=== PATIENT | female | born 1970 | race Caucasian/White ===

== ENCOUNTER 2021-04-23 13:45 | Inpatient (IN) | payer OTHER, MEDICARE, MEDICAID, SELFPAY ==
--- NOTE | 2021-04-23 16:09 | PC.NURSE ---
Offered pt the flu vaccine, pt declined at this time.
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
[2021-04-23 20:32] VITALS: BP 128/72; PULSE 79; TEMP 36.8; O2SAT 95
[2021-04-23] MEDS: QUEtiapine Fumarate 200 MG TABLET PO (20:41)
[2021-04-23] MEDS: diazePAM 5 MG TABLET PO (20:41)
[2021-04-23] MEDS: QUEtiapine Fumarate 400 MG TABLET 800 MG PO (20:41)
[2021-04-23] MEDS: hydrOXYzine HCL 25 MG TABLET PO (23:04)
[2021-04-24 08:25] VITALS: BP 113/63; PULSE 132; RESP 16; TEMP 36.6; O2SAT 95
[2021-04-24] MEDS: diazePAM 5 MG TABLET PO ×3 (08:28→22:11)
[2021-04-24] MEDS: Nicotine 21 MG PATCH.TD24 TRANSDERMA (14:50)
--- NOTE | 2021-04-24 14:50 | P.CNHOSGPS_ITS ---
History of Present Illness Data of Consult Service Date: 04/24/21 Requesting physician: Morgan Alexandre Primary Care Provider: Kain Garnica MD HPI Reason for consult: Routine medical consult - transfer from outside facility This is a 51-year-old female with history of PTSD, depression, anxiety who presented to [facility] Emergency Department for shortness of breath but endorsed suicidal ideation with plan. She was transferred to Adult inpatient Psychiatric floor here at [facility] for further management. The hospitalists were asked to see her for routine medical consultation. She denies shortness of breath at this time. She does describe what sounds like a fungal rash in her groin. She reports urinary frequency but denies dysuria or hematuria. She reports palpitations that occur frequently which has been a problem for years and she attributes to anxiety. She thinks she may have had a thyroid issue in the past which resolved. She does not currently take any thyr oid replacement. She denies any chest pain. Review of Systems Review of Systems: Yes all other systems are reviewed and are negative Constitutional: Constitutional: Denies chills and Denies fever(s) Cardiovascular: Cardiovascular: Denies chest pain, Reports palpitations and Denies orthopnea Respiratory: Respiratory: Denies cough Gastrointestinal: Gastrointestinal: Denies abdominal pain Genitourinary: Genitourinary: Denies dysuria and Denies vaginal discharge Endocrine: Endocrine: Reports palpitations [facility] Medical History (Updated 04/24/21 @ 15:03 by KALINA Hearn) Compartment syndrome of lower extremity COPD (chronic obstructive pulmonary disease) CHELLE (generalized anxiety disorder) MDD (major depressive disorder), recurrent episode, moderate Post traumatic stress disorder (PTSD) Functional capacity: independent ambulation Pertinent family history: brother - schizophrenia Social History Household Members: None Housing: House Do you presently have visiting nurse or other home services: No Patient Tobacco Use Status: Current everyday Tobacco user Tobacco use type: Cigarette Years Smoked: 40 Smoked in Last 30 Days: Yes e-Cigarette/Vaping Use: Never Used Patient Interested in Nicotine Replacement: Yes Patient Given Instructions on How to Stop Smoking: Yes Date Education Initiated: 04/23/21 Second Hand Smoke Exposure: Yes Use of substances other than those prescribed or required for medical reasons: No Currently Displaying Signs/Symptoms of Drug Intoxication Withdrawal: No Any prior treatment program specific to substance use: No Have you been hit, kicked, punched, or otherwise hurt by someone within the past year? If so, by whom?: No Do you feel safe in your current relationship?: No Current Relationship Are you made to feel afraid or neglected: Yes Spiritual Healthcare Practices: N/A Mormonism Healthcare Practices: N/A Advance Directives: Yes Advance Directives Information Provided: Yes Advance Directives on File: No Do you have thoughts of harming others: None Do you have a plan to hurt others: No Plan Recently lost weight without trying: No How much weight loss: Not applicable Eating poorly because of decreased appetite: Yes Nutrition screen score: 1 Nutrition Risks: No Nutritional Risk Patient : No : No service: No Sexual orientation: Straight/Heterosexual Meds Allergies Allergy/AdvReac Type Severity Reaction Status Date / Time No Known Allergies Allergy Unverified 03/20/20 19:15 [No Known Allergies*] Active Medications: Current Medications Acetaminophen (Acetaminophen 325 Mg Tablet) 650 mg PO Q6H PRN PRN Reason: Headache/Pain Mild Scale (1-3) Al Hydroxide/Mg Hydroxide (Magnesium Hydrox/Alum Hydrox 30 Ml Oral.Susp) 30 ml PO Q6H PRN PRN Reason: Heartburn/Nausea Diazepam (Diazepam 5 Mg Tablet) 5 mg PO TID [facility] Last Admin: 04/24/21 08:28 Dose: 5 mg Documented by: Hydroxyzine HCl (Hydroxyzine Hcl 25 Mg Tablet) 25 mg PO BEDTIME PRN PRN Reason: Anxiety Last Admin: 04/23/21 23:04 Dose: 25 mg Documented by: Magnesium Hydroxide (Milk Of Magnesia 30 Ml Oral.Susp) 30 ml PO DAILY PRN PRN Reason: Constipation Nicotine (Nicotine 21 Mg Patch.Td24) 21 mg TRANSDERMA DAILY [facility] Nicotine Polacrilex (Nicotine Polacrilex 2 Mg Gum) 2 mg BUCCAL Q2H PRN PRN Reason: Nicotine Cravings Quetiapine Fumarate (Quetiapine Fumarate 400 Mg Tablet) 800 mg PO BEDTIME [facility] Last Admin: 04/23/21 20:41 Dose: 800 mg Documented by: Quetiapine Fumarate (Quetiapine Fumarate 200 Mg Tablet) 200 mg PO BEDTIME [facility] Last Admin: 04/23/21 20:41 Dose: 200 mg Documented by: Trazodone HCl (Trazodone Hcl 50 Mg Tablet) 50 mg PO BEDTIME PRN PRN Reason: Insomnia Home Medications Medication Instructions Recorded Confirmed Last Taken Type Valium 5 mg PO TID 04/23/21 04/23/21 Unknown History escitalopram oxalate 20 mg PO DAILY 04/23/21 04/23/21 Unknown History omeprazole 40 mg PO DAILY 04/23/21 04/23/21 Unknown History quetiapine 200 mg PO DAILY 04/23/21 04/23/21 Unknown History quetiapine 800 mg PO DAILY 04/23/21 04/23/21 Unknown History Assessment and Plan (1) Tobacco dependence: Status: Acute This is a 51-year-old female with history of COPD, depression, anxiety admitted to adult psychiatric floor for management suicidal ideation Tachycardia noted on am vital signs. reporting that she always has palpitations due to anxiety pt not tachycardic on exam if recurrent episodes of tachycardia would recommend EKG and check thyroid function if not done recently dysuria -will obtain UA fungal rash -nystatin COPD no acute exacerbation prn albuterol unknown maintenance inhaler outpatient follow up with pcp tobacco dependence smoking cessation advised -NRT Thank you for allowing us to participate in the care of this patient attending: dr. hernandez Physical Exam Vital Signs: Last Vital Signs Temp 97.9 F 04/24/21 08:25 Pulse 132 H 04/24/21 08:25 Resp 16 04/24/21 08:25 BP 113/63 04/24/21 08:25 Pulse Ox 95 04/24/21 08:25 Const General: comfortable, alert and awake Nutritional Appearance: well nourished Orientation/consciousness: patient oriented x3 HENMT Head: Yes normocephalic and Yes atraumatic Eyes Sclerae: sclerae normal Pupils: Equal, round and reactive pupils present Resp Effort & Inspection: normal respiratory effort and no respiratory distress Cardio Rate: regular rate Rhythm: regular rhythm GI Palpation (GI): Soft to palpation and nontender Neuro General: patient oriented x3 Cranial nerves: Yes CN's II-XII intact bilaterally, Yes Equal, round and reactive pupils present and Yes Bilaterally intact EOM present Extrem Other: no lower extremity edema
[2021-04-24 18:00] VITALS: BP 121/76; PULSE 95; RESP 18; TEMP 36.6; O2SAT 96
[2021-04-24 19:18] LABS: Appearance Urine HAZY; Color Urine YELLOW; Glucose Urine UA NEG (NEG); Leukocyte Esterase Urine 1+ (NEG); Nitrite Urine NEG (NEG); Specific Gravity - Urine >= 1.030 (1.005-1.025); UACC Culture Trigger YES; Urine Blood TRACE (NEG); Urine Ketones NEG (NEG); Urine Protein NEG (NEG-TRACE)
[2021-04-24 19:31] LABS: Bacteria Urine 1+ /LPF; Squamous Epithelial Cell Urine 3+ /LPF; UACC CULT YES
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
[2021-04-24] MEDS: QUEtiapine Fumarate 400 MG TABLET 800 MG PO (22:11)
[2021-04-24] MEDS: QUEtiapine Fumarate 200 MG TABLET PO (22:11)
[2021-04-24] MEDS: Nystatin Powder 15 GM BOTTLE 1 APPL TOPICAL (22:11)
[2021-04-24] MEDS: Albuterol Sulfate 90 MCG 8 GM INHALER 2 PUFF INHALE (22:16)
--- NOTE | 2021-04-24 22:27 | PC.NURSE ---
Mague reported a small amount of SOB, given Albuterol inhaler PO prn.
[2021-04-24] MEDS: hydrOXYzine HCL 25 MG TABLET PO (23:16)
[2021-04-25] MEDS: traZODone HCL 50 MG TABLET PO (00:42)
[2021-04-25] MEDS: Nystatin Powder 15 GM BOTTLE 1 APPL TOPICAL ×2 (08:57→22:55)
[2021-04-25] MEDS: Nicotine 21 MG PATCH.TD24 TRANSDERMA (08:57)
[2021-04-25] MEDS: diazePAM 5 MG TABLET PO ×3 (08:57→22:55)
[2021-04-25 10:04] VITALS: BP 137/57; PULSE 104; RESP 16; TEMP 36.6; O2SAT 97
--- NOTE | 2021-04-25 16:48 | P.PNPSI_ITS ---
Subjective Subjective Date of Service: 04/25/21 Reason For Visit: depression and si Interim History: Patient seen and discussed with team. Per staff psychologist patient continues depressed. They are wondering if patient can have a cane to use. She has knee braces. No concern for aggression towards others. Denies SI. She discusses her depression and treatment resistance. 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 In hospital attire, unkempt, poor hygiene, overweight. Good eye contact, attentive. Has tremor in bilateral hands, fine and rhythmic, attributed to anxiety. No abnormal involuntary movements. Anxious, distressed but cooperative, engaged. Non-pressured speech, spontaneous with regular rate and rhythm, normal volume and prosody. No prolonged speech latency or dysarthria. Appears fragile in behavior, apologizing unnecessarily. Mood is ?depressed,? affect is dysphoric. Endorses SI with vague plans, denies intent. Denies SIB/HI upon inquiry. Denies A/VH or delusional thought content. Thoughts are perseverative. No known cognitive or memory impairment. Insight/ Judgment fair and adequate. Diagnostics Vital Signs (24Hr): Vital Signs - 24 hr 04/24/21 18:00 04/25/21 10:04 Temperature 98 F 97.9 F Pulse Rate 95 104 H Respiratory Rate 18 16 Blood Pressure 121/76 137/57 L Pulse Oximetry 96 97 Labs Labs: Laboratory Results - last 48 hr 04/24/21 19:05 Urine Color YELLOW Urine Appearance HAZY Urine pH 6.0 Ur Specific [place] >= 1.030 H Urine Protein NEG Urine Glucose (UA) NEG Urine Ketones NEG Urine Blood TRACE Urine Nitrite NEG Ur Leukocyte Esterase 1+ H Urine RBC 5-9 H Urine WBC 10-14 H Ur Squamous Epith Cells 3+ Urine Bacteria 1+ Medications Medications Current Medications Acetaminophen (Acetaminophen 325 Mg Tablet) 650 mg PO Q6H PRN PRN Reason: Headache/Pain Mild Scale (1-3) Al Hydroxide/Mg Hydroxide (Magnesium Hydrox/Alum Hydrox 30 Ml Oral.Susp) 30 ml PO Q6H PRN PRN Reason: Heartburn/Nausea Albuterol Sulfate (Albuterol Sulfate 90 Mcg 8 Gm Inhaler) 2 puff INHALE RQ6H PRN PRN Reason: Shortness of Breath Last Admin: 04/24/21 22:16 Dose: 2 puff Documented by: Diazepam (Diazepam 5 Mg Tablet) [address] [facility] Last Admin: 04/25/21 15:09 Dose: 5 mg Documented by: Hydroxyzine HCl (Hydroxyzine Hcl 25 Mg Tablet) 25 mg PO BEDTIME PRN PRN Reason: Anxiety Last Admin: 04/24/21 23:16 Dose: 25 mg Documented by: Magnesium Hydroxide (Milk Of Magnesia 30 Ml Oral.Susp) 30 ml PO DAILY PRN PRN Reason: Constipation Nicotine (Nicotine 21 Mg Patch.Td24) [address] [facility] Last Admin: 04/25/21 08:57 Dose: 21 mg Documented by: Nicotine Polacrilex (Nicotine Polacrilex 2 Mg Gum) 2 mg BUCCAL Q2H PRN PRN Reason: Nicotine Cravings Nystatin (Nystatin Powder 15 Gm Bottle) [address] [facility]; Protocol Last Admin: 04/25/21 08:57 Dose: 1 appl Documented by: Quetiapine Fumarate (Quetiapine Fumarate 400 Mg Tablet) [address] [facility] Last Admin: 04/24/21 22:11 Dose: 800 mg Documented by: Quetiapine Fumarate (Quetiapine Fumarate 200 Mg Tablet) [address] [facility] Last Admin: 04/24/21 22:11 Dose: 200 mg Documented by: Trazodone HCl (Trazodone Hcl 50 Mg Tablet) 50 mg PO BEDTIME PRN PRN Reason: Insomnia Last Admin: 04/25/21 00:42 Dose: 50 mg Documented by: Allergies Allergies Allergy/AdvReac Type Severity Reaction Status Date / Time No Known Allergies Allergy Unverified 03/20/20 19:15 [No Known Allergies*] Assessment & Plan Assessment & Plan (1) Tobacco dependence: Status: Acute Code(s): F17.200 - Nicotine dependence, unspecified, uncomplicated (2) MDD (major depressive disorder), recurrent episode, moderate: Status: Acute Code(s): F33.1 - Major depressive disorder, recurrent, moderate (3) CHELLE (generalized anxiety disorder): Status: Acute Code(s): F41.1 - Generalized anxiety disorder (4) Post traumatic stress disorder (PTSD): Status: Acute Code(s): F43.10 - Post-traumatic stress disorder, unspecified Assessment and Plan: Pt is a 51 y.o. 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 She has co-morbid chronic pain issues and ambulates with leg braces s/p fasciitis. Denies substance or alcohol use problems. Reports significant past traumas that she has had difficulty moving past. Hx of multiple past med trials, IPLOC, ECT but pt denies benefit. Currently presenting with sx of depression, lack of self care, anxiety with panic attacks, isolative behaviors, and intrusive negative thoughts. She feels safe on the unit and denies suicidal intent or plan at hospital. She has been using diazepam and high dose seroquel for sleep and anxiety management but denies that seroquel has helped with depression sx. No med changes made today, as more collateral info is needed and will monitor pt's behaviors on unit to assess for coping skills and strengths. 04/24: Seen by hospitalist for consult, much appreciated. Reported rash, prescribed nystatin. U/A obtained for dysuria. No med changes made today, as pt has a hx of extensive med trials and ECT. Had been discussing ketamin with OP prescriber but pt remains ambivalent. Discussed other options including TMS, emsam patch, or decreasing seroquel and initiating vraylar to target mood stability, perseverative thoughts, and anxious agitation. Pt will f/u with primary psych provider on Tuesday. Monitor response to current medications. Monitor for safety in the milieu. Discharge on stabilization. Patient seen. Chart reviewed. Discussed with team. Obtain collateral contact info?as needed I spent minutes with the patient and/or on the patient floor today, greater than?50% of which was spent counseling/coordinating care. Reason for contiued inpatient stay Substantial Risk for: harm to self and rapid decompensation
[2021-04-25] MEDS: Magnesium Hydrox/Alum Hydrox 30 ML ORAL.SUSP PO (17:59)
[2021-04-25 18:00] VITALS: BP 136/69; PULSE 95; RESP 18; TEMP 36.9; O2SAT 98
[2021-04-25] MEDS: Omeprazole 40 MG CAPSULE.DR PO (19:02)
[2021-04-25] MEDS: QUEtiapine Fumarate 400 MG TABLET 800 MG PO (22:55)
[2021-04-25] MEDS: Nicotine Polacrilex 2 MG GUM BUCCAL (22:55)
[2021-04-25] MEDS: QUEtiapine Fumarate 200 MG TABLET PO (22:55)
[2021-04-26] MEDS: traZODone HCL 50 MG TABLET PO ×2 (00:33→01:23)
[2021-04-26] MEDS: hydrOXYzine HCL 25 MG TABLET PO ×2 (00:33→22:04)
[2021-04-26] MEDS: Omeprazole 40 MG CAPSULE.DR PO ×2 (11:12→22:00)
[2021-04-26] MEDS: diazePAM 5 MG TABLET PO ×3 (11:13→22:00)
[2021-04-26] MEDS: Nicotine 21 MG PATCH.TD24 TRANSDERMA (11:13)
[2021-04-26] MEDS: Nystatin Powder 15 GM BOTTLE 1 APPL TOPICAL ×2 (11:25→22:01)
--- NOTE | 2021-04-26 20:12 | P.PNPSI_ITS ---
Subjective Subjective Date of Service: 04/26/21 Reason For Visit: depression and si Interim History: Patient seen and discussed with team. Per industrial staff nurse patient continues depressed. She complained of insomnia. Denies SI. She discusses her depression and treatment resistance. Helpless and hopeless presenting. Review of Systems Review of Systems Yes all other systems are reviewed and are negative Mental Status Exam Mental Status Exam Narrative: A&O. In hospital attire, unkempt, poor hygiene, overweight. Good eye contact, attentive. Has tremor in bilateral hands, fine and rhythmic, attributed to anxiety. No abnormal involuntary movements. Anxious, distressed but cooperative, engaged. Non-pressured speech, spontaneous with regular rate and rhythm, normal volume and prosody. No prolonged speech latency or dysarthria. Appears fragile in behavior, apologizing unnecessarily. Mood is ?depressed,? affect is dysphoric. Endorses SI with vague plans, denies intent. Denies SIB/HI upon inquiry. Denies A/VH or delusional thought content. Thoughts are perseverative. No known cognitive or memory impairment. Insight/ Judgment fair and adequate. Medications Medications Current Medications Acetaminophen (Acetaminophen 325 Mg Tablet) 650 mg PO Q6H PRN PRN Reason: Headache/Pain Mild Scale (1-3) Al Hydroxide/Mg Hydroxide (Magnesium Hydrox/Alum Hydrox 30 Ml Oral.Susp) 30 ml PO Q6H PRN PRN Reason: Heartburn/Nausea Last Admin: 04/25/21 17:59 Dose: 30 ml Documented by: Albuterol Sulfate (Albuterol Sulfate 90 Mcg 8 Gm Inhaler) 2 puff INHALE RQ6H PRN PRN Reason: Shortness of Breath Last Admin: 04/24/21 22:16 Dose: 2 puff Documented by: Diazepam (Diazepam 5 Mg Tablet) 5 mg PO TID [facility] Last Admin: 04/26/21 15:25 Dose: 5 mg Documented by: Hydroxyzine HCl (Hydroxyzine Hcl 25 Mg Tablet) 25 mg PO BEDTIME PRN PRN Reason: Anxiety Last Admin: 04/26/21 00:33 Dose: 25 mg Documented by: Magnesium Hydroxide (Milk Of Magnesia 30 Ml Oral.Susp) 30 ml PO DAILY PRN PRN Reason: Constipation Melatonin (Melatonin 3 Mg Tablet) 6 mg PO BEDTIME [facility] Nicotine (Nicotine 21 Mg Patch.Td24) 21 mg TRANSDERMA DAILY [facility] Last Admin: 04/26/21 11:13 Dose: 21 mg Documented by: Nicotine Polacrilex (Nicotine Polacrilex 2 Mg Gum) 2 mg BUCCAL Q2H PRN PRN Reason: Nicotine Cravings Last Admin: 04/25/21 22:55 Dose: 2 mg Documented by: Nystatin (Nystatin Powder 15 Gm Bottle) 1 appl TOPICAL BID [facility]; Protocol Last Admin: 04/26/21 11:25 Dose: 1 appl Documented by: Omeprazole (Omeprazole 40 Mg Capsule.Dr) 40 mg PO BEDTIME [facility] Quetiapine Fumarate (Quetiapine Fumarate 400 Mg Tablet) 800 mg PO BEDTIME [facility] Last Admin: 04/25/21 22:55 Dose: 800 mg Documented by: Quetiapine Fumarate (Quetiapine Fumarate 200 Mg Tablet) 200 mg PO BEDTIME [facility] Last Admin: 04/25/21 22:55 Dose: 200 mg Documented by: Trazodone HCl (Trazodone Hcl 50 Mg Tablet) 50 mg PO BEDTIME PRN PRN Reason: Insomnia Last Admin: 04/26/21 01:23 Dose: 50 mg Documented by: Allergies Allergies Allergy/AdvReac Type Severity Reaction Status Date / Time No Known Allergies Allergy Unverified 03/20/20 19:15 [No Known Allergies*] Assessment & Plan Assessment & Plan (1) Tobacco dependence: Status: Acute Code(s): F17.200 - Nicotine dependence, unspecified, uncomplicated (2) MDD (major depressive disorder), recurrent episode, moderate: Status: Acute Code(s): F33.1 - Major depressive disorder, recurrent, moderate (3) CHELLE (generalized anxiety disorder): Status: Acute Code(s): F41.1 - Generalized anxiety disorder (4) Post traumatic stress disorder (PTSD): Status: Acute Code(s): F43.10 - Post-traumatic stress disorder, unspecified Assessment and Plan: Pt is a 51 y.o. 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 She has co-morbid chronic pain issues and ambulates with leg braces s/p fasciitis. Denies substance or alcohol use problems. Reports significant past traumas that she has had difficulty movi ng past. Hx of multiple past med trials, IPLOC, ECT but pt denies benefit. Currently presenting with sx of depression, lack of self care, anxiety with panic attacks, isolative behaviors, and intrusive negative thoughts. She feels safe on the unit and denies suicidal intent or plan at hospital. She has been using diazepam and high dose seroquel for sleep and anxiety management but denies that seroquel has helped with depression sx. No med changes made today, as more collateral info is needed and will monitor pt's behaviors on unit to assess for coping skills and strengths. 04/24: Seen by hospitalist for consult, much appreciated. Reported rash, prescribed nystatin. U/A obtained for dysuria. No med changes made today, as pt has a hx of extensive med trials and ECT. Had been discussing ketamin with OP prescriber but pt remains ambivalent. Discussed other options including TMS, emsam patch, or decreasing seroquel and initiating vraylar to target mood stability, perseverative thoughts, and anxious agitation. Pt will f/u with primary psych provider Tuesday. Monitor response to current medications. Monitor for safety in the milieu. Discharge on stabilization. Patient seen. Chart reviewed. Discussed with team. Obtain collateral contact info?as needed 04/26/21: Start Melatonin 6 mg HS I spent minutes with the patient and/or on the patient floor today, greater than?50% of which was spent counseling/coordinating care. Reason for contiued inpatient stay Substantial Risk for: harm to self and inability to function
[2021-04-26 20:44] VITALS: PULSE 94; TEMP 36.6; O2SAT 96
[2021-04-26] MEDS: QUEtiapine Fumarate 200 MG TABLET PO (22:00)
[2021-04-26] MEDS: QUEtiapine Fumarate 400 MG TABLET 800 MG PO (22:00)
[2021-04-26] MEDS: Melatonin 3 MG TABLET 6 MG PO (22:00)
[2021-04-27] MEDS: traZODone HCL 50 MG TABLET PO ×2 (00:18→23:38)
[2021-04-27] MEDS: diazePAM 5 MG TABLET PO ×3 (11:03→23:38)
[2021-04-27] MEDS: Nystatin Powder 15 GM BOTTLE 1 APPL TOPICAL ×2 (11:04→23:39)
[2021-04-27] MEDS: Nicotine 21 MG PATCH.TD24 TRANSDERMA (11:04)
[2021-04-27 15:26] VITALS: BP 117/73; PULSE 85
[2021-04-27] MEDS: cloNIDine 0.1 MG PATCH.TDWK TRANSDERMA (15:26)
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
[2021-04-27 20:44] VITALS: BP 122/61; PULSE 91; TEMP 36.6; O2SAT 95
[2021-04-27] MEDS: Melatonin 3 MG TABLET 6 MG PO (23:38)
[2021-04-27] MEDS: hydrOXYzine HCL 25 MG TABLET PO (23:38)
[2021-04-27] MEDS: QUEtiapine Fumarate 400 MG TABLET 800 MG PO (23:39)
[2021-04-27] MEDS: Omeprazole 40 MG CAPSULE.DR PO (23:39)
[2021-04-27] MEDS: QUEtiapine Fumarate 200 MG TABLET PO (23:39)
[2021-04-28] MEDS: traZODone HCL 50 MG TABLET PO (01:35)
[2021-04-28] MEDS: Nystatin Powder 15 GM BOTTLE 1 APPL TOPICAL ×2 (09:44→22:57)
[2021-04-28] MEDS: Nicotine 21 MG PATCH.TD24 TRANSDERMA (09:44)
[2021-04-28] MEDS: diazePAM 5 MG TABLET PO ×3 (09:44→22:57)
[2021-04-28 10:10] VITALS: BP 127/54; PULSE 86; RESP 16; TEMP 36.7; O2SAT 97
[2021-04-28] MEDS: Ibuprofen 800 MG TABLET PO ×2 (12:29→23:33)
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
[2021-04-28 20:50] VITALS: BP 120/63; PULSE 94; RESP 18; TEMP 36.6; O2SAT 94
[2021-04-28] MEDS: QUEtiapine Fumarate 400 MG TABLET 800 MG PO (22:56)
[2021-04-28] MEDS: QUEtiapine Fumarate 200 MG TABLET PO (22:56)
[2021-04-28] MEDS: Melatonin 3 MG TABLET 6 MG PO (22:56)
[2021-04-28 22:57] VITALS: BP 128/60; PULSE 87
[2021-04-28] MEDS: cloNIDine HCL 0.1 MG TABLET PO (22:57)
[2021-04-28] MEDS: Magnesium Hydrox/Alum Hydrox 30 ML ORAL.SUSP PO (23:33)
[2021-04-28] MEDS: hydrOXYzine HCL 25 MG TABLET PO (23:34)
[2021-04-29] MEDS: traZODone HCL 50 MG TABLET PO (01:05)
[2021-04-29] MEDS: Omeprazole 40 MG CAPSULE.DR PO (06:39)
[2021-04-29 09:45] VITALS: BP 95/54; PULSE 80; RESP 18; TEMP 36.6; O2SAT 96
[2021-04-29] MEDS: Nicotine 21 MG PATCH.TD24 TRANSDERMA (09:53)
[2021-04-29] MEDS: diazePAM 5 MG TABLET PO (09:53)
[2021-04-29] MEDS: Nystatin Powder 15 GM BOTTLE 1 APPL TOPICAL ×2 (10:18→23:03)
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
[2021-04-29 13:16] LABS: Cholesterol 181 mg/dL; HDL Cholesterol 47 mg/dL; LDL Cholesterol Calculated 72 mg/dl; Triglycerides 310 mg/dL
[2021-04-29 13:40] LABS: Estimated Average Glucose 111 mg/dL; Hemoglobin A1c % 5.5 %
[2021-04-29] MEDS: diazePAM 5 MG TABLET 7.5 MG PO ×2 (14:52→22:56)
[2021-04-29] MEDS: Ibuprofen 800 MG TABLET PO (15:24)
[2021-04-29 18:00] VITALS: BP 117/58; PULSE 93; RESP 18; TEMP 36.8; O2SAT 96
[2021-04-29] MEDS: QUEtiapine Fumarate 400 MG TABLET 800 MG PO (22:56)
[2021-04-29] MEDS: Melatonin 3 MG TABLET 6 MG PO (22:56)
[2021-04-29] MEDS: QUEtiapine Fumarate 200 MG TABLET PO (22:56)
[2021-04-29 22:57] VITALS: BP 110/67; PULSE 92
[2021-04-29] MEDS: cloNIDine HCL 0.2 MG TABLET PO (22:57)
[2021-04-30] MEDS: hydrOXYzine HCL 25 MG TABLET PO ×2 (00:21→21:46)
[2021-04-30 06:00] VITALS: BP 115/63; PULSE 80; RESP 16; TEMP 36.9; O2SAT 96
[2021-04-30] MEDS: Omeprazole 40 MG CAPSULE.DR PO (06:52)
[2021-04-30] MEDS: Nicotine 21 MG PATCH.TD24 TRANSDERMA (09:43)
[2021-04-30] MEDS: diazePAM 5 MG TABLET 7.5 MG PO ×3 (09:44→21:34)
--- NOTE | 2021-04-30 11:37 | P.PNPSI_ITS ---
Subjective Subjective Date of Service: 04/30/21 Reason For Visit: depression and si Interim History: pt requests to meet in her room today due to feeling tired... found resting in her bed, easily rousable. she reports her mood is an anxiety level of 9/10. she appears drowsy. MD notes that perhaps the recent increase in valium dosing is making her sleepy, but she feels it does not usually do that and is skeptical. she states she had difficulty falling asleep last night but denies it was due to reflux. reports once she fell asleep she stayed asleep and slept for about 5 hours. she reports her mood has not changed since admission. she is agreeable to continue current mgmt for now. per staff, DFA due to reflux. reporting anx/dep 9/10. denies SI/HI during day, endorsed passive SI on eves. Mental Status Exam Mental Status Exam Narrative: A&O. In sweats, unkempt, poor hygiene, overweight. fair eye contact, attentive but somnolent. No abnormal involuntary movements. Anxious but cooperative, engaged. Non-pressured speech, spontaneous with regular rate and rhythm, normal volume and prosody. No prolonged speech latency or dysarthria. Mood is anxious, affect is constricted. Thoughts are linear and logical. No known cognitive or memory impairment. Insight/ Judgment fair and adequate. Diagnostics Vital Signs (24Hr): Vital Signs - 24 hr 04/29/21 18:00 04/29/21 22:57 04/30/21 06:00 Temperature 98.2 F 98.4 F Pulse Rate 93 92 80 Respiratory Rate 18 16 Blood Pressure 117/58 L 110/67 115/63 Pulse Oximetry 96 96 Labs Labs: Laboratory Results - last 48 hr 04/29/21 04/29/21 12:54 12:54 Estimat Average Glucose 111 Hemoglobin A1c % 5.5 Triglycerides 310 Cholesterol 181 LDL Cholesterol, Calc 72 HDL Cholesterol 47 Medications Medications Current Medications Acetaminophen (Acetaminophen 325 Mg Tablet) 650 mg PO Q6H PRN PRN Reason: Headache/Pain Mild Scale (1-3) Al Hydroxide/Mg Hydroxide (Magnesium Hydrox/Alum Hydrox 30 Ml Oral.Susp) 30 ml PO Q6H PRN PRN Reason: Heartburn/Nausea Last Admin: 04/28/21 23:33 Dose: 30 ml Documented by: Albuterol Sulfate (Albuterol Sulfate 90 Mcg 8 Gm Inhaler) 2 puff INHALE RQ6H PRN PRN Reason: Shortness of Breath Last Admin: 04/24/21 22:16 Dose: 2 puff Documented by: Clonidine HCl (Clonidine Hcl 0.2 Mg Tablet) 0.2 mg PO BEDTIME [facility]; Protocol Last Admin: 04/29/21 22:57 Dose: 0.2 mg Documented by: Diazepam (Diazepam 5 Mg Tablet) 7.5 mg PO TID [facility] Last Admin: 04/30/21 09:44 Dose: 7.5 mg Documented by: Hydroxyzine HCl (Hydroxyzine Hcl 25 Mg Tablet) 25 mg PO BEDTIME PRN PRN Reason: Anxiety Last Admin: 04/30/21 00:21 Dose: 25 mg Documented by: Ibuprofen (Ibuprofen 800 Mg Tablet) 800 mg PO Q8H PRN PRN Reason: moderate to severe pain Last Admin: 04/29/21 15:24 Dose: 800 mg Documented by: Magnesium Hydroxide (Milk Of Magnesia 30 Ml Oral.Susp) 30 ml PO DAILY PRN PRN Reason: Constipation Melatonin (Melatonin 3 Mg Tablet) 6 mg PO BEDTIME [facility] Last Admin: 04/29/21 22:56 Dose: 6 mg Documented by: Nicotine (Nicotine 21 Mg Patch.Td24) 21 mg TRANSDERMA DAILY [facility] Last Admin: 04/30/21 09:43 Dose: 21 mg Documented by: Nicotine Polacrilex (Nicotine Polacrilex 2 Mg Gum) 2 mg BUCCAL Q2H PRN PRN Reason: Nicotine Cravings Last Admin: 04/25/21 22:55 Dose: 2 mg Documented by: Nystatin (Nystatin Cream 15 Gm Tube) 1 appl TOPICAL BID [facility]; Protocol Omeprazole (Omeprazole 40 Mg Capsule.Dr) 40 mg PO DAILY@0630 [facility] Last Admin: 04/30/21 06:52 Dose: 40 mg Documented by: Quetiapine Fumarate (Quetiapine Fumarate 400 Mg Tablet) 800 mg PO BEDTIME [facility] Last Admin: 04/29/21 22:56 Dose: 800 mg Documented by: Quetiapine Fumarate (Quetiapine Fumarate 200 Mg Tablet) 200 mg PO BEDTIME [facility] Last Admin: 04/29/21 22:56 Dose: 200 mg Documented by: Trazodone HCl (Trazodone Hcl 50 Mg Tablet) 50 mg PO BEDTIME PRN PRN Reason: Insomnia Last Admin: 04/29/21 01:05 Dose: 50 mg Documented by: Allergies Allergies Allergy/AdvReac Type Severity Reaction Status Date / Time No Known Allergies Allergy Unverified 03/20/20 19:15 [No Known Allergies*] Assessment & Plan Assessment & Plan (1) Tobacco dependence: Status: Acute Code(s): F17.200 - Nicotine dependence, unspecified, uncomplicated (2) MDD (major depressive disorder), recurrent episode, moderate: Status: Acute Code(s): F33.1 - Major depressive disorder, recurrent, moderate (3) CHELLE (generalized anxiety disorder): Status: Acute Code(s): F41.1 - Generalized anxiety disorder (4) Post traumatic stress disorder (PTSD): Status: Acute Code(s): F43.10 - Post-traumatic stress disorder, unspecified Assessment and Plan: Pt is a 51 y.o. 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 She has co-morbid chronic pain issues and ambulates with leg braces s/p fasciitis. Denies substance or alcohol use problems. Reports significant past traumas that she has had difficulty moving past. Hx of multiple past med trials, IPLOC, ECT but pt denies benefit. Currently presenting with sx of depression, lack of self care, anxiety with panic attacks, isolative behaviors, and intrusive negative thoughts. She feels safe on the unit and denies suicidal intent or plan at hospital. She has been using diazepam and high dose seroquel for sleep and anxiety management but denies that seroquel has helped with depression sx. 04/24: Seen by hospitalist for consult, much appreciated. Reported rash, prescribed nystatin. U/A obtained for dysuria. pt has a hx of extensive med trials and ECT. Had been discussing ketamine with OP prescriber but pt remains ambivalent. Discussed other options including TMS, selegiline patch, or decreasing seroquel and initiating cariprazine to target mood stability, perseverative thoughts, and anxious agitation. 04/26/21: Started Melatonin 6 mg HS 04/27: pt started on clonidine 0.1 mg/24H patch to target sympathetic hyperarousal. 04/28: clonidine 0.1 mg QHS added for sleep/nightmares. 04/29: clonidine 0.1 mg QHS increased to 0.2 mg QHS for insomnia/nightmares. hold for SBP < 90. podiatry consult placed. valium dosing increased from 5 TID to 7.5 TID. message left for outpt prescriber. 04/30: pt reports unchanged mood or anxiety, although looks somnolent, likely from valium dosing increase. Monitor response to current medications. Monitor for safety in the milieu. Discharge on stabilization. Patient seen. Chart reviewed. Discussed with team. Obtain collateral contact info?as needed I spent minutes with the patient and/or on the patient floor today, greater than?50% of which was spent counseling/coordinating care. Reason for contiued inpatient stay Substantial Risk for: harm to self
[2021-04-30] MEDS: Nystatin Cream 15 GM TUBE 1 APPL TOPICAL ×2 (14:51→21:48)
[2021-04-30] MEDS: Ibuprofen 800 MG TABLET PO (17:23)
[2021-04-30 18:00] VITALS: BP 114/55; PULSE 85; RESP 18; TEMP 36.6; O2SAT 98
[2021-04-30 21:33] VITALS: BP 114/55; PULSE 85
[2021-04-30] MEDS: Melatonin 3 MG TABLET 6 MG PO (21:33)
[2021-04-30] MEDS: cloNIDine HCL 0.2 MG TABLET PO (21:33)
[2021-04-30] MEDS: QUEtiapine Fumarate 400 MG TABLET 800 MG PO (21:34)
[2021-04-30] MEDS: QUEtiapine Fumarate 200 MG TABLET PO (21:34)
[2021-04-30] MEDS: Albuterol Sulfate 90 MCG 8 GM INHALER 2 PUFF INHALE (21:46)
[2021-04-30] MEDS: Magnesium Hydrox/Alum Hydrox 30 ML ORAL.SUSP PO (22:39)
[2021-05-01] MEDS: traZODone HCL 50 MG TABLET PO (00:27)
[2021-05-01] MEDS: Omeprazole 40 MG CAPSULE.DR PO (07:03)
[2021-05-01] MEDS: diazePAM 5 MG TABLET 7.5 MG PO ×3 (10:25→23:47)
[2021-05-01] MEDS: Nicotine 21 MG PATCH.TD24 TRANSDERMA (10:25)
[2021-05-01] MEDS: Albuterol Sulfate 90 MCG 8 GM INHALER 2 PUFF INHALE ×2 (10:30→16:52)
[2021-05-01] MEDS: Ibuprofen 800 MG TABLET PO ×2 (10:33→23:52)
[2021-05-01] MEDS: Nystatin Cream 15 GM TUBE 1 APPL TOPICAL ×2 (10:56→23:49)
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
[2021-05-01] MEDS: QUEtiapine Fumarate 400 MG TABLET 800 MG PO (23:47)
[2021-05-01 23:48] VITALS: BP 121/69; PULSE 82
[2021-05-01] MEDS: cloNIDine HCL 0.1 MG TABLET 0.3 MG PO (23:48)
[2021-05-01] MEDS: hydrOXYzine HCL 25 MG TABLET PO (23:48)
[2021-05-01] MEDS: QUEtiapine Fumarate 200 MG TABLET PO (23:48)
[2021-05-01] MEDS: Melatonin 3 MG TABLET 6 MG PO (23:48)
[2021-05-01 23:50] VITALS: TEMP 36.6; O2SAT 96
[2021-05-02] MEDS: traZODone HCL 50 MG TABLET PO (01:13)
[2021-05-02 06:00] VITALS: BP 110/54; PULSE 86; RESP 16; TEMP 36.3; O2SAT 96
[2021-05-02] MEDS: Nicotine 21 MG PATCH.TD24 TRANSDERMA (09:36)
[2021-05-02] MEDS: diazePAM 5 MG TABLET 7.5 MG PO ×3 (09:37→23:53)
[2021-05-02] MEDS: Nystatin Cream 15 GM TUBE 1 APPL TOPICAL (09:37)
[2021-05-02] MEDS: Omeprazole 40 MG CAPSULE.DR PO (09:37)
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
[2021-05-02] MEDS: Albuterol Sulfate 90 MCG 8 GM INHALER 2 PUFF INHALE (15:44)
[2021-05-02] MEDS: Ibuprofen 800 MG TABLET PO ×2 (15:44→23:55)
[2021-05-02 23:30] VITALS: TEMP 36.6; O2SAT 97
[2021-05-02 23:55] VITALS: BP 149/65; PULSE 86
[2021-05-02] MEDS: cloNIDine HCL 0.2 MG TABLET 0.4 MG PO (23:55)
[2021-05-02] MEDS: Melatonin 3 MG TABLET 6 MG PO (23:55)
[2021-05-02] MEDS: QUEtiapine Fumarate 200 MG TABLET PO (23:55)
[2021-05-02] MEDS: QUEtiapine Fumarate 400 MG TABLET 800 MG PO (23:55)
[2021-05-02] MEDS: hydrOXYzine HCL 25 MG TABLET PO (23:55)
[2021-05-03] MEDS: Nystatin Cream 15 GM TUBE 1 APPL TOPICAL ×2 (00:09→15:39)
[2021-05-03 06:00] VITALS: BP 112/60; PULSE 76; RESP 18; TEMP 36.5; O2SAT 95
[2021-05-03] MEDS: Nicotine 21 MG PATCH.TD24 TRANSDERMA (10:07)
[2021-05-03] MEDS: diazePAM 5 MG TABLET 7.5 MG PO ×3 (10:07→23:08)
[2021-05-03] MEDS: Omeprazole 40 MG CAPSULE.DR PO (10:07)
[2021-05-03] MEDS: Albuterol Sulfate 90 MCG 8 GM INHALER 2 PUFF INHALE (10:14)
[2021-05-03] MEDS: Ibuprofen 800 MG TABLET PO (10:14)
--- NOTE | 2021-05-03 18:00 | P.PNPSI_ITS ---
Subjective Subjective Date of Service: 05/03/21 Reason For Visit: depression and si Interim History: pt appears as she has in recent days, no clear change in affect or behavior. reports disrupted sleep overnight, agrees to increase HS clonidine to 0.5 mg. per staff, brighter affect, sleeping better, appetite good; but pt denies any such improvement. rash improved. slep 0200 to 0930. Mental Status Exam Mental Status Exam Narrative: A&O. In sweats, unkempt, poor hygiene, overweight. fair eye contact, attentive. No abnormal involuntary movements. Anxious but cooperative, engaged. Non-pressured speech, spontaneous with regular rate and rhythm, normal volume and prosody. No prolonged speech latency or dysarthria. Mood is anxious and depressed, affect is constricted. Thoughts are linear and logical. No known cognitive or memory impairment. Insight/ Judgment fair and adequate. no SI/HI/AVH expressed. Diagnostics Vital Signs (24Hr): Vital Signs - 24 hr 05/02/21 23:30 05/02/21 23:55 05/03/21 06:00 Temperature 97.8 F 97.7 F Pulse Rate 86 76 Respiratory Rate 18 Blood Pressure 149/65 H 112/60 Pulse Oximetry 97 95 Medications Medications Current Medications Acetaminophen (Acetaminophen 325 Mg Tablet) 650 mg PO Q6H PRN PRN Reason: Headache/Pain Mild Scale (1-3) Al Hydroxide/Mg Hydroxide (Magnesium Hydrox/Alum Hydrox 30 Ml Oral.Susp) 30 ml PO Q6H PRN PRN Reason: Heartburn/Nausea Last Admin: 04/30/21 22:39 Dose: 30 ml Documented by: Albuterol Sulfate (Albuterol Sulfate 90 Mcg 8 Gm Inhaler) 2 puff INHALE RQ6H PRN PRN Reason: Shortness of Breath Last Admin: 05/03/21 10:14 Dose: 2 puff Documented by: Clonidine HCl (Clonidine Hcl 0.1 Mg Tablet) 0.5 mg PO BEDTIME [facility]; Protocol Diazepam (Diazepam 5 Mg Tablet) 7.5 mg PO TID [facility] Last Admin: 05/03/21 15:54 Dose: 7.5 mg Documented by: Hydroxyzine HCl (Hydroxyzine Hcl 25 Mg Tablet) 25 mg PO BEDTIME PRN PRN Reason: Anxiety Last Admin: 05/02/21 23:55 Dose: 25 mg Documented by: Ibuprofen (Ibuprofen 800 Mg Tablet) 800 mg PO Q8H PRN PRN Reason: moderate to severe pain Last Admin: 05/03/21 10:14 Dose: 800 mg Documented by: Magnesium Hydroxide (Milk Of Magnesia 30 Ml Oral.Susp) 30 ml PO DAILY PRN PRN Reason: Constipation Melatonin (Melatonin 3 Mg Tablet) 6 mg PO BEDTIME [facility] Last Admin: 05/02/21 23:55 Dose: 6 mg Documented by: Nicotine (Nicotine 21 Mg Patch.Td24) 21 mg TRANSDERMA DAILY [facility] Last Admin: 05/03/21 10:07 Dose: 21 mg Documented by: Nicotine Polacrilex (Nicotine Polacrilex 2 Mg Gum) 2 mg BUCCAL Q2H PRN PRN Reason: Nicotine Cravings Last Admin: 04/25/21 22:55 Dose: 2 mg Documented by: Nystatin (Nystatin Cream 15 Gm Tube) 1 appl TOPICAL BID [facility]; Protocol Last Admin: 05/03/21 15:39 Dose: 1 appl Documented by: Omeprazole (Omeprazole 40 Mg Capsule.Dr) 40 mg PO DAILY@0630 [facility] Last Admin: 05/03/21 10:07 Dose: 40 mg Documented by: Quetiapine Fumarate (Quetiapine Fumarate 400 Mg Tablet) 800 mg PO BEDTIME [facility] Last Admin: 05/02/21 23:55 Dose: 800 mg Documented by: Quetiapine Fumarate (Quetiapine Fumarate 200 Mg Tablet) 200 mg PO BEDTIME [facility] Last Admin: 05/02/21 23:55 Dose: 200 mg Documented by: Trazodone HCl (Trazodone Hcl 50 Mg Tablet) 50 mg PO BEDTIME PRN PRN Reason: Insomnia Last Admin: 05/02/21 01:13 Dose: 50 mg Documented by: Allergies Allergies Allergy/AdvReac Type Severity Reaction Status Date / Time No Known Allergies Allergy Unverified 03/20/20 19:15 [No Known Allergies*] Assessment & Plan Assessment & Plan (1) Tobacco dependence: Status: Acute Code(s): F17.200 - Nicotine dependence, unspecified, uncomplicated (2) MDD (major depressive disorder), recurrent episode, moderate: Status: Acute Code(s): F33.1 - Major depressive disorder, recurrent, moderate (3) CHELLE (generalized anxiety disorder): Status: Acute Code(s): F41.1 - Generalized anxiety disorder (4) Post traumatic stress disorder (PTSD): Status: Acute Code(s): F43.10 - Post-traumatic stress disorder, unspecified Assessment and Plan: Pt is a 51 y.o. 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 She has co-morbid chronic pain issues and ambulates with leg braces s/p fasciitis. Denies substance or alcohol use problems. Reports significant past traumas that she has had difficulty moving past. Hx of multiple past med trials, IPLOC, ECT but pt denies benefit. Currently presenting with sx of depression, lack of self care, anxiety with panic attacks, isolative behaviors, and intrusive negative thoughts. She feels safe on the unit and denies suicidal intent or plan at hospital. She has been using diazepam and high dose seroquel for sleep and anxiety management but denies that seroquel has helped with depression sx. 04/24: Seen by hospitalist for consult, much appreciated. Reported rash, prescribed nystatin. U/A obtained for dysuria. pt has a hx of extensive med trials and ECT. Had been discussing ketamine with OP prescriber but pt remains ambivalent. Discussed other options including TMS, selegiline patch, or decreasing seroquel and initiating cariprazine to target mood stability, perseverative thoughts, and anxious agitation. 04/26/21: Started Melatonin 6 mg HS 04/27: pt started on clonidine 0.1 mg/24H patch to target sympathetic hyperarousal. 04/28: clonidine 0.1 mg QHS added for sleep/nightmares. 04/29: clonidine 0.1 mg QHS increased to 0.2 mg QHS for insomnia/nightmares. hold for SBP < 90. podiatry consult placed. valium dosing increased from 5 TID to 7.5 TID. message left for outpt prescriber. 04/30: pt reports unchanged mood or anxiety, although looks somnolent, likely from valium dosing increase. 05/01: not somnolent. clonidine at HS increased to 0.3 mg for sleep/anxiety. 05/02: not somnolent. denies any improvement in Sx. clonidine at HS increased to 0.4 mg. 05/03: not somnolent. denies improvement. clonidine at HS increased to 0.5 mg. Monitor response to current medications. Monitor for safety in the milieu. Discharge on stabilization. Patient seen. Chart reviewed. Discussed with team. Obtain collateral contact info?as needed I spent minutes with the patient and/or on the patient floor today, greater than?50% of which was spent counseling/coordinating care. Reason for contiued inpatient stay Substantial Risk for: harm to self
[2021-05-03] MEDS: Milk of Magnesia 30 ML ORAL.SUSP PO (21:03)
[2021-05-03 22:20] VITALS: BP 121/66; PULSE 87; RESP 18; TEMP 36.7; O2SAT 94
[2021-05-03 23:07] VITALS: BP 121/66; PULSE 87
[2021-05-03] MEDS: cloNIDine HCL 0.1 MG TABLET 0.5 MG PO (23:07)
[2021-05-03] MEDS: Melatonin 3 MG TABLET 6 MG PO (23:07)
[2021-05-03] MEDS: QUEtiapine Fumarate 400 MG TABLET 800 MG PO (23:08)
[2021-05-03] MEDS: QUEtiapine Fumarate 200 MG TABLET PO (23:08)
[2021-05-04] MEDS: Nystatin Cream 15 GM TUBE 1 APPL TOPICAL ×3 (00:10→22:28)
[2021-05-04] MEDS: Ibuprofen 800 MG TABLET PO ×2 (00:11→17:43)
[2021-05-04] MEDS: hydrOXYzine HCL 25 MG TABLET PO (00:12)
[2021-05-04] MEDS: guaiFENesin 100 MG/5 ML LIQUID PO ×2 (03:16→17:43)
[2021-05-04] MEDS: Omeprazole 40 MG CAPSULE.DR PO (06:18)
[2021-05-04] MEDS: Nicotine 21 MG PATCH.TD24 TRANSDERMA (10:29)
[2021-05-04] MEDS: diazePAM 5 MG TABLET 7.5 MG PO ×2 (10:29→15:39)
--- NOTE | 2021-05-04 15:34 | HO.PSYCHPN ---
Subjective Subjective Date of Service: 05/04/21 Reason For Visit: depression and si Interim History: pt reports she started coughing last night and it persisted throughout the night, causing her to have a poor night's sleep. she revisits the issue that the dose of valium she has been on is less than the equivalent klonopin; informs her the intent is to use the lowest most effective dose. she c/o ongoing tremor as well as anxiety. MD agrees to increase the HS dose to 10 mg for help with sleep and anxiety. per staff, pt is getting along with her roommate. Mental Status Exam Mental Status Exam Narrative: A&O. In sweats, unkempt, poor hygiene, overweight. fair eye contact, attentive. No abnormal involuntary movements. Anxious but cooperative, engaged. Non-pressured speech, spontaneous with regular rate and rhythm, normal volume and prosody. No prolonged speech latency or dysarthria. Mood is anxious, affect is constricted. Thoughts are linear and logical. No known cognitive or memory impairment. Insight/ Judgment fair and adequate. no SI/HI/AVH expressed. Diagnostics Vital Signs (24Hr): Vital Signs - 24 hr 05/03/21 22:20 05/03/21 23:07 Temperature 98.0 F Pulse Rate 87 87 Respiratory Rate 18 Blood Pressure 121/66 121/66 Pulse Oximetry 94 Medications Medications Current Medications Acetaminophen (Acetaminophen 325 Mg Tablet) 650 mg PO Q6H PRN PRN Reason: Headache/Pain Mild Scale (1-3) Al Hydroxide/Mg Hydroxide (Magnesium Hydrox/Alum Hydrox 30 Ml Oral.Susp) 30 ml PO Q6H PRN PRN Reason: Heartburn/Nausea Last Admin: 04/30/21 22:39 Dose: 30 ml Documented by: Albuterol Sulfate (Albuterol Sulfate 90 Mcg 8 Gm Inhaler) 2 puff INHALE RQ6H PRN PRN Reason: Shortness of Breath Last Admin: 05/03/21 10:14 Dose: 2 puff Documented by: Clonidine HCl (Clonidine Hcl 0.1 Mg Tablet) 0.5 mg PO BEDTIME [facility]; Protocol Last Admin: 05/03/21 23:07 Dose: 0.5 mg Documented by: Diazepam (Diazepam 10 Mg Tablet) 10 mg PO BEDTIME [facility] Diazepam (Diazepam 10 Mg Tablet) 7.5 mg PO DAILY [facility] Diazepam (Diazepam 5 Mg Tablet) 7.5 mg PO DAILY@1500 [facility] Guaifenesin (Guaifenesin 100 Mg/5 Ml Liquid) 5 ml PO Q6H PRN PRN Reason: Cough Last Admin: 05/04/21 03:16 Dose: 5 ml Documented by: Hydroxyzine HCl (Hydroxyzine Hcl 25 Mg Tablet) 25 mg PO BEDTIME PRN PRN Reason: Anxiety Last Admin: 05/04/21 00:12 Dose: 25 mg Documented by: Ibuprofen (Ibuprofen 800 Mg Tablet) 800 mg PO Q8H PRN PRN Reason: moderate to severe pain Last Admin: 05/04/21 00:11 Dose: 800 mg Documented by: Magnesium Hydroxide (Milk Of Magnesia 30 Ml Oral.Susp) 30 ml PO DAILY PRN PRN Reason: Constipation Last Admin: 05/03/21 21:03 Dose: 30 ml Documented by: Melatonin (Melatonin 3 Mg Tablet) 6 mg PO BEDTIME [facility] Last Admin: 05/03/21 23:07 Dose: 6 mg Documented by: Nicotine (Nicotine 21 Mg Patch.Td24) 21 mg TRANSDERMA DAILY [facility] Last Admin: 05/04/21 10:29 Dose: 21 mg Documented by: Nicotine Polacrilex (Nicotine Polacrilex 2 Mg Gum) 2 mg BUCCAL Q2H PRN PRN Reason: Nicotine Cravings Last Admin: 04/25/21 22:55 Dose: 2 mg Documented by: Nystatin (Nystatin Cream 15 Gm Tube) 1 appl TOPICAL BID [facility]; Protocol Last Admin: 05/04/21 10:59 Dose: 1 appl Documented by: Omeprazole (Omeprazole 40 Mg Capsule.Dr) 40 mg PO DAILY@0630 [facility] Last Admin: 05/04/21 06:18 Dose: 40 mg Documented by: Quetiapine Fumarate (Quetiapine Fumarate 400 Mg Tablet) 800 mg PO BEDTIME [facility] Last Admin: 05/03/21 23:08 Dose: 800 mg Documented by: Quetiapine Fumarate (Quetiapine Fumarate 200 Mg Tablet) 200 mg PO BEDTIME [facility] Last Admin: 05/03/21 23:08 Dose: 200 mg Documented by: Trazodone HCl (Trazodone Hcl 50 Mg Tablet) 50 mg PO BEDTIME PRN PRN Reason: Insomnia Last Admin: 05/02/21 01:13 Dose: 50 mg Documented by: Allergies Allergies Allergy/AdvReac Type Severity Reaction Status Date / Time No Known Allergies Allergy Unverified 03/20/20 19:15 [No Known Allergies*] Assessment & Plan Assessment & Plan (1) Tobacco dependence: Status: Acute Code(s): F17.200 - Nicotine dependence, unspecified, uncomplicated (2) MDD (major depressive disorder), recurrent episode, moderate: Status: Acute Code(s): F33.1 - Major depressive disorder, recurrent, moderate (3) CHELLE (generalized anxiety disorder): Status: Acute Code(s): F41.1 - Generalized anxiety disorder (4) Post traumatic stress disorder (PTSD): Status: Acute Code(s): F43.10 - Post-traumatic stress disorder, unspecified Assessment and Plan: Pt is a 51 y.o. 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 She has co-morbid chronic pain issues and ambulates with leg braces s/p fasciitis. Denies substance or alcohol use problems. Reports significant past traumas that she has had difficulty moving past. Hx of multiple past med trials, IPLOC, ECT but pt denies benefit. Currently presenting with sx of depression, lack of self care, anxiety with panic attacks, isolative behaviors, and intrusive negative thoughts. She feels safe on the unit and denies suicidal intent or plan at hospital. She has been using diazepam and high dose seroquel for sleep and anxiety management but denies that seroquel has helped with depression sx. 04/24: Seen by hospitalist for consult, much appreciated. Reported rash, prescribed nystatin. U/A obtained for dysuria. pt has a hx of extensive med trials and ECT. Had been discussing ketamine with OP prescriber but pt remains ambivalent. Discussed other options including TMS, selegiline patch, or decreasing seroquel and initiating cariprazine to target mood stability, perseverative thoughts, and anxious agitation. 04/26/21: Started Melatonin 6 mg HS 04/27: pt started on clonidine 0.1 mg/24H patch to target sympathetic hyperarousal. 04/28: clonidine 0.1 mg QHS added for sleep/nightmares. 04/29: clonidine 0.1 mg QHS increased to 0.2 mg QHS for insomnia/nightmares. hold for SBP < 90. podiatry consult placed. valium dosing increased from 5 TID to 7.5 TID. message left for outpt prescriber. 04/30: pt reports unchanged mood or anxiety, although looks somnolent, likely from valium dosing increase. 05/01: not somnolent. clonidine at HS increased to 0.3 mg for sleep/anxiety. 05/02: not somnolent. denies any improvement in Sx. clonidine at HS increased to 0.4 mg. 05/03: not somnolent. denies improvement. clonidine at HS increased to 0.5 mg. 05/04: valium dosing increased from 7.5 TID to 7.5/7.5/10 for anxiety, tremor, insomnia. Monitor response to current medications. Monitor for safety in the milieu. Discharge on stabilization. Patient seen. Chart reviewed. Discussed with team. Obtain collateral contact info?as needed I spent minutes with the patient and/or on the patient floor today, greater than?50% of which was spent counseling/coordinating care. Reason for contiued inpatient stay Substantial Risk for: harm to self, inability to function and rapid decompensation
[2021-05-04 18:00] VITALS: BP 112/58; PULSE 92; RESP 17; TEMP 36.2; O2SAT 96
[2021-05-04] MEDS: QUEtiapine Fumarate 400 MG TABLET 800 MG PO (22:22)
[2021-05-04 22:26] VITALS: BP 135/90; PULSE 89
[2021-05-04] MEDS: cloNIDine HCL 0.1 MG TABLET 0.5 MG PO (22:26)
[2021-05-04] MEDS: Melatonin 3 MG TABLET 6 MG PO (22:27)
[2021-05-04] MEDS: diazePAM 10 MG TABLET PO (22:27)
[2021-05-04] MEDS: QUEtiapine Fumarate 200 MG TABLET PO (22:28)
[2021-05-05] MEDS: Omeprazole 40 MG CAPSULE.DR PO (06:46)
[2021-05-05] MEDS: Nicotine 21 MG PATCH.TD24 TRANSDERMA (08:28)
[2021-05-05] MEDS: diazePAM 10 MG TABLET 7.5 MG PO (08:29)
[2021-05-05] MEDS: Albuterol Sulfate 90 MCG 8 GM INHALER 2 PUFF INHALE (08:35)
[2021-05-05 08:36] VITALS: BP 111/74; PULSE 77; RESP 18; TEMP 36.5; O2SAT 95
--- NOTE | 2021-05-05 12:00 | PC.NURSE ---
Office of [facility] called regarding podiatry consult. Spoke to [facility], information provided. Dr. Wilson has already left for the day, maybe Tuesday .
[2021-05-05] MEDS: cloNIDine 0.1 MG PATCH.TDWK TRANSDERMA (13:17)
[2021-05-05] MEDS: Nystatin Cream 15 GM TUBE 1 APPL TOPICAL ×2 (13:17→22:33)
--- NOTE | 2021-05-05 13:28 | P.PNPSI_ITS ---
Subjective Subjective Date of Service: 05/05/21 Reason For Visit: depression and si Interim History: pt wearing street clothes, appearing more awake this morning, up in milieu. VS good, willing to increase HS clonidine to 0.6 mg at HS. asking about an antidepressant, informed we will continue to address insomnia until it is improved to satisfaction. case discussed with pt's outpt provider who supported the idea of ketamine or TMS. she also suggested VNA would be helpful for pt's mood and to supervise medication administration. she stated pt's father often drove her to appointments, but if that were not possible she could have transportation arranged through medicaid. per staff, pt always anxious, dep 05/13. some day i'm gonna snap. i've been stockpiling medications at my house. slept 12:30 - 06:30. not attending groups. Mental Status Exam Mental Status Exam Narrative: A&O. improved grooming and appearance, overweight. good eye contact, attentive. No abnormal involuntary movements. Anxious but cooperative, engaged. Non-pressured speech, spontaneous with regular rate and rhythm, normal volume and prosody. No prolonged speech latency or dysarthria. Mood is anxious, affect is constricted. Thoughts are linear and logical. No known cognitive or memory impairment. Insight/ Judgment fair and adequate. no SI/HI/AVH expressed. Diagnostics Vital Signs (24Hr): Vital Signs - 24 hr 05/04/21 18:00 05/04/21 22:26 05/05/21 08:36 Temperature 97.2 F 97.7 F Pulse Rate 92 89 77 Respiratory Rate 17 18 Blood Pressure 112/58 L 135/90 H 111/74 Pulse Oximetry 96 95 Medications Medications Current Medications Acetaminophen (Acetaminophen 325 Mg Tablet) 650 mg PO Q6H PRN PRN Reason: Headache/Pain Mild Scale (1-3) Al Hydroxide/Mg Hydroxide (Magnesium Hydrox/Alum Hydrox 30 Ml Oral.Susp) 30 ml PO Q6H PRN PRN Reason: Heartburn/Nausea Last Admin: 04/30/21 22:39 Dose: 30 ml Documented by: Albuterol Sulfate (Albuterol Sulfate 90 Mcg 8 Gm Inhaler) 2 puff INHALE RQ6H PRN PRN Reason: Shortness of Breath Last Admin: 05/05/21 08:35 Dose: 2 puff Documented by: Clonidine (Clonidine 0.1 Mg Patch.Tdwk) 0.1 mg TRANSDERMA Tu@0900 [facility]; Protocol Clonidine HCl (Clonidine Hcl 0.2 Mg Tablet) 0.6 mg PO BEDTIME [facility]; Protocol Diazepam (Diazepam 10 Mg Tablet) 10 mg PO BEDTIME [facility] Last Admin: 05/04/21 22:27 Dose: 10 mg Documented by: Diazepam (Diazepam 10 Mg Tablet) 7.5 mg PO DAILY [facility] Last Admin: 05/05/21 08:29 Dose: 7.5 mg Documented by: Diazepam (Diazepam 5 Mg Tablet) 7.5 mg PO DAILY@1500 [facility] Last Admin: 05/04/21 15:39 Dose: 7.5 mg Documented by: Guaifenesin (Guaifenesin 100 Mg/5 Ml Liquid) 5 ml PO Q6H PRN PRN Reason: Cough Last Admin: 05/04/21 17:43 Dose: 5 ml Documented by: Hydroxyzine HCl (Hydroxyzine Hcl 25 Mg Tablet) 25 mg PO BEDTIME PRN PRN Reason: Anxiety Last Admin: 05/04/21 00:12 Dose: 25 mg Documented by: Ibuprofen (Ibuprofen 800 Mg Tablet) 800 mg PO Q8H PRN PRN Reason: moderate to severe pain Last Admin: 05/04/21 17:43 Dose: 800 mg Documented by: Magnesium Hydroxide (Milk Of Magnesia 30 Ml Oral.Susp) 30 ml PO DAILY PRN PRN Reason: Constipation Last Admin: 05/03/21 21:03 Dose: 30 ml Documented by: Melatonin (Melatonin 3 Mg Tablet) 6 mg PO BEDTIME [facility] Last Admin: 05/04/21 22:27 Dose: 6 mg Documented by: Nicotine (Nicotine 21 Mg Patch.Td24) 21 mg TRANSDERMA DAILY [facility] Last Admin: 05/05/21 08:28 Dose: 21 mg Documented by: Nicotine Polacrilex (Nicotine Polacrilex 2 Mg Gum) 2 mg BUCCAL Q2H PRN PRN Reason: Nicotine Cravings Last Admin: 04/25/21 22:55 Dose: 2 mg Documented by: Nystatin (Nystatin Cream 15 Gm Tube) 1 appl TOPICAL BID [facility]; Protocol Last Admin: 05/04/21 22:28 Dose: 1 appl Documented by: Omeprazole (Omeprazole 40 Mg Capsule.) 40 mg PO DAILY@0630 [facility] Last Admin: 05/05/21 06:46 Dose: 40 mg Documented by: Quetiapine Fumarate (Quetiapine Fumarate 400 Mg Tablet) 800 mg PO BEDTIME [facility] Last Admin: 05/04/21 22:22 Dose: 800 mg Documented by: Quetiapine Fumarate (Quetiapine Fumarate 200 Mg Tablet) 200 mg PO BEDTIME [facility] Last Admin: 05/04/21 22:28 Dose: 200 mg Documented by: Trazodone HCl (Trazodone Hcl 50 Mg Tablet) 50 mg PO BEDTIME PRN PRN Reason: Insomnia Last Admin: 05/02/21 01:13 Dose: 50 mg Documented by: Allergies Allergies Allergy/AdvReac Type Severity Reaction Status Date / Time No Known Allergies Allergy Unverified 03/20/20 19:15 [No Known Allergies*] Assessment & Plan Assessment & Plan (1) Tobacco dependence: Status: Acute Code(s): F17.200 - Nicotine dependence, unspecified, uncomplicated (2) MDD (major depressive disorder), recurrent episode, moderate: Status: Acute Code(s): F33.1 - Major depressive disorder, recurrent, moderate (3) CHELLE (generalized anxiety disorder): Status: Acute Code(s): F41.1 - Generalized anxiety disorder (4) Post traumatic stress disorder (PTSD): Status: Acute Code(s): F43.10 - Post-traumatic stress disorder, unspecified Assessment and Plan: Pt is a 51 y.o. 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 She has co-morbid chronic pain issues and ambulates with leg braces s/p fasciitis. Denies substance or alcohol use problems. Reports significant past traumas that she has had difficulty moving past. Hx of multiple past med trials, IPLOC, ECT but pt denies benefit. Currently presenting with sx of depression, lack of self care, anxiety with panic attacks, isolative behaviors, and intrusive negative thoughts. She feels safe on the unit and denies suicidal intent or plan at hospital. She has been using diazepam and high dose seroquel for sleep and anxiety management but d enies that seroquel has helped with depression sx. 04/24: Seen by hospitalist for consult, much appreciated. Reported rash, prescribed nystatin. U/A obtained for dysuria. pt has a hx of extensive med trials and ECT. Had been discussing ketamine with OP prescriber but pt remains ambivalent. Discussed other options including TMS, selegiline patch, or decreasing seroquel and initiating cariprazine to target mood stability, perseverative thoughts, and anxious agitation. 04/26/21: Started Melatonin 6 mg HS 04/27: pt started on clonidine 0.1 mg/24H patch to target sympathetic hyperarousal. 04/28: clonidine 0.1 mg QHS added for sleep/nightmares. 04/29: clonidine 0.1 mg QHS increased to 0.2 mg QHS for insomnia/nightmares. hold for SBP < 90. podiatry consult placed. valium dosing increased from 5 TID to 7.5 TID. message left for outpt prescriber. 04/30: pt reports unchanged mood or anxiety, although looks somnolent, likely from valium dosing increase. 05/01: not somnolent. clonidine at HS increased to 0.3 mg for sleep/anxiety. 05/02: not somnolent. denies any improvement in Sx. clonidine at HS increased to 0.4 mg. 05/03: not somnolent. denies improvement. clonidine at HS increased to 0.5 mg. 05/04: valium dosing increased from 7.5 TID to 7.5/7.5/10 for anxiety, tremor, insomnia. 05/05: clonidine at HS increased from 0.5 mg to 0.6 mg. case discussed with outpt prescriber. Monitor response to current medications. Monitor for safety in the milieu. Discharge on stabilization. Patient seen. Chart reviewed. Discussed with team. Obtain collateral contact info?as needed I spent minutes with the patient and/or on the patient floor today, greater than?50% of which was spent counseling/coordinating care. Reason for contiued inpatient stay Substantial Risk for: harm to self
[2021-05-05] MEDS: diazePAM 5 MG TABLET 7.5 MG PO (15:39)
[2021-05-05 18:00] VITALS: BP 121/61; PULSE 91; RESP 16; TEMP 36.7; O2SAT 95
[2021-05-05] MEDS: Ibuprofen 800 MG TABLET PO (20:42)
[2021-05-05] MEDS: Milk of Magnesia 30 ML ORAL.SUSP PO (21:37)
[2021-05-05 22:34] VITALS: BP 121/67; PULSE 80
[2021-05-05] MEDS: cloNIDine HCL 0.2 MG TABLET 0.6 MG PO (22:34)
[2021-05-05] MEDS: Melatonin 3 MG TABLET 6 MG PO (22:34)
[2021-05-05] MEDS: diazePAM 10 MG TABLET PO (22:35)
[2021-05-05] MEDS: QUEtiapine Fumarate 400 MG TABLET 800 MG PO (22:36)
[2021-05-05] MEDS: QUEtiapine Fumarate 200 MG TABLET PO (22:36)
[2021-05-06] MEDS: Omeprazole 40 MG CAPSULE.DR PO (06:46)
[2021-05-06 09:00] VITALS: BP 93/42; PULSE 80; RESP 16; TEMP 37.1; O2SAT 92
[2021-05-06] MEDS: Nicotine 21 MG PATCH.TD24 TRANSDERMA (12:12)
[2021-05-06] MEDS: Amphetamine Mixed Salts 10 MG TABLET 5 MG PO (12:12)
--- NOTE | 2021-05-06 12:49 | HO.PSYCHPN ---
Subjective Subjective Date of Service: 05/06/21 Reason For Visit: depression and si Interim History: pt found lying in bed, reporting feeling tired this morning, had some nausea overnight. VS reviewed, pt hypotensive this morning and morning valium held as a result. pt apparently got twice the normal daily dose yesterday morning. MD reports he spoke with pt's outpt prescriber and that the recommendation remained to be ketamine and/or TMS. pt asked MD's thoughts. MD offered she has tried many different kinds of meds and it was unlikely the answer would be finding the one medication which will change everything for her. MD instead supported therapy as the best place forher improvement, including perhaps a targeted therapy such as EMDR or CPT. lastly, conversation came back around to medications. stimulants were discussed as an option she has not tried yet. pt willing to give low-dose stimulants a trial. she is concerned they may exacerbate her anxiety, which was acknowledged as a possibility. pt reports having slept better last night and plan was made to leave clonidine where it is currently. Mental Status Exam Mental Status Exam Narrative: A&O. improved grooming and appearance, overweight. good eye contact, attentive. No abnormal involuntary movements. Anxious but cooperative, engaged. Non-pressured speech, spontaneous with regular rate and rhythm, normal volume and prosody. No prolonged speech latency or dysarthria. Mood is anxious, affect is constricted. Thoughts are linear and logical. No known cognitive or memory impairment. Insight/ Judgment fair and adequate. no SI/HI/AVH expressed. Diagnostics Vital Signs (24Hr): Vital Signs - 24 hr 05/05/21 18:00 05/05/21 22:34 05/06/21 09:00 Temperature 98.1 F 98.7 F Pulse Rate 91 80 80 Respiratory Rate 16 16 Blood Pressure 121/61 121/67 93/42 L Pulse Oximetry 95 92 Medications Medications Current Medications Acetaminophen (Acetaminophen 325 Mg Tablet) 650 mg PO Q6H PRN PRN Reason: Headache/Pain Mild Scale (1-3) Al Hydroxide/Mg Hydroxide (Magnesium Hydrox/Alum Hydrox 30 Ml Oral.Susp) 30 ml PO Q6H PRN PRN Reason: Heartburn/Nausea Last Admin: 04/30/21 22:39 Dose: 30 ml Documented by: Albuterol Sulfate (Albuterol Sulfate 90 Mcg 8 Gm Inhaler) 2 puff INHALE RQ6H PRN PRN Reason: Shortness of Breath Last Admin: 05/05/21 08:35 Dose: 2 puff Documented by: Clonidine (Clonidine 0.1 Mg Patch.Tdwk) 0.1 mg TRANSDERMA Tu@0900 [facility]; Protocol Last Admin: 05/05/21 13:17 Dose: 0.1 mg Documented by: Clonidine HCl (Clonidine Hcl 0.2 Mg Tablet) 0.6 mg PO BEDTIME [facility]; Protocol Last Admin: 05/05/21 22:34 Dose: 0.6 mg Documented by: Diazepam (Diazepam 5 Mg Tablet) 7.5 mg PO DAILY@1500 [facility] Last Admin: 05/05/21 15:39 Dose: 7.5 mg Documented by: Diazepam (Diazepam 5 Mg Tablet) 7.5 mg PO DAILY [facility] Diazepam (Diazepam 5 Mg Tablet) 10 mg PO BEDTIME [facility] Guaifenesin (Guaifenesin 100 Mg/5 Ml Liquid) 5 ml PO Q6H PRN PRN Reason: Cough Last Admin: 05/04/21 17:43 Dose: 5 ml Documented by: Hydroxyzine HCl (Hydroxyzine Hcl 25 Mg Tablet) 25 mg PO BEDTIME PRN PRN Reason: Anxiety Last Admin: 05/04/21 00:12 Dose: 25 mg Documented by: Ibuprofen (Ibuprofen 800 Mg Tablet) 800 mg PO Q8H PRN PRN Reason: moderate to severe pain Last Admin: 05/05/21 20:42 Dose: 800 mg Documented by: Magnesium Hydroxide (Milk Of Magnesia 30 Ml Oral.Susp) 30 ml PO DAILY PRN PRN Reason: Constipation Last Admin: 05/05/21 21:37 Dose: 30 ml Documented by: Melatonin (Melatonin 3 Mg Tablet) 6 mg PO BEDTIME [facility] Last Admin: 05/05/21 22:34 Dose: 6 mg Documented by: Nicotine (Nicotine 21 Mg Patch.Td24) 21 mg TRANSDERMA DAILY [facility] Last Admin: 05/06/21 12:12 Dose: 21 mg Documented by: Nicotine Polacrilex (Nicotine Polacrilex 2 Mg Gum) 2 mg BUCCAL Q2H PRN PRN Reason: Nicotine Cravings Last Admin: 04/25/21 22:55 Dose: 2 mg Documented by: Nystatin (Nystatin Cream 15 Gm Tube) 1 appl TOPICAL BID [facility]; Protocol Last Admin: 05/05/21 22:33 Dose: 1 appl Documented by: Omeprazole (Omeprazole 40 Mg Capsule.) 40 mg PO DAILY@0630 [facility] Last Admin: 05/06/21 06:46 Dose: 40 mg Documented by: Quetiapine Fumarate (Quetiapine Fumarate 400 Mg Tablet) 800 mg PO BEDTIME [facility] Last Admin: 05/05/21 22:36 Dose: 800 mg Documented by: Quetiapine Fumarate (Quetiapine Fumarate 200 Mg Tablet) 200 mg PO BEDTIME [facility] Last Admin: 05/05/21 22:36 Dose: 200 mg Documented by: Trazodone HCl (Trazodone Hcl 50 Mg Tablet) 50 mg PO BEDTIME PRN PRN Reason: Insomnia Last Admin: 05/02/21 01:13 Dose: 50 mg Documented by: Allergies Allergies Allergy/AdvReac Type Severity Reaction Status Date / Time No Known Allergies Allergy Unverified 03/20/20 19:15 [No Known Allergies*] Assessment & Plan Assessment & Plan (1) Tobacco dependence: Status: Acute Code(s): F17.200 - Nicotine dependence, unspecified, uncomplicated (2) MDD (major depressive disorder), recurrent episode, moderate: Status: Acute Code(s): F33.1 - Major depressive disorder, recurrent, moderate (3) CHELLE (generalized anxiety disorder): Status: Acute Code(s): F41.1 - Generalized anxiety disorder (4) Post traumatic stress disorder (PTSD): Status: Acute Code(s): F43.10 - Post-traumatic stress disorder, unspecified Assessment and Plan: Pt is a 51 y.o. 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 She has co-morbid chronic pain issues and ambulates with leg braces s/p fasciitis. Denies substance or alcohol use problems. Reports significant past traumas that she has had difficulty moving past. Hx of multiple past med trials, IPLOC, ECT but pt denies benefit. Currently presenting with sx of depression, lack of self care, anxiety with panic attacks, isolative behaviors, and intrusive negative thoughts. She feels safe on the unit and denies suicidal intent or plan at hospital. She has been using diazepam and high dose seroquel for sleep and anxiety management but denies that seroquel has helped with depression sx. 04/24: Seen by hospitalist for consult, much appreciated. Reported rash, prescribed nystatin. U/A obtained for dysuria. pt has a hx of extensive med trials and ECT. Had been discussing ketamine with OP prescriber but pt remains ambivalent. Discussed other options including TMS, selegiline patch, or decreasing seroquel and initiating cariprazine to target mood stability, perseverative thoughts, and anxious agitation. 04/26/21: Started Melatonin 6 mg HS 04/27: pt started on clonidine 0.1 mg/24H patch to target sympathetic hyperarousal. 04/28: clonidine 0.1 mg QHS added for sleep/nightmares. 04/29: clonidine 0.1 mg QHS increased to 0.2 mg QHS for insomnia/nightmares. hold for SBP < 90. podiatry consult placed. valium dosing increased from 5 TID to 7.5 TID. message left for outpt prescriber. 04/30: pt reports unchanged mood or anxiety, although looks somnolent, likely from valium dosing increase. 05/01: not somnolent. clonidine at HS increased to 0.3 mg for sleep/anxiety. 05/02: not somnolent. denies any improvement in Sx. clonidine at HS increased to 0.4 mg. 05/03: not somnolent. denies improvement. clonidine at HS increased to 0.5 mg. 05/04: valium dosing increased from 7.5 TID to 7.5/7.5/10 for anxiety, tremor, insomnia. 05/05: clonidine at HS increased from 0.5 mg to 0.6 mg. case discussed with outpt prescriber. 05/06: adderall 5 mg trial today. mild hypotension this morning; continue clonidine at present dosing. Monitor response to current medications. Monitor for safety in the milieu. Discharge on stabilization. Patient seen. Chart reviewed. Discussed with team. Obtain collateral contact info?as needed I spent minutes with the patient and/or on the patient floor today, greater than?50% of which was spent counseling/coordinating care. Reason for contiued inpatient stay Substantial Risk for: harm to self, inability to function and rapid decompensation
[2021-05-06] MEDS: diazePAM 5 MG TABLET 7.5 MG PO (15:34)
[2021-05-06] MEDS: Nystatin Cream 15 GM TUBE 1 APPL TOPICAL (17:15)
[2021-05-06] MEDS: Ibuprofen 800 MG TABLET PO (19:45)
[2021-05-06] MEDS: guaiFENesin 100 MG/5 ML LIQUID PO (20:34)
[2021-05-06 22:54] VITALS: TEMP 36.7; O2SAT 95
[2021-05-06] MEDS: QUEtiapine Fumarate 400 MG TABLET 800 MG PO (22:58)
[2021-05-06] MEDS: Melatonin 3 MG TABLET 6 MG PO (22:58)
[2021-05-06] MEDS: QUEtiapine Fumarate 200 MG TABLET PO (22:58)
[2021-05-06 22:59] VITALS: BP 116/55; PULSE 89
[2021-05-06] MEDS: diazePAM 5 MG TABLET 10 MG PO (22:59)
[2021-05-06] MEDS: cloNIDine HCL 0.2 MG TABLET 0.6 MG PO (22:59)
[2021-05-06] MEDS: hydrOXYzine HCL 25 MG TABLET PO (23:04)
[2021-05-06] MEDS: traZODone HCL 50 MG TABLET PO (23:05)
[2021-05-07 06:00] VITALS: BP 86/46; PULSE 72; RESP 18; TEMP 36.6; O2SAT 95
[2021-05-07 07:00] VITALS: BMI 30.7
[2021-05-07] MEDS: Nicotine 21 MG PATCH.TD24 TRANSDERMA (08:30)
[2021-05-07] MEDS: Omeprazole 40 MG CAPSULE.DR PO (08:30)
[2021-05-07] MEDS: Dextroamphetamine/Amphetamine XR 10 MG CAP.ER.24H PO (11:34)
[2021-05-07] MEDS: diazePAM 5 MG TABLET 7.5 MG PO ×2 (11:34→14:56)
--- NOTE | 2021-05-07 12:35 | HO.PSYCHPN ---
Subjective Subjective Date of Service: 05/07/21 Reason For Visit: depression and si Interim History: pt reports she is tired, prefers to meet in her room, remaining in bed. she is dressed, however, and not under covers. she feels that the adderall 5 mg yesterday did not affect her. she is willing to take 10 mg today; as XR formulation is available, it will be ordered. plan to titrate up until some effect is had; she is concerned it will make her anxious, which is validated. denies any symptoms of hypotension currently, aware to keep an eye on it and get low and seek staff help should that change. states she spoke with her father about the approach using stimulants. acknowledges the clonidine has been helpful for her sleep. per staff, BP 84/46 P 72 this morning (pt lying in bed). asymptomatic. RN pushing fluids. no difference with the adderall yesterday. rash unresponsive to nystatin, wound nursing consult pending. went ot bed at 11, up at 0845. remains with [facility] if she discharges, but not in the hospital. Mental Status Exam Mental Status Exam Narrative: A&O. improved grooming and appearance, overweight. good eye contact, attentive. No abnormal involuntary movements. Anxious but cooperative, engaged. Non-pressured speech, spontaneous with regular rate and rhythm, normal volume and prosody. No prolonged speech latency or dysarthria. Mood is anxious, affect is constricted. Thoughts are linear and logical. No known cognitive or memory impairment. Insight/ Judgment fair and adequate. no SI/HI/AVH expressed. Diagnostics Vital Signs (24Hr): Vital Signs - 24 hr 05/06/21 22:54 05/06/21 22:59 05/07/21 06:00 Temperature 98.1 F 97.9 F Pulse Rate 89 72 Respiratory Rate 18 Blood Pressure 116/55 L 86/46 L Pulse Oximetry 95 95 Medications Medications Current Medications Acetaminophen (Acetaminophen 325 Mg Tablet) 650 mg PO Q6H PRN PRN Reason: Headache/Pain Mild Scale (1-3) Al Hydroxide/Mg Hydroxide (Magnesium Hydrox/Alum Hydrox 30 Ml Oral.Susp) 30 ml PO Q6H PRN PRN Reason: Heartburn/Nausea Last Admin: 04/30/21 22:39 Dose: 30 ml Documented by: Albuterol Sulfate (Albuterol Sulfate 90 Mcg 8 Gm Inhaler) 2 puff INHALE RQ6H PRN PRN Reason: Shortness of Breath Last Admin: 05/05/21 08:35 Dose: 2 puff Documented by: Amphetamine/Dextroamphetamine (Dextroamphetamine/Amphetamine Xr 10 Mg Cap.Er.24h) 10 mg PO DAILY [facility] Last Admin: 05/07/21 11:34 Dose: 10 mg Documented by: Clonidine (Clonidine 0.1 Mg Patch.Tdwk) 0.1 mg TRANSDERMA Tu@0900 [facility]; Protocol Last Admin: 05/05/21 13:17 Dose: 0.1 mg Documented by: Clonidine HCl (Clonidine Hcl 0.2 Mg Tablet) 0.6 mg PO BEDTIME [facility]; Protocol Last Admin: 05/06/21 22:59 Dose: 0.6 mg Documented by: Diazepam (Diazepam 5 Mg Tablet) 7.5 mg PO DAILY@1500 [facility] Last Admin: 05/06/21 15:34 Dose: 7.5 mg Documented by: Diazepam (Diazepam 5 Mg Tablet) 7.5 mg PO DAILY [facility] Last Admin: 05/07/21 11:34 Dose: 7.5 mg Documented by: Diazepam (Diazepam 5 Mg Tablet) 10 mg PO BEDTIME [facility] Last Admin: 05/06/21 22:59 Dose: 10 mg Documented by: Guaifenesin (Guaifenesin 100 Mg/5 Ml Liquid) 5 ml PO Q6H PRN PRN Reason: Cough Last Admin: 05/06/21 20:34 Dose: 5 ml Documented by: Hydroxyzine HCl (Hydroxyzine Hcl 25 Mg Tablet) 25 mg PO BEDTIME PRN PRN Reason: Anxiety Last Admin: 05/06/21 23:04 Dose: 25 mg Documented by: Ibuprofen (Ibuprofen 800 Mg Tablet) 800 mg PO Q8H PRN PRN Reason: moderate to severe pain Last Admin: 05/06/21 19:45 Dose: 800 mg Documented by: Magnesium Hydroxide (Milk Of Magnesia 30 Ml Oral.Susp) 30 ml PO DAILY PRN PRN Reason: Constipation Last Admin: 05/05/21 21:37 Dose: 30 ml Documented by: Melatonin (Melatonin 3 Mg Tablet) 6 mg PO BEDTIME [facility] Last Admin: 05/06/21 22:58 Dose: 6 mg Documented by: Nicotine (Nicotine 21 Mg Patch.Td24) 21 mg TRANSDERMA DAILY [facility] Last Admin: 05/07/21 08:30 Dose: 21 mg Documented by: Nicotine Polacrilex (Nicotine Polacrilex 2 Mg Gum) 2 mg BUCCAL Q2H PRN PRN Reason: Nicotine Cravings Last Admin: 04/25/21 22:55 Dose: 2 mg Documented by: Nystatin (Nystatin Cream 15 Gm Tube) 1 appl TOPICAL BID [facility]; Protocol Last Admin: 05/07/21 10:47 Dose: Not Given Documented by: Omeprazole (Omeprazole 40 Mg Capsule.Dr) 40 mg PO DAILY@0630 [facility] Last Admin: 05/07/21 08:30 Dose: 40 mg Documented by: Quetiapine Fumarate (Quetiapine Fumarate 400 Mg Tablet) 800 mg PO BEDTIME [facility] Last Admin: 05/06/21 22:58 Dose: 800 mg Documented by: Quetiapine Fumarate (Quetiapine Fumarate 200 Mg Tablet) 200 mg PO BEDTIME [facility] Last Admin: 05/06/21 22:58 Dose: 200 mg Documented by: Trazodone HCl (Trazodone Hcl 50 Mg Tablet) 50 mg PO BEDTIME PRN PRN Reason: Insomnia Last Admin: 05/06/21 23:05 Dose: 50 mg Documented by: Allergies Allergies Allergy/AdvReac Type Severity Reaction Status Date / Time No Known Allergies Allergy Unverified 03/20/20 19:15 [No Known Allergies*] Assessment & Plan Assessment & Plan (1) Tobacco dependence: Status: Acute Code(s): F17.200 - Nicotine dependence, unspecified, uncomplicated (2) MDD (major depressive disorder), recurrent episode, moderate: Status: Acute Code(s): F33.1 - Major depressive disorder, recurrent, moderate (3) CHELLE (generalized anxiety disorder): Status: Acute Code(s): F41.1 - Generalized anxiety disorder (4) Post traumatic stress disorder (PTSD): Status: Acute Code(s): F43.10 - Post-traumatic stress disorder, unspecified Assessment and Plan: Pt is a 51 y.o. 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 She has co-morbid chronic pain issues and ambulates with leg braces s/p fasciitis. Denies substance or alcohol use problems. Reports significant past traumas that she has had difficulty moving past. Hx of multiple past med trials, IPLOC, ECT but pt denies benefit. Currently presenting with sx of depression, lack of self care, anxiety with panic attacks, isolative behaviors, and intrusive negative thoughts. She feels safe on the unit and denies suicidal intent or plan at hospital. She has been using diazepam and high dose seroquel for sleep and anxiety management but denies that seroquel has helped with depression sx. 04/24: Seen by hospitalist for consult, much appreciated. Reported rash, prescribed nystatin. U/A obtained for dysuria. pt has a hx of extensive med trials and ECT. Had been discussing ketamine with OP prescriber but pt remains ambivalent. Discussed other options including TMS, selegiline patch, or decreasing seroquel and initiating cariprazine to target mood stability, perseverative thoughts, and anxious agitation. 04/26/21: Started Melatonin 6 mg HS 04/27: pt started on clonidine 0.1 mg/24H patch to target sympathetic hyperarousal. 04/28: clonidine 0.1 mg QHS added for sleep/nightmares. 04/29: clonidine 0.1 mg QHS increased to 0.2 mg QHS for insomnia/nightmares. hold for SBP < 90. podiatry consult placed. valium dosing increased from 5 TID to 7.5 TID. message left for outpt prescriber. 04/30: pt reports unchanged mood or anxiety, although looks somnolent, likely from valium dosing increase. 05/01: not somnolent. clonidine at HS increased to 0.3 mg for sleep/anxiety. 05/02: not somnolent. denies any improvement in Sx. clonidine at HS increased to 0.4 mg. 05/03: not somnolent. denies improvement. clonidine at HS increased to 0.5 mg. 05/04: valium dosing increased from 7.5 TID to 7.5/7.5/10 for anxiety, tremor, insomnia. 05/05: clonidine at HS increased from 0.5 mg to 0.6 mg. case discussed with outpt prescriber. 05/06: adderall 5 mg trial today. mild hypotension this morning; continue clonidine at present dosing. 05/07: adderall changed to 10 mg XR formulation. Monitor response to current medications. Monitor for safety in the milieu. Discharge on stabilization. Patient seen. Chart reviewed. Discussed with team. Obtain collateral contact info?as needed I spent minutes with the patient and/or on the patient floor today, greater than?50% of which was spent counseling/coordinating care. Reason for contiued inpatient stay Substantial Risk for: harm to self and inability to function
[2021-05-07] MEDS: Ibuprofen 800 MG TABLET PO (16:20)
[2021-05-07] MEDS: Magnesium Hydrox/Alum Hydrox 30 ML ORAL.SUSP PO (16:40)
[2021-05-07] MEDS: Albuterol Sulfate 90 MCG 8 GM INHALER 2 PUFF INHALE (20:37)
[2021-05-07] MEDS: Melatonin 3 MG TABLET 6 MG PO (23:38)
[2021-05-07] MEDS: QUEtiapine Fumarate 200 MG TABLET PO (23:38)
[2021-05-07 23:39] VITALS: BP 121/56; PULSE 89
[2021-05-07] MEDS: QUEtiapine Fumarate 400 MG TABLET 800 MG PO (23:39)
[2021-05-07] MEDS: cloNIDine HCL 0.2 MG TABLET 0.6 MG PO (23:39)
[2021-05-07] MEDS: traZODone HCL 50 MG TABLET PO (23:39)
[2021-05-07] MEDS: diazePAM 5 MG TABLET 10 MG PO (23:39)
[2021-05-07] MEDS: hydrOXYzine HCL 25 MG TABLET PO (23:39)
[2021-05-07 23:44] VITALS: TEMP 36.7; O2SAT 96
[2021-05-08 09:50] VITALS: BP 92/62; PULSE 88; RESP 18; TEMP 36.8; O2SAT 93
[2021-05-08] MEDS: Dextroamphetamine/Amphetamine XR 10 MG CAP.ER.24H PO (09:51)
[2021-05-08] MEDS: Omeprazole 40 MG CAPSULE.DR PO (09:51)
[2021-05-08] MEDS: Nicotine 21 MG PATCH.TD24 TRANSDERMA (09:51)
[2021-05-08] MEDS: diazePAM 5 MG TABLET 7.5 MG PO ×2 (09:58→14:47)
--- NOTE | 2021-05-08 11:25 | HO.PSYCHPN ---
Subjective Subjective Date of Service: 05/08/21 Reason For Visit: depression and si Subjective Notes: Conditional Voluntary Interim History: Pt reports depressed mood for more than 20 years. She reports no significant change in symptoms of depresison or anxiety. 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 Pt feels grateful and hopeful about trying new approaches to treat long hx of depressed and anxious mood secondary to trauma. She denies suicidal or homicidal ideation. Per nursing, she has been in her room, at times visible and social with peers. No behavioral concerns. SBP >90, pt asymptomatic, no ortho HOTN. Medication Compliance: Yes Side effects from medications: No Review of Systems Review of Systems no fever, no drainage, redness is reported Yes all other systems are reviewed and are negative Constitutional: Denies chills and Denies fever(s) Cardiovascular: Denies chest pain, Reports palpitations and Denies orthopnea Respiratory: Denies cough Gastrointestinal: Denies abdominal pain Endocrine: Reports palpitations Mental Status Exam Mental Status Exam Narrative: A&O. improved grooming and appearance, overweight. good eye contact, attentive. No abnormal involuntary movements. Anxious but cooperative, engaged. Non-pressured speech, spontaneous with regular rate and rhythm, normal volume and prosody. No prolonged speech latency or dysarthria. Mood is anxious, affect is constricted. Thoughts are linear and logical. No known cognitive or memory impairment. Insight/ Judgment fair and adequate. no SI/HI/AVH expressed. Diagnostics Vital Signs (24Hr): Vital Signs - 24 hr 05/07/21 23:39 05/07/21 23:44 05/08/21 09:50 Temperature 98.0 F 98.2 F Pulse Rate 89 88 Respiratory Rate 18 Blood Pressure 121/56 L 92/62 Pulse Oximetry 96 93 Body Mass Index 30.7 Medications Medications Current Medications Acetaminophen (Acetaminophen 325 Mg Tablet) 650 mg PO Q6H PRN PRN Reason: Headache/Pain Mild Scale (1-3) Al Hydroxide/Mg Hydroxide (Magnesium Hydrox/Alum Hydrox 30 Ml Oral.Susp) 30 ml PO Q6H PRN PRN Reason: Heartburn/Nausea Last Admin: 05/07/21 16:40 Dose: 30 ml Documented by: Albuterol Sulfate (Albuterol Sulfate 90 Mcg 8 Gm Inhaler) 2 puff INHALE RQ6H PRN PRN Reason: Shortness of Breath Last Admin: 05/08/21 13:16 Dose: 2 puff Documented by: Amphetamine/Dextroamphetamine (Dextroamphetamine/Amphetamine Xr 10 Mg Cap.Er.24h) 10 mg PO DAILY [facility] Last Admin: 05/08/21 09:51 Dose: 10 mg Documented by: Clonidine (Clonidine 0.1 Mg Patch.Tdwk) 0.1 mg TRANSDERMA Tu@0900 [facility]; Protocol Last Admin: 05/05/21 13:17 Dose: 0.1 mg Documented by: Clonidine HCl (Clonidine Hcl 0.2 Mg Tablet) 0.6 mg PO BEDTIME [facility]; Protocol Last Admin: 05/07/21 23:39 Dose: 0.6 mg Documented by: Diazepam (Diazepam 5 Mg Tablet) 7.5 mg PO DAILY@1500 [facility] Last Admin: 05/07/21 14:56 Dose: 7.5 mg Documented by: Diazepam (Diazepam 5 Mg Tablet) 7.5 mg PO DAILY [facility] Last Admin: 05/08/21 09:58 Dose: 7.5 mg Documented by: Diazepam (Diazepam 5 Mg Tablet) 10 mg PO BEDTIME [facility] Last Admin: 05/07/21 23:39 Dose: 10 mg Documented by: Guaifenesin (Guaifenesin 100 Mg/5 Ml Liquid) 5 ml PO Q6H PRN PRN Reason: Cough Last Admin: 05/08/21 13:58 Dose: 5 ml Documented by: Hydroxyzine HCl (Hydroxyzine Hcl 25 Mg Tablet) 25 mg PO BEDTIME PRN PRN Reason: Anxiety Last Admin: 05/07/21 23:39 Dose: 25 mg Documented by: Ibuprofen (Ibuprofen 800 Mg Tablet) 800 mg PO Q8H PRN PRN Reason: moderate to severe pain Last Admin: 05/08/21 13:16 Dose: 800 mg Documented by: Magnesium Hydroxide (Milk Of Magnesia 30 Ml Oral.Susp) 30 ml PO DAILY PRN PRN Reason: Constipation Last Admin: 05/05/21 21:37 Dose: 30 ml Documented by: Melatonin (Melatonin 3 Mg Tablet) 6 mg PO BEDTIME [facility] Last Admin: 05/07/21 23:38 Dose: 6 mg Documented by: Nicotine (Nicotine 21 Mg Patch.Td24) 21 mg TRANSDERMA DAILY [facility] Last Admin: 05/08/21 09:51 Dose: 21 mg Documented by: Nicotine Polacrilex (Nicotine Polacrilex 2 Mg Gum) 2 mg BUCCAL Q2H PRN PRN Reason: Nicotine Cravings Last Admin: 04/25/21 22:55 Dose: 2 mg Documented by: Nystatin (Nystatin Cream 15 Gm Tube) 1 appl TOPICAL BID [facility]; Protocol Last Admin: 05/08/21 13:11 Dose: Not Given Documented by: Omeprazole (Omeprazole 40 Mg Capsule.Dr) 40 mg PO DAILY@0630 [facility] Last Admin: 05/08/21 09:51 Dose: 40 mg Documented by: Quetiapine Fumarate (Quetiapine Fumarate 400 Mg Tablet) 800 mg PO BEDTIME [facility] Last Admin: 05/07/21 23:39 Dose: 800 mg Documented by: Quetiapine Fumarate (Quetiapine Fumarate 200 Mg Tablet) 200 mg PO BEDTIME [facility] Last Admin: 05/07/21 23:38 Dose: 200 mg Documented by: Trazodone HCl (Trazodone Hcl 50 Mg Tablet) 50 mg PO BEDTIME PRN PRN Reason: Insomnia Last Admin: 05/07/21 23:39 Dose: 50 mg Documented by: Allergies Allergies Allergy/AdvReac Type Severity Reaction Status Date / Time No Known Allergies Allergy Unverified 03/20/20 19:15 [No Known Allergies*] Assessment & Plan Assessment & Plan (1) Tinea cruris: Status: Acute Code(s): B35.6 - Tinea cruris Assessment and Plan: Pt is a 51 y.o. 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 She has co-morbid chronic pain issues and ambulates with leg braces s/p fasciitis. Denies substance or alcohol use problems. Reports significant past traumas that she has had difficulty moving past. Hx of multiple past med trials, IPLOC, ECT but pt denies benefit. Currently presenting with sx of depression, lack of self care, anxiety with panic attacks, isolative behaviors, and intrusive negative thoughts. She feels safe on the unit and denies suicidal intent or plan at hospital. She has been using diazepam and high dose seroquel for sleep and anxiety management but denies that seroquel has helped with depression sx. 04/24: Seen by hospitalist for consult, much appreciated. Reported rash, prescribed nystatin. U/A obtained for dysuria. pt has a hx of extensive med trials and ECT. Had been discussing ketamine with OP prescriber but pt remains ambivalent. Discussed other options including TMS, selegiline patch, or decreasing seroquel and initiating cariprazine to target mood stability, perseverative thoughts, and anxious agitation. 04/26/21: Started Melatonin 6 mg HS 04/27: pt started on clonidine 0.1 mg/24H patch to target sympathetic hyperarousal. 04/28: clonidine 0.1 mg QHS added for sleep/nightmares. 04/29: clonidine 0.1 mg QHS increased to 0.2 mg QHS for insomnia/nightmares.? hold for SBP < 90.? podiatry consult placed.? valium dosing increased from 5 TID to 7.5 TID.? message left for outpt prescriber. 04/30: pt reports unchanged mood or anxiety, although looks somnolent, likely from valium dosing increase. 05/01: not somnolent.? clonidine at HS increased to 0.3 mg for sleep/anxiety. 05/02: not somnolent.? denies any improvement in Sx.? clonidine at HS increased to 0.4 mg. 05/03: not somnolent.? denies improvement.? clonidine at HS increased to 0.5 mg. 05/04: valium dosing increased from 7.5 TID to 7.5/7.5/10 for anxiety, tremor, insomnia. 05/05: clonidine at HS increased from 0.5 mg to 0.6 mg.? case discussed with outpt prescriber. 05/06: adderall 5 mg trial today.? mild hypotension this morning; continue clonidine at present dosing. 05/07: adderall changed to 10 mg XR formulation. 05/08- custodial depression that pt reports has not worsened nor improved since admission. Pt hopeful and appreciative of Dr. Alexandre's medication changes. No safety concerns. No increase of anxious mood with adderall. no medication changes, SBP>90 but in low 90's, pt asymptomatic, no ortho hoTN. I spent minutes with the patient and/or on the patient floor today, greater than?50% of which was spent counseling/coordinating care. Reason for contiued inpatient stay Substantial Risk for: inability to function
--- NOTE | 2021-05-08 13:09 | HO.WOUNDCONS ---
History of Present Illness Data of Consult Service Date: 05/08/21 Requesting physician: Morgan Alexandre Primary Care Provider: Kain Garnica MD HPI Reason for consult: groin rash 51 year old female admitted for MDD, CHELLE, PTSD with itchy groin rash since April 23 for which Nystatin was given. Patient complains of persistent itchiness. No open wound. Review of Systems Review of Systems: no fever, no drainage, redness is reported [facility] Medical History (Updated 05/08/21 @ 13:22 by KALINA John) Compartment syndrome of lower extremity COPD (chronic obstructive pulmonary disease) CHELLE (generalized anxiety disorder) MDD (major depressive disorder), recurrent episode, moderate Post traumatic stress disorder (PTSD) Functional capacity: independent ambulation Social History Household Members: None Housing: House Do you presently have visiting nurse or other home services: No Patient Tobacco Use Status: Current everyday Tobacco user Tobacco use type: Cigarette Years Smoked: 40 Smoked in Last 30 Days: Yes e-Cigarette/Vaping Use: Never Used Patient Interested in Nicotine Replacement: Yes Patient Given Instructions on How to Stop Smoking: Yes Date Education Initiated: 04/23/21 Second Hand Smoke Exposure: Yes Use of substances other than those prescribed or required for medical reasons: No Currently Displaying Signs/Symptoms of Drug Intoxication Withdrawal: No Any prior treatment program specific to substance use: No Have you been hit, kicked, punched, or otherwise hurt by someone within the past year? If so, by whom?: No Do you feel safe in your current relationship?: No Current Relationship Are you made to feel afraid or neglected: Yes Spiritual Healthcare Practices: N/A Bahai Healthcare Practices: N/A Advance Directives: Yes Advance Directives Information Provided: Yes Advance Directives on File: No Do you have thoughts of harming others: None Do you have a plan to hurt others: No Plan Recently lost weight without trying: No How much weight loss: Not applicable Eating poorly because of decreased appetite: Yes Nutrition screen score: 1 Nutrition Risks: No Nutritional Risk Patient : No : No service: No Sexual orientation: Straight/Heterosexual Meds Allergies Allergy/AdvReac Type Severity Reaction Status Date / Time No Known Allergies Allergy Unverified 03/20/20 19:15 [No Known Allergies*] Active Medications: Current Medications Acetaminophen (Acetaminophen 325 Mg Tablet) 650 mg PO Q6H PRN PRN Reason: Headache/Pain Mild Scale (1-3) Al Hydroxide/Mg Hydroxide (Magnesium Hydrox/Alum Hydrox 30 Ml Oral.Susp) 30 ml PO Q6H PRN PRN Reason: Heartburn/Nausea Last Admin: 05/07/21 16:40 Dose: 30 ml Documented by: Albuterol Sulfate (Albuterol Sulfate 90 Mcg 8 Gm Inhaler) 2 puff INHALE RQ6H PRN PRN Reason: Shortness of Breath Last Admin: 05/07/21 20:37 Dose: 2 puff Documented by: Amphetamine/Dextroamphetamine (Dextroamphetamine/Amphetamine Xr 10 Mg Cap.Er.24h) 10 mg PO DAILY [facility] Last Admin: 05/08/21 09:51 Dose: 10 mg Documented by: Clonidine (Clonidine 0.1 Mg Patch.Tdwk) 0.1 mg TRANSDERMA Tu@0900 [facility]; Protocol Last Admin: 05/05/21 13:17 Dose: 0.1 mg Documented by: Clonidine HCl (Clonidine Hcl 0.2 Mg Tablet) 0.6 mg PO BEDTIME [facility]; Protocol Last Admin: 05/07/21 23:39 Dose: 0.6 mg Documented by: Diazepam (Diazepam 5 Mg Tablet) 7.5 mg PO DAILY@1500 [facility] Last Admin: 05/07/21 14:56 Dose: 7.5 mg Documented by: Diazepam (Diazepam 5 Mg Tablet) 7.5 mg PO DAILY [facility] Last Admin: 05/08/21 09:58 Dose: 7.5 mg Documented by: Diazepam (Diazepam 5 Mg Tablet) 10 mg PO BEDTIME [facility] Last Admin: 05/07/21 23:39 Dose: 10 mg Documented by: Guaifenesin (Guaifenesin 100 Mg/5 Ml Liquid) 5 ml PO Q6H PRN PRN Reason: Cough Last Admin: 05/06/21 20:34 Dose: 5 ml Documented by: Hydroxyzine HCl (Hydroxyzine Hcl 25 Mg Tablet) 25 mg PO BEDTIME PRN PRN Reason: Anxiety Last Admin: 05/07/21 23:39 Dose: 25 mg Documented by: Ibuprofen (Ibuprofen 800 Mg Tablet) 800 mg PO Q8H PRN PRN Reason: moderate to severe pain Last Admin: 05/07/21 16:20 Dose: 800 mg Documented by: Magnesium Hydroxide (Milk Of Magnesia 30 Ml Oral.Susp) 30 ml PO DAILY PRN PRN Reason: Constipation Last Admin: 05/05/21 21:37 Dose: 30 ml Documented by: Melatonin (Melatonin 3 Mg Tablet) 6 mg PO BEDTIME [facility] Last Admin: 05/07/21 23:38 Dose: 6 mg Documented by: Nicotine (Nicotine 21 Mg Patch.Td24) 21 mg TRANSDERMA DAILY [facility] Last Admin: 05/08/21 09:51 Dose: 21 mg Documented by: Nicotine Polacrilex (Nicotine Polacrilex 2 Mg Gum) 2 mg BUCCAL Q2H PRN PRN Reason: Nicotine Cravings Last Admin: 04/25/21 22:55 Dose: 2 mg Documented by: Nystatin (Nystatin Cream 15 Gm Tube) 1 appl TOPICAL BID [facility]; Protocol Last Admin: 05/07/21 23:45 Dose: Not Given Documented by: Omeprazole (Omeprazole 40 Mg Capsule.Dr) 40 mg PO DAILY@0630 [facility] Last Admin: 05/08/21 09:51 Dose: 40 mg Documented by: Quetiapine Fumarate (Quetiapine Fumarate 400 Mg Tablet) 800 mg PO BEDTIME [facility] Last Admin: 05/07/21 23:39 Dose: 800 mg Documented by: Quetiapine Fumarate (Quetiapine Fumarate 200 Mg Tablet) 200 mg PO BEDTIME [facility] Last Admin: 05/07/21 23:38 Dose: 200 mg Documented by: Trazodone HCl (Trazodone Hcl 50 Mg Tablet) 50 mg PO BEDTIME PRN PRN Reason: Insomnia Last Admin: 05/07/21 23:39 Dose: 50 mg Documented by: Home Medications Medication Instructions Recorded Confirmed Last Taken Type Valium 5 mg PO TID 04/23/21 04/23/21 Unknown History escitalopram oxalate 20 mg PO DAILY 04/23/21 04/23/21 Unknown History omeprazole 40 mg PO DAILY 04/23/21 04/23/21 Unknown History quetiapine 200 mg PO DAILY 04/23/21 04/23/21 Unknown History quetiapine 800 mg PO DAILY 04/23/21 04/23/21 Unknown History Physical Exam Vital Signs and Narrative: Vital Signs: Last Vital Signs Temp 98.2 F 05/08/21 09:50 Pulse 88 05/08/21 09:50 Resp 18 05/08/21 09:50 BP 92/62 05/08/21 09:50 Pulse Ox 93 05/08/21 09:50 Body Mass Index 30.7 Skin: Other: pink, flat rash in groin folds bilaterally, nonpapular, no exoriation Assessment and Plan (1) Tinea cruris: Status: Acute Run persistent fungal rash of the groin by medicine team, there are many options. There is no open wound. Double Nystatin cream with Nystatin powder, or switch to miconazole topically or try po Diflucan. Good hygiene and thouroughly drying after shower also recommended.
[2021-05-08] MEDS: Ibuprofen 800 MG TABLET PO (13:16)
[2021-05-08] MEDS: Albuterol Sulfate 90 MCG 8 GM INHALER 2 PUFF INHALE ×2 (13:16→23:55)
[2021-05-08] MEDS: guaiFENesin 100 MG/5 ML LIQUID PO (13:58)
[2021-05-08 18:00] VITALS: BP 125/82; PULSE 93; RESP 18; TEMP 36.6; O2SAT 96
[2021-05-08 23:34] VITALS: BP 125/82; PULSE 93
[2021-05-08] MEDS: cloNIDine HCL 0.2 MG TABLET 0.6 MG PO (23:34)
[2021-05-08] MEDS: Melatonin 3 MG TABLET 6 MG PO (23:35)
[2021-05-08] MEDS: QUEtiapine Fumarate 200 MG TABLET PO (23:35)
[2021-05-08] MEDS: QUEtiapine Fumarate 400 MG TABLET 800 MG PO (23:35)
[2021-05-08] MEDS: diazePAM 5 MG TABLET 10 MG PO (23:35)
[2021-05-08] MEDS: Acetaminophen 325 MG TABLET 650 MG PO (23:36)
[2021-05-08] MEDS: hydrOXYzine HCL 25 MG TABLET PO (23:46)
[2021-05-08] MEDS: Nystatin Cream 15 GM TUBE 1 APPL TOPICAL (23:46)
[2021-05-09] MEDS: guaiFENesin 100 MG/5 ML LIQUID PO ×2 (01:54→16:35)
[2021-05-09 09:00] VITALS: BP 91/52; PULSE 74; RESP 16; TEMP 36.6; O2SAT 95
[2021-05-09] MEDS: diazePAM 5 MG TABLET 7.5 MG PO ×2 (09:29→14:26)
[2021-05-09] MEDS: Dextroamphetamine/Amphetamine XR 10 MG CAP.ER.24H PO (09:29)
[2021-05-09] MEDS: Omeprazole 40 MG CAPSULE.DR PO (09:29)
[2021-05-09] MEDS: Nicotine 21 MG PATCH.TD24 TRANSDERMA (09:30)
--- NOTE | 2021-05-09 12:40 | P.PNPSI_ITS ---
Subjective Subjective Date of Service: 05/09/21 Reason For Visit: depression and si Subjective Notes: Conditional Voluntary Interim History: The nursing staff reported that she couldn't sleep well last night and woken up several times. On interview, she admitted dysphoria, agreed to change hypnotics to improve sleep. Mental Status Exam Mental Status Exam Patient Appearance: Well Grooomed Patient Orientation: Person, Place, Time and Situation Level of Consciousness: Awake and Appropriate Patient Behavior: Cooperative Mood Description: Depressed Affect Description: Constricted Patient Cognition Impaired: No Ability to Follow Directions: Good Speech Pattern: Clear Hallucinations: None Delusions: Not Present Thought Process: Distracted and Goal Oriented Thought Content: positive for Circumstantial Judgement: Fair Diagnostics Vital Signs (24Hr): Vital Signs - 24 hr 05/08/21 18:00 05/08/21 23:34 05/09/21 09:00 Temperature 97.9 F 97.8 F Pulse Rate 93 93 74 Respiratory Rate 18 16 Blood Pressure 125/82 125/82 91/52 L Pulse Oximetry 96 95 Body Mass Index 30.7 Medications Medications Current Medications Acetaminophen (Acetaminophen 325 Mg Tablet) 650 mg PO Q6H PRN PRN Reason: Headache/Pain Mild Scale (1-3) Last Admin: 05/08/21 23:36 Dose: 650 mg Documented by: Al Hydroxide/Mg Hydroxide (Magnesium Hydrox/Alum Hydrox 30 Ml Oral.Susp) 30 ml PO Q6H PRN PRN Reason: Heartburn/Nausea Last Admin: 05/07/21 16:40 Dose: 30 ml Documented by: Albuterol Sulfate (Albuterol Sulfate 90 Mcg 8 Gm Inhaler) 2 puff INHALE RQ6H PRN PRN Reason: Shortness of Breath Last Admin: 05/08/21 23:55 Dose: 2 puff Documented by: Amphetamine/Dextroamphetamine (Dextroamphetamine/Amphetamine Xr 10 Mg Cap.Er.24h) 10 mg PO DAILY [facility] Last Admin: 05/09/21 09:29 Dose: 10 mg Documented by: Clonidine (Clonidine 0.1 Mg Patch.Tdwk) 0.1 mg TRANSDERMA Tu@0900 [facility]; Protocol Last Admin: 05/05/21 13:17 Dose: 0.1 mg Documented by: Clonidine HCl (Clonidine Hcl 0.2 Mg Tablet) 0.6 mg PO BEDTIME [facility]; Protocol Last Admin: 05/08/21 23:34 Dose: 0.6 mg Documented by: Diazepam (Diazepam 5 Mg Tablet) 7.5 mg PO DAILY@1500 [facility] Last Admin: 05/08/21 14:47 Dose: 7.5 mg Documented by: Diazepam (Diazepam 5 Mg Tablet) 7.5 mg PO DAILY [facility] Last Admin: 05/09/21 09:29 Dose: 7.5 mg Documented by: Diazepam (Diazepam 5 Mg Tablet) 10 mg PO BEDTIME [facility] Last Admin: 05/08/21 23:35 Dose: 10 mg Documented by: Guaifenesin (Guaifenesin 100 Mg/5 Ml Liquid) 5 ml PO Q6H PRN PRN Reason: Cough Last Admin: 05/09/21 01:54 Dose: 5 ml Documented by: Hydroxyzine HCl (Hydroxyzine Hcl 25 Mg Tablet) 25 mg PO BEDTIME PRN PRN Reason: Anxiety Last Admin: 05/08/21 23:46 Dose: 25 mg Documented by: Ibuprofen (Ibuprofen 800 Mg Tablet) 800 mg PO Q8H PRN PRN Reason: moderate to severe pain Last Admin: 05/08/21 13:16 Dose: 800 mg Documented by: Magnesium Hydroxide (Milk Of Magnesia 30 Ml Oral.Susp) 30 ml PO DAILY PRN PRN Reason: Constipation Last Admin: 05/05/21 21:37 Dose: 30 ml Documented by: Melatonin (Melatonin 3 Mg Tablet) 6 mg PO BEDTIME [facility] Last Admin: 05/08/21 23:35 Dose: 6 mg Documented by: Nicotine (Nicotine 21 Mg Patch.Td24) 21 mg TRANSDERMA DAILY [facility] Last Admin: 05/09/21 09:30 Dose: 21 mg Documented by: Nicotine Polacrilex (Nicotine Polacrilex 2 Mg Gum) 2 mg BUCCAL Q2H PRN PRN Reason: Nicotine Cravings Last Admin: 04/25/21 22:55 Dose: 2 mg Documented by: Nystatin (Nystatin Cream 15 Gm Tube) 1 appl TOPICAL BID [facility]; Protocol Last Admin: 05/09/21 09:32 Dose: Not Given Documented by: Omeprazole (Omeprazole 40 Mg Capsule.Dr) 40 mg PO DAILY@0630 [facility] Last Admin: 05/09/21 09:29 Dose: 40 mg Documented by: Quetiapine Fumarate (Quetiapine Fumarate 400 Mg Tablet) 800 mg PO BEDTIME [facility] Last Admin: 05/08/21 23:35 Dose: 800 mg Documented by: Quetiapine Fumarate (Quetiapine Fumarate 200 Mg Tablet) 200 mg PO BEDTIME [facility] Last Admin: 05/08/21 23:35 Dose: 200 mg Documented by: Trazodone HCl (Trazodone Hcl 50 Mg Tablet) 50 mg PO BEDTIME PRN PRN Reason: Insomnia Last Admin: 05/07/21 23:39 Dose: 50 mg Documented by: Allergies Allergies Allergy/AdvReac Type Severity Reaction Status Date / Time No Known Allergies Allergy Unverified 03/20/20 19:15 [No Known Allergies*] Assessment & Plan Assessment & Plan (1) Tinea cruris: Status: Acute Code(s): B35.6 - Tinea cruris Assessment and Plan: Pt is a 51 y.o. 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 She has co-morbid chronic pain issues and ambulates with leg braces s/p fasciitis. Denies substance or alcohol use problems. Reports significant past traumas that she has had difficulty moving past. Hx of multiple past med trials, IPLOC, ECT but pt denies benefit. Currently presenting with sx of depression, lack of self care, anxiety with panic attacks, isolative behaviors, and intrusive negative thoughts. She feels safe on the unit and denies suicidal intent or plan at hospital. She has been using diazepam and high dose seroquel for sleep and anxiety management but denies that seroquel has helped with depression sx. 04/24: Seen by hospitalist for consult, much appreciated. Reported rash, prescribed nystatin. U/A obtained for dysuria. pt has a hx of extensive med trials and ECT. Had been discussing ketamine with OP prescriber but pt remains ambivalent. Discussed other options including TMS, selegiline patch, or d ecreasing seroquel and initiating cariprazine to target mood stability, perseverative thoughts, and anxious agitation. 04/26/21: Started Melatonin 6 mg HS 04/27: pt started on clonidine 0.1 mg/24H patch to target sympathetic hyperarousal. 04/28: clonidine 0.1 mg QHS added for sleep/nightmares. 04/29: clonidine 0.1 mg QHS increased to 0.2 mg QHS for insomnia/nightmares.? hold for SBP < 90.? podiatry consult placed.? valium dosing increased from 5 TID to 7.5 TID.? message left for outpt prescriber. 04/30: pt reports unchanged mood or anxiety, although looks somnolent, likely from valium dosing increase. 05/01: not somnolent.? clonidine at HS increased to 0.3 mg for sleep/anxiety. 05/02: not somnolent.? denies any improvement in Sx.? clonidine at HS increased to 0.4 mg. 05/03: not somnolent.? denies improvement.? clonidine at HS increased to 0.5 mg. 05/04: valium dosing increased from 7.5 TID to 7.5/7.5/10 for anxiety, tremor, insomnia. 05/05: clonidine at HS increased from 0.5 mg to 0.6 mg.? case discussed with outpt prescriber. 05/06: adderall 5 mg trial today.? mild hypotension this morning; continue clonidine at present dosing. 05/07: adderall changed to 10 mg XR formulation. 05/08- half-way depression that pt reports has not worsened nor improved since admission. Pt hopeful and appreciative of Dr. Alexandre's medication changes. No safety concerns. No increase of anxious mood with adderall. no medication changes, SBP>90 but in low 90's, pt asymptomatic, no ortho hoTN. On Wednesday 05/09 I increased Melatonin from 6 to 10 mg to address insomnia. No other changes I spent minutes with the patient and/or on the patient floor today, greater than?50% of which was spent counseling/coordinating care. Reason for contiued inpatient stay Substantial Risk for: inability to function, rapid decompensation and med/psych decompensation
[2021-05-09] MEDS: Ibuprofen 800 MG TABLET PO (16:35)
[2021-05-09] MEDS: Milk of Magnesia 30 ML ORAL.SUSP PO (16:36)
[2021-05-09] MEDS: Nystatin Cream 15 GM TUBE 1 APPL TOPICAL ×2 (17:43→23:10)
--- NOTE | 2021-05-09 18:09 | PC.NURSE ---
Dr. Ahuja authorized dose of Nystatin 1730 in addition to HS dose as patient refused AM dose stating she wanted to sleep.
[2021-05-09] MEDS: Acetaminophen 325 MG TABLET 650 MG PO (19:32)
[2021-05-09 23:03] VITALS: BP 115/75; PULSE 91; RESP 18; TEMP 36.6; O2SAT 94
[2021-05-09] MEDS: diazePAM 5 MG TABLET 10 MG PO (23:06)
[2021-05-09] MEDS: QUEtiapine Fumarate 200 MG TABLET PO (23:06)
[2021-05-09] MEDS: cloNIDine HCL 0.2 MG TABLET 0.6 MG PO (23:06)
[2021-05-09] MEDS: QUEtiapine Fumarate 400 MG TABLET 800 MG PO (23:07)
[2021-05-09] MEDS: Melatonin 3 MG TABLET 10 MG PO (23:07)
[2021-05-09] MEDS: hydrOXYzine HCL 25 MG TABLET PO (23:25)
[2021-05-10 09:00] VITALS: BP 128/77; PULSE 75; RESP 16; TEMP 36.3; O2SAT 95
[2021-05-10] MEDS: Nicotine 21 MG PATCH.TD24 TRANSDERMA (09:36)
[2021-05-10] MEDS: Omeprazole 40 MG CAPSULE.DR PO (09:36)
[2021-05-10] MEDS: diazePAM 5 MG TABLET 7.5 MG PO ×2 (09:36→14:56)
[2021-05-10] MEDS: Dextroamphetamine/Amphetamine XR 10 MG CAP.ER.24H PO (09:36)
[2021-05-10] MEDS: Milk of Magnesia 30 ML ORAL.SUSP PO (09:45)
--- NOTE | 2021-05-10 12:58 | P.PNPSI_ITS ---
Subjective Subjective Date of Service: 05/10/21 Reason For Visit: depression and si Subjective Notes: Conditional Voluntary Interim History: The wound consult suggested to use Diflucan or increase Nystatin for her mycotic lessions. The nursing staff reports that she is mostly on her room and she feels safe in the unit but she has suicidal ideation out of the unit. On the interview, she reported no improvement of her sleep with the increase of Melatonin, she fell sleep at 1:30 am. She doesn't feel any improvement of her mood with the current regimen. Mental Status Exam Mental Status Exam Patient Appearance: Well Grooomed Patient Orientation: Person and Situation Level of Consciousness: Awake and Appropriate Patient Behavior: Dependent and Passive Mood Description: Depressed Affect Description: Constricted Patient Cognition Impaired: No Ability to Follow Directions: Good Speech Pattern: Clear Hallucinations: None Delusions: Not Present Thought Process: Goal Oriented Thought Content: positive for Circumstantial and positive for Perseveration Depressive Symptoms: Difficulty Sleeping and Crying Spells Judgement: Fair Diagnostics Vital Signs (24Hr): Vital Signs - 24 hr 05/09/21 23:03 Temperature 97.8 F Pulse Rate 91 Respiratory Rate 18 Blood Pressure 115/75 Pulse Oximetry 94 Body Mass Index 30.7 Medications Medications Current Medications Acetaminophen (Acetaminophen 325 Mg Tablet) 650 mg PO Q6H PRN PRN Reason: Headache/Pain Mild Scale (1-3) Last Admin: 05/09/21 19:32 Dose: 650 mg Documented by: Al Hydroxide/Mg Hydroxide (Magnesium Hydrox/Alum Hydrox 30 Ml Oral.Susp) 30 ml PO Q6H PRN PRN Reason: Heartburn/Nausea Last Admin: 05/07/21 16:40 Dose: 30 ml Documented by: Albuterol Sulfate (Albuterol Sulfate 90 Mcg 8 Gm Inhaler) 2 puff INHALE RQ6H PRN PRN Reason: Shortness of Breath Last Admin: 05/08/21 23:55 Dose: 2 puff Documented by: Amphetamine/Dextroamphetamine (Dextroamphetamine/Amphetamine Xr 10 Mg Cap.Er.24h) 10 mg PO DAILY [facility] Last Admin: 05/10/21 09:36 Dose: 10 mg Documented by: Clonidine (Clonidine 0.1 Mg Patch.Tdwk) 0.1 mg TRANSDERMA Tu@0900 [facility]; Protocol Last Admin: 05/05/21 13:17 Dose: 0.1 mg Documented by: Clonidine HCl (Clonidine Hcl 0.2 Mg Tablet) 0.6 mg PO BEDTIME [facility]; Protocol Last Admin: 05/09/21 23:06 Dose: 0.6 mg Documented by: Diazepam (Diazepam 5 Mg Tablet) 7.5 mg PO DAILY@1500 [facility] Last Admin: 05/09/21 14:26 Dose: 7.5 mg Documented by: Diazepam (Diazepam 5 Mg Tablet) 7.5 mg PO DAILY [facility] Last Admin: 05/10/21 09:36 Dose: 7.5 mg Documented by: Diazepam (Diazepam 5 Mg Tablet) 10 mg PO BEDTIME [facility] Last Admin: 05/09/21 23:06 Dose: 10 mg Documented by: Fluconazole (Fluconazole 50 Mg Tablet) 50 mg PO DAILY [facility] Guaifenesin (Guaifenesin 100 Mg/5 Ml Liquid) 5 ml PO Q6H PRN PRN Reason: Cough Last Admin: 05/09/21 16:35 Dose: 5 ml Documented by: Hydroxyzine HCl (Hydroxyzine Hcl 25 Mg Tablet) 25 mg PO BEDTIME PRN PRN Reason: Anxiety Last Admin: 05/09/21 23:25 Dose: 25 mg Documented by: Ibuprofen (Ibuprofen 800 Mg Tablet) 800 mg PO Q8H PRN PRN Reason: moderate to severe pain Last Admin: 05/09/21 16:35 Dose: 800 mg Documented by: Magnesium Hydroxide (Milk Of Magnesia 30 Ml Oral.Susp) 30 ml PO DAILY PRN PRN Reason: Constipation Last Admin: 05/10/21 09:45 Dose: 30 ml Documented by: Melatonin (Melatonin 3 Mg Tablet) 10 mg PO BEDTIME [facility] Last Admin: 05/09/21 23:07 Dose: 10 mg Documented by: Nicotine (Nicotine 21 Mg Patch.Td24) 21 mg TRANSDERMA DAILY [facility] Last Admin: 05/10/21 09:36 Dose: 21 mg Documented by: Nicotine Polacrilex (Nicotine Polacrilex 2 Mg Gum) 2 mg BUCCAL Q2H PRN PRN Reason: Nicotine Cravings Last Admin: 04/25/21 22:55 Dose: 2 mg Documented by: Nystatin (Nystatin Cream 15 Gm Tube) 1 appl TOPICAL BID [facility]; Protocol Last Admin: 05/09/21 23:10 Dose: 1 appl Documented by: Omeprazole (Omeprazole 40 Mg Capsule.) 40 mg PO DAILY@0630 [facility] Last Admin: 05/10/21 09:36 Dose: 40 mg Documented by: Quetiapine Fumarate (Quetiapine Fumarate 400 Mg Tablet) 800 mg PO BEDTIME [facility] Last Admin: 05/09/21 23:07 Dose: 800 mg Documented by: Quetiapine Fumarate (Quetiapine Fumarate 200 Mg Tablet) 200 mg PO BEDTIME [facility] Last Admin: 05/09/21 23:06 Dose: 200 mg Documented by: Trazodone HCl (Trazodone Hcl 50 Mg Tablet) 50 mg PO BEDTIME PRN PRN Reason: Insomnia Last Admin: 05/07/21 23:39 Dose: 50 mg Documented by: Allergies Allergies Allergy/AdvReac Type Severity Reaction Status Date / Time No Known Allergies Allergy Unverified 03/20/20 19:15 [No Known Allergies*] Assessment & Plan Assessment & Plan (1) Tinea cruris: Status: Acute Code(s): B35.6 - Tinea cruris Assessment and Plan: Pt is a 51 y.o. 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 She has co-morbid chronic pain issues and ambulates with leg braces s/p fasciitis. Denies substance or alcohol use problems. Reports significant past traumas that she has had difficulty movin g past. Hx of multiple past med trials, IPLOC, ECT but pt denies benefit. Currently presenting with sx of depression, lack of self care, anxiety with panic attacks, isolative behaviors, and intrusive negative thoughts. She feels safe on the unit and denies suicidal intent or plan at hospital. She has been using diazepam and high dose seroquel for sleep and anxiety management but denies that seroquel has helped with depression sx. 04/24: Seen by hospitalist for consult, much appreciated. Reported rash, prescribed nystatin. U/A obtained for dysuria. pt has a hx of extensive med trials and ECT. Had been discussing ketamine with OP prescriber but pt remains ambivalent. Discussed other options including TMS, selegiline patch, or decreasing seroquel and initiating cariprazine to target mood stability, perseverative thoughts, and anxious agitation. 04/26/21: Started Melatonin 6 mg HS 04/27: pt started on clonidine 0.1 mg/24H patch to target sympathetic hyperarousal. 04/28: clonidine 0.1 mg QHS added for sleep/nightmares. 04/29: clonidine 0.1 mg QHS increased to 0.2 mg QHS for insomnia/nightmares.? hold for SBP < 90.? podiatry consult placed.? valium dosing increased from 5 TID to 7.5 TID.? message left for outpt prescriber. 04/30: pt reports unchanged mood or anxiety, although looks somnolent, likely from valium dosing increase. 05/01: not somnolent.? clonidine at HS increased to 0.3 mg for sleep/anxiety. 05/02: not somnolent.? denies any improvement in Sx.? clonidine at HS increased to 0.4 mg. 05/03: not somnolent.? denies improvement.? clonidine at HS increased to 0.5 mg. 05/04: valium dosing increased from 7.5 TID to 7.5/7.5/10 for anxiety, tremor, insomnia. 05/05: clonidine at HS increased from 0.5 mg to 0.6 mg.? case discussed with outpt prescriber. 05/06: adderall 5 mg trial today.? mild hypotension this morning; continue clonidine at present dosing. 05/07: adderall changed to 10 mg XR formulation. 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 Pt hopeful and appreciative of Dr. Alexandre's medication changes. No safety concerns. No increase of anxious mood with adderall. no medication changes, SBP>90 but in low 90's, pt asymptomatic, no ortho hoTN. On Wednesday 05/09 I increased Melatonin from 6 to 10 mg to address insomnia. On Friday 05/11 we added Diflucan for mycotic lessions No other changes I spent minutes with the patient and/or on the patient floor today, greater than?50% of which was spent counseling/coordinating care. Reason for contiued inpatient stay Substantial Risk for: inability to function, rapid decompensation and med/psych decompensation
--- NOTE | 2021-05-10 13:15 | PC.NURSE ---
Patient offered topical cream x2. Declined application both times stating later . Asking about oral antibiotic that was recommended. Discussed with Dr. Tristan, order obtained.
[2021-05-10] MEDS: Ibuprofen 800 MG TABLET PO ×2 (14:12→23:42)
[2021-05-10] MEDS: Nystatin Cream 15 GM TUBE 1 APPL TOPICAL (14:13)
[2021-05-10] MEDS: Acetaminophen 325 MG TABLET 650 MG PO (19:20)
[2021-05-10 22:56] VITALS: TEMP 36.3; O2SAT 94
[2021-05-10] MEDS: QUEtiapine Fumarate 200 MG TABLET PO (23:38)
[2021-05-10] MEDS: diazePAM 5 MG TABLET 10 MG PO (23:38)
[2021-05-10 23:39] VITALS: BP 124/69; PULSE 94
[2021-05-10] MEDS: QUEtiapine Fumarate 400 MG TABLET 800 MG PO (23:39)
[2021-05-10] MEDS: cloNIDine HCL 0.2 MG TABLET 0.6 MG PO (23:39)
[2021-05-11] MEDS: Melatonin 3 MG TABLET 9 MG PO ×2 (00:31→23:38)
[2021-05-11] MEDS: hydrOXYzine HCL 25 MG TABLET PO (01:50)
[2021-05-11] MEDS: guaiFENesin 100 MG/5 ML LIQUID PO ×3 (03:57→23:51)
[2021-05-11 08:45] VITALS: BP 86/47; PULSE 81; RESP 18; TEMP 36.4; O2SAT 96
[2021-05-11] MEDS: Omeprazole 40 MG CAPSULE.DR PO (09:46)
[2021-05-11] MEDS: Nicotine 21 MG PATCH.TD24 TRANSDERMA (09:46)
[2021-05-11] MEDS: Dextroamphetamine/Amphetamine XR 10 MG CAP.ER.24H PO (09:46)
[2021-05-11] MEDS: diazePAM 5 MG TABLET 7.5 MG PO ×2 (09:46→16:01)
--- NOTE | 2021-05-11 13:28 | P.PNPSI_ITS ---
Subjective Subjective Date of Service: 05/11/21 Reason For Visit: depression and si Interim History: pt found lying in her room, adamantly denies napping during the day (pt was facing away from MD and was slow to respond to MD's greetings). review much of the same information as during daily meetings otherwise - psychotherapies for PTSD, valium dosing not the same as the klonopin dosing she was on for 30 years, lack of dependable improvement in symptoms. pt provided with alist of EBTs for PTSD - exposure therapy, EMDR, trauma-focused CBT, CPT. she plans to pursue one of them after discharge. broached that medications will likely not make the SI go away and that developing coping skills will be necessary. MD suggested IOP/PHP level of care after discharge. reports the stimulant has not made any difference for her; agrees to increase to 15 mg daily. per staff, dep/anx 04/12. fixated on not being in touch with her daughter for more than a year and the losses she has suffered due to her 's misdeeds. no AVH/HI, but reports concerns over SI if at home. isolative, not attending groups. c/o back pain. spending time in small group room watching TV. disrupted sleep last night. spends much of the day napping per staff services manager, which pt disputes. Mental Status Exam Mental Status Exam Narrative: A&O. improved grooming and appearance, overweight. good eye contact, attentive. No abnormal involuntary movements. Anxious but cooperative, engaged. Non-pressured speech, spontaneous with regular rate and rhythm, normal volume and flattened prosody. No prolonged speech latency or dysarthria. Mood is anxious, affect is constricted. Thoughts are linear and logical. No known cognitive or memory impairment. Insight/ Judgment fair and adequate. no SI/HI/AVH expressed. Diagnostics Vital Signs (24Hr): Vital Signs - 24 hr 05/10/21 22:56 05/10/21 23:39 05/11/21 08:45 Temperature 97.3 F 97.6 F Pulse Rate 94 81 Respiratory Rate 18 Blood Pressure 124/69 86/47 L Pulse Oximetry 94 96 Body Mass Index 30.7 Medications Medications Current Medications Acetaminophen (Acetaminophen 325 Mg Tablet) 650 mg PO Q6H PRN PRN Reason: Headache/Pain Mild Scale (1-3) Last Admin: 05/10/21 19:20 Dose: 650 mg Documented by: Al Hydroxide/Mg Hydroxide (Magnesium Hydrox/Alum Hydrox 30 Ml Oral.Susp) 30 ml PO Q6H PRN PRN Reason: Heartburn/Nausea Last Admin: 05/07/21 16:40 Dose: 30 ml Documented by: Albuterol Sulfate (Albuterol Sulfate 90 Mcg 8 Gm Inhaler) 2 puff INHALE RQ6H PRN PRN Reason: Shortness of Breath Last Admin: 05/08/21 23:55 Dose: 2 puff Documented by: Amphetamine/Dextroamphetamine (Dextroamphetamine/Amphetamine Xr 10 Mg Cap.Er.24h) 15 mg PO DAILY [facility] Clonidine (Clonidine 0.1 Mg Patch.Tdwk) 0.1 mg TRANSDERMA Tu@0900 [facility]; Protocol Last Admin: 05/05/21 13:17 Dose: 0.1 mg Documented by: Clonidine HCl (Clonidine Hcl 0.2 Mg Tablet) 0.6 mg PO BEDTIME [facility]; Protocol Last Admin: 05/10/21 23:39 Dose: 0.6 mg Documented by: Diazepam (Diazepam 5 Mg Tablet) 7.5 mg PO DAILY@1500 [facility] Last Admin: 05/10/21 14:56 Dose: 7.5 mg Documented by: Diazepam (Diazepam 5 Mg Tablet) 7.5 mg PO DAILY [facility] Last Admin: 05/11/21 09:46 Dose: 7.5 mg Documented by: Diazepam (Diazepam 5 Mg Tablet) 10 mg PO BEDTIME [facility] Last Admin: 05/10/21 23:38 Dose: 10 mg Documented by: Fluconazole (Fluconazole 50 Mg Tablet) 50 mg PO DAILY [facility] Last Admin: 05/11/21 09:46 Dose: 50 mg Documented by: Guaifenesin (Guaifenesin 100 Mg/5 Ml Liquid) 5 ml PO Q6H PRN PRN Reason: Cough Last Admin: 05/11/21 03:57 Dose: 5 ml Documented by: Hydroxyzine HCl (Hydroxyzine Hcl 25 Mg Tablet) 25 mg PO BEDTIME PRN PRN Reason: Anxiety Last Admin: 05/11/21 01:50 Dose: 25 mg Documented by: Ibuprofen (Ibuprofen 800 Mg Tablet) 800 mg PO Q8H PRN PRN Reason: moderate to severe pain Last Admin: 05/10/21 23:42 Dose: 800 mg Documented by: Magnesium Hydroxide (Milk Of Magnesia 30 Ml Oral.Susp) 30 ml PO DAILY PRN PRN Reason: Constipation Last Admin: 05/10/21 09:45 Dose: 30 ml Documented by: Melatonin (Melatonin 3 Mg Tablet) 9 mg PO BEDTIME [facility] Last Admin: 05/11/21 00:31 Dose: 9 mg Documented by: Nicotine (Nicotine 21 Mg Patch.Td24) 21 mg TRANSDERMA DAILY [facility] Last Admin: 05/11/21 09:46 Dose: 21 mg Documented by: Nicotine Polacrilex (Nicotine Polacrilex 2 Mg Gum) 2 mg BUCCAL Q2H PRN PRN Reason: Nicotine Cravings Last Admin: 04/25/21 22:55 Dose: 2 mg Documented by: Nystatin (Nystatin Cream 15 Gm Tube) 1 appl TOPICAL BID [facility]; Protocol Last Admin: 05/11/21 11:52 Dose: Not Given Documented by: Omeprazole (Omeprazole 40 Mg Capsule.Dr) 40 mg PO DAILY@0630 [facility] Last Admin: 05/11/21 09:46 Dose: 40 mg Documented by: Quetiapine Fumarate (Quetiapine Fumarate 400 Mg Tablet) 800 mg PO BEDTIME [facility] Last Admin: 05/10/21 23:39 Dose: 800 mg Documented by: Quetiapine Fumarate (Quetiapine Fumarate 200 Mg Tablet) 200 mg PO BEDTIME [facility] Last Admin: 05/10/21 23:38 Dose: 200 mg Documented by: Trazodone HCl (Trazodone Hcl 50 Mg Tablet) 50 mg PO BEDTIME PRN PRN Reason: Insomnia Last Admin: 05/07/21 23:39 Dose: 50 mg Documented by: Allergies Allergies Allergy/AdvReac Type Severity Reaction Status Date / Time No Known Allergies Allergy Unverified 03/20/20 19:15 [No Known Allergies*] Assessment & Plan Assessment & Plan (1) Tinea cruris: Status: Acute Code(s): B35.6 - Tinea cruris Assessment and Plan: Pt is a 51 y.o. 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 She has co-morbid chronic pain issues and ambulates with leg braces s/p fasciitis. Denies substance or alcohol use problems. Reports significant past traumas that she has had difficulty moving past. Hx of multiple past med trials, IPLOC, ECT but pt denies benefit. Currently presenting with sx of depression, lack of self care, anxiety with panic attacks, isolative behaviors, and intrusive negative thoughts. She feels safe on the unit and denies suicidal intent or plan at hospital. She has been using diazepam and high dose seroquel for sleep and anxiety management but denies that seroquel has helped with depression sx. 04/24: Seen by hospitalist for consult, much appreciated. Reported rash, prescribed nystatin. U/A obtained for dysuria. pt has a hx of extensive med trials and ECT. Had been discussing ketamine with OP prescriber but pt remains ambivalent. Discussed other options including TMS, selegiline patch, or decreasing seroquel and initiating cariprazine to target mood stability, perseverative thoughts, and anxious agitation. 04/26/21: Started Melatonin 6 mg HS 04/27: pt started on clonidine 0.1 mg/24H patch to target sympathetic hyperarousal. 04/28: clonidine 0.1 mg QHS added for sleep/nightmares. 04/29: clonidine 0.1 mg QHS increased to 0.2 mg QHS for insomnia/nightmares.? hold for SBP < 90.? podiatry consult placed.? valium dosing increased from 5 TID to 7.5 TID.? message left for outpt prescriber. 04/30: pt reports unchanged mood or anxiety, although looks somnolent, likely from valium dosing increase. 05/01: not somnolent.? clonidine at HS increased to 0.3 mg for sleep/anxiety. 05/02: not somnolent.? denies any improvement in Sx.? clonidine at HS increased to 0.4 mg. 05/03: not somnolent.? denies improvement.? clonidine at HS increased to 0.5 mg. 05/04: valium dosing increased from 7.5 TID to 7.5/7.5/10 for anxiety, tremor, insomnia. 05/05: clonidine at HS increased from 0.5 mg to 0.6 mg.? case discussed with outpt prescriber. 05/06: adderall 5 mg trial today.? mild hypotension this morning; continue clonidine at present dosing. 05/07: adderall changed to 10 mg XR formulation. 05/11: added Diflucan for mycotic lessions. 05/12: increased adderall XR to 15 mg daily. I spent minutes with the patient and/or on the patient floor today, greater than?50% of which was spent counseling/coordinating care. Reason for contiued inpatient stay Substantial Risk for: harm to self, inability to function and rapid decompensation
[2021-05-11] MEDS: Ibuprofen 800 MG TABLET PO ×2 (13:29→23:52)
[2021-05-11] MEDS: Milk of Magnesia 30 ML ORAL.SUSP PO (13:29)
[2021-05-11] MEDS: Dextroamphetamine/Amphetamine XR 5 MG CAP.ER.24H PO (13:42)
[2021-05-11] MEDS: Acetaminophen 325 MG TABLET 650 MG PO (16:13)
[2021-05-11] MEDS: Albuterol Sulfate 90 MCG 8 GM INHALER 2 PUFF INHALE (16:13)
[2021-05-11 23:32] VITALS: TEMP 36.6
[2021-05-11 23:37] VITALS: BP 123/63; PULSE 85
[2021-05-11] MEDS: QUEtiapine Fumarate 200 MG TABLET PO (23:37)
[2021-05-11] MEDS: cloNIDine HCL 0.2 MG TABLET 0.6 MG PO (23:37)
[2021-05-11] MEDS: QUEtiapine Fumarate 400 MG TABLET 800 MG PO (23:38)
[2021-05-11] MEDS: Nystatin Cream 15 GM TUBE 1 APPL TOPICAL (23:53)
[2021-05-12 08:48] VITALS: BP 108/59; PULSE 72; RESP 16; TEMP 36.6; O2SAT 98
[2021-05-12] MEDS: Nicotine 21 MG PATCH.TD24 TRANSDERMA (09:52)
[2021-05-12] MEDS: Dextroamphetamine/Amphetamine XR 5 MG CAP.ER.24H 15 MG PO (09:53)
[2021-05-12] MEDS: Omeprazole 40 MG CAPSULE.DR PO (09:53)
[2021-05-12] MEDS: Nystatin Cream 15 GM TUBE 1 APPL TOPICAL ×2 (09:58→23:20)
[2021-05-12 11:06] VITALS: BP 108/59; PULSE 72
[2021-05-12] MEDS: cloNIDine 0.1 MG PATCH.TDWK TRANSDERMA (11:06)
[2021-05-12] MEDS: diazePAM 5 MG TABLET 7.5 MG PO ×2 (11:06→14:52)
[2021-05-12] MEDS: Dextroamphetamine/Amphetamine XR 5 MG CAP.ER.24H PO (11:06)
--- NOTE | 2021-05-12 13:33 | HO.PSYCHPN ---
Subjective Subjective Date of Service: 05/12/21 Reason For Visit: depression and si Interim History: pt reports little change in her mood and anxiety symptoms. she does acknowledge she slept better last night. agrees to increase stimulant to 20 mg daily today. wondering about TMS versus ketamine vs psychotherapy; MD supports engaging in course of PTSD-directed psychotherapy as essential. per staff, more visible eves. slept 1:30 - 8:30. anx/dep 7/10. ruminative on trauma Hx. Mental Status Exam Mental Status Exam Narrative: A&O. improved grooming and appearance, overweight. good eye contact, attentive. No abnormal involuntary movements. Anxious but cooperative, engaged. Non-pressured speech, spontaneous with regular rate and rhythm, normal volume and flattened prosody. No prolonged speech latency or dysarthria. Mood is anxious, affect is constricted. Thoughts are linear and logical. No known cognitive or memory impairment. Insight/ Judgment fair and adequate. no SI/HI/AVH expressed. Diagnostics Vital Signs (24Hr): Vital Signs - 24 hr 05/11/21 23:32 05/11/21 23:37 05/12/21 08:48 Temperature 97.8 F 97.9 F Pulse Rate 85 72 Respiratory Rate 16 Blood Pressure 123/63 108/59 L Pulse Oximetry 98 05/12/21 11:06 Temperature Pulse Rate 72 Respiratory Rate Blood Pressure 108/59 L Pulse Oximetry Body Mass Index 30.7 Medications Medications Current Medications Acetaminophen (Acetaminophen 325 Mg Tablet) 650 mg PO Q6H PRN PRN Reason: Headache/Pain Mild Scale (1-3) Last Admin: 05/11/21 16:13 Dose: 650 mg Documented by: Al Hydroxide/Mg Hydroxide (Magnesium Hydrox/Alum Hydrox 30 Ml Oral.Susp) 30 ml PO Q6H PRN PRN Reason: Heartburn/Nausea Last Admin: 05/07/21 16:40 Dose: 30 ml Documented by: Albuterol Sulfate (Albuterol Sulfate 90 Mcg 8 Gm Inhaler) 2 puff INHALE RQ6H PRN PRN Reason: Shortness of Breath Last Admin: 05/11/21 16:13 Dose: 2 puff Documented by: Amphetamine/Dextroamphetamine (Dextroamphetamine/Amphetamine Xr 5 Mg Cap.Er.24h) 20 mg PO DAILY [facility] Clonidine (Clonidine 0.1 Mg Patch.Tdwk) 0.1 mg TRANSDERMA Tu@0900 [facility]; Protocol Last Admin: 05/12/21 11:06 Dose: 0.1 mg Documented by: Clonidine HCl (Clonidine Hcl 0.2 Mg Tablet) 0.6 mg PO BEDTIME [facility]; Protocol Last Admin: 05/11/21 23:37 Dose: 0.6 mg Documented by: Diazepam (Diazepam 5 Mg Tablet) 7.5 mg PO DAILY@1500 [facility] Last Admin: 05/11/21 16:01 Dose: 7.5 mg Documented by: Diazepam (Diazepam 5 Mg Tablet) 10 mg PO BEDTIME [facility] Diazepam (Diazepam 5 Mg Tablet) 7.5 mg PO DAILY [facility] Last Admin: 05/12/21 11:06 Dose: 7.5 mg Documented by: Fluconazole (Fluconazole 50 Mg Tablet) 50 mg PO DAILY [facility] Last Admin: 05/12/21 09:53 Dose: 50 mg Documented by: Guaifenesin (Guaifenesin 100 Mg/5 Ml Liquid) 5 ml PO Q6H PRN PRN Reason: Cough Last Admin: 05/11/21 23:51 Dose: 5 ml Documented by: Hydroxyzine HCl (Hydroxyzine Hcl 25 Mg Tablet) 25 mg PO BEDTIME PRN PRN Reason: Anxiety Last Admin: 05/11/21 01:50 Dose: 25 mg Documented by: Ibuprofen (Ibuprofen 800 Mg Tablet) 800 mg PO Q8H PRN PRN Reason: moderate to severe pain Last Admin: 05/11/21 23:52 Dose: 800 mg Documented by: Magnesium Hydroxide (Milk Of Magnesia 30 Ml Oral.Susp) 30 ml PO DAILY PRN PRN Reason: Constipation Last Admin: 05/11/21 13:29 Dose: 30 ml Documented by: Melatonin (Melatonin 3 Mg Tablet) 9 mg PO BEDTIME [facility] Last Admin: 05/11/21 23:38 Dose: 9 mg Documented by: Nicotine (Nicotine 21 Mg Patch.Td24) 21 mg TRANSDERMA DAILY [facility] Last Admin: 05/12/21 09:52 Dose: 21 mg Documented by: Nicotine Polacrilex (Nicotine Polacrilex 2 Mg Gum) 2 mg BUCCAL Q2H PRN PRN Reason: Nicotine Cravings Last Admin: 04/25/21 22:55 Dose: 2 mg Documented by: Nystatin (Nystatin Cream 15 Gm Tube) 1 appl TOPICAL BID [facility]; Protocol Last Admin: 05/12/21 09:58 Dose: 1 appl Documented by: Omeprazole (Omeprazole 40 Mg Capsule.) 40 mg PO DAILY@0630 [facility] Last Admin: 05/12/21 09:53 Dose: 40 mg Documented by: Quetiapine Fumarate (Quetiapine Fumarate 400 Mg Tablet) 800 mg PO BEDTIME [facility] Last Admin: 05/11/21 23:38 Dose: 800 mg Documented by: Quetiapine Fumarate (Quetiapine Fumarate 200 Mg Tablet) 200 mg PO BEDTIME [facility] Last Admin: 05/11/21 23:37 Dose: 200 mg Documented by: Trazodone HCl (Trazodone Hcl 50 Mg Tablet) 50 mg PO BEDTIME PRN PRN Reason: Insomnia Last Admin: 05/07/21 23:39 Dose: 50 mg Documented by: Allergies Allergies Allergy/AdvReac Type Severity Reaction Status Date / Time No Known Allergies Allergy Unverified 03/20/20 19:15 [No Known Allergies*] Assessment & Plan Assessment & Plan (1) Tinea cruris: Status: Acute Code(s): B35.6 - Tinea cruris Assessment and Plan: Pt is a 51 y.o. 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 She has co-morbid chronic pain issues and ambulates with leg braces s/p fasciitis. Denies substance or alcohol use problems. Reports significant past traumas that she has had difficulty moving past. Hx of multiple past med trials, IPLOC, ECT but pt denies benefit. Currently presenting with sx of depression, lack of self care, anxiety with panic attacks, isolative behaviors, and intrusive negative thoughts. She feels safe on the unit and denies suicidal intent or plan at hospital. She has been using diazepam and high dose seroquel for sleep and anxiety management but denies that seroquel has helped with depression sx. 04/24: Seen by hospitalist for consult, much appreciated. Reported rash, prescribed nystatin. U/A obtained for dysuria. pt has a hx of extensive med trials and ECT. Had been discussing ketamine with OP prescriber but pt remains ambivalent. Discussed other options including TMS, selegiline patch, or decreasing seroquel and initiating cariprazine to target mood stability, perseverative thoughts, and anxious agitation. 04/26/21: Started Melatonin 6 mg HS 04/27: pt started on clonidine 0.1 mg/24H patch to target sympathetic hyperarousal. 04/28: clonidine 0.1 mg QHS added for sleep/nightmares. 04/29: clonidine 0.1 mg QHS increased to 0.2 mg QHS for insomnia/nightmares.? hold for SBP < 90.? podiatry consult placed.? valium dosing increased from 5 TID to 7.5 TID.? message left for outpt prescriber. 04/30: pt reports unchanged mood or anxiety, although looks somnolent, likely from valium dosing increase. 05/01: not somnolent.? clonidine at HS increased to 0.3 mg for sleep/anxiety. 05/02: not somnolent.? denies any improvement in Sx.? clonidine at HS increased to 0.4 mg. 05/03: not somnolent.? denies improvement.? clonidine at HS increased to 0.5 mg. 05/04: valium dosing increased from 7.5 TID to 7.5/7.5/10 for anxiety, tremor, insomnia. 05/05: clonidine at HS increased from 0.5 mg to 0.6 mg.? case discussed with outpt prescriber. 05/06: adderall 5 mg trial today.? mild hypotension this morning; continue clonidine at present dosing. 05/07: adderall changed to 10 mg XR formulation. 05/11: added Diflucan for mycotic lessions. 05/11: increased adderall XR to 15 mg daily. 05/12: increased adderall XR to 20 mg daily. I spent minutes with the patient and/or on the patient floor today, greater than?50% of which was spent counseling/coordinating care. Reason for contiued inpatient stay Substantial Risk for: harm to self, inability to function and rapid decompensation
[2021-05-12] MEDS: Ibuprofen 800 MG TABLET PO ×2 (15:04→23:33)
[2021-05-12] MEDS: Albuterol Sulfate 90 MCG 8 GM INHALER 2 PUFF INHALE ×2 (15:04→23:34)
[2021-05-12 18:00] VITALS: BP 120/84; PULSE 80; RESP 18; TEMP 36.9; O2SAT 97
[2021-05-12] MEDS: diazePAM 5 MG TABLET 10 MG PO (21:21)
[2021-05-12] MEDS: Melatonin 3 MG TABLET 9 MG PO (23:19)
[2021-05-12] MEDS: QUEtiapine Fumarate 400 MG TABLET 800 MG PO (23:20)
[2021-05-12] MEDS: QUEtiapine Fumarate 200 MG TABLET PO (23:20)
[2021-05-12] MEDS: cloNIDine HCL 0.2 MG TABLET 0.6 MG PO (23:20)
[2021-05-13] MEDS: hydrOXYzine HCL 25 MG TABLET PO (00:42)
[2021-05-13] MEDS: guaiFENesin 100 MG/5 ML LIQUID PO ×3 (01:26→23:23)
[2021-05-13 08:20] VITALS: BP 88/46; PULSE 72; RESP 14; TEMP 36.4; O2SAT 96
[2021-05-13 10:00] VITALS: BP 99/56; PULSE 80
[2021-05-13] MEDS: Omeprazole 40 MG CAPSULE.DR PO (10:20)
[2021-05-13] MEDS: Dextroamphetamine/Amphetamine XR 5 MG CAP.ER.24H 20 MG PO (10:20)
[2021-05-13] MEDS: Nicotine 21 MG PATCH.TD24 TRANSDERMA (10:21)
--- NOTE | 2021-05-13 11:17 | HO.PSYCHPN ---
Subjective Subjective Date of Service: 05/13/21 Reason For Visit: depression and si Interim History: pt reports ongoing anxiety and depression, states she is tired this morning. per staff home therapy rn quite hypotensive. MD suggests decreasing HS clonidine from 0.6 mg to 0.5 mg; pt agrees. also reports no change from stimulant, agrees to increase dose to 30 mg as of tomorrow. states she slept after 0200. discuss plan to have her discharge sometime early-mid next week. per staff, isolative earlier in day, more social later. watching TV. high anxiety and depression. passive SI. up until 0130. Mental Status Exam Mental Status Exam Narrative: A&O. improved grooming and appearance, overweight. good eye contact, attentive although appears tired. No abnormal involuntary movements. Anxious but cooperative, engaged. Non-pressured speech, spontaneous with regular rate and rhythm, normal volume and flattened prosody. No prolonged speech latency or dysarthria. Mood is anxious, affect is constricted. Thoughts are linear and logical. No known cognitive or memory impairment. Insight/ Judgment fair and adequate. no SI/HI/AVH expressed. Diagnostics Vital Signs (24Hr): Vital Signs - 24 hr 05/12/21 18:00 Temperature 98.4 F Pulse Rate 80 Respiratory Rate 18 Blood Pressure 120/84 Pulse Oximetry 97 Body Mass Index 30.7 Medications Medications Current Medications Acetaminophen (Acetaminophen 325 Mg Tablet) 650 mg PO Q6H PRN PRN Reason: Headache/Pain Mild Scale (1-3) Last Admin: 05/11/21 16:13 Dose: 650 mg Documented by: Al Hydroxide/Mg Hydroxide (Magnesium Hydrox/Alum Hydrox 30 Ml Oral.Susp) 30 ml PO Q6H PRN PRN Reason: Heartburn/Nausea Last Admin: 05/07/21 16:40 Dose: 30 ml Documented by: Albuterol Sulfate (Albuterol Sulfate 90 Mcg 8 Gm Inhaler) 2 puff INHALE RQ6H PRN PRN Reason: Shortness of Breath Last Admin: 05/12/21 23:34 Dose: 2 puff Documented by: Amphetamine/Dextroamphetamine (Dextroamphetamine/Amphetamine Xr 10 Mg Cap.Er.24h) 30 mg PO DAILY [facility] Clonidine (Clonidine 0.1 Mg Patch.Tdwk) 0.1 mg TRANSDERMA Tu@0900 [facility]; Protocol Last Admin: 05/12/21 11:06 Dose: 0.1 mg Documented by: Clonidine HCl (Clonidine Hcl 0.1 Mg Tablet) 0.5 mg PO BEDTIME [facility]; Protocol Diazepam (Diazepam 5 Mg Tablet) 7.5 mg PO DAILY@1500 [facility] Last Admin: 05/12/21 14:52 Dose: 7.5 mg Documented by: Diazepam (Diazepam 5 Mg Tablet) 10 mg PO BEDTIME [facility] Last Admin: 05/12/21 21:21 Dose: 10 mg Documented by: Diazepam (Diazepam 5 Mg Tablet) 7.5 mg PO DAILY [facility] Last Admin: 05/12/21 11:06 Dose: 7.5 mg Documented by: Fluconazole (Fluconazole 50 Mg Tablet) 50 mg PO DAILY [facility] Last Admin: 05/13/21 10:20 Dose: 50 mg Documented by: Guaifenesin (Guaifenesin 100 Mg/5 Ml Liquid) 5 ml PO Q6H PRN PRN Reason: Cough Last Admin: 05/13/21 01:26 Dose: 5 ml Documented by: Hydroxyzine HCl (Hydroxyzine Hcl 25 Mg Tablet) 25 mg PO BEDTIME PRN PRN Reason: Anxiety Last Admin: 05/13/21 00:42 Dose: 25 mg Documented by: Ibuprofen (Ibuprofen 800 Mg Tablet) 800 mg PO Q8H PRN PRN Reason: moderate to severe pain Last Admin: 05/12/21 23:33 Dose: 800 mg Documented by: Magnesium Hydroxide (Milk Of Magnesia 30 Ml Oral.Susp) 30 ml PO DAILY PRN PRN Reason: Constipation Last Admin: 05/11/21 13:29 Dose: 30 ml Documented by: Melatonin (Melatonin 3 Mg Tablet) 9 mg PO BEDTIME [facility] Last Admin: 05/12/21 23:19 Dose: 9 mg Documented by: Nicotine (Nicotine 21 Mg Patch.Td24) 21 mg TRANSDERMA DAILY [facility] Last Admin: 05/13/21 10:21 Dose: 21 mg Documented by: Nicotine Polacrilex (Nicotine Polacrilex 2 Mg Gum) 2 mg BUCCAL Q2H PRN PRN Reason: Nicotine Cravings Last Admin: 04/25/21 22:55 Dose: 2 mg Documented by: Nystatin (Nystatin Cream 15 Gm Tube) 1 appl TOPICAL BID [facility]; Protocol Last Admin: 05/12/21 23:20 Dose: 1 appl Documented by: Omeprazole (Omeprazole 40 Mg Capsule.) 40 mg PO DAILY@0630 [facility] Last Admin: 05/13/21 10:20 Dose: 40 mg Documented by: Quetiapine Fumarate (Quetiapine Fumarate 400 Mg Tablet) 800 mg PO BEDTIME [facility] Last Admin: 05/12/21 23:20 Dose: 800 mg Documented by: Quetiapine Fumarate (Quetiapine Fumarate 200 Mg Tablet) 200 mg PO BEDTIME [facility] Last Admin: 05/12/21 23:20 Dose: 200 mg Documented by: Trazodone HCl (Trazodone Hcl 50 Mg Tablet) 50 mg PO BEDTIME PRN PRN Reason: Insomnia Last Admin: 05/07/21 23:39 Dose: 50 mg Documented by: Allergies Allergies Allergy/AdvReac Type Severity Reaction Status Date / Time No Known Allergies Allergy Unverified 03/20/20 19:15 [No Known Allergies*] Assessment & Plan Assessment & Plan (1) Tinea cruris: Status: Acute Code(s): B35.6 - Tinea cruris Assessment and Plan: Pt is a 51 y.o. 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 She has co-morbid chronic pain issues and ambulates with leg braces s/p fasciitis. Denies substance or alcohol use problems. Reports significant past traumas that she has had difficulty moving past. Hx of multiple past med trials, IPLOC, ECT but pt denies benefit. Currently presenting with sx of depression, lack of self care, anxiety with panic attacks, isolative behaviors, and intrusive negative thoughts. She feels safe on the unit and denies suicidal intent or plan at hospital. She has been using diazepam and high dose seroquel for sleep and anxiety management but denies that seroquel has helped with depression sx. 04/24: Seen by hospitalist for consult, much appreciated. Reported rash, prescribed nystatin. U/A obtained for dysuria. pt has a hx of extensive med trials and ECT. Had been discussing ketamine with OP prescriber but pt remains ambivalent. Discussed other options including TMS, selegiline patch, or decreasing seroquel and initiating cariprazine to target mood stability, perseverative thoughts, and anxious agitation. 04/26/21: Started Melatonin 6 mg HS 04/27: pt started on clonidine 0.1 mg/24H patch to target sympathetic hyperarousal. 04/28: clonidine 0.1 mg QHS added for sleep/nightmares. 04/29: clonidine 0.1 mg QHS increased to 0.2 mg QHS for insomnia/nightmares.? hold for SBP < 90.? podiatry consult placed.? valium dosing increased from 5 TID to 7.5 TID.? message left for outpt prescriber. 04/30: pt reports unchanged mood or anxiety, although looks somnolent, likely from valium dosing increase. 05/01: not somnolent.? clonidine at HS increased to 0.3 mg for sleep/anxiety. 05/02: not somnolent.? denies any improvement in Sx.? clonidine at HS increased to 0.4 mg. 05/03: not somnolent.? denies improvement.? clonidine at HS increased to 0.5 mg. 05/04: valium dosing increased from 7.5 TID to 7.5/7.5/10 for anxiety, tremor, insomnia. 05/05: clonidine at HS increased from 0.5 mg to 0.6 mg.? case discussed with outpt prescriber. 05/06: adderall 5 mg trial today.? mild hypotension this morning; continue clonidine at present dosing. 05/07: adderall changed to 10 mg XR formulation. 05/11: added Diflucan for mycotic lessions. 05/11: increased adderall XR to 15 mg daily. 05/12: increased adderall XR to 20 mg daily. 05/14: adderall increased to 30 mg for 05/14. I spent minutes with the patient and/or on the patient floor today, greater than?50% of which was spent counseling/coordinating care. Reason for contiued inpatient stay Substantial Risk for: harm to self, inability to function and rapid decompensation
[2021-05-13 12:30] VITALS: BP 115/58; PULSE 109
[2021-05-13] MEDS: diazePAM 5 MG TABLET 7.5 MG PO ×2 (12:45→17:26)
[2021-05-13] MEDS: Ibuprofen 800 MG TABLET PO (15:38)
[2021-05-13] MEDS: Nystatin Cream 15 GM TUBE 1 APPL TOPICAL ×2 (15:43→23:01)
[2021-05-13 22:56] VITALS: BP 123/72; PULSE 90; RESP 18; TEMP 37.1; O2SAT 96
[2021-05-13] MEDS: cloNIDine HCL 0.1 MG TABLET 0.5 MG PO (22:59)
[2021-05-13] MEDS: Melatonin 3 MG TABLET 9 MG PO (23:00)
[2021-05-13] MEDS: QUEtiapine Fumarate 400 MG TABLET 800 MG PO (23:00)
[2021-05-13] MEDS: QUEtiapine Fumarate 200 MG TABLET PO (23:00)
[2021-05-13] MEDS: diazePAM 5 MG TABLET 10 MG PO (23:01)
[2021-05-13] MEDS: Acetaminophen 325 MG TABLET 650 MG PO (23:23)
[2021-05-13] MEDS: Albuterol Sulfate 90 MCG 8 GM INHALER 2 PUFF INHALE (23:23)
[2021-05-14] MEDS: hydrOXYzine HCL 25 MG TABLET PO (00:21)
[2021-05-14 06:00] VITALS: BP 109/56; PULSE 87; RESP 16; TEMP 36.8; O2SAT 96
[2021-05-14 07:00] VITALS: BMI 30.7
[2021-05-14] MEDS: Omeprazole 40 MG CAPSULE.DR PO (09:58)
[2021-05-14] MEDS: diazePAM 5 MG TABLET 7.5 MG PO ×2 (09:58→17:20)
[2021-05-14] MEDS: Dextroamphetamine/Amphetamine XR 10 MG CAP.ER.24H 30 MG PO (09:59)
[2021-05-14] MEDS: Nicotine 21 MG PATCH.TD24 TRANSDERMA (09:59)
[2021-05-14] MEDS: Ibuprofen 800 MG TABLET PO ×2 (10:07→23:20)
[2021-05-14] MEDS: Albuterol Sulfate 90 MCG 8 GM INHALER 2 PUFF INHALE ×3 (10:08→23:19)
[2021-05-14 15:43] VITALS: BMI 30.2
[2021-05-14] MEDS: Acetaminophen 325 MG TABLET 650 MG PO (17:22)
[2021-05-14 21:50] VITALS: BP 125/69; PULSE 98; RESP 20; TEMP 36.8; O2SAT 96
[2021-05-14] MEDS: QUEtiapine Fumarate 200 MG TABLET PO (23:09)
[2021-05-14] MEDS: QUEtiapine Fumarate 400 MG TABLET 800 MG PO (23:09)
[2021-05-14] MEDS: guaiFENesin 100 MG/5 ML LIQUID PO (23:09)
[2021-05-14 23:10] VITALS: BP 125/69; PULSE 95
[2021-05-14] MEDS: diazePAM 5 MG TABLET 10 MG PO (23:10)
[2021-05-14] MEDS: cloNIDine HCL 0.1 MG TABLET 0.5 MG PO (23:10)
[2021-05-14] MEDS: Melatonin 3 MG TABLET 9 MG PO (23:11)
[2021-05-14] MEDS: Nystatin Cream 15 GM TUBE 1 APPL TOPICAL (23:19)
[2021-05-15 10:27] VITALS: BP 106/60; PULSE 89; RESP 18; TEMP 36.2; O2SAT 92
[2021-05-15] MEDS: Dextroamphetamine/Amphetamine XR 10 MG CAP.ER.24H 30 MG PO (10:29)
[2021-05-15] MEDS: Omeprazole 40 MG CAPSULE.DR PO (10:29)
[2021-05-15] MEDS: diazePAM 5 MG TABLET 7.5 MG PO ×2 (10:29→14:38)
[2021-05-15] MEDS: Nicotine 21 MG PATCH.TD24 TRANSDERMA (10:31)
--- NOTE | 2021-05-15 13:14 | HO.PSYCHPN ---
Subjective Subjective Date of Service: 05/15/21 Reason For Visit: depression and si Interim History: nearly hour-long interview with pt today in which she discussed at great length recent jackie-on with her former roommate, essentially how she had been acting as her roommate's counselor and had lost 9 days in doing so. reviewed a number of questions she had written down for MD, most of which have been discussed at length before. most fixated on wanted to return her benzo dosing to equivalent to klonopin 1 mg TID. MD declined the request for now. per staff, isolative. c/o poor concentration/motivation. episode of shaking and sweating? related to anxiety. felt upset, targeted, when roommate was transferred out. Mental Status Exam Mental Status Exam Narrative: A&O. improved grooming and appearance, overweight. good eye contact, attentive. No abnormal involuntary movements. Anxious but cooperative, engaged. speech incr in amout and difficult to interrupt/redirect, spontaneous with regular rate and rhythm, normal volume and flattened prosody. No prolonged speech latency or dysarthria. Mood is anxious and depreseed, affect is constricted. Thoughts are linear and logical. No known cognitive or memory impairment. Insight/ Judgment fair and adequate. endorses SI. no HI/AVH expressed. Diagnostics Vital Signs (24Hr): Vital Signs - 24 hr 05/14/21 21:50 05/14/21 23:10 05/15/21 10:27 Temperature 98.3 F 97.2 F Pulse Rate 98 95 89 Respiratory Rate 20 18 Blood Pressure 125/69 125/69 106/60 Pulse Oximetry 96 92 Body Mass Index 30.2 Medications Medications Current Medications Acetaminophen (Acetaminophen 325 Mg Tablet) 650 mg PO Q6H PRN PRN Reason: Headache/Pain Mild Scale (1-3) Last Admin: 05/14/21 17:22 Dose: 650 mg Documented by: Al Hydroxide/Mg Hydroxide (Magnesium Hydrox/Alum Hydrox 30 Ml Oral.Susp) 30 ml PO Q6H PRN PRN Reason: Heartburn/Nausea Last Admin: 05/07/21 16:40 Dose: 30 ml Documented by: Albuterol Sulfate (Albuterol Sulfate 90 Mcg 8 Gm Inhaler) 2 puff INHALE RQ6H PRN PRN Reason: Shortness of Breath Last Admin: 05/14/21 23:19 Dose: 2 puff Documented by: Amphetamine/Dextroamphetamine (Dextroamphetamine/Amphetamine Xr 10 Mg Cap.Er.24h) 30 mg PO DAILY [facility] Last Admin: 05/15/21 10:29 Dose: 30 mg Documented by: Clonidine (Clonidine 0.1 Mg Patch.Tdwk) 0.1 mg TRANSDERMA Tu@0900 [facility]; Protocol Last Admin: 05/12/21 11:06 Dose: 0.1 mg Documented by: Clonidine HCl (Clonidine Hcl 0.1 Mg Tablet) 0.5 mg PO BEDTIME [facility]; Protocol Last Admin: 05/14/21 23:10 Dose: 0.5 mg Documented by: Diazepam (Diazepam 5 Mg Tablet) 10 mg PO BEDTIME [facility] Last Admin: 05/14/21 23:10 Dose: 10 mg Documented by: Diazepam (Diazepam 5 Mg Tablet) 7.5 mg PO DAILY [facility] Last Admin: 05/15/21 10:29 Dose: 7.5 mg Documented by: Diazepam (Diazepam 5 Mg Tablet) 7.5 mg PO DAILY@1500 [facility] Last Admin: 05/14/21 17:20 Dose: 7.5 mg Documented by: Fluconazole (Fluconazole 50 Mg Tablet) 50 mg PO DAILY [facility] Last Admin: 05/15/21 10:29 Dose: 50 mg Documented by: Guaifenesin (Guaifenesin 100 Mg/5 Ml Liquid) 5 ml PO Q6H PRN PRN Reason: Cough Last Admin: 05/14/21 23:09 Dose: 5 ml Documented by: Hydroxyzine HCl (Hydroxyzine Hcl 25 Mg Tablet) 25 mg PO BEDTIME PRN PRN Reason: Anxiety Last Admin: 05/14/21 00:21 Dose: 25 mg Documented by: Ibuprofen (Ibuprofen 800 Mg Tablet) 800 mg PO Q8H PRN PRN Reason: moderate to severe pain Last Admin: 05/14/21 23:20 Dose: 800 mg Documented by: Magnesium Hydroxide (Milk Of Magnesia 30 Ml Oral.Susp) 30 ml PO DAILY PRN PRN Reason: Constipation Last Admin: 05/11/21 13:29 Dose: 30 ml Documented by: Melatonin (Melatonin 3 Mg Tablet) 9 mg PO BEDTIME [facility] Last Admin: 05/14/21 23:11 Dose: 9 mg Documented by: Nicotine (Nicotine 21 Mg Patch.Td24) 21 mg TRANSDERMA DAILY [facility] Last Admin: 05/15/21 10:31 Dose: 21 mg Documented by: Nicotine Polacrilex (Nicotine Polacrilex 2 Mg Gum) 2 mg BUCCAL Q2H PRN PRN Reason: Nicotine Cravings Last Admin: 04/25/21 22:55 Dose: 2 mg Documented by: Nystatin (Nystatin Cream 15 Gm Tube) 1 appl TOPICAL BID [facility]; Protocol Last Admin: 05/15/21 12:38 Dose: Not Given Documented by: Omeprazole (Omeprazole 40 Mg Capsule.Dr) 40 mg PO DAILY@0630 [facility] Last Admin: 05/15/21 10:29 Dose: 40 mg Documented by: Quetiapine Fumarate (Quetiapine Fumarate 400 Mg Tablet) 800 mg PO BEDTIME [facility] Last Admin: 05/14/21 23:09 Dose: 800 mg Documented by: Quetiapine Fumarate (Quetiapine Fumarate 200 Mg Tablet) 200 mg PO BEDTIME [facility] Last Admin: 05/14/21 23:09 Dose: 200 mg Documented by: Trazodone HCl (Trazodone Hcl 50 Mg Tablet) 50 mg PO BEDTIME PRN PRN Reason: Insomnia Last Admin: 05/07/21 23:39 Dose: 50 mg Documented by: Allergies Allergies Allergy/AdvReac Type Severity Reaction Status Date / Time No Known Allergies Allergy Unverified 03/20/20 19:15 [No Known Allergies*] Assessment & Plan Assessment & Plan (1) Tinea cruris: Status: Acute Code(s): B35.6 - Tinea cruris Assessment and Plan: Pt is a 51 y.o. 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 She has co-morbid chronic pain issues and ambulates with leg braces s/p fasciitis. Denies substance or alcohol use problems. Reports significant past traumas that she has had difficulty moving past. Hx of multiple past med trials, IPLOC, ECT but pt denies benefit. Currently presenting with sx of depression, lack of self care, anxiety with panic attacks, isolative behaviors, and intrusive negative thoughts. She feels safe on the unit and denies suicidal intent or plan at hospital. She has been using diazepam and high dose seroquel for sleep and anxiety management but denies that seroquel has helped with depression sx. 04/24: Seen by hospitalist for consult, much appreciated. Reported rash, prescribed nystatin. U/A obtained for dysuria. pt has a hx of extensive med trials and ECT. Had been discussing ketamine with OP prescriber but pt remains ambivalent. Discussed other options including TMS, selegiline patch, or decreasing seroquel and initiating cariprazine to target mood stability, perseverative thoughts, and anxious agitation. 04/26/21: Started Melatonin 6 mg HS 04/27: pt started on clonidine 0.1 mg/24H patch to target sympathetic hyperarousal. 04/28: clonidine 0.1 mg QHS added for sleep/nightmares. 04/29: clonidine 0.1 mg QHS increased to 0.2 mg QHS for insomnia/nightmares.? hold for SBP < 90.? podiatry consult placed.? valium dosing increased from 5 TID to 7.5 TID.? message left for outpt prescriber. 04/30: pt reports unchanged mood or anxiety, although looks somnolent, likely from valium dosing increase. 05/01: not somnolent.? clonidine at HS increased to 0.3 mg for sleep/anxiety. 05/02: not somnolent.? denies any improvement in Sx.? clonidine at HS increased to 0.4 mg. 05/03: not somnolent.? denies improvement.? clonidine at HS increased to 0.5 mg. 05/04: valium dosing increased from 7.5 TID to 7.5/7.5/10 for anxiety, tremor, insomnia. 05/05: clonidine at HS increased from 0.5 mg to 0.6 mg.? case discussed with outpt prescriber. 05/06: adderall 5 mg trial today.? mild hypotension this morning; continue clonidine at present dosing. 05/07: adderall changed to 10 mg XR formulation. 05/11: added Diflucan for mycotic lessions. 05/11: increased adderall XR to 15 mg daily. 05/12: increased adderall XR to 20 mg daily. 05/14: adderall increased to 30 mg for 05/14. I spent minutes with the patient and/or on the patient floor today, greater than?50% of which was spent counseling/coordinating care. Reason for contiued inpatient stay Substantial Risk for: harm to self
[2021-05-15] MEDS: Ibuprofen 800 MG TABLET PO (14:38)
[2021-05-15] MEDS: Albuterol Sulfate 90 MCG 8 GM INHALER 2 PUFF INHALE (14:40)
[2021-05-15] MEDS: diazePAM 5 MG TABLET 10 MG PO (23:25)
[2021-05-15] MEDS: QUEtiapine Fumarate 400 MG TABLET 800 MG PO (23:25)
[2021-05-15] MEDS: Melatonin 3 MG TABLET 9 MG PO (23:25)
[2021-05-15] MEDS: QUEtiapine Fumarate 200 MG TABLET PO (23:25)
[2021-05-15 23:26] VITALS: BP 134/74; PULSE 88
[2021-05-15] MEDS: cloNIDine HCL 0.1 MG TABLET 0.5 MG PO (23:26)
[2021-05-15] MEDS: guaiFENesin 100 MG/5 ML LIQUID PO (23:26)
[2021-05-15 23:30] VITALS: TEMP 36.7; O2SAT 97
[2021-05-16] MEDS: Nystatin Cream 15 GM TUBE 1 APPL TOPICAL (00:06)
--- NOTE | 2021-05-16 07:46 | P.PNPSI_ITS ---
Subjective Subjective Date of Service: 05/16/21 Reason For Visit: depression and si Subjective Notes: Conditional Voluntary Interim History: Pt continues to report same level of depression and anxiety for last 20 years. She states no difference with medication changes. Pt shows this commercial real estate underwriter list of questions that she was reminded had discussed at length with her attending Dr. Alexandre. Pt denies any side effects with current medications. She denies any plan or intent to hurt herself. She reports feeling lonely, not having much support from family. She reports sleeping and eating well. Pt is well groomed. Per nursing, no behavioral concerns. Medication Compliance: Yes Side effects from medications: No Review of Systems Review of Systems no fever, no drainage, redness is reported Yes all other systems are reviewed and are negative Constitutional: Denies chills and Denies fever(s) Cardiovascular: Denies chest pain, Reports palpitations and Denies orthopnea Respiratory: Denies cough Gastrointestinal: Denies abdominal pain Endocrine: Reports palpitations Mental Status Exam Mental Status Exam Narrative: A&O. improved grooming and appearance, overweight. good eye contact, attentive. No abnormal involuntary movements. Anxious but cooperative, engaged. speech incr in amout and difficult to interrupt/redirect, spontaneous with regular rate and rhythm, normal volume and flattened prosody. No prolonged speech latency or dysarthria. Mood is anxious and depreseed, affect is constricted. Thoughts are linear and logical. No known cognitive or memory impairment. Insight/ Judgment fair and adequate. endorses SI. no HI/AVH expressed. Diagnostics Vital Signs (24Hr): Vital Signs - 24 hr 05/16/21 08:15 05/16/21 10:35 05/16/21 23:19 Temperature 98.0 F 97.8 F Pulse Rate 70 97 Respiratory Rate 12 Blood Pressure 85/40 L 121/56 L Pulse Oximetry 96 98 05/16/21 23:20 Temperature Pulse Rate 88 Respiratory Rate Blood Pressure 134/80 Pulse Oximetry Body Mass Index 30.2 Medications Medications Current Medications Acetaminophen (Acetaminophen 325 Mg Tablet) 650 mg PO Q6H PRN PRN Reason: Headache/Pain Mild Scale (1-3) Last Admin: 05/14/21 17:22 Dose: 650 mg Documented by: Al Hydroxide/Mg Hydroxide (Magnesium Hydrox/Alum Hydrox 30 Ml Oral.Susp) 30 ml PO Q6H PRN PRN Reason: Heartburn/Nausea Last Admin: 05/07/21 16:40 Dose: 30 ml Documented by: Albuterol Sulfate (Albuterol Sulfate 90 Mcg 8 Gm Inhaler) 2 puff INHALE RQ6H PRN PRN Reason: Shortness of Breath Last Admin: 05/16/21 10:39 Dose: 2 puff Documented by: Amphetamine/Dextroamphetamine (Dextroamphetamine/Amphetamine Xr 10 Mg Cap.Er.24h) 30 mg PO DAILY [facility] Last Admin: 05/16/21 09:31 Dose: 30 mg Documented by: Clonidine (Clonidine 0.1 Mg Patch.Tdwk) 0.1 mg TRANSDERMA Tu@0900 [facility]; Protocol Last Admin: 05/12/21 11:06 Dose: 0.1 mg Documented by: Clonidine HCl (Clonidine Hcl 0.1 Mg Tablet) 0.5 mg PO BEDTIME [facility]; Protocol Last Admin: 05/16/21 23:20 Dose: 0.5 mg Documented by: Diazepam (Diazepam 5 Mg Tablet) 10 mg PO BEDTIME [facility] Last Admin: 05/16/21 23:20 Dose: 10 mg Documented by: Diazepam (Diazepam 5 Mg Tablet) 7.5 mg PO DAILY [facility] Last Admin: 05/16/21 10:34 Dose: 7.5 mg Documented by: Diazepam (Diazepam 5 Mg Tablet) 7.5 mg PO DAILY@1500 [facility] Last Admin: 05/16/21 15:34 Dose: 7.5 mg Documented by: Fluconazole (Fluconazole 50 Mg Tablet) 50 mg PO DAILY [facility] Last Admin: 05/16/21 09:31 Dose: 50 mg Documented by: Guaifenesin (Guaifenesin 100 Mg/5 Ml Liquid) 5 ml PO Q6H PRN PRN Reason: Cough Last Admin: 05/16/21 23:20 Dose: 5 ml Documented by: Hydroxyzine HCl (Hydroxyzine Hcl 25 Mg Tablet) 25 mg PO BEDTIME PRN PRN Reason: Anxiety Last Admin: 05/14/21 00:21 Dose: 25 mg Documented by: Ibuprofen (Ibuprofen 800 Mg Tablet) 800 mg PO Q8H PRN PRN Reason: moderate to severe pain Last Admin: 05/16/21 23:21 Dose: 800 mg Documented by: Magnesium Hydroxide (Milk Of Magnesia 30 Ml Oral.Susp) 30 ml PO DAILY PRN PRN Reason: Constipation Last Admin: 05/11/21 13:29 Dose: 30 ml Documented by: Melatonin (Melatonin 3 Mg Tablet) 9 mg PO BEDTIME [facility] Last Admin: 05/16/21 23:20 Dose: 9 mg Documented by: Nicotine (Nicotine 21 Mg Patch.Td24) 21 mg TRANSDERMA DAILY [facility] Last Admin: 05/16/21 09:30 Dose: 21 mg Documented by: Nicotine Polacrilex (Nicotine Polacrilex 2 Mg Gum) 2 mg BUCCAL Q2H PRN PRN Reason: Nicotine Cravings Last Admin: 04/25/21 22:55 Dose: 2 mg Documented by: Nystatin (Nystatin Cream 15 Gm Tube) 1 appl TOPICAL BID [facility]; Protocol Last Admin: 05/17/21 00:31 Dose: 1 appl Documented by: Omeprazole (Omeprazole 40 Mg Capsule.Dr) 40 mg PO DAILY@0630 [facility] Last Admin: 05/16/21 09:31 Dose: 40 mg Documented by: Quetiapine Fumarate (Quetiapine Fumarate 400 Mg Tablet) 800 mg PO BEDTIME [facility] Last Admin: 05/16/21 23:20 Dose: 800 mg Documented by: Quetiapine Fumarate (Quetiapine Fumarate 200 Mg Tablet) 200 mg PO BEDTIME [facility] Last Admin: 05/16/21 23:20 Dose: 200 mg Documented by: Trazodone HCl (Trazodone Hcl 50 Mg Tablet) 50 mg PO BEDTIME PRN PRN Reason: Insomnia Last Admin: 05/07/21 23:39 Dose: 50 mg Documented by: Allergies Allergies Allergy/AdvReac Type Severity Reaction Status Date / Time No Known Allergies Allergy Unverified 03/20/20 19:15 [No Known Allergies*] Assessment & Plan Assessment & Plan (1) Tinea cruris: Status: Acute Code(s): B35.6 - Tinea cruris Assessment and Plan: Pt is a 51 y.o. 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 She has co-morbid chronic pain issues and ambulates with leg braces s/p fasciitis. Denies substance or alcohol use problems. Reports significant past traumas that she has had difficulty moving past. Hx of multiple past med trials, IPLOC, ECT but pt denies benefit. Currently presenting with sx of depression, lack of self care, anxiety with panic attacks, isolative behaviors, and intrusive negative thoughts. She feels safe on the unit and denies suicidal intent or plan at hospital. She has been using diazepam and high dose seroquel for sleep and anxiety management but denies that seroquel has helped with depression sx. 04/24: Seen by hospitalist for consult, much appreciated. Reported rash, prescribed nystatin. U/A obtained for dysuria. pt has a hx of extensive med trials and ECT. Had been discussing ketamine with OP prescriber but pt remains ambivalent. Discussed other options including TMS, selegiline patch, or decreasing seroquel and initiating cariprazine to target mood stability, perseverative thoughts, and anxious agitation. 04/26/21: Started Melatonin 6 mg HS 04/27: pt started on clonidine 0.1 mg/24H patch to target sympathetic hyperarousal. 04/28: clonidine 0.1 mg QHS added for sleep/nightmares. 04/29: clonidine 0.1 mg QHS increased to 0.2 mg QHS for insomnia/nightmares.? hold for SBP < 90.? podiatry consult placed.? valium dosing increased from 5 TID to 7.5 TID.? message left for outpt prescriber. 04/30: pt reports unchanged mood or anxiety, although looks somnolent, likely from valium dosing increase. 05/01: not somnolent.? clonidine at HS increased to 0.3 mg for sleep/anxiety. 05/02: not somnolent.? denies any improvement in Sx.? clonidine at HS increased to 0.4 mg. 05/03: not somnolent.? denies improvement.? clonidine at HS increased to 0.5 mg. 05/04: valium dosing increased from 7.5 TID to 7.5/7.5/10 for anxiety, tremor, insomnia. 05/05: clonidine at HS increased from 0.5 mg to 0.6 mg.? case discussed with outpt prescriber. 05/06: adderall 5 mg trial today.? mild hypotension this morning; continue clonidine at present dosing. 05/07: adderall changed to 10 mg XR formulation. 05/11: added Diflucan for mycotic lessions. 05/11: increased adderall XR to 15 mg daily. 05/12: increased adderall XR to 20 mg daily. 05/14: adderall increased to 30 mg for 05/14. 05/16- continue per primary treatment team I spent minutes with the patient and/or on the patient floor today, greater than?50% of which was spent counseling/coordinating care. Reason for contiued inpatient stay Substantial Risk for: inability to function
[2021-05-16 08:15] VITALS: BP 85/40; PULSE 70; RESP 12; TEMP 36.7; O2SAT 96
[2021-05-16] MEDS: Nicotine 21 MG PATCH.TD24 TRANSDERMA (09:30)
[2021-05-16] MEDS: Dextroamphetamine/Amphetamine XR 10 MG CAP.ER.24H 30 MG PO (09:31)
[2021-05-16] MEDS: Omeprazole 40 MG CAPSULE.DR PO (09:31)
[2021-05-16] MEDS: diazePAM 5 MG TABLET 7.5 MG PO ×2 (10:34→15:34)
[2021-05-16 10:35] VITALS: BP 121/56; PULSE 97
[2021-05-16] MEDS: Ibuprofen 800 MG TABLET PO ×2 (10:39→23:21)
[2021-05-16] MEDS: Albuterol Sulfate 90 MCG 8 GM INHALER 2 PUFF INHALE (10:39)
[2021-05-16 23:19] VITALS: TEMP 36.6; O2SAT 98
[2021-05-16 23:20] VITALS: BP 134/80; PULSE 88
[2021-05-16] MEDS: guaiFENesin 100 MG/5 ML LIQUID PO (23:20)
[2021-05-16] MEDS: cloNIDine HCL 0.1 MG TABLET 0.5 MG PO (23:20)
[2021-05-16] MEDS: Melatonin 3 MG TABLET 9 MG PO (23:20)
[2021-05-16] MEDS: QUEtiapine Fumarate 400 MG TABLET 800 MG PO (23:20)
[2021-05-16] MEDS: QUEtiapine Fumarate 200 MG TABLET PO (23:20)
[2021-05-16] MEDS: diazePAM 5 MG TABLET 10 MG PO (23:20)
[2021-05-17] MEDS: Nystatin Cream 15 GM TUBE 1 APPL TOPICAL (00:31)
[2021-05-17] MEDS: Omeprazole 40 MG CAPSULE.DR PO (10:20)
[2021-05-17] MEDS: Dextroamphetamine/Amphetamine XR 10 MG CAP.ER.24H 30 MG PO (10:20)
[2021-05-17] MEDS: Nicotine 21 MG PATCH.TD24 TRANSDERMA (10:21)
[2021-05-17 10:30] VITALS: BP 80/54; PULSE 80; RESP 12; O2SAT 96
[2021-05-17] MEDS: Ibuprofen 800 MG TABLET PO (12:40)
[2021-05-17 13:00] VITALS: BP 115/62; PULSE 80
[2021-05-17] MEDS: diazePAM 5 MG TABLET 7.5 MG PO (13:02)
[2021-05-17 18:00] VITALS: BP 126/80; PULSE 72; RESP 18; TEMP 36.7; O2SAT 96
--- NOTE | 2021-05-17 18:08 | HO.PSYCHPN ---
Subjective Subjective Date of Service: 05/17/21 Reason For Visit: depression and si Interim History: pt reports she has not been yet helped in her anxiety or depression. she agrees to increase her stimulant dosing to 40 mg daily. she expounds at length on her personal difficulties and asks questions again regarding recommended psychotherapies and medications interactions. she reports that she has been avoiding the rest of the unit other than her room due to a peer whom she finds disruptive and whom she states has sabotaged 2 weeks in the hospital for her. per staff, pt was still asleep at 1000 this morning. talking about getting restarted on pain medication once she leaves the hospital, appeared to have a difficult time adhering to facility policy on having door open when hosting visitors on the unit (was meeting with father). went to bed at 0100. slept well, eating well. declining to shower. no improvement in dep/anx. not wanting to discuss coping skills, not attending groups. Mental Status Exam Mental Status Exam Narrative: A&O. improved grooming and appearance, overweight. good eye contact, attentive. No abnormal involuntary movements. Anxious but cooperative, engaged. speech incr in amout and difficult to interrupt/redirect, spontaneous with regular rate and rhythm, normal volume and flattened prosody. No prolonged speech latency or dysarthria. Mood is anxious and depreseed, affect is constricted. Thoughts are linear and logical. No known cognitive or memory impairment. Insight/ Judgment fair and adequate. endorses SI. no HI/AVH expressed. Diagnostics Vital Signs (24Hr): Vital Signs - 24 hr 05/16/21 23:19 05/16/21 23:20 05/17/21 10:30 Temperature 97.8 F Pulse Rate 88 80 Respiratory Rate 12 Blood Pressure 134/80 80/54 L Pulse Oximetry 98 96 05/17/21 13:00 Temperature Pulse Rate 80 Respiratory Rate Blood Pressure 115/62 Pulse Oximetry Body Mass Index 30.2 Medications Medications Current Medications Acetaminophen (Acetaminophen 325 Mg Tablet) 650 mg PO Q6H PRN PRN Reason: Headache/Pain Mild Scale (1-3) Last Admin: 05/14/21 17:22 Dose: 650 mg Documented by: Al Hydroxide/Mg Hydroxide (Magnesium Hydrox/Alum Hydrox 30 Ml Oral.Susp) 30 ml PO Q6H PRN PRN Reason: Heartburn/Nausea Last Admin: 05/07/21 16:40 Dose: 30 ml Documented by: Albuterol Sulfate (Albuterol Sulfate 90 Mcg 8 Gm Inhaler) 2 puff INHALE RQ6H PRN PRN Reason: Shortness of Breath Last Admin: 05/16/21 10:39 Dose: 2 puff Documented by: Amphetamine/Dextroamphetamine (Dextroamphetamine/Amphetamine Xr 10 Mg Cap.Er.24h) 40 mg PO DAILY [facility] Clonidine (Clonidine 0.1 Mg Patch.Tdwk) 0.1 mg TRANSDERMA Tu@0900 [facility]; Protocol Last Admin: 05/12/21 11:06 Dose: 0.1 mg Documented by: Clonidine HCl (Clonidine Hcl 0.1 Mg Tablet) 0.5 mg PO BEDTIME [facility]; Protocol Last Admin: 05/16/21 23:20 Dose: 0.5 mg Documented by: Diazepam (Diazepam 5 Mg Tablet) 10 mg PO BEDTIME [facility] Last Admin: 05/16/21 23:20 Dose: 10 mg Documented by: Diazepam (Diazepam 5 Mg Tablet) 7.5 mg PO DAILY@1500 [facility] Last Admin: 05/17/21 15:45 Dose: Not Given Documented by: Diazepam (Diazepam 5 Mg Tablet) 7.5 mg PO DAILY [facility] Last Admin: 05/17/21 13:02 Dose: 7.5 mg Documented by: Fluconazole (Fluconazole 50 Mg Tablet) 50 mg PO DAILY [facility] Last Admin: 05/17/21 10:20 Dose: 50 mg Documented by: Guaifenesin (Guaifenesin 100 Mg/5 Ml Liquid) 5 ml PO Q6H PRN PRN Reason: Cough Last Admin: 05/16/21 23:20 Dose: 5 ml Documented by: Hydroxyzine HCl (Hydroxyzine Hcl 25 Mg Tablet) 25 mg PO BEDTIME PRN PRN Reason: Anxiety Last Admin: 05/14/21 00:21 Dose: 25 mg Documented by: Ibuprofen (Ibuprofen 800 Mg Tablet) 800 mg PO Q8H PRN PRN Reason: moderate to severe pain Last Admin: 05/17/21 12:40 Dose: 800 mg Documented by: Magnesium Hydroxide (Milk Of Magnesia 30 Ml Oral.Susp) 30 ml PO DAILY PRN PRN Reason: Constipation Last Admin: 05/11/21 13:29 Dose: 30 ml Documented by: Melatonin (Melatonin 3 Mg Tablet) 9 mg PO BEDTIME [facility] Last Admin: 05/16/21 23:20 Dose: 9 mg Documented by: Nicotine (Nicotine 21 Mg Patch.Td24) 21 mg TRANSDERMA DAILY [facility] Last Admin: 05/17/21 10:21 Dose: 21 mg Documented by: Nicotine Polacrilex (Nicotine Polacrilex 2 Mg Gum) 2 mg BUCCAL Q2H PRN PRN Reason: Nicotine Cravings Last Admin: 04/25/21 22:55 Dose: 2 mg Documented by: Nystatin (Nystatin Cream 15 Gm Tube) 1 appl TOPICAL BID [facility]; Protocol Last Admin: 05/17/21 10:33 Dose: Not Given Documented by: Omeprazole (Omeprazole 40 Mg Capsule.Dr) 40 mg PO DAILY@0630 [facility] Last Admin: 05/17/21 10:20 Dose: 40 mg Documented by: Quetiapine Fumarate (Quetiapine Fumarate 400 Mg Tablet) 800 mg PO BEDTIME [facility] Last Admin: 05/16/21 23:20 Dose: 800 mg Documented by: Quetiapine Fumarate (Quetiapine Fumarate 200 Mg Tablet) 200 mg PO BEDTIME [facility] Last Admin: 05/16/21 23:20 Dose: 200 mg Documented by: Trazodone HCl (Trazodone Hcl 50 Mg Tablet) 50 mg PO BEDTIME PRN PRN Reason: Insomnia Last Admin: 05/07/21 23:39 Dose: 50 mg Documented by: Allergies Allergies Allergy/AdvReac Type Severity Reaction Status Date / Time No Known Allergies Allergy Unverified 03/20/20 19:15 [No Known Allergies*] Assessment & Plan Assessment & Plan (1) Tinea cruris: Status: Acute Code(s): B35.6 - Tinea cruris Assessment and Plan: Pt is a 51 y.o. 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 She has co-morbid chronic pain issues and ambulates with leg braces s/p fasciitis. Denies substance or alcohol use problems. Reports significant past traumas that she has had difficulty moving past. Hx of multiple past med trials, IPLOC, ECT but pt denies benefit. Currently presenting with sx of depression, lack of self care, anxiety with panic attacks, isolative behaviors, and intrusive negative thoughts. She feels safe on the unit and denies suicidal intent or plan at hospital. She has been using diazepam and high dose seroquel for sleep and anxiety management but denies that seroquel has helped with depression sx. 04/24: Seen by hospitalist for consult, much appreciated. Reported rash, prescribed nystatin. U/A obtained for dysuria. pt has a hx of extensive med trials and ECT. Had been discussing ketamine with OP prescriber but pt remains ambivalent. Discussed other options including TMS, selegiline patch, or decreasing seroquel and initiating cariprazine to target mood stability, perseverative thoughts, and anxious agitation. 04/26/21: Started Melatonin 6 mg HS 04/27: pt started on clonidine 0.1 mg/24H patch to target sympathetic hyperarousal. 04/28: clonidine 0.1 mg QHS added for sleep/nightmares. 04/29: clonidine 0.1 mg QHS increased to 0.2 mg QHS for insomnia/nightmares.? hold for SBP < 90.? podiatry consult placed.? valium dosing increased from 5 TID to 7.5 TID.? message left for outpt prescriber. 04/30: pt reports unchanged mood or anxiety, although looks somnolent, likely from valium dosing increase. 05/01: not somnolent.? clonidine at HS increased to 0.3 mg for sleep/anxiety. 05/02: not somnolent.? denies any improvement in Sx.? clonidine at HS increased to 0.4 mg. 05/03: not somnolent.? denies improvement.? clonidine at HS increased to 0.5 mg. 05/04: valium dosing increased from 7.5 TID to 7.5/7.5/10 for anxiety, tremor, insomnia. 05/05: clonidine at HS increased from 0.5 mg to 0.6 mg.? case discussed with outpt prescriber. 05/06: adderall 5 mg trial today.? mild hypotension this morning; continue clonidine at present dosing. 05/07: adderall changed to 10 mg XR formulation. 05/11: added Diflucan for mycotic lessions. 05/11: increased adderall XR to 15 mg daily. 05/12: increased adderall XR to 20 mg daily. 05/14: adderall increased to 30 mg for 05/14. 05/17: adderall increased to 40 mg daily for 05/18. I spent minutes with the patient and/or on the patient floor today, greater than?50% of which was spent counseling/coordinating care. Reason for contiued inpatient stay Substantial Risk for: harm to self, inability to function and rapid decompensation
[2021-05-17 19:46] LABS: Amphetamine Screen Urine POSITIVE (Not Detect); Barbiturates, Urine Not Detected (Not Detect); Benzodiazepines Screen Urine POSITIVE (Not Detect); Cannabinoid Screen Urine Not Detected (Not Detect); Cocaine Screen Urine Not Detected (Not Detect); Fentanyl, urine Not Detected (Not Detect); Opiate Screen Urine Not Detected (Not Detect); Phencyclidine Screen Urine Not Detected (Not Detect)
[2021-05-17] MEDS: diazePAM 5 MG TABLET 10 MG PO (20:35)
[2021-05-17] MEDS: guaiFENesin 100 MG/5 ML LIQUID PO (20:36)
[2021-05-17] MEDS: QUEtiapine Fumarate 200 MG TABLET PO (23:10)
[2021-05-17] MEDS: Melatonin 3 MG TABLET 9 MG PO (23:10)
[2021-05-17] MEDS: cloNIDine HCL 0.1 MG TABLET 0.5 MG PO (23:10)
[2021-05-17] MEDS: QUEtiapine Fumarate 400 MG TABLET 800 MG PO (23:10)
[2021-05-18 09:15] VITALS: BP 117/60; PULSE 88; RESP 18; TEMP 36.6; O2SAT 97
[2021-05-18] MEDS: Nicotine 21 MG PATCH.TD24 TRANSDERMA (09:19)
[2021-05-18] MEDS: diazePAM 5 MG TABLET 7.5 MG PO ×2 (09:19→15:23)
[2021-05-18] MEDS: Dextroamphetamine/Amphetamine XR 10 MG CAP.ER.24H 40 MG PO (09:20)
[2021-05-18] MEDS: Omeprazole 40 MG CAPSULE.DR PO (09:20)
[2021-05-18] MEDS: Albuterol Sulfate 90 MCG 8 GM INHALER 2 PUFF INHALE ×2 (09:23→16:13)
[2021-05-18] MEDS: Ibuprofen 800 MG TABLET PO ×2 (11:02→19:46)
--- NOTE | 2021-05-18 13:55 | P.PNPSI_ITS ---
Subjective Subjective Date of Service: 05/18/21 Reason For Visit: depression and si Interim History: pt continues to report no change in her mood and anxiety. also SI continues. focused on past hurts and wrongs. agreeable to decrease HS clonidine to 0.4 mg due to morning hypotension. states she slept reasonably well last night. encouraging pt to think about discharge plan and that she will not get the Tx that she needs - psychotherapy for PTSD, until she leaves the hospital. agree to give the higher dose of stimulant a few days. also c/o particularly disliked peer's still being here and her inability to engage in group exercises due to rival's presence. per staff, slept about 6 hours overnight. didn't eat any breakfast, ate about 50% of dinner. slept all morning. BP 80/54 yesterday morning, valium was held until 115 when BP janis to 115/62. c/o feeling helpless and hopeless. focused on ex-, not attending any groups. Mental Status Exam Mental Status Exam Narrative: A&O. improved grooming and appearance, overweight. good eye contact, attentive. No abnormal involuntary movements. Anxious but cooperative, engaged. speech incr in amout and difficult to interrupt/redirect, spontaneous with regular rate and rhythm, normal volume and flattened prosody. No prolonged speech latency or dysarthria. Mood is anxious and depressed, affect is constricted. Thoughts are linear and logical. No known cognitive or memory impairment. Insight/ Judgment fair and adequate. endorses SI. no HI/AVH expressed. Diagnostics Vital Signs (24Hr): Vital Signs - 24 hr 05/17/21 18:00 05/18/21 09:15 Temperature 98.1 F 97.9 F Pulse Rate 72 88 Respiratory Rate 18 18 Blood Pressure 126/80 117/60 Pulse Oximetry 96 97 Body Mass Index 30.2 Labs Labs: Laboratory Results - last 48 hr 05/17/21 19:20 Urine Opiates Screen Not Detected Urine Fentanyl Screen Not Detected Ur Barbiturates Screen Not Detected Ur Phencyclidine Scrn Not Detected Ur Amphetamines Screen POSITIVE H U Benzodiazepines Scrn POSITIVE H Urine Cocaine Screen Not Detected U Marijuana (THC) Screen Not Detected Medications Medications Current Medications Acetaminophen (Acetaminophen 325 Mg Tablet) 650 mg PO Q6H PRN PRN Reason: Headache/Pain Mild Scale (1-3) Last Admin: 05/14/21 17:22 Dose: 650 mg Documented by: Al Hydroxide/Mg Hydroxide (Magnesium Hydrox/Alum Hydrox 30 Ml Oral.Susp) 30 ml PO Q6H PRN PRN Reason: Heartburn/Nausea Last Admin: 05/07/21 16:40 Dose: 30 ml Documented by: Albuterol Sulfate (Albuterol Sulfate 90 Mcg 8 Gm Inhaler) 2 puff INHALE RQ6H PRN PRN Reason: Shortness of Breath Last Admin: 05/18/21 09:23 Dose: 2 puff Documented by: Amphetamine/Dextroamphetamine (Dextroamphetamine/Amphetamine Xr 10 Mg Cap.Er.24h) 40 mg PO DAILY [facility] Last Admin: 05/18/21 09:20 Dose: 40 mg Documented by: Clonidine (Clonidine 0.1 Mg Patch.Tdwk) 0.1 mg TRANSDERMA Tu@0900 [facility]; Protocol Last Admin: 05/12/21 11:06 Dose: 0.1 mg Documented by: Diazepam (Diazepam 5 Mg Tablet) 7.5 mg PO DAILY@1500 [facility] Last Admin: 05/17/21 15:45 Dose: Not Given Documented by: Diazepam (Diazepam 5 Mg Tablet) 7.5 mg PO DAILY [facility] Last Admin: 05/18/21 09:19 Dose: 7.5 mg Documented by: Guaifenesin (Guaifenesin 100 Mg/5 Ml Liquid) 5 ml PO Q6H PRN PRN Reason: Cough Last Admin: 05/17/21 20:36 Dose: 5 ml Documented by: Hydroxyzine HCl (Hydroxyzine Hcl 25 Mg Tablet) 25 mg PO BEDTIME PRN PRN Reason: Anxiety Last Admin: 05/14/21 00:21 Dose: 25 mg Documented by: Ibuprofen (Ibuprofen 800 Mg Tablet) 800 mg PO Q8H PRN PRN Reason: moderate to severe pain Last Admin: 05/18/21 11:02 Dose: 800 mg Documented by: Magnesium Hydroxide (Milk Of Magnesia 30 Ml Oral.Susp) 30 ml PO DAILY PRN PRN Reason: Constipation Last Admin: 05/11/21 13:29 Dose: 30 ml Documented by: Melatonin (Melatonin 3 Mg Tablet) 9 mg PO BEDTIME [facility] Last Admin: 05/17/21 23:10 Dose: 9 mg Documented by: Nicotine (Nicotine 21 Mg Patch.Td24) 21 mg TRANSDERMA DAILY [facility] Last Admin: 05/18/21 09:19 Dose: 21 mg Documented by: Nicotine Polacrilex (Nicotine Polacrilex 2 Mg Gum) 2 mg BUCCAL Q2H PRN PRN Reason: Nicotine Cravings Last Admin: 04/25/21 22:55 Dose: 2 mg Documented by: Nystatin (Nystatin Cream 15 Gm Tube) 1 appl TOPICAL BID [facility]; Protocol Last Admin: 05/18/21 09:37 Dose: Not Given Documented by: Omeprazole (Omeprazole 40 Mg Capsule.) 40 mg PO DAILY@0630 [facility] Last Admin: 05/18/21 09:20 Dose: 40 mg Documented by: Quetiapine Fumarate (Quetiapine Fumarate 400 Mg Tablet) 800 mg PO BEDTIME [facility] Last Admin: 05/17/21 23:10 Dose: 800 mg Documented by: Quetiapine Fumarate (Quetiapine Fumarate 200 Mg Tablet) 200 mg PO BEDTIME [facility] Last Admin: 05/17/21 23:10 Dose: 200 mg Documented by: Trazodone HCl (Trazodone Hcl 50 Mg Tablet) 50 mg PO BEDTIME PRN PRN Reason: Insomnia Last Admin: 05/07/21 23:39 Dose: 50 mg Documented by: Allergies Allergies Allergy/AdvReac Type Severity Reaction Status Date / Time No Known Allergies Allergy Unverified 03/20/20 19:15 [No Known Allergies*] Assessment & Plan Assessment & Plan (1) Tinea cruris: Status: Acute Code(s): B35.6 - Tinea cruris Assessment and Plan: Pt is a 51 y.o. 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 She has co-morbid chronic pain issues and ambulates with leg braces s/p fasciitis. Denies substance or alcohol use problems. Reports significant past traumas that she has had difficulty moving past. Hx of multiple past med trials, IPLOC, ECT but pt denies benefit. Currently presenting with sx of depression, lack of self care, anxiety with panic attacks, isolative behaviors, and intrusive negative thoughts. She feels safe on the unit and denies suicidal intent or plan at hospital. She has been using diazepam and high dose seroquel for sleep and anxiety management but denies that seroquel has helped with depression sx. 04/24: Seen by hospitalist for consult, much appreciated. Reported rash, prescribed nystatin. U/A obtained for dysuria. pt has a hx of extensive med trials and ECT. Had been discussing ketamine with OP prescriber but pt remains ambivalent. Discussed other options including TMS, selegiline patch, or decreasing seroquel and initiating cariprazine to target mood stability, perseverative thoughts, and anxious agitation. 04/26/21: Started Melatonin 6 mg HS 04/27: pt started on clonidine 0.1 mg/24H patch to target sympathetic hyperarousal. 04/28: clonidine 0.1 mg QHS added for sleep/nightmares. 04/29: clonidine 0.1 mg QHS increased to 0.2 mg QHS for insomnia/nightmares.? hold for SBP < 90.? podiatry consult placed.? valium dosing increased from 5 TID to 7.5 TID.? message left for outpt prescriber. 04/30: pt reports unchanged mood or anxiety, although looks somnolent, likely from valium dosing increase. 05/01: not somnolent.? clonidine at HS increased to 0.3 mg for sleep/anxiety. 05/02: not somnolent.? denies any improvement in Sx.? clonidine at HS increased to 0.4 mg. 05/03: not somnolent.? denies improvement.? clonidine at HS increased to 0.5 mg. 05/04: valium dosing increased from 7.5 TID to 7.5/7.5/10 for anxiety, tremor, insomnia. 05/05: clonidine at HS increased from 0.5 mg to 0.6 mg.? case discussed with outpt prescriber. 05/06: adderall 5 mg trial today.? mild hypotension this morning; continue clonidine at present dosing. 05/07: adderall changed to 10 mg XR formulation. 05/11: added Diflucan for mycotic lessions. 05/11: increased adderall XR to 15 mg daily. 05/12: increased adderall XR to 20 mg daily. 05/14: adderall increased to 30 mg for 05/14. 05/17: adderall increased to 40 mg daily for 05/18. I spent minutes with the patient and/or on the patient floor today, greater than?50% of which was spent counseling/coordinating care. Reason for contiued inpatient stay Substantial Risk for: harm to self, inability to function and rapid decompensation
[2021-05-18] MEDS: Nystatin Cream 15 GM TUBE 1 APPL TOPICAL (16:14)
[2021-05-18 18:00] VITALS: BP 137/68; PULSE 90; RESP 18; TEMP 36.7; O2SAT 96
[2021-05-18] MEDS: guaiFENesin 100 MG/5 ML LIQUID PO (19:46)
[2021-05-18] MEDS: diazePAM 5 MG TABLET 10 MG PO (21:19)
[2021-05-18 23:02] VITALS: BP 128/74; PULSE 82
[2021-05-18] MEDS: Melatonin 3 MG TABLET 9 MG PO (23:02)
[2021-05-18] MEDS: cloNIDine HCL 0.2 MG TABLET 0.4 MG PO (23:02)
[2021-05-18] MEDS: QUEtiapine Fumarate 400 MG TABLET 800 MG PO (23:03)
[2021-05-18] MEDS: QUEtiapine Fumarate 200 MG TABLET PO (23:03)
[2021-05-19 09:23] VITALS: BP 126/63; PULSE 89; RESP 16; TEMP 36.6; O2SAT 99
[2021-05-19] MEDS: Nicotine 21 MG PATCH.TD24 TRANSDERMA (09:24)
[2021-05-19] MEDS: diazePAM 5 MG TABLET 7.5 MG PO ×2 (09:26→14:53)
[2021-05-19] MEDS: Dextroamphetamine/Amphetamine XR 10 MG CAP.ER.24H 40 MG PO (09:27)
[2021-05-19] MEDS: Omeprazole 40 MG CAPSULE.DR PO (09:54)
[2021-05-19 10:00] VITALS: BP 120/58; PULSE 86
[2021-05-19] MEDS: cloNIDine 0.1 MG PATCH.TDWK TRANSDERMA (10:00)
[2021-05-19] MEDS: Albuterol Sulfate 90 MCG 8 GM INHALER 2 PUFF INHALE (11:40)
[2021-05-19] MEDS: Acetaminophen 325 MG TABLET 650 MG PO (11:41)
[2021-05-19] MEDS: Milk of Magnesia 30 ML ORAL.SUSP PO (11:41)
--- NOTE | 2021-05-19 13:17 | HO.PSYCHPN ---
Subjective Subjective Date of Service: 05/19/21 Reason For Visit: depression and si Interim History: pt continues as per status quo. denies any improvement in mood or anxiety. denies any change in her neurovegetative Sx of depression. talks of her losing her daughter to her ex-, her ex- in general, and the conflict with peer who remains on the unit which she feels has hobbled her treatment here for the past several weeks. MD redirects talk to dispo planning, pt states she knows she would never do a PHP, so she is not interested in a referral. supports EBT for PTSD as best option and that discharge soon to such a course of therapy is the recommended treatment. MD and pt agree to let stimulant and discharge of problematic peer today have their effects for another couple of days but to be thin carolyn of discharge by the end of this week or early next. pt requests MND call her friend Keila, an RN, at [phone]. per staff, isolative, med-compliant. focused on peer's discharge. watching TV in side room. slept 6-7 hours. c/o anxiety. attended 1 group yesterday. Mental Status Exam Mental Status Exam Narrative: A&O. adequate grooming and appearance, overweight. good eye contact, attentive. No abnormal involuntary movements. Anxious but cooperative, engaged. speech incr in amout and difficult to interrupt/redirect, spontaneous with regular rate and rhythm, normal volume and flattened prosody. No prolonged speech latency or dysarthria. Mood is anxious and depressed, affect is constricted. Thoughts are linear and logical. No known cognitive or memory impairment. Insight/ Judgment fair and adequate. no SI/HI/AVH expressed. Diagnostics Vital Signs (24Hr): Vital Signs - 24 hr 05/18/21 18:00 05/18/21 23:02 05/19/21 09:23 Temperature 98.0 F 97.9 F Pulse Rate 90 82 89 Respiratory Rate 18 16 Blood Pressure 137/68 128/74 126/63 Pulse Oximetry 96 99 05/19/21 10:00 Temperature Pulse Rate 86 Respiratory Rate Blood Pressure 120/58 L Pulse Oximetry Body Mass Index 30.2 Labs Labs: Laboratory Results - last 48 hr 05/17/21 19:20 Urine Opiates Screen Not Detected Urine Fentanyl Screen Not Detected Ur Barbiturates Screen Not Detected Ur Phencyclidine Scrn Not Detected Ur Amphetamines Screen POSITIVE H U Benzodiazepines Scrn POSITIVE H Urine Cocaine Screen Not Detected U Marijuana (THC) Screen Not Detected Medications Medications Current Medications Acetaminophen (Acetaminophen 325 Mg Tablet) 650 mg PO Q6H PRN PRN Reason: Headache/Pain Mild Scale (1-3) Last Admin: 05/19/21 11:41 Dose: 650 mg Documented by: Al Hydroxide/Mg Hydroxide (Magnesium Hydrox/Alum Hydrox 30 Ml Oral.Susp) 30 ml PO Q6H PRN PRN Reason: Heartburn/Nausea Last Admin: 05/07/21 16:40 Dose: 30 ml Documented by: Albuterol Sulfate (Albuterol Sulfate 90 Mcg 8 Gm Inhaler) 2 puff INHALE RQ6H PRN PRN Reason: Shortness of Breath Last Admin: 05/19/21 11:40 Dose: 2 puff Documented by: Amphetamine/Dextroamphetamine (Dextroamphetamine/Amphetamine Xr 10 Mg Cap.Er.24h) 40 mg PO DAILY [facility] Last Admin: 05/19/21 09:27 Dose: 40 mg Documented by: Clonidine (Clonidine 0.1 Mg Patch.Tdwk) 0.1 mg TRANSDERMA Tu@0900 [facility]; Protocol Last Admin: 05/19/21 10:00 Dose: 0.1 mg Documented by: Clonidine HCl (Clonidine Hcl 0.2 Mg Tablet) 0.4 mg PO BEDTIME [facility]; Protocol Last Admin: 05/18/21 23:02 Dose: 0.4 mg Documented by: Diazepam (Diazepam 5 Mg Tablet) 7.5 mg PO DAILY@1500 [facility] Last Admin: 05/18/21 15:23 Dose: 7.5 mg Documented by: Diazepam (Diazepam 5 Mg Tablet) 7.5 mg PO DAILY [facility] Last Admin: 05/19/21 09:26 Dose: 7.5 mg Documented by: Diazepam (Diazepam 5 Mg Tablet) 10 mg PO BEDTIME [facility] Last Admin: 05/18/21 21:19 Dose: 10 mg Documented by: Guaifenesin (Guaifenesin 100 Mg/5 Ml Liquid) 5 ml PO Q6H PRN PRN Reason: Cough Last Admin: 05/18/21 19:46 Dose: 5 ml Documented by: Hydroxyzine HCl (Hydroxyzine Hcl 25 Mg Tablet) 25 mg PO BEDTIME PRN PRN Reason: Anxiety Last Admin: 05/14/21 00:21 Dose: 25 mg Documented by: Ibuprofen (Ibuprofen 800 Mg Tablet) 800 mg PO Q8H PRN PRN Reason: moderate to severe pain Last Admin: 05/18/21 19:46 Dose: 800 mg Documented by: Magnesium Hydroxide (Milk Of Magnesia 30 Ml Oral.Susp) 30 ml PO DAILY PRN PRN Reason: Constipation Last Admin: 05/19/21 11:41 Dose: 30 ml Documented by: Melatonin (Melatonin 3 Mg Tablet) 9 mg PO BEDTIME [facility] Last Admin: 05/18/21 23:02 Dose: 9 mg Documented by: Nicotine (Nicotine 21 Mg Patch.Td24) 21 mg TRANSDERMA DAILY [facility] Last Admin: 05/19/21 09:24 Dose: 21 mg Documented by: Nicotine Polacrilex (Nicotine Polacrilex 2 Mg Gum) 2 mg BUCCAL Q2H PRN PRN Reason: Nicotine Cravings Last Admin: 04/25/21 22:55 Dose: 2 mg Documented by: Nystatin (Nystatin Cream 15 Gm Tube) 1 appl TOPICAL BID [facility]; Protocol Last Admin: 05/19/21 11:21 Dose: Not Given Documented by: Omeprazole (Omeprazole 40 Mg Capsule.Dr) 40 mg PO DAILY@0630 [facility] Last Admin: 05/19/21 09:54 Dose: 40 mg Documented by: Quetiapine Fumarate (Quetiapine Fumarate 400 Mg Tablet) 800 mg PO BEDTIME [facility] Last Admin: 05/18/21 23:03 Dose: 800 mg Documented by: Quetiapine Fumarate (Quetiapine Fumarate 200 Mg Tablet) 200 mg PO BEDTIME [facility] Last Admin: 05/18/21 23:03 Dose: 200 mg Documented by: Trazodone HCl (Trazodone Hcl 50 Mg Tablet) 50 mg PO BEDTIME PRN PRN Reason: Insomnia Last Admin: 05/07/21 23:39 Dose: 50 mg Documented by: Allergies Allergies Allergy/AdvReac Type Severity Reaction Status Date / Time No Known Allergies Allergy Unverified 03/20/20 19:15 [No Known Allergies*] Assessment & Plan Assessment & Plan (1) Tinea cruris: Status: Acute Code(s): B35.6 - Tinea cruris Assessment and Plan: Pt is a 51 y.o. 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 She has co-morbid chronic pain issues and ambulates with leg braces s/p fasciitis. Denies substance or alcohol use problems. Reports significant past traumas that she has had difficulty moving past. Hx of multiple past med trials, IPLOC, ECT but pt denies benefit. Currently presenting with sx of depression, lack of self care, anxiety with panic attacks, isolative behaviors, and intrusive negative thoughts. She feels safe on the unit and denies suicidal intent or plan at hospital. She has been using diazepam and high dose seroquel for sleep and anxiety management but denies that seroquel has helped with depression sx. 04/24: Seen by hospitalist for consult, much appreciated. Reported rash, prescribed nystatin. U/A obtained for dysuria. pt has a hx of extensive med trials and ECT. Had been discussing ketamine with OP prescriber but pt remains ambivalent. Discussed other options including TMS, selegiline patch, or decreasing seroquel and initiating cariprazine to target mood stability, perseverative thoughts, and anxious agitation. 04/26/21: Started Melatonin 6 mg HS 04/27: pt started on clonidine 0.1 mg/24H patch to target sympathetic hyperarousal. 04/28: clonidine 0.1 mg QHS added for sleep/nightmares. 04/29: clonidine 0.1 mg QHS increased to 0.2 mg QHS for insomnia/nightmares.? hold for SBP < 90.? podiatry consult placed.? valium dosing increased from 5 TID to 7.5 TID.? message left for outpt prescriber. 04/30: pt reports unchanged mood or anxiety, although looks somnolent, likely from valium dosing increase. 05/01: not somnolent.? clonidine at HS increased to 0.3 mg for sleep/anxiety. 05/02: not somnolent.? denies any improvement in Sx.? clonidine at HS increased to 0.4 mg. 05/03: not somnolent.? denies improvement.? clonidine at HS increased to 0.5 mg. 05/04: valium dosing increased from 7.5 TID to 7.5/7.5/10 for anxiety, tremor, insomnia. 05/05: clonidine at HS increased from 0.5 mg to 0.6 mg.? case discussed with outpt prescriber. 05/06: adderall 5 mg trial today.? mild hypotension this morning; continue clonidine at present dosing. 05/07: adderall changed to 10 mg XR formulation. 05/11: added Diflucan for mycotic lessions. 05/11: increased adderall XR to 15 mg daily. 05/12: increased adderall XR to 20 mg daily. 05/14: adderall increased to 30 mg for 05/14. 05/17: adderall increased to 40 mg daily for 05/18. 05/18: clonidine at HS decreased to 0.4 mg due to hypotension. 05/19: BP has improved. I spent minutes with the patient and/or on the patient floor today, greater than?50% of which was spent counseling/coordinating care. Reason for contiued inpatient stay Substantial Risk for: harm to self, inability to function and rapid decompensation
[2021-05-19 18:00] VITALS: BP 134/84; PULSE 106; RESP 16; TEMP 37; O2SAT 95
[2021-05-19] MEDS: Melatonin 3 MG TABLET 9 MG PO (22:38)
[2021-05-19] MEDS: QUEtiapine Fumarate 400 MG TABLET 800 MG PO (22:38)
[2021-05-19 22:39] VITALS: BP 120/64; PULSE 83
[2021-05-19] MEDS: cloNIDine HCL 0.2 MG TABLET 0.4 MG PO (22:39)
[2021-05-19] MEDS: QUEtiapine Fumarate 200 MG TABLET PO (22:39)
[2021-05-19] MEDS: diazePAM 5 MG TABLET 10 MG PO (22:40)
[2021-05-19] MEDS: Nystatin Cream 15 GM TUBE 1 APPL TOPICAL (23:32)
[2021-05-20 09:47] VITALS: BP 111/58; PULSE 86; RESP 15; TEMP 36.7; O2SAT 95
[2021-05-20] MEDS: diazePAM 5 MG TABLET 7.5 MG PO ×2 (09:49→15:56)
[2021-05-20] MEDS: Dextroamphetamine/Amphetamine XR 10 MG CAP.ER.24H 40 MG PO (09:49)
[2021-05-20] MEDS: Omeprazole 40 MG CAPSULE.DR PO (09:49)
[2021-05-20] MEDS: Nicotine 21 MG PATCH.TD24 TRANSDERMA (09:50)
[2021-05-20] MEDS: Albuterol Sulfate 90 MCG 8 GM INHALER 2 PUFF INHALE ×3 (12:22→23:46)
[2021-05-20] MEDS: Acetaminophen 325 MG TABLET 650 MG PO ×2 (12:23→23:44)
[2021-05-20] MEDS: Nystatin Cream 15 GM TUBE 1 APPL TOPICAL (12:24)
--- NOTE | 2021-05-20 14:20 | HO.PSYCHPN ---
Subjective Subjective Date of Service: 05/20/21 Reason For Visit: depression and si Interim History: pt remains deprssed and anxious, states her mood has not improved a whit. discusses dispo planning for early next week with her, VNA services, lock box, getting stockpiled meds out of her house. pt states she doesn't want to rid house of stockpiled meds. expresses ambivalence about living, thinking maybe it would be better to suicide rather than to try to move forward. pt informed therapy is what she needs to move forward and the choice is hers to make, the action hers to take. per staff, isolative till noon yesterday. anxious and depressed. tearful at times. anx and depression are 100. attended art group. went to bed at midnight, slept through the night. per collateral from director social welfare: pt said she is worse than she's ever been and endorsed SI. Mental Status Exam Mental Status Exam Narrative: A&O. adequate grooming and appearance, overweight. good eye contact, attentive. No abnormal involuntary movements. Anxious but cooperative, engaged. speech incr in amount and difficult to interrupt/redirect, spontaneous with regular rate and rhythm, normal volume and flattened prosody. No prolonged speech latency or dysarthria. Mood is anxious and depressed, affect is constricted. Thoughts are linear and logical. No known cognitive or memory impairment. Insight/ Judgment fair and adequate. +SI. no HI/AVH expressed. Diagnostics Vital Signs (24Hr): Vital Signs - 24 hr 05/19/21 18:00 05/19/21 22:39 05/20/21 09:47 Temperature 98.6 F 98.0 F Pulse Rate 106 H 83 86 Respiratory Rate 16 15 Blood Pressure 134/84 120/64 111/58 L Pulse Oximetry 95 95 Body Mass Index 30.2 Medications Medications Current Medications Acetaminophen (Acetaminophen 325 Mg Tablet) 650 mg PO Q6H PRN PRN Reason: Headache/Pain Mild Scale (1-3) Last Admin: 05/20/21 12:23 Dose: 650 mg Documented by: Al Hydroxide/Mg Hydroxide (Magnesium Hydrox/Alum Hydrox 30 Ml Oral.Susp) 30 ml PO Q6H PRN PRN Reason: Heartburn/Nausea Last Admin: 05/07/21 16:40 Dose: 30 ml Documented by: Albuterol Sulfate (Albuterol Sulfate 90 Mcg 8 Gm Inhaler) 2 puff INHALE RQ6H PRN PRN Reason: Shortness of Breath Last Admin: 05/20/21 12:22 Dose: 2 puff Documented by: Amphetamine/Dextroamphetamine (Dextroamphetamine/Amphetamine Xr 10 Mg Cap.Er.24h) 60 mg PO DAILY [facility] Clonidine (Clonidine 0.1 Mg Patch.Tdwk) 0.1 mg TRANSDERMA Tu@0900 [facility]; Protocol Last Admin: 05/19/21 10:00 Dose: 0.1 mg Documented by: Clonidine HCl (Clonidine Hcl 0.2 Mg Tablet) 0.4 mg PO BEDTIME [facility]; Protocol Last Admin: 05/19/21 22:39 Dose: 0.4 mg Documented by: Diazepam (Diazepam 5 Mg Tablet) 7.5 mg PO DAILY [facility] Last Admin: 05/20/21 09:49 Dose: 7.5 mg Documented by: Diazepam (Diazepam 5 Mg Tablet) 10 mg PO BEDTIME [facility] Last Admin: 05/19/21 22:40 Dose: 10 mg Documented by: Guaifenesin (Guaifenesin 100 Mg/5 Ml Liquid) 5 ml PO Q6H PRN PRN Reason: Cough Last Admin: 05/18/21 19:46 Dose: 5 ml Documented by: Hydroxyzine HCl (Hydroxyzine Hcl 25 Mg Tablet) 25 mg PO BEDTIME PRN PRN Reason: Anxiety Last Admin: 05/14/21 00:21 Dose: 25 mg Documented by: Ibuprofen (Ibuprofen 800 Mg Tablet) 800 mg PO Q8H PRN PRN Reason: moderate to severe pain Last Admin: 05/18/21 19:46 Dose: 800 mg Documented by: Magnesium Hydroxide (Milk Of Magnesia 30 Ml Oral.Susp) 30 ml PO DAILY PRN PRN Reason: Constipation Last Admin: 05/19/21 11:41 Dose: 30 ml Documented by: Melatonin (Melatonin 3 Mg Tablet) 9 mg PO BEDTIME [facility] Last Admin: 05/19/21 22:38 Dose: 9 mg Documented by: Nicotine (Nicotine 21 Mg Patch.Td24) 21 mg TRANSDERMA DAILY [facility] Last Admin: 05/20/21 09:50 Dose: 21 mg Documented by: Nicotine Polacrilex (Nicotine Polacrilex 2 Mg Gum) 2 mg BUCCAL Q2H PRN PRN Reason: Nicotine Cravings Last Admin: 10/23/21 22:55 Dose: 2 mg Documented by: Nystatin (Nystatin Cream 15 Gm Tube) 1 appl TOPICAL BID [facility]; Protocol Last Admin: 05/20/21 12:24 Dose: 1 appl Documented by: Omeprazole (Omeprazole 40 Mg Capsule.) 40 mg PO DAILY@0630 [facility] Last Admin: 05/20/21 09:49 Dose: 40 mg Documented by: Quetiapine Fumarate (Quetiapine Fumarate 400 Mg Tablet) 800 mg PO BEDTIME [facility] Last Admin: 05/19/21 22:38 Dose: 800 mg Documented by: Quetiapine Fumarate (Quetiapine Fumarate 200 Mg Tablet) 200 mg PO BEDTIME [facility] Last Admin: 05/19/21 22:39 Dose: 200 mg Documented by: Trazodone HCl (Trazodone Hcl 50 Mg Tablet) 50 mg PO BEDTIME PRN PRN Reason: Insomnia Last Admin: 05/07/21 23:39 Dose: 50 mg Documented by: Allergies Allergies Allergy/AdvReac Type Severity Reaction Status Date / Time No Known Allergies Allergy Unverified 03/20/20 19:15 [No Known Allergies*] Assessment & Plan Assessment & Plan (1) Tinea cruris: Status: Acute Code(s): B35.6 - Tinea cruris Assessment and Plan: Pt is a 51 y.o. 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 She has co-morbid chronic pain issues and ambulates with leg braces s/p fasciitis. Denies substance or alcohol use problems. Reports significant past traumas that she has had difficulty moving past. Hx of multiple past med trials, IPLOC, ECT but pt denies benefit. Currently presenting with sx of depression, lack of self care, anxiety with panic attacks, isolative behaviors, and intrusive negative thoughts. She feels safe on the unit and denies suicidal intent or plan at hospital. She has been using diazepam and high dose seroquel for sleep and anxiety management but denies that seroquel has helped with depression sx. 04/24: Seen by hospitalist for consult, much appreciated. Reported rash, prescribed nystatin. U/A obtained for dysuria. pt has a hx of extensive med trials and ECT. Had been discussing ketamine with OP prescriber but pt remains ambivalent. Discussed other options including TMS, selegiline patch, or decreasing seroquel and initiating cariprazine to target mood stability, perseverative thoughts, and anxious agitation. 04/26/21: Started Melatonin 6 mg HS 04/27: pt started on clonidine 0.1 mg/24H patch to target sympathetic hyperarousal. 04/28: clonidine 0.1 mg QHS added for sleep/nightmares. 04/29: clonidine 0.1 mg QHS increased to 0.2 mg QHS for insomnia/nightmares.? hold for SBP < 90.? podiatry consult placed.? valium dosing increased from 5 TID to 7.5 TID.? message left for outpt prescriber. 04/30: pt reports unchanged mood or anxiety, although looks somnolent, likely from valium dosing increase. 05/01: not somnolent.? clonidine at HS increased to 0.3 mg for sleep/anxiety. 05/02: not somnolent.? denies any improvement in Sx.? clonidine at HS increased to 0.4 mg. 05/03: not somnolent.? denies improvement.? clonidine at HS increased to 0.5 mg. 05/04: valium dosing increased from 7.5 TID to 7.5/7.5/10 for anxiety, tremor, insomnia. 05/05: clonidine at HS increased from 0.5 mg to 0.6 mg.? case discussed with outpt prescriber. 05/06: adderall 5 mg trial today.? mild hypotension this morning; continue clonidine at present dosing. 05/07: adderall changed to 10 mg XR formulation. 05/11: added Diflucan for mycotic lessions. 05/11: increased adderall XR to 15 mg daily. 05/12: increased adderall XR to 20 mg daily. 05/14: adderall increased to 30 mg for 05/14. 05/17: adderall increased to 40 mg daily for 05/18. 05/18: clonidine at HS decreased to 0.4 mg due to hypotension. 05/19: BP has improved. 05/20: adderall XR being increased to 60 mg daily as of 05/21. I spent minutes with the patient and/or on the patient floor today, greater than?50% of which was spent counseling/coordinating care. Reason for contiued inpatient stay Substantial Risk for: harm to self, inability to function and rapid decompensation
[2021-05-20] MEDS: Ibuprofen 800 MG TABLET PO (17:55)
[2021-05-20 23:37] VITALS: TEMP 36.6; O2SAT 97
[2021-05-20 23:44] VITALS: BP 132/71; PULSE 87
[2021-05-20] MEDS: diazePAM 5 MG TABLET 10 MG PO (23:44)
[2021-05-20] MEDS: cloNIDine HCL 0.2 MG TABLET 0.4 MG PO (23:44)
[2021-05-20] MEDS: QUEtiapine Fumarate 200 MG TABLET PO (23:44)
[2021-05-20] MEDS: Melatonin 3 MG TABLET 9 MG PO (23:44)
[2021-05-20] MEDS: guaiFENesin 100 MG/5 ML LIQUID PO (23:46)
[2021-05-21] MEDS: Nystatin Cream 15 GM TUBE 1 APPL TOPICAL (00:32)
[2021-05-21] MEDS: QUEtiapine Fumarate 400 MG TABLET 800 MG PO (00:56)
[2021-05-21] MEDS: hydrOXYzine HCL 25 MG TABLET PO (01:55)
[2021-05-21 09:47] VITALS: BP 100/49; PULSE 66; RESP 17; TEMP 36.6; O2SAT 97
[2021-05-21] MEDS: Dextroamphetamine/Amphetamine XR 10 MG CAP.ER.24H 60 MG PO (09:50)
[2021-05-21] MEDS: Omeprazole 40 MG CAPSULE.DR PO (09:51)
[2021-05-21 11:54] VITALS: BP 113/56; PULSE 109
[2021-05-21] MEDS: diazePAM 5 MG TABLET 7.5 MG PO ×2 (11:55→16:07)
[2021-05-21] MEDS: Ibuprofen 800 MG TABLET PO (16:09)
[2021-05-21] MEDS: Albuterol Sulfate 90 MCG 8 GM INHALER 2 PUFF INHALE ×2 (16:09→23:31)
[2021-05-21 16:28] VITALS: BMI 29.2
--- NOTE | 2021-05-21 18:50 | P.PNPSI_ITS ---
Subjective Subjective Date of Service: 05/21/21 Reason For Visit: depression and si Interim History: pt reports she is having a very hard day today. she states she came in with two wallets and one of them has disappeared. she is in the midst of trying to figure out whether or not she should cancel her debit card. this situation has caused her an enormous amount of stress and anxiety. she feels it has really colored her mood for the day. she has a difficult time talking about subjects other than this and the recently discharged peer on whom she has been fixated regarding the peer's negative impact on her treatment here. she is concerned the peer somehow got her wallet, which contains her address. she cannot say the increas ein dose of stimulant has made any effect. per staff, no change in presentation. 100/10 depression and anxiety. negative, perseverative. +SI for after discharge. awake until 0200. Mental Status Exam Mental Status Exam Narrative: A&O. adequate grooming and appearance, overweight. fair eye contact, attentive. No abnormal involuntary movements. Anxious but cooperative, engaged. speech incr in amount and difficult to interrupt/redirect, spontaneous with regular rate and rhythm, normal volume and flattened prosody. No prolonged speech latency or dysarthria. Mood is anxious and depressed, affect is constricted. Thoughts are wandering and restricted to lost wallet and attendant anxieties. No known cognitive or memory impairment. Insight/ Judgment fair and adequate. no SI/HI/AVH expressed. Diagnostics Vital Signs (24Hr): Vital Signs - 24 hr 05/20/21 23:37 05/20/21 23:44 05/21/21 09:47 Temperature 97.9 F 97.8 F Pulse Rate 87 66 Respiratory Rate 17 Blood Pressure 132/71 100/49 L Pulse Oximetry 97 97 05/21/21 11:54 Temperature Pulse Rate 109 H Respiratory Rate Blood Pressure 113/56 L Pulse Oximetry Body Mass Index 29.2 Medications Medications Current Medications Acetaminophen (Acetaminophen 325 Mg Tablet) 650 mg PO Q6H PRN PRN Reason: Headache/Pain Mild Scale (1-3) Last Admin: 05/20/21 23:44 Dose: 650 mg Documented by: Al Hydroxide/Mg Hydroxide (Magnesium Hydrox/Alum Hydrox 30 Ml Oral.Susp) 30 ml PO Q6H PRN PRN Reason: Heartburn/Nausea Last Admin: 05/07/21 16:40 Dose: 30 ml Documented by: Albuterol Sulfate (Albuterol Sulfate 90 Mcg 8 Gm Inhaler) 2 puff INHALE RQ6H PRN PRN Reason: Shortness of Breath Last Admin: 05/21/21 16:09 Dose: 2 puff Documented by: Amphetamine/Dextroamphetamine (Dextroamphetamine/Amphetamine Xr 10 Mg Cap.Er.24h) 60 mg PO DAILY [facility] Last Admin: 05/21/21 09:50 Dose: 60 mg Documented by: Clonidine (Clonidine 0.1 Mg Patch.Tdwk) 0.1 mg TRANSDERMA Tu@0900 [facility]; Protocol Last Admin: 05/19/21 10:00 Dose: 0.1 mg Documented by: Clonidine HCl (Clonidine Hcl 0.2 Mg Tablet) 0.4 mg PO BEDTIME [facility]; Protocol Last Admin: 05/20/21 23:44 Dose: 0.4 mg Documented by: Diazepam (Diazepam 5 Mg Tablet) 7.5 mg PO DAILY [facility] Last Admin: 05/21/21 11:55 Dose: 7.5 mg Documented by: Diazepam (Diazepam 5 Mg Tablet) 10 mg PO BEDTIME [facility] Last Admin: 05/20/21 23:44 Dose: 10 mg Documented by: Diazepam (Diazepam 5 Mg Tablet) 7.5 mg PO DAILY@1500 [facility] Last Admin: 05/21/21 16:07 Dose: 7.5 mg Documented by: Guaifenesin (Guaifenesin 100 Mg/5 Ml Liquid) 5 ml PO Q6H PRN PRN Reason: Cough Last Admin: 05/20/21 23:46 Dose: 5 ml Documented by: Hydroxyzine HCl (Hydroxyzine Hcl 25 Mg Tablet) 25 mg PO BEDTIME PRN PRN Reason: Anxiety Last Admin: 05/21/21 01:55 Dose: 25 mg Documented by: Ibuprofen (Ibuprofen 800 Mg Tablet) 800 mg PO Q8H PRN PRN Reason: moderate to severe pain Last Admin: 05/21/21 16:09 Dose: 800 mg Documented by: Magnesium Hydroxide (Milk Of Magnesia 30 Ml Oral.Susp) 30 ml PO DAILY PRN PRN Reason: Constipation Last Admin: 05/19/21 11:41 Dose: 30 ml Documented by: Melatonin (Melatonin 3 Mg Tablet) 9 mg PO BEDTIME [facility] Last Admin: 05/20/21 23:44 Dose: 9 mg Documented by: Nicotine (Nicotine 21 Mg Patch.Td24) 21 mg TRANSDERMA DAILY [facility] Last Admin: 05/21/21 14:29 Dose: Not Given Documented by: Nicotine Polacrilex (Nicotine Polacrilex 2 Mg Gum) 2 mg BUCCAL Q2H PRN PRN Reason: Nicotine Cravings Last Admin: 04/25/21 22:55 Dose: 2 mg Documented by: Nystatin (Nystatin Cream 15 Gm Tube) 1 appl TOPICAL BID [facility]; Protocol Last Admin: 05/21/21 13:40 Dose: Not Given Documented by: Omeprazole (Omeprazole 40 Mg Capsule.Dr) 40 mg PO DAILY@0630 [facility] Last Admin: 05/21/21 09:51 Dose: 40 mg Documented by: Quetiapine Fumarate (Quetiapine Fumarate 400 Mg Tablet) 800 mg PO BEDTIME [facility] Last Admin: 05/21/21 00:56 Dose: 800 mg Documented by: Quetiapine Fumarate (Quetiapine Fumarate 200 Mg Tablet) 200 mg PO BEDTIME [facility] Last Admin: 05/20/21 23:44 Dose: 200 mg Documented by: Trazodone HCl (Trazodone Hcl 50 Mg Tablet) 50 mg PO BEDTIME PRN PRN Reason: Insomnia Last Admin: 05/07/21 23:39 Dose: 50 mg Documented by: Allergies Allergies Allergy/AdvReac Type Severity Reaction Status Date / Time No Known Allergies Allergy Unverified 03/20/20 19:15 [No Known Allergies*] Assessment & Plan Assessment & Plan (1) Tinea cruris: Status: Acute Code(s): B35.6 - Tinea cruris Assessment and Plan: Pt is a 51 y.o. 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 She has co-morbid chronic pain issues and ambulates with leg braces s/p fasciitis. Denies substance or alcohol use problems. Reports significant past traumas that she has had difficulty moving past. Hx of multiple past med trials, IPLOC, ECT but pt denies benefit. Currently presenting with sx of depression, lack of self care, anxiety with panic attacks, isolative behaviors, and intrusive negative thoughts. She feels safe on the unit and denies suicidal intent or plan at hospital. She has been using diazepam and high dose seroquel for sleep and anxiety management but denies that seroquel has helped with depression sx. 04/24: Seen by hospitalist for consult, much appreciated. Reported rash, prescribed nystatin. U/A obtained for dysuria. pt has a hx of extensive med trials and ECT. Had been discussing ketamine with OP prescriber but pt remains ambivalent. Discussed other options including TMS, selegiline patch, or decreasing seroquel and initiating cariprazine to target mood stability, perseverative thoughts, and anxious agitation. 04/26/21: Started Melatonin 6 mg HS 04/27: pt started on clonidine 0.1 mg/24H patch to target sympathetic hyperarousal. 04/28: clonidine 0.1 mg QHS added for sleep/nightmares. 04/29: clonidine 0.1 mg QHS increased to 0.2 mg QHS for insomnia/nightmares.? hold for SBP < 90.? podiatry consult placed.? valium dosing increased from 5 TID to 7.5 TID.? message left for outpt prescriber. 04/30: pt reports unchanged mood or anxiety, although looks somnolent, likely from valium dosing increase. 05/01: not somnolent.? clonidine at HS increased to 0.3 mg for sleep/anxiety. 05/02: not somnolent.? denies any improvement in Sx.? clonidine at HS increased to 0.4 mg. 05/03: not somnolent.? denies improvement.? clonidine at HS increased to 0.5 mg. 05/04: valium dosing increased from 7.5 TID to 7.5/7.5/10 for anxiety, tremor, insomnia. 05/05: clonidine at HS increased from 0.5 mg to 0.6 mg.? case discussed with outpt prescriber. 05/06: adderall 5 mg trial today.? mild hypotension this morning; continue clonidine at present dosing. 05/07: adderall changed to 10 mg XR formulation. 05/11: added Diflucan for mycotic lessions. 05/11: increased adderall XR to 15 mg daily. 05/12: increased adderall XR to 20 mg daily. 05/14: adderall increased to 30 mg for 05/14. 05/17: adderall increased to 40 mg daily for 05/18. 05/18: clonidine at HS decreased to 0.4 mg due to hypotension. 05/19: BP has improved. 05/21: adderall XR increased to 60 mg daily. I spent minutes with the patient and/or on the patient floor today, greater than?50% of which was spent counseling/coordinating care. Reason for contiued inpatient stay Substantial Risk for: harm to self, inability to function and rapid decompensation
[2021-05-21 23:31] VITALS: BP 123/62; PULSE 86
[2021-05-21] MEDS: QUEtiapine Fumarate 200 MG TABLET PO (23:31)
[2021-05-21] MEDS: cloNIDine HCL 0.2 MG TABLET 0.4 MG PO (23:31)
[2021-05-21] MEDS: guaiFENesin 100 MG/5 ML LIQUID PO (23:31)
[2021-05-21] MEDS: diazePAM 5 MG TABLET 10 MG PO (23:31)
[2021-05-21] MEDS: Melatonin 3 MG TABLET 9 MG PO (23:31)
[2021-05-21 23:35] VITALS: TEMP 36.6; O2SAT 94
[2021-05-22] MEDS: QUEtiapine Fumarate 400 MG TABLET 800 MG PO (01:07)
[2021-05-22 10:41] VITALS: BP 82/44; PULSE 97; RESP 16; TEMP 36.3; O2SAT 96
[2021-05-22] MEDS: Nicotine 21 MG PATCH.TD24 TRANSDERMA (11:19)
[2021-05-22] MEDS: diazePAM 5 MG TABLET 7.5 MG PO (11:19)
[2021-05-22 11:20] VITALS: BP 132/64
[2021-05-22] MEDS: Dextroamphetamine/Amphetamine XR 10 MG CAP.ER.24H 60 MG PO (11:20)
[2021-05-22] MEDS: Omeprazole 40 MG CAPSULE.DR PO (11:20)
--- NOTE | 2021-05-22 13:43 | PC.NURSE ---
This nurse was asked to see patient for assessment of itchy area in arash area. Patient had some pinkness to labia and inner thighs, the labia being very itchy. This nurse saw some yellow, creamy vaginal discharge. Patient stated she has had the discharge for a few weeks and thought it was normal. This nurse suggested the use of anti itch cream for the arash area and maybe a vaginal cream for the discharge. This will be up to the discretion of the doctor.
--- NOTE | 2021-05-22 14:41 | HO.PSYCHPN ---
Subjective Subjective Date of Service: 05/22/21 Reason For Visit: depression and si Interim History: pt presents as per usual, very focused on negative material and experiences perceived as traumatic. difficult to redirect conversation. made a list of questions for MD. asking about medications, discharge date, if this is the last time i will see her, reporting she is concerned about SI and feels it's getting closer. agrees to continue stimulant despite lack of perceived efficacy in order to give it a fair trial. wound nurse say pt and made recs for creams. per staff, no changes clinically. watching TV in side room. focused on having lost her wallet here and on peer that discharged on tuesday. Mental Status Exam Mental Status Exam Narrative: A&O. adequate grooming and appearance, overweight. fair eye contact, attentive. No abnormal involuntary movements. Anxious but cooperative, engaged. speech incr in amount and difficult to interrupt/redirect, spontaneous with regular rate and rhythm, normal volume and flattened prosody. No prolonged speech latency or dysarthria. Mood is anxious and depressed, affect is constricted. Thoughts are wandering yet restricted to perceived traumatic experiences. No known cognitive or memory impairment. Insight/ Judgment fair and adequate. no SI/HI/AVH expressed. Diagnostics Vital Signs (24Hr): Vital Signs - 24 hr 05/21/21 23:31 05/21/21 23:35 05/22/21 10:41 Temperature 97.9 F 97.3 F Pulse Rate 86 97 Respiratory Rate 16 Blood Pressure 123/62 82/44 L Pulse Oximetry 94 96 05/22/21 11:20 Temperature Pulse Rate Respiratory Rate Blood Pressure 132/64 Pulse Oximetry Body Mass Index 29.2 Medications Medications Current Medications Acetaminophen (Acetaminophen 325 Mg Tablet) 650 mg PO Q6H PRN PRN Reason: Headache/Pain Mild Scale (1-3) Last Admin: 05/20/21 23:44 Dose: 650 mg Documented by: Al Hydroxide/Mg Hydroxide (Magnesium Hydrox/Alum Hydrox 30 Ml Oral.Susp) 30 ml PO Q6H PRN PRN Reason: Heartburn/Nausea Last Admin: 05/07/21 16:40 Dose: 30 ml Documented by: Albuterol Sulfate (Albuterol Sulfate 90 Mcg 8 Gm Inhaler) 2 puff INHALE RQ6H PRN PRN Reason: Shortness of Breath Last Admin: 05/21/21 23:31 Dose: 2 puff Documented by: Amphetamine/Dextroamphetamine (Dextroamphetamine/Amphetamine Xr 10 Mg Cap.Er.24h) 60 mg PO DAILY [facility] Last Admin: 05/22/21 11:20 Dose: 60 mg Documented by: Clonidine (Clonidine 0.1 Mg Patch.Tdwk) 0.1 mg TRANSDERMA Tu@0900 [facility]; Protocol Last Admin: 05/19/21 10:00 Dose: 0.1 mg Documented by: Clonidine HCl (Clonidine Hcl 0.2 Mg Tablet) 0.4 mg PO BEDTIME [facility]; Protocol Last Admin: 05/21/21 23:31 Dose: 0.4 mg Documented by: Diazepam (Diazepam 5 Mg Tablet) 10 mg PO BEDTIME [facility] Last Admin: 05/21/21 23:31 Dose: 10 mg Documented by: Diazepam (Diazepam 5 Mg Tablet) 10 mg PO DAILY@1500 [facility] Guaifenesin (Guaifenesin 100 Mg/5 Ml Liquid) 5 ml PO Q6H PRN PRN Reason: Cough Last Admin: 05/21/21 23:31 Dose: 5 ml Documented by: Hydroxyzine HCl (Hydroxyzine Hcl 25 Mg Tablet) 25 mg PO BEDTIME PRN PRN Reason: Anxiety Last Admin: 05/21/21 01:55 Dose: 25 mg Documented by: Ibuprofen (Ibuprofen 800 Mg Tablet) 800 mg PO Q8H PRN PRN Reason: moderate to severe pain Last Admin: 05/21/21 16:09 Dose: 800 mg Documented by: Magnesium Hydroxide (Milk Of Magnesia 30 Ml Oral.Susp) 30 ml PO DAILY PRN PRN Reason: Constipation Last Admin: 05/19/21 11:41 Dose: 30 ml Documented by: Melatonin (Melatonin 3 Mg Tablet) 9 mg PO BEDTIME [facility] Last Admin: 05/21/21 23:31 Dose: 9 mg Documented by: Nicotine (Nicotine 21 Mg Patch.Td24) 21 mg TRANSDERMA DAILY [facility] Last Admin: 05/22/21 11:19 Dose: 21 mg Documented by: Nicotine Polacrilex (Nicotine Polacrilex 2 Mg Gum) 2 mg BUCCAL Q2H PRN PRN Reason: Nicotine Cravings Last Admin: 04/25/21 22:55 Dose: 2 mg Documented by: Nystatin (Nystatin Cream 15 Gm Tube) 1 appl TOPICAL BID [facility]; Protocol Last Admin: 05/22/21 13:39 Dose: Not Given Documented by: Omeprazole (Omeprazole 40 Mg Capsule.) 40 mg PO DAILY@0630 [facility] Last Admin: 05/22/21 11:20 Dose: 40 mg Documented by: Quetiapine Fumarate (Quetiapine Fumarate 400 Mg Tablet) 800 mg PO BEDTIME [facility] Last Admin: 05/22/21 01:07 Dose: 800 mg Documented by: Quetiapine Fumarate (Quetiapine Fumarate 200 Mg Tablet) 200 mg PO BEDTIME [facility] Last Admin: 05/21/21 23:31 Dose: 200 mg Documented by: Trazodone HCl (Trazodone Hcl 50 Mg Tablet) 50 mg PO BEDTIME PRN PRN Reason: Insomnia Last Admin: 05/07/21 23:39 Dose: 50 mg Documented by: Allergies Allergies Allergy/AdvReac Type Severity Reaction Status Date / Time No Known Allergies Allergy Unverified 03/20/20 19:15 [No Known Allergies*] Assessment & Plan Assessment & Plan (1) Tinea cruris: Status: Acute Code(s): B35.6 - Tinea cruris Assessment and Plan: Pt is a 51 y.o. 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 She has co-morbid chronic pain issues and ambulates with leg braces s/p fasciitis. Denies substance or alcohol use problems. Reports significant past traumas that she has had difficulty moving past. Hx of multiple past med trials, IPLOC, ECT but pt denies benefit. Currently presenting with sx of depression, lack of self care, anxiety with panic attacks, isolative behaviors, and intrusive negative thoughts. She feels safe on the unit and denies suicidal intent or plan at hospital. She has been using diazepam and high dose seroquel for sleep and anxiety management but denies that seroquel has helped with depression sx. 04/24: Seen by hospitalist for consult, much appreciated. Reported rash, prescribed nystatin. U/A obtained for dysuria. pt has a hx of extensive med trials and ECT. Had been discussing ketamine with OP prescriber but pt remains ambivalent. Discussed other options including TMS, selegiline patch, or decreasing seroquel and initiating cariprazine to target mood stability, perseverative thoughts, and anxious agitation. 04/26/21: Started Melatonin 6 mg HS 04/27: pt started on clonidine 0.1 mg/24H patch to target sympathetic hyperarousal. 04/28: clonidine 0.1 mg QHS added for sleep/nightmares. 04/29: clonidine 0.1 mg QHS increased to 0.2 mg QHS for insomnia/nightmares.? hold for SBP < 90.? podiatry consult placed.? valium dosing increased from 5 TID to 7.5 TID.? message left for outpt prescriber. 04/30: pt reports unchanged mood or anxiety, although looks somnolent, likely from valium dosing increase. 05/01: not somnolent.? clonidine at HS increased to 0.3 mg for sleep/anxiety. 05/02: not somnolent.? denies any improvement in Sx.? clonidine at HS increased to 0.4 mg. 05/03: not somnolent.? denies improvement.? clonidine at HS increased to 0.5 mg. 05/04: valium dosing increased from 7.5 TID to 7.5/7.5/10 for anxiety, tremor, insomnia. 05/05: clonidine at HS increased from 0.5 mg to 0.6 mg.? case discussed with outpt prescriber. 05/06: adderall 5 mg trial today.? mild hypotension this morning; continue clonidine at present dosing. 05/07: adderall changed to 10 mg XR formulation. 05/11: added Diflucan for mycotic lessions. 05/11: increased adderall XR to 15 mg daily. 05/12: increased adderall XR to 20 mg daily. 05/14: adderall increased to 30 mg for 05/14. 05/17: adderall increased to 40 mg daily for 05/18. 05/18: clonidine at HS decreased to 0.4 mg due to hypotension. 05/19: BP has improved. 05/21: adderall XR increased to 60 mg daily. I spent minutes with the patient and/or on the patient floor today, greater than?50% of which was spent counseling/coordinating care. Reason for contiued inpatient stay Substantial Risk for: harm to self, inability to function and rapid decompensation
[2021-05-22] MEDS: diazePAM 5 MG TABLET 10 MG PO ×2 (15:46→23:10)
[2021-05-22] MEDS: Albuterol Sulfate 90 MCG 8 GM INHALER 2 PUFF INHALE ×2 (15:49→23:21)
[2021-05-22] MEDS: Ibuprofen 800 MG TABLET PO (15:49)
[2021-05-22] MEDS: Hydrocortisone 1 % Cream 28.35 GM TUBE 1 APPL TOPICAL (16:21)
[2021-05-22 23:00] VITALS: BP 138/78; PULSE 95; TEMP 36.9; O2SAT 96
[2021-05-22] MEDS: QUEtiapine Fumarate 200 MG TABLET PO (23:10)
[2021-05-22 23:11] VITALS: BP 138/78; PULSE 95
[2021-05-22] MEDS: cloNIDine HCL 0.2 MG TABLET 0.4 MG PO (23:11)
[2021-05-22] MEDS: Melatonin 3 MG TABLET 9 MG PO (23:11)
[2021-05-22] MEDS: guaiFENesin 100 MG/5 ML LIQUID PO (23:12)
[2021-05-22 23:15] VITALS: BP 138/78; PULSE 95
[2021-05-23] MEDS: QUEtiapine Fumarate 400 MG TABLET 800 MG PO ×2 (00:01→23:17)
[2021-05-23] MEDS: Clotrimazole 1 % Vaginal Cream 45 GM TUBE 1 APPL VAGINAL ×2 (00:02→23:17)
[2021-05-23] MEDS: Dextroamphetamine/Amphetamine XR 10 MG CAP.ER.24H 60 MG PO (10:51)
[2021-05-23] MEDS: Omeprazole 40 MG CAPSULE.DR PO (10:52)
[2021-05-23] MEDS: Nicotine 21 MG PATCH.TD24 TRANSDERMA (10:52)
[2021-05-23 11:34] VITALS: BP 110/65; PULSE 86; TEMP 36.6
[2021-05-23] MEDS: diazePAM 5 MG TABLET 7.5 MG PO (11:58)
[2021-05-23] MEDS: guaiFENesin 100 MG/5 ML LIQUID PO ×2 (14:25→23:18)
[2021-05-23] MEDS: Ibuprofen 800 MG TABLET PO ×2 (14:25→23:17)
[2021-05-23] MEDS: Albuterol Sulfate 90 MCG 8 GM INHALER 2 PUFF INHALE (14:25)
[2021-05-23] MEDS: Hydrocortisone 1 % Cream 28.35 GM TUBE 1 APPL TOPICAL (14:29)
[2021-05-23] MEDS: diazePAM 5 MG TABLET 10 MG PO ×2 (16:06→20:48)
--- NOTE | 2021-05-23 17:28 | HO.PSYCHPN ---
Subjective Subjective Date of Service: 05/23/21 Reason For Visit: depression and si Interim History: Patient reports she isn't feeling well and doesn't feel better. She is helpless and hopeless. She had been started on stimulants but denies they are helpful. Continues to say she has SI. Per staff, no changes clinically. watching TV in side room. focused on having lost her wallet here and on peer that discharged on tuesday. Review of Systems Review of Systems no fever, no drainage, redness is reported Yes all other systems are reviewed and are negative Constitutional: Denies chills and Denies fever(s) Cardiovascular: Denies chest pain, Reports palpitations and Denies orthopnea Respiratory: Denies cough Gastrointestinal: Denies abdominal pain Endocrine: Reports palpitations Mental Status Exam Mental Status Exam Narrative: A&O. adequate grooming and appearance, overweight. fair eye contact, attentive. No abnormal involuntary movements. Anxious but cooperative, engaged. speech incr in amount and difficult to interrupt/redirect, spontaneous with regular rate and rhythm, normal volume and flattened prosody. No prolonged speech latency or dysarthria. Mood is anxious and depressed, affect is constricted. Thoughts are wandering yet restricted to perceived traumatic experiences. No known cognitive or memory impairment. Insight/ Judgment fair and adequate. no SI/HI/AVH expressed. Patient Appearance: Well Grooomed Patient Orientation: Person and Situation Level of Consciousness: Awake and Appropriate Patient Behavior: Dependent and Passive Mood Description: Depressed Affect Description: Constricted Patient Cognition Impaired: No Ability to Follow Directions: Good Speech Pattern: Clear Diagnostics Vital Signs (24Hr): Vital Signs - 24 hr 05/22/21 23:00 05/22/21 23:11 05/22/21 23:15 Temperature 98.5 F Pulse Rate 95 95 95 Blood Pressure 138/78 138/78 138/78 Pulse Oximetry 96 05/23/21 11:34 Temperature 98 F Pulse Rate 86 Blood Pressure 110/65 Pulse Oximetry Body Mass Index 29.2 Medications Medications Current Medications Acetaminophen (Acetaminophen 325 Mg Tablet) 650 mg PO Q6H PRN PRN Reason: Headache/Pain Mild Scale (1-3) Last Admin: 05/20/21 23:44 Dose: 650 mg Documented by: Al Hydroxide/Mg Hydroxide (Magnesium Hydrox/Alum Hydrox 30 Ml Oral.Susp) 30 ml PO Q6H PRN PRN Reason: Heartburn/Nausea Last Admin: 05/07/21 16:40 Dose: 30 ml Documented by: Albuterol Sulfate (Albuterol Sulfate 90 Mcg 8 Gm Inhaler) 2 puff INHALE RQ6H PRN PRN Reason: Shortness of Breath Last Admin: 05/23/21 14:25 Dose: 2 puff Documented by: Amphetamine/Dextroamphetamine (Dextroamphetamine/Amphetamine Xr 10 Mg Cap.Er.24h) 60 mg PO DAILY [facility] Last Admin: 05/23/21 10:51 Dose: 60 mg Documented by: Clonidine (Clonidine 0.1 Mg Patch.Tdwk) 0.1 mg TRANSDERMA Tu@0900 [facility]; Protocol Last Admin: 05/19/21 10:00 Dose: 0.1 mg Documented by: Clonidine HCl (Clonidine Hcl 0.2 Mg Tablet) 0.4 mg PO BEDTIME [facility]; Protocol Last Admin: 05/22/21 23:11 Dose: 0.4 mg Documented by: Clotrimazole (Clotrimazole 1 % Vaginal Cream 45 Gm Tube) 1 appl VAGINAL BEDTIME [facility] Stop: 05/28/21 21:01 Last Admin: 05/23/21 00:02 Dose: 1 appl Documented by: Diazepam (Diazepam 5 Mg Tablet) 10 mg PO BEDTIME [facility] Last Admin: 05/22/21 23:10 Dose: 10 mg Documented by: Diazepam (Diazepam 5 Mg Tablet) 10 mg PO DAILY@1500 [facility] Last Admin: 05/23/21 16:06 Dose: 10 mg Documented by: Diazepam (Diazepam 5 Mg Tablet) 7.5 mg PO DAILY [facility] Last Admin: 05/23/21 11:58 Dose: 7.5 mg Documented by: Guaifenesin (Guaifenesin 100 Mg/5 Ml Liquid) 5 ml PO Q6H PRN PRN Reason: Cough Last Admin: 05/23/21 14:25 Dose: 5 ml Documented by: Hydrocortisone (Hydrocortisone 1 % Cream 28.35 Gm Tube) 1 appl TOPICAL DAILY [facility]; Protocol Stop: 05/28/21 23:59 Last Admin: 05/23/21 14:29 Dose: 1 appl Documented by: Hydroxyzine HCl (Hydroxyzine Hcl 25 Mg Tablet) 25 mg PO BEDTIME PRN PRN Reason: Anxiety Last Admin: 05/21/21 01:55 Dose: 25 mg Documented by: Ibuprofen (Ibuprofen 800 Mg Tablet) 800 mg PO Q8H PRN PRN Reason: moderate to severe pain Last Admin: 05/23/21 14:25 Dose: 800 mg Documented by: Magnesium Hydroxide (Milk Of Magnesia 30 Ml Oral.Susp) 30 ml PO DAILY PRN PRN Reason: Constipation Last Admin: 05/19/21 11:41 Dose: 30 ml Documented by: Melatonin (Melatonin 3 Mg Tablet) 9 mg PO BEDTIME [facility] Last Admin: 05/22/21 23:11 Dose: 9 mg Documented by: Nicotine (Nicotine 21 Mg Patch.Td24) 21 mg TRANSDERMA DAILY [facility] Last Admin: 05/23/21 10:52 Dose: 21 mg Documented by: Nicotine Polacrilex (Nicotine Polacrilex 2 Mg Gum) 2 mg BUCCAL Q2H PRN PRN Reason: Nicotine Cravings Last Admin: 04/25/21 22:55 Dose: 2 mg Documented by: Omeprazole (Omeprazole 40 Mg Capsule.Dr) 40 mg PO DAILY@0630 [facility] Last Admin: 05/23/21 10:52 Dose: 40 mg Documented by: Quetiapine Fumarate (Quetiapine Fumarate 400 Mg Tablet) 800 mg PO BEDTIME [facility] Last Admin: 05/23/21 00:01 Dose: 800 mg Documented by: Quetiapine Fumarate (Quetiapine Fumarate 200 Mg Tablet) 200 mg PO BEDTIME [facility] Last Admin: 05/22/21 23:10 Dose: 200 mg Documented by: Trazodone HCl (Trazodone Hcl 50 Mg Tablet) 50 mg PO BEDTIME PRN PRN Reason: Insomnia Last Admin: 05/07/21 23:39 Dose: 50 mg Documented by: Allergies Allergies Allergy/AdvReac Type Severity Reaction Status Date / Time No Known Allergies Allergy Unverified 03/20/20 19:15 [No Known Allergies*] Assessment & Plan Assessment & Plan (1) Tinea cruris: Status: Acute Code(s): B35.6 - Tinea cruris Assessment and Plan: Pt is a 51 y.o. 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 She has co-morbid chronic pain issues and ambulates with leg braces s/p fasciitis. Denies substance or alcohol use problems. Reports significant past traumas that she has had difficulty moving past. Hx of multiple past med trials, IPLOC, ECT but pt denies benefit. Currently presenting with sx of depression, lack of self care, anxiety with panic attacks, isolative behaviors, and intrusive negative thoughts. She feels safe on the unit and denies suicidal intent or plan at hospital. She has been using diazepam and high dose seroquel for sleep and anxiety management but denies that seroquel has helped with depression sx. 04/24: Seen by hospitalist for consult, much appreciated. Reported rash, prescribed nystatin. U/A obtained for dysuria. pt has a hx of extensive med trials and ECT. Had been discussing ketamine with OP prescriber but pt remains ambivalent. Discussed other options including TMS, selegiline patch, or decreasing seroquel and initiating cariprazine to target mood stability, perseverative thoughts, and anxious agitation. 04/26/21: Started Melatonin 6 mg HS 04/27: pt started on clonidine 0.1 mg/24H patch to target sympathetic hyperarousal. 04/28: clonidine 0.1 mg QHS added for sleep/nightmares. 04/29: clonidine 0.1 mg QHS increased to 0.2 mg QHS for insomnia/nightmares.? hold for SBP < 90.? podiatry consult placed.? valium dosing increased from 5 TID to 7.5 TID.? message left for outpt prescriber. 04/30: pt reports unchanged mood or anxiety, although looks somnolent, likely from valium dosing increase. 05/01: not somnolent.? clonidine at HS increased to 0.3 mg for sleep/anxiety. 05/02: not somnolent.? denies any improvement in Sx.? clonidine at HS increased to 0.4 mg. 05/03: not somnolent.? denies improvement.? clonidine at HS increased to 0.5 mg. 05/04: valium dosing increased from 7.5 TID to 7.5/7.5/10 for anxiety, tremor, insomnia. 05/05: clonidine at HS increased from 0.5 mg to 0.6 mg.? case discussed with outpt prescriber. 05/06: adderall 5 mg trial today.? mild hypotension this morning; continue clonidine at present dosing. 05/07: adderall changed to 10 mg XR formulation. 05/11: added Diflucan for mycotic lessions. 05/11: increased adderall XR to 15 mg daily. 05/12: increased adderall XR to 20 mg daily. 05/14: adderall increased to 30 mg for 05/14. 05/17: adderall increased to 40 mg daily for 05/18. 05/18: clonidine at HS decreased to 0.4 mg due to hypotension. 05/19: BP has improved. 05/21: adderall XR increased to 60 mg daily. 05/23: No change in psychotropics. I spent minutes with the patient and/or on the patient floor today, greater than?50% of which was spent counseling/coordinating care. Reason for contiued inpatient stay Substantial Risk for: harm to self and rapid decompensation
[2021-05-23 20:43] VITALS: BP 126/61; PULSE 86; RESP 16; TEMP 36.8; O2SAT 96
[2021-05-23] MEDS: Melatonin 3 MG TABLET 9 MG PO (23:17)
[2021-05-23 23:18] VITALS: BP 123/66; PULSE 89
[2021-05-23] MEDS: QUEtiapine Fumarate 200 MG TABLET PO (23:18)
[2021-05-23] MEDS: cloNIDine HCL 0.2 MG TABLET 0.4 MG PO (23:18)
[2021-05-24] MEDS: Dextroamphetamine/Amphetamine XR 10 MG CAP.ER.24H 60 MG PO (11:24)
[2021-05-24] MEDS: diazePAM 5 MG TABLET 7.5 MG PO (11:24)
[2021-05-24] MEDS: Omeprazole 40 MG CAPSULE.DR PO (11:24)
[2021-05-24] MEDS: Nicotine 21 MG PATCH.TD24 TRANSDERMA (11:27)
[2021-05-24 11:35] VITALS: BP 107/52; PULSE 82; TEMP 36.6
--- NOTE | 2021-05-24 14:35 | HO.PSYCHPN ---
Subjective Subjective Date of Service: 05/24/21 Reason For Visit: depression and si Interim History: Patient reports she is depressed and hasn't felt the effect of the Adderall yet . She is helpless and hopeless. Complaining of chronic leg and back pain. She had been started on stimulants but denies they are helpful. Continues to say she has SI. Per staff, no changes clinically. Review of Systems Review of Systems no fever, no drainage, redness is reported Yes all other systems are reviewed and are negative Constitutional: Denies chills and Denies fever(s) Cardiovascular: Denies chest pain, Reports palpitations and Denies orthopnea Respiratory: Denies cough Gastrointestinal: Denies abdominal pain Endocrine: Reports palpitations Mental Status Exam Mental Status Exam Narrative: A&O. adequate grooming and appearance, overweight. fair eye contact, attentive. No abnormal involuntary movements. Anxious but cooperative, engaged. spontaneous with regular rate and rhythm, normal volume and flattened prosody. No prolonged speech latency or dysarthria. Mood is anxious and depressed, affect is constricted. Thoughts are wandering yet restricted to perceived traumatic experiences. No known cognitive or memory impairment. Insight/ Judgment fair and adequate. no SI/HI/AVH expressed. Patient Appearance: Well Grooomed Patient Orientation: Person and Situation Level of Consciousness: Awake and Appropriate Patient Behavior: Dependent and Passive Mood Description: Depressed Affect Description: Constricted Patient Cognition Impaired: No Ability to Follow Directions: Good Speech Pattern: Clear Diagnostics Vital Signs (24Hr): Vital Signs - 24 hr 05/23/21 23:18 05/24/21 11:35 Temperature 97.9 F Pulse Rate 89 82 Blood Pressure 123/66 107/52 L Body Mass Index 29.2 Medications Medications Current Medications Acetaminophen (Acetaminophen 325 Mg Tablet) 650 mg PO Q6H PRN PRN Reason: Headache/Pain Mild Scale (1-3) Last Admin: 05/20/21 23:44 Dose: 650 mg Documented by: Al Hydroxide/Mg Hydroxide (Magnesium Hydrox/Alum Hydrox 30 Ml Oral.Susp) 30 ml PO Q6H PRN PRN Reason: Heartburn/Nausea Last Admin: 05/07/21 16:40 Dose: 30 ml Documented by: Albuterol Sulfate (Albuterol Sulfate 90 Mcg 8 Gm Inhaler) 2 puff INHALE RQ6H PRN PRN Reason: Shortness of Breath Last Admin: 05/23/21 14:25 Dose: 2 puff Documented by: Amphetamine/Dextroamphetamine (Dextroamphetamine/Amphetamine Xr 10 Mg Cap.Er.24h) 60 mg PO DAILY [facility]I Last Admin: 05/24/21 11:24 Dose: 60 mg Documented by: Clonidine (Clonidine 0.1 Mg Patch.Tdwk) 0.1 mg TRANSDERMA Tu@0900 [facility]; Protocol Last Admin: 05/19/21 10:00 Dose: 0.1 mg Documented by: Clonidine HCl (Clonidine Hcl 0.2 Mg Tablet) 0.4 mg PO BEDTIME [facility]ACHI; Protocol Last Admin: 05/23/21 23:18 Dose: 0.4 mg Documented by: Clotrimazole (Clotrimazole 1 % Vaginal Cream 45 Gm Tube) 1 appl VAGINAL BEDTIME [facility]ACHI Stop: 05/28/21 21:01 Last Admin: 05/23/21 23:17 Dose: 1 appl Documented by: Diazepam (Diazepam 5 Mg Tablet) 10 mg PO BEDTIME SACHI Last Admin: 05/23/21 20:48 Dose: 10 mg Documented by: Diazepam (Diazepam 5 Mg Tablet) 10 mg PO DAILY@1500 [facility] Last Admin: 05/24/21 16:14 Dose: 10 mg Documented by: Diazepam (Diazepam 5 Mg Tablet) 7.5 mg PO DAILY SACHI Last Admin: 05/24/21 11:24 Dose: 7.5 mg Documented by: Guaifenesin (Guaifenesin 100 Mg/5 Ml Liquid) 5 ml PO Q6H PRN PRN Reason: Cough Last Admin: 05/23/21 23:18 Dose: 5 ml Documented by: Hydrocortisone (Hydrocortisone 1 % Cream 28.35 Gm Tube) 1 appl TOPICAL DAILY [facility]ACHI; Protocol Stop: 05/28/21 23:59 Last Admin: 05/24/21 11:34 Dose: Not Given Documented by: Hydroxyzine HCl (Hydroxyzine Hcl 25 Mg Tablet) 25 mg PO BEDTIME PRN PRN Reason: Anxiety Last Admin: 05/21/21 01:55 Dose: 25 mg Documented by: Ibuprofen (Ibuprofen 800 Mg Tablet) 800 mg PO Q8H PRN PRN Reason: moderate to severe pain Last Admin: 05/23/21 23:17 Dose: 800 mg Documented by: Magnesium Hydroxide (Milk Of Magnesia 30 Ml Oral.Susp) 30 ml PO DAILY PRN PRN Reason: Constipation Last Admin: 05/19/21 11:41 Dose: 30 ml Documented by: Melatonin (Melatonin 3 Mg Tablet) 9 mg PO BEDTIME [facility] Last Admin: 05/23/21 23:17 Dose: 9 mg Documented by: Nicotine (Nicotine 21 Mg Patch.Td24) 21 mg TRANSDERMA DAILY [facility] Last Admin: 05/24/21 11:27 Dose: 21 mg Documented by: Nicotine Polacrilex (Nicotine Polacrilex 2 Mg Gum) 2 mg BUCCAL Q2H PRN PRN Reason: Nicotine Cravings Last Admin: 04/25/21 22:55 Dose: 2 mg Documented by: Omeprazole (Omeprazole 40 Mg Capsule.Dr) 40 mg PO DAILY@0630 [facility] Last Admin: 05/24/21 11:24 Dose: 40 mg Documented by: Quetiapine Fumarate (Quetiapine Fumarate 400 Mg Tablet) 800 mg PO BEDTIME [facility] Last Admin: 05/23/21 23:17 Dose: 800 mg Documented by: Quetiapine Fumarate (Quetiapine Fumarate 200 Mg Tablet) 200 mg PO BEDTIME [facility] Last Admin: 05/23/21 23:18 Dose: 200 mg Documented by: Trazodone HCl (Trazodone Hcl 50 Mg Tablet) 50 mg PO BEDTIME PRN PRN Reason: Insomnia Last Admin: 05/07/21 23:39 Dose: 50 mg Documented by: Allergies Allergies Allergy/AdvReac Type Severity Reaction Status Date / Time No Known Allergies Allergy Unverified 03/20/20 19:15 [No Known Allergies*] Assessment & Plan Assessment & Plan (1) Tinea cruris: Status: Acute Code(s): B35.6 - Tinea cruris Assessment and Plan: Pt is a 51 y.o. 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 She has co-morbid chronic pain issues and ambulates with leg braces s/p fasciitis. Denies substance or alcohol use problems. Reports significant past traumas that she has had difficulty moving past. Hx of multiple past med trials, IPLOC, ECT but pt denies benefit. Currently presenting with sx of depression, lack of self care, anxiety with panic attacks, isolative behaviors, and intrusive negative thoughts. She feels safe on the unit and denies suicidal intent or plan at hospital. She has been using diazepam and high dose seroquel for sleep and anxiety management but denies that seroquel has helped with depression sx. 04/24: Seen by hospitalist for consult, much appreciated. Reported rash, prescribed nystatin. U/A obtained for dysuria. pt has a hx of extensive med trials and ECT. Had been discussing ketamine with OP prescriber but pt remains ambivalent. Discussed other options including TMS, selegiline patch, or decreasing seroquel and initiating cariprazine to target mood stability, perseverative thoughts, and anxious agitation. 04/26/21: Started Melatonin 6 mg HS 04/27: pt started on clonidine 0.1 mg/24H patch to target sympathetic hyperarousal. 04/28: clonidine 0.1 mg QHS added for sleep/nightmares. 04/29: clonidine 0.1 mg QHS increased to 0.2 mg QHS for insomnia/nightmares.? hold for SBP < 90.? podiatry consult placed.? valium dosing increased from 5 TID to 7.5 TID.? message left for outpt prescriber. 04/30: pt reports unchanged mood or anxiety, although looks somnolent, likely from valium dosing increase. 05/01: not somnolent.? clonidine at HS increased to 0.3 mg for sleep/anxiety. 05/02: not somnolent.? denies any improvement in Sx.? clonidine at HS increased to 0.4 mg. 05/03: not somnolent.? denies improvement.? clonidine at HS increased to 0.5 mg. 05/04: valium dosing increased from 7.5 TID to 7.5/7.5/10 for anxiety, tremor, insomnia. 05/05: clonidine at HS increased from 0.5 mg to 0.6 mg.? case discussed with outpt prescriber. 05/06: adderall 5 mg trial today.? mild hypotension this morning; continue clonidine at present dosing. 05/07: adderall changed to 10 mg XR formulation. 05/11: added Diflucan for mycotic lessions. 05/11: increased adderall XR to 15 mg daily. 05/12: increased adderall XR to 20 mg daily. 05/14: adderall increased to 30 mg for 05/14. 05/17: adderall increased to 40 mg daily for 05/18. 05/18: clonidine at HS decreased to 0.4 mg due to hypotension. 05/19: BP has improved. 05/21: adderall XR increased to 60 mg daily. 05/23: No change in psychotropics. 05/24: No change in psychotropics. Suggested Esketamine? Patient says she was told may not be a good candidate. Didn't give a clear reason. I spent minutes with the patient and/or on the patient floor today, greater than?50% of which was spent counseling/coordinating care. Reason for contiued inpatient stay Substantial Risk for: harm to self and inability to function
[2021-05-24] MEDS: diazePAM 5 MG TABLET 10 MG PO ×2 (16:14→23:32)
[2021-05-24 23:28] VITALS: TEMP 36.7; O2SAT 96
[2021-05-24 23:32] VITALS: BP 125/74; PULSE 84
[2021-05-24] MEDS: Melatonin 3 MG TABLET 9 MG PO (23:32)
[2021-05-24] MEDS: QUEtiapine Fumarate 200 MG TABLET PO (23:32)
[2021-05-24] MEDS: cloNIDine HCL 0.2 MG TABLET 0.4 MG PO (23:32)
[2021-05-25] MEDS: QUEtiapine Fumarate 400 MG TABLET 800 MG PO ×2 (01:16→22:30)
[2021-05-25] MEDS: Ibuprofen 800 MG TABLET PO ×2 (01:16→12:26)
[2021-05-25] MEDS: Clotrimazole 1 % Vaginal Cream 45 GM TUBE 1 APPL VAGINAL ×2 (01:17→23:26)
[2021-05-25 09:42] VITALS: BP 126/63; PULSE 85; RESP 16; TEMP 36.6; O2SAT 94
[2021-05-25] MEDS: Dextroamphetamine/Amphetamine XR 10 MG CAP.ER.24H 60 MG PO (09:44)
[2021-05-25] MEDS: diazePAM 5 MG TABLET 7.5 MG PO (09:44)
[2021-05-25] MEDS: Omeprazole 40 MG CAPSULE.DR PO (09:44)
[2021-05-25] MEDS: Hydrocortisone 1 % Cream 28.35 GM TUBE 1 APPL TOPICAL (12:25)
[2021-05-25] MEDS: Albuterol Sulfate 90 MCG 8 GM INHALER 2 PUFF INHALE (12:26)
--- NOTE | 2021-05-25 13:38 | P.PNPSI_ITS ---
Subjective Subjective Date of Service: 05/25/21 Reason For Visit: depression and si Interim History: MD informs pt of difficulty getting VNA services and lockbox at her home, so discharge has been delayed. pt will investigate option of dropping [facility] insurance if that solves the quandary. otherwise reports no change, continues to feel the worst she has ever done. MD suggests beginning taper of stimulant but pt states she would like to continue at 60 mg daily to see if anything changes in coming days. MD agrees, indicating that a month-long trial would be adequate and that if nothing changes for her in the next month that a taper would be indicated. pt expresses understanding. per staff, not attending groups, no changes in presentation. c/o anx/dep, worst ever. slept from 0130 - 0800. Mental Status Exam Mental Status Exam Narrative: A&O. adequate grooming and appearance. fair eye contact, attentive. No abnormal involuntary movements. Anxious but cooperative, engaged. speech incr in amount, spontaneous with regular rate and rhythm, normal volume and flattened prosody. No prolonged speech latency or dysarthria. Mood is anxious and depressed, affect is constricted. Thoughts are more linear than usual, focused on practical concerns around discharge and insurance coverage. No known cognitive or memory impairment. Insight/ Judgment fair and adequate. + SI. no HI/AVH expressed. Diagnostics Vital Signs (24Hr): Vital Signs - 24 hr 05/24/21 23:28 05/24/21 23:32 05/25/21 09:42 Temperature 98.0 F 97.9 F Pulse Rate 84 85 Respiratory Rate 16 Blood Pressure 125/74 126/63 Pulse Oximetry 96 94 Body Mass Index 29.2 Medications Medications Current Medications Acetaminophen (Acetaminophen 325 Mg Tablet) 650 mg PO Q6H PRN PRN Reason: Headache/Pain Mild Scale (1-3) Last Admin: 05/20/21 23:44 Dose: 650 mg Documented by: Al Hydroxide/Mg Hydroxide (Magnesium Hydrox/Alum Hydrox 30 Ml Oral.Susp) 30 ml PO Q6H PRN PRN Reason: Heartburn/Nausea Last Admin: 05/07/21 16:40 Dose: 30 ml Documented by: Albuterol Sulfate (Albuterol Sulfate 90 Mcg 8 Gm Inhaler) 2 puff INHALE RQ6H PRN PRN Reason: Shortness of Breath Last Admin: 05/25/21 12:26 Dose: 2 puff Documented by: Amphetamine/Dextroamphetamine (Dextroamphetamine/Amphetamine Xr 10 Mg Cap.Er.24h) 60 mg PO DAILY [facility]ACHI Clonidine (Clonidine 0.1 Mg Patch.Tdwk) 0.1 mg TRANSDERMA Tu@0900 [facility]; Protocol Last Admin: 05/19/21 10:00 Dose: 0.1 mg Documented by: Clonidine HCl (Clonidine Hcl 0.2 Mg Tablet) 0.4 mg PO BEDTIME [facility]; Protocol Last Admin: 05/24/21 23:32 Dose: 0.4 mg Documented by: Clotrimazole (Clotrimazole 1 % Vaginal Cream 45 Gm Tube) 1 appl VAGINAL BEDTIME [facility] Stop: 05/28/21 21:01 Last Admin: 05/25/21 01:17 Dose: 1 appl Documented by: Diazepam (Diazepam 5 Mg Tablet) 10 mg PO BEDTIME [facility]ACHI Last Admin: 05/24/21 23:32 Dose: 10 mg Documented by: Diazepam (Diazepam 5 Mg Tablet) 10 mg PO DAILY@1500 [facility] Last Admin: 05/24/21 16:14 Dose: 10 mg Documented by: Diazepam (Diazepam 5 Mg Tablet) 7.5 mg PO DAILY [facility] Last Admin: 05/25/21 09:44 Dose: 7.5 mg Documented by: Guaifenesin (Guaifenesin 100 Mg/5 Ml Liquid) 5 ml PO Q6H PRN PRN Reason: Cough Last Admin: 05/23/21 23:18 Dose: 5 ml Documented by: Hydrocortisone (Hydrocortisone 1 % Cream 28.35 Gm Tube) 1 appl TOPICAL DAILY [facility]; Protocol Stop: 05/28/21 23:59 Last Admin: 05/25/21 12:25 Dose: 1 appl Documented by: Hydroxyzine HCl (Hydroxyzine Hcl 25 Mg Tablet) 25 mg PO BEDTIME PRN PRN Reason: Anxiety Last Admin: 05/21/21 01:55 Dose: 25 mg Documented by: Ibuprofen (Ibuprofen 800 Mg Tablet) 800 mg PO Q8H PRN PRN Reason: moderate to severe pain Last Admin: 05/25/21 12:26 Dose: 800 mg Documented by: Magnesium Hydroxide (Milk Of Magnesia 30 Ml Oral.Susp) 30 ml PO DAILY PRN PRN Reason: Constipation Last Admin: 05/19/21 11:41 Dose: 30 ml Documented by: Melatonin (Melatonin 3 Mg Tablet) 9 mg PO BEDTIME [facility] Last Admin: 05/24/21 23:32 Dose: 9 mg Documented by: Nicotine (Nicotine 21 Mg Patch.Td24) 21 mg TRANSDERMA DAILY [facility] Last Admin: 05/25/21 09:47 Dose: Not Given Documented by: Nicotine Polacrilex (Nicotine Polacrilex 2 Mg Gum) 2 mg BUCCAL Q2H PRN PRN Reason: Nicotine Cravings Last Admin: 04/25/21 22:55 Dose: 2 mg Documented by: Omeprazole (Omeprazole 40 Mg Capsule.) 40 mg PO DAILY@0630 [facility] Last Admin: 05/25/21 09:44 Dose: 40 mg Documented by: Quetiapine Fumarate (Quetiapine Fumarate 400 Mg Tablet) 800 mg PO BEDTIME [facility] Last Admin: 05/25/21 01:16 Dose: 800 mg Documented by: Quetiapine Fumarate (Quetiapine Fumarate 200 Mg Tablet) 200 mg PO BEDTIME [facility] Last Admin: 05/24/21 23:32 Dose: 200 mg Documented by: Trazodone HCl (Trazodone Hcl 50 Mg Tablet) 50 mg PO BEDTIME PRN PRN Reason: Insomnia Last Admin: 05/07/21 23:39 Dose: 50 mg Documented by: Allergies Allergies Allergy/AdvReac Type Severity Reaction Status Date / Time No Known Allergies Allergy Unverified 03/20/20 19:15 [No Known Allergies*] Assessment & Plan Assessment & Plan (1) Tinea cruris: Status: Acute Code(s): B35.6 - Tinea cruris Assessment and Plan: Pt is a 51 y.o. 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 She has co-morbid chronic pain issues and ambulates with leg braces s/p fasciitis. Denies substance or alcohol use problems. Reports significant past traumas that she has had difficulty moving past. Hx of multiple past med trials, IPLOC, ECT but pt denies benefit. Currently presenting with sx of depression, lack of self care, anxiety with panic attacks, isolative behaviors, and intrusive negative thoughts. She feels safe on the unit and denies suicidal intent or plan at hospital. She has been using diazepam and high dose seroquel for sleep and anxiety management but denies that seroquel has helped with depression sx. 04/24: Seen by hospitalist for consult, much appreciated. Reported rash, prescribed nystatin. U/A obtained for dysuria. pt has a hx of extensive med trials and ECT. Had been discussing ketamine with OP prescriber but pt remains ambivalent. Discussed other options including TMS, selegiline patch, or decreasing seroquel and initiating cariprazine to target mood stability, perseverative thoughts, and anxious agitation. 04/26/21: Started Melatonin 6 mg HS 04/27: pt started on clonidine 0.1 mg/24H patch to target sympathetic hyperarousal. 04/28: clonidine 0.1 mg QHS added for sleep/nightmares. 04/29: clonidine 0.1 mg QHS increased to 0.2 mg QHS for insomnia/nightmares.? hold for SBP < 90.? podiatry consult placed.? valium dosing increased from 5 TID to 7.5 TID.? message left for outpt prescriber. 04/30: pt reports unchanged mood or anxiety, although looks somnolent, likely f rom valium dosing increase. 05/01: not somnolent.? clonidine at HS increased to 0.3 mg for sleep/anxiety. 05/02: not somnolent.? denies any improvement in Sx.? clonidine at HS increased to 0.4 mg. 05/03: not somnolent.? denies improvement.? clonidine at HS increased to 0.5 mg. 05/04: valium dosing increased from 7.5 TID to 7.5/7.5/10 for anxiety, tremor, insomnia. 05/05: clonidine at HS increased from 0.5 mg to 0.6 mg.? case discussed with outpt prescriber. 05/06: adderall 5 mg trial today.? mild hypotension this morning; continue clonidine at present dosing. 05/07: adderall changed to 10 mg XR formulation. 05/11: added Diflucan for mycotic lessions. 05/11: increased adderall XR to 15 mg daily. 05/12: increased adderall XR to 20 mg daily. 05/14: adderall increased to 30 mg for 05/14. 05/17: adderall increased to 40 mg daily for 05/18. 05/18: clonidine at HS decreased to 0.4 mg due to hypotension. 05/19: BP has improved. 05/21: adderall XR increased to 60 mg daily. 05/25: no change in depression or anxiety Sx after 4 days on adderall 60. I spent minutes with the patient and/or on the patient floor today, greater than?50% of which was spent counseling/coordinating care. Reason for contiued inpatient stay Substantial Risk for: harm to self, inability to function and rapid decompensat ion
[2021-05-25] MEDS: diazePAM 5 MG TABLET 10 MG PO ×2 (16:09→22:31)
[2021-05-25] MEDS: Milk of Magnesia 30 ML ORAL.SUSP PO (16:11)
[2021-05-25] MEDS: cloNIDine HCL 0.2 MG TABLET 0.4 MG PO (22:29)
[2021-05-25] MEDS: QUEtiapine Fumarate 200 MG TABLET PO (22:31)
[2021-05-25] MEDS: Melatonin 3 MG TABLET 9 MG PO (22:31)
[2021-05-25 22:56] VITALS: BP 135/67; PULSE 89; TEMP 36.4; O2SAT 96
[2021-05-26 10:40] VITALS: BP 129/77; PULSE 91; RESP 18; TEMP 36.2; O2SAT 97
[2021-05-26] MEDS: Omeprazole 40 MG CAPSULE.DR PO (10:43)
[2021-05-26] MEDS: Dextroamphetamine/Amphetamine XR 10 MG CAP.ER.24H 60 MG PO (10:43)
[2021-05-26] MEDS: diazePAM 5 MG TABLET 7.5 MG PO (10:43)
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
== END 2021-05-26 14:18 | disposition home or self-care (01) | DRG 751 ==
PROVIDERS: Physician Assistant Medical; Admitting Provider Psychiatry & Neurology Psychiatry; PCP Internal Medicine; Visit Provider Psychiatry & Neurology Psychiatry
DX: F33.2 Major depressive disorder, recurrent severe without psychotic features (principal); R45.851 Suicidal ideations; B35.6 Tinea cruris; F17.210 Nicotine dependence, cigarettes, uncomplicated; E66.3 Overweight; F41.1 Generalized anxiety disorder; K21.9 Gastro-esophageal reflux disease without esophagitis; J44.9 Chronic obstructive pulmonary disease, unspecified; F43.10 Post-traumatic stress disorder, unspecified; Z68.29 Body mass index [BMI] 29.0-29.9, adult; Z71.6 Tobacco abuse counseling; Z79.1 Long term (current) use of non-steroidal anti-inflammatories (NSAID); Z79.899 Other long term (current) drug therapy
CPT/HCPCS: 36415; 80061; 80307; 81001; 83036; 87086; 90686

== ENCOUNTER 2025-04-20 13:29 | Inpatient (IN) | payer OTHER, SELFPAY ==
--- NOTE | ~2025-04-20 | XR_ITS ---
CLINICAL HISTORY: rib fracture 1 view chest x-ray Comparison: None provided Findings: No consolidation or effusion. Normal size heart. Thoracolumbar posterior stabilization hardware. No fractures are demonstrated. IMPRESSION: No acute rib fractures are seen. Chest x-ray has a low sensitivity for detection of rib fractures without the addition of dedicated rib films. This document has been electronically signed by: Kori Rossi MD on 04/20/2025 22:22:39
--- NOTE | ~2025-04-20 | XR_ITS ---
EXAMINATION: XR CHEST CLINICAL INFORMATION: Hypoxia COMPARISON: 04/20/2025. TECHNIQUE: 2 views of the chest were obtained. FINDINGS: The cardiac, hilar, and mediastinal contours are normal. Lungs are hyperaerated with increased fine interstitial markings suggestive of COPD. Elevated right hemidiaphragm, unchanged. Patchy opacities in both lung bases, greater on the left, suggestive of left base pneumonia. No definite pleural effusion. No pneumothorax. There is no focal osseous or soft tissue abnormality. There are degenerative spinal changes. There are stable spinal stabilization rods spanning the lower thoracic and upper lumbar spine. XR/XR chest 2V IMPRESSION: 1. Findings suggestive of COPD. 2. Left base segmental opacity suggestive of pneumonia. No definite effusion. 3. Probable mild atelectasis right base. Electronically signed by: Thomas Hills MD 05/09/2025 01:50 PM [facility]
--- NOTE | ~2025-04-20 | CT_ITS ---
CLINICAL HISTORY: ams CT head without contrast Comparison: None provided Findings: No intra-axial mass, midline shift, hydrocephalus, or acute hemorrhage. No significant atrophy-like change or white matter disease. The visualized paranasal sinuses and mastoid air cells are normal. The orbits are within normal limits. No skull fracture. IMPRESSION: 1. No acute intracranial findings. This document has been electronically signed by: Kori Rossi MD on 04/20/2025 16:16:05
[2025-04-20 13:50] VITALS: BP 112/59; BP 142/90; PULSE 92; PULSE 98; RESP 16; TEMP 36.6; O2SAT 93; BMI 26.6
--- OUTSIDE RECORDS SUMMARY | 2025-04-20 14:13 | XMS_ITS | Continuity of Care Document ---
Author Name Adonis Kraus Address [address] [place] [id number] Organization Unknown Address [address] [place] [address] Medications No known medications Problems No known problems
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
--- OUTSIDE RECORDS SUMMARY | 2025-04-20 14:13 | XMS_ITS | Clinical Summary ---
Author Organization [facility] Address [address] [place] [address] Care Team Providers Care Behavioral Modification Assistant Name Role Phone Kain Garnica MD Primary Care Provider [phone] Social History Tobacco Use Types Packs/Day Years Used Date Smoking Tobacco: Every Day Smokeless Tobacco: Never Alcohol Use Standard Drinks/Week Comments Not Currently 0 (1 standard drink = 0.6 oz pur e alcohol) Comments Unknown Sex and Gender Information Value Date Recorded Sex Assigned at Not on file Legal Sex Female 4:01 AM EST Gender Identity Not on file Sexual Orientation Not on file Obstetrics History Plan of Treatment Health Maintenance Due Date Last Done Comments Breast Cancer Screening 1968 Colorectal Cancer Screening: Colonoscopy 1968 DTaP,Tdap,and Td Vaccines (1 - Tdap) 02/02/1987 Hepatitis B Vaccines (1 of 3 - 19+ 3-dose series) 02/02/1987 Pneumococcal Vaccine: 50+ Ye ars (1 of 2 - PCV) 02/02/1987 Cervical Cancer Screening: P ap Smear 02/02/1989 Zoster Vaccines (1 of 2) 02/02/2018 HIV Screening 06/06/2022 Hepatitis C Screening 06/06/2022 Social Influencers of Health Screening 06/06/2022 Depression Screening 07/04/2024 COVID-19 Vaccine (1 - 2023-2 5 season) 2025 Influenza Vaccine (#1) 2025 RSV Immunization Adult Patie nts (1 - 1-dose 75+ series) 02/02/2043 HIB Vaccines Aged Out No longer eligi ble based on patient's age to complete this topic HPV Vaccines Aged Out No longer eligi ble based on patient's age to complete this topic Hepatitis A Vaccines Aged Out No long er eligible based on patient's age to complete this topic IPV Vaccines Aged Out No longer eligi ble based on patient's age to complete this topic MMR Vaccines Aged Out No longer eligi ble based on patient's age to complete this topic Meningococcal ACWY Vaccine Aged Out N o longer eligible based on patient's age to complete this topic Meningococcal B Vaccine Aged Out No l onger eligible based on patient's age to complete this topic RSV Immunization Patients Un jackelin 20 months Aged Out No longer eligible b ased on patient's age to complete this topic Varicella Vaccines Aged Out No longer eligible based on patient's age to complete this topic Advance Directives Documents on File Type Date Recorded Patient Bacteriology Research Assistant Expl [facility] Decision (hx) 2019 AD CARLO DIRECTIVE Care Teams Behavioral Modification Assistant Relationship Specialty Start Date End Date Kani Garnica MD [address] [place] [phone] PCP - General Internal Medicine 11/07/20
--- NOTE | 2025-04-20 14:29 | ECG_ITS ---
Test Reason : ams Blood Pressure : */* mmHG Vent. Rate : 81 BPM Atrial Rate : 81 BPM P-R Int : 208 ms QRS Dur : 96 ms QT Int : 392 ms P-R-T Axes : 23 -4 40 degrees QTcB Int : 455 ms Normal sinus rhythm Normal ECG When compared with ECG of 28-Oct-2016 15:49, No significant change was found Referred By: Gonzalez Weeks Electronically Signed By: Jw Hammond
--- NOTE | 2025-04-20 15:01 | PHA.MEDREC ---
Pharmacy Consult ? Medication Reconciliation Pharmacy has completed the medication reconciliation. Utilized med list from nursing to confirm meds.
--- NOTE | 2025-04-20 15:04 | ED.GENADULT ---
HPI - General Adult General Chief complaint: General Medical Stated complaint: [place], seen at [facility], [facility] Time Seen by Provider: 04/20/25 14:27 Source: patient Mode of arrival: ambulatory Limitations: no limitations History of Present Illness ED Provider: Dr. Jean HPI narrative: 55-year-old female history of major depressive disorder, generalized anxiety disorder, PTSD presented hospital to from [facility] for evaluation of altered mentation. Patient was seen at [facility] where she was diagnosed with right-sided rib fracture and discharged. According to staff patient appears to be more confused than normal. Patient stated that she does have chronic issues with her gait. This has been going on for years now. She is having some right lower chest pain from her fracture. Other that she was recently seen in the hospital for asthma attack. She has no other complaints at this time. Related Data Home Medications ?Medication ?Instructions ?Recorded ?Confirmed acetaminophen 325 mg tablet 975 mg PO Q8H PRN Pain 04/20/25 04/20/25 benztropine 1 mg tablet 0.5 mg PO BID 04/20/25 04/20/25 desvenlafaxine 50 mg 100 mg PO DAILY 04/20/25 04/20/25 tablet,extended release 24 hr dicyclomine 10 mg capsule 10 mg PO QID PRN Spasms 04/20/25 04/20/25 fluticasone furoate 100 1 inh inhalation DAILY 04/20/25 04/20/25 mcg-vilanterol 25 mcg/dose inhalation powder (Breo Ellipta) gabapentin 300 mg capsule 300 mg PO TID 04/20/25 04/20/25 melatonin 3 mg tablet 6 mg PO BEDTIME 04/20/25 04/20/25 multivitamin 1 tab PO DAILY 04/20/25 04/20/25 nicotine (polacrilex) 2 mg gum 2 mg buccal Q2H PRN Nicotine 04/20/25 04/20/25 Cravings ondansetron 4 mg disintegrating 8 mg PO Q8H PRN Nausea And Vomiting 04/20/25 04/20/25 tablet quetiapine 200 mg tablet 500 mg PO BEDTIME 04/20/25 04/20/25 topiramate 100 mg tablet 100 mg PO BID 04/20/25 04/20/25 trazodone 100 mg tablet 250 mg PO BEDTIME 04/20/25 04/20/25 Previous Rx's ?Medication ?Instructions ?Recorded albuterol sulfate 90 mcg/actuation 2 puff inhalation RQ6H PRN 05/26/21 aerosol inhaler (Ventolin HFA) Shortness Of Breath 30 days #1 g cholecalciferol (vitamin D3) 10 10 mcg PO DAILY 30 days #30 caps 05/26/21 mcg (400 unit) capsule (Vitamin D3) clonidine 0.1 mg/24 hr weekly 0.1 mg transdermal Tu@0900 28 days 05/26/21 transdermal patch #4 ea diazepam 5 mg tablet 10 mg (2 x 5 mg) PO TID 7 days #42 05/26/21 tabs hydrocortisone 1 % topical cream 1 appl topical DAILY 30 days #10 05/26/21 grams hydroxyzine HCl 25 mg tablet 25 mg PO BEDTIME PRN Anxiety 7 05/26/21 days #7 tabs ibuprofen 800 mg tablet 800 mg PO Q8H PRN moderate to 05/26/21 severe pain 30 days #90 tabs omeprazole 40 mg capsule,delayed 40 mg PO DAILY@0630 7 days #7 caps 05/26/21 release Allergies Allergy/AdvReac Type Severity Reaction Status Date / Time No Known Allergies (No Known Allergy Verified 04/20/25 13:53 Allergies*) Review of Systems Review of Systems: Pertinent review of systems as mentioned in HPI. All other system otherwise negative. [facility] Past Medical History [facility] Narrative: Medical history as mentioned in HPI Medical History Compartment syndrome of lower extremity COPD (chronic obstructive pulmonary disease) CHELLE (generalized anxiety disorder) Post traumatic stress disorder (PTSD) MDD (major depressive disorder), recurrent episode, moderate Social History Social History Household Members: None Housing: House Do you presently have visiting nurse or other home services: No Comment: EDUCATED ABOUT HYPOTENSION AND FALL RISK. PT VERB UNDERSTANDING Patient Tobacco Use Status: Current everyday Tobacco user Tobacco use type: Cigarette Years Smoked: 40 Smoked in Last 30 Days: No e-Cigarette/Vaping Use: Never Used Second Hand Smoke Exposure: Yes Use of substances other than those prescribed or required for medical reasons: No Advance Directives: No Advance Directives Information Provided: Yes Do you have a plan to hurt others: No Plan Patient : No service: No Sexual orientation: Straight/Heterosexual Physical Exam ED Exam Exam: General: Pleasant, no distress, interacting appropriately Head: Normacephalic, atraumatic ENT: oral mucosa moist, neck supple, no tracheal deviation Cardiovascular: regular rate, regular rhythm, no murmurs, rubbing, gallops Respiratory: CTAB, no wheeze, rales, rhonchi Gastrointestinal: Soft, non distended, non tender, non guarding Extremities: No limb pain or swelling, no calf tenderness Neurological: Awake and alert, no facial droop noted, no focal neurological deficit Skin: Warm and dry, dry skin on face Psychiatric: Appears flat, endorses depression Vital Signs: Vital Signs - 24 hr 04/21/25 08:43 04/21/25 11:49 04/21/25 14:32 Temperature Pulse Rate 76 80 89 Respiratory Rate 16 16 16 Blood Pressure 126/70 119/59 L Pulse Oximetry 100 97 Oxygen Delivery Method Room Air Room Air 04/21/25 19:26 04/21/25 21:39 04/22/25 08:02 Temperature 98 F 97.4 F Pulse Rate 85 73 73 Respiratory Rate 19 16 12 Blood Pressure 116/57 L 129/78 119/60 Pulse Oximetry 92 98 96 Oxygen Delivery Method Room Air Room Air Room Air BMI result Body Mass Index 26.6 Course Reevaluation(s) Reevaluation #1: 2:44 PM 04/21/2025 (Dr. Kush Cota): Ordered psych consult per crisis for diagnostic clarity Time: 06:42 Date: 04/22/25 Provider: Kim Brizuela, DO Patient in physician observation for psychiatric evaluation.? No acute events reported overnight. No current complaints. VS stable.? Patient is in bed search status.. Will continue to monitor. Medications Administered Generic Name Dose Route Start Last Admin Trade Name Freq PRN Reason Stop Dose Admin Benztropine Mesylate 0.5 mg 04/21/25 09:00 04/21/25 21:09 Benztropine Mesylate 0.5 Mg Tablet PO 0.5 mg BID SACHI Administration Diazepam 10 mg 04/21/25 09:00 04/21/25 21:09 Diazepam 5 Mg Tablet PO 10 mg TID SACHI Administration Fluticasone/Vilanterol 1 puff 04/21/25 09:00 04/22/25 08:06 Fluticasone/Vilanterol 100/25 Blst.W.Dev INHALE Not Given DAILY SACHI Gabapentin 300 mg 04/21/25 01:30 04/21/25 21:09 Gabapentin 300 Mg Capsule PO 300 mg TID SACHI Administration Ibuprofen 800 mg 04/21/25 01:20 04/22/25 02:25 Ibuprofen 800 Mg Tablet PO 800 mg Q8H PRN Administration moderate to severe pain Melatonin 6 mg 04/21/25 01:30 04/21/25 21:09 Melatonin 3 Mg Tablet PO 6 mg BEDTIME SACHI Administration Multivitamins/Vitamin C 1 tab 04/21/25 09:00 04/21/25 09:26 Multivitamin Tablet PO 1 tab DAILY SACHI Administration Omeprazole 40 mg 04/21/25 06:30 04/21/25 06:20 Omeprazole 40 Mg Capsule.Dr PO 40 mg DAILY@0630 SACHI Administration Quetiapine Fumarate 400 mg 04/21/25 21:00 04/21/25 21:09 Quetiapine Fumarate 400 Mg Tablet PO 400 mg BEDTIME SACHI Administration Topiramate 50 mg 04/21/25 21:00 04/21/25 21:09 Topiramate 25 Mg Tablet PO 50 mg BID SACHI Administration Trazodone HCl 250 mg 04/21/25 01:30 04/21/25 21:09 Trazodone Hcl 50 Mg Tablet PO 250 mg BEDTIME SACHI Administration Vitamin D 10 mcg 04/21/25 09:00 04/21/25 09:26 Cholecalciferol (Vitamin D3) 10 Mcg Tablet PO 10 mcg DAILY SACHI Administration Discontinued Medications Generic Name Dose Route Start Last Admin Trade Name Harinderq PRN Reason Stop Dose Admin Sodium Chloride 1,000 mls @ 999 mls/hr 04/20/25 16:30 04/20/25 19:42 Ns IV 04/20/25 17:30 Infused .Q1H1M SACHI Infusion Quetiapine Fumarate 500 mg 04/21/25 01:30 04/21/25 01:51 Quetiapine Fumarate 100 Mg Tablet PO 500 mg BEDTIME SACHI Administration Topiramate 100 mg 04/21/25 01:30 04/21/25 09:26 Topiramate 100 Mg Tablet PO 100 mg BID SACHI Administration Medical Decision Making Medical Decision Making MDM Narrative: 55-year-old female history of generalized anxiety disorder, major depressive disorder, PTSD presented hospital today for evaluation of altered mentation. Patient has been staying at [facility] for the past 30 days. I did discuss the case with the staff at [facility]. They were not familiar with the patient however reportedly that patient has been having increased memory issues. They think patient will require higher nursing needs for her daily activities they are requesting that patient be placed in a long-term care facility. I did consulted care team to help with the situation at this time. It is noted that patient was sent here on a section 21. Care team recommended discussing with the [facility] on further plan and care for the patient does time. IT was noted by nursing staff that patient had been discharged from [facility]. Patient will be kept here for psychiatric evaluation. I have resolves has been placed for the patient. Patient's CBC did not show any signs of leukocytosis, patient's VBG is unremarkable, patient's chemistry did not show any signs of significant abnormality. The patient's troponins negative. Patient's TSH is negative. Patient's UA shows trace leuk esterase no signs of UTI. Salicylate level is normal. Tylenol level is not elevated ethanol level is normal. I did discuss with the patient about her trouble with movement. She states she does walk with a walker at baseline. 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 This is chronic for her. I do not think this is a CVA based on my exam Patient will be held in the ER here for psychiatric evaluation Psychiatric team has evaluate the patient we will plan to admit for medication adjustment. They think this is may be secondary to Differential Diagnosis Differential Diagnoses: The differential diagnosis associated with the presentation includes Depression, suicide ideation, delirium, cognitive disorder Consult Healthcare Provider Management of the patient was discussed with: [facility] (CARE team, psychiatric team) Lab Data [facility] Lab Attestation statement: I reviewed the patient's lab results. 04/20/25 17:11 04/20/25 17:11 Labs: Lab Results 04/20/25 04/20/25 04/20/25 Range/Units 17:11 17:18 23:54 WBC 7.5 (4.8-10.8) X10*3/uL RBC 4.79 (4.20-5.50) X10*6/uL Hgb 12.6 (12.0-16.0) g/dl Hct 39.1 (37.0-47.0) % MCV 81.6 (80.0-98.0) fL MCH 26.3 L (27.0-33.0) pg MCHC 32.2 (31.0-35.0) g/dl RDW 15.0 (11.0-16.0) % Plt Count 168 (160-400) X10*3/uL MPV 11.4 (9.4-12.3) fL Immature Gran % (Auto) 0.4 (0.0-0.4) % Neut % (Auto) 69.2 (45-73) % Lymph % (Auto) 23.5 (20-40) % [place] % (Auto) 5.9 (2-11) % Eos % (Auto) 0.5 (0-4) % Baso % (Auto) 0.5 (0-2) % Lymph # (Auto) 1.8 (1.2-4.9) X10*3/uL [place] # (Auto) 0.4 (0.1-1.2) X10*3/uL Eos # (Auto) 0.0 (0.0-0.4) X10*3/uL Baso # (Auto) 0.0 (0.0-0.2) X10*3/uL Abs Immat Gran (auto) 0.03 (0.00-0.03) X10*3/uL Absolute Neuts (auto) 5.2 (2.0-8.3) x10*3/uL Absolute Nucleated RBC 0.000 (0.0-0.012) X10*3/uL Nucleated RBC % (auto) 0.0 (0.0-0.2) /100WBC PT 12.7 H (10.9-12.4) SEC INR 1.1 (0.9-1.1) VBG pH 7.32 (7.32-7.43) VBG pCO2 44 mmHg VBG pO2 47 mmHg VBG HCO3 23 (22-26) mmol/L VBG O2 Saturation 62.0 % VBG Base Excess -2.4 mmol/L Sodium 142 (135-145) mmol/L Potassium 3.4 (3.3-5.1) mmol/L Chloride 112 H (96-108) mmol/L Carbon Dioxide 22 (22-29) mmol/L Anion Gap 11 L (12-20) BUN 17 H (9-16) mg/dL Creatinine 1.01 (0.5-1.4) mg/dL Estim Creat Clear Calc 61.3 Estimated GFR 56 Random Glucose 91 (60-115) mg/dL Lactic Acid 0.6 (0.5-2.0) mmol/L Calcium 9.4 (8.4-10.2) mg/dL Magnesium 1.9 (1.6-2.6) mg/dL Total Bilirubin 0.2 (0.0-1.0) mg/dL AST 27 (5-31) U/L ALT 31 (0-31) U/L Alkaline Phosphatase 70 (39-117) U/L Ammonia 24 (13-55) umol/L Total Creatine Kinase 109 (26-140) U/L Troponin I High Sens < 2.7 (<3.5-17.0) ng/L Total Protein 7.1 (6.5-8.0) g/dL Albumin 4.3 (3.5-5.0) g/dL Beta-Hydroxybutyrate 0.24 (0.02-0.27) mmol/L TSH 1.41 (0.32-4.0) uIU/mL Urine Color Yellow Urine Appearance Cloudy Urine pH 7.0 (5.0-9.0) Ur Specific [place] 1.015 (1.005-1.025) Urine Protein Negative (Neg-Trace) mg/dL Urine Glucose (UA) Negative (Negative) mg/dL Urine Ketones Negative (Negative) mg/dL Urine Blood Negative (Negative) Urine Nitrite Negative (Negative) Ur Leukocyte Esterase Trace H (Negative) Urine RBC 0-2 (0-2) /HPF Urine WBC 0-5 (0-5) /HPF Ur Squamous Epith Cells 0-2 (0-2) /HPF Urine Bacteria None Seen (None Seen) Hyaline Casts 0-2 (0-2) /LPF Salicylates < 5.0 L (15-30) mg/dL Urine Opiates Screen Not Detected (Not Detect) Ur Buprenorphine Scrn Not Detected (Not Detect) ng/mL Ur Oxycodone Screen Not Detected (Not Detect) ng/mL Urine Methadone Screen Not Detected (Not Detect) ng/mL Urine Fentanyl Screen Not Detected (Not Detect) Acetaminophen 3 (<30) mcg/mL Ur Barbiturates Screen Not Detected (Not Detect) Ur Phencyclidine Scrn Not Detected (Not Detect) Ur Amphetamines Screen Not Detected (Not Detect) U Benzodiazepines Scrn POSITIVE H (Not Detect) Urine Cocaine Screen Not Detected (Not Detect) U Marijuana (THC) Screen Not Detected (Not Detect) Ethyl Alcohol < 10 mg/dL 04/21/25 Range/Units 22:30 WBC (4.8-10.8) X10*3/uL RBC (4.20-5.50) X10*6/uL Hgb (12.0-16.0) g/dl Hct (37.0-47.0) % MCV (80.0-98.0) fL MCH (27.0-33.0) pg MCHC (31.0-35.0) g/dl RDW (11.0-16.0) % Plt Count (160-400) X10*3/uL MPV (9.4-12.3) fL Immature Gran % (Auto) (0.0-0.4) % Neut % (Auto) (45-73) % Lymph % (Auto) (20-40) % [place] % (Auto) (2-11) % Eos % (Auto) (0-4) % Baso % (Auto) (0-2) % Lymph # (Auto) (1.2-4.9) X10*3/uL [place] # (Auto) (0.1-1.2) X10*3/uL Eos # (Auto) (0.0-0.4) X10*3/uL Baso # (Auto) (0.0-0.2) X10*3/uL Abs Immat Gran (auto) (0.00-0.03) X10*3/uL Absolute Neuts (auto) (2.0-8.3) x10*3/uL Absolute Nucleated RBC (0.0-0.012) X10*3/uL Nucleated RBC % (auto) (0.0-0.2) /100WBC PT (10.9-12.4) SEC INR (0.9-1.1) VBG pH (7.32-7.43) VBG pCO2 mmHg VBG pO2 mmHg VBG HCO3 (22-26) mmol/L VBG O2 Saturation % VBG Base Excess mmol/L Sodium (135-145) mmol/L Potassium (3.3-5.1) mmol/L Chloride (96-108) mmol/L Carbon Dioxide (22-29) mmol/L Anion Gap (12-20) BUN (9-16) mg/dL Creatinine (0.5-1.4) mg/dL Estim Creat Clear Calc Estimated GFR Random Glucose (60-115) mg/dL Lactic Acid (0.5-2.0) mmol/L Calcium (8.4-10.2) mg/dL Magnesium (1.6-2.6) mg/dL Total Bilirubin (0.0-1.0) mg/dL AST (5-31) U/L ALT (0-31) U/L Alkaline Phosphatase (39-117) U/L Ammonia 40 (13-55) umol/L Total Creatine Kinase (26-140) U/L Troponin I High Sens (<3.5-17.0) ng/L Total Protein (6.5-8.0) g/dL Albumin (3.5-5.0) g/dL Beta-Hydroxybutyrate (0.02-0.27) mmol/L TSH (0.32-4.0) uIU/mL Urine Color Urine Appearance Urine pH (5.0-9.0) Ur Specific [place] (1.005-1.025) Urine Protein (Neg-Trace) mg/dL Urine Glucose (UA) (Negative) mg/dL Urine Ketones (Negative) mg/dL Urine Blood (Negative) Urine Nitrite (Negative) Ur Leukocyte Esterase (Negative) Urine RBC (0-2) /HPF Urine WBC (0-5) /HPF Ur Squamous Epith Cells (0-2) /HPF Urine Bacteria (None Seen) Hyaline Casts (0-2) /LPF Salicylates (15-30) mg/dL Urine Opiates Screen (Not Detect) Ur Buprenorphine Scrn (Not Detect) ng/mL Ur Oxycodone Screen (Not Detect) ng/mL Urine Methadone Screen (Not Detect) ng/mL Urine Fentanyl Screen (Not Detect) Acetaminophen (<30) mcg/mL Ur Barbiturates Screen (Not Detect) Ur Phencyclidine Scrn (Not Detect) Ur Amphetamines Screen (Not Detect) U Benzodiazepines Scrn (Not Detect) Urine Cocaine Screen (Not Detect) U Marijuana (THC) Screen (Not Detect) Ethyl Alcohol mg/dL Independent Interpretation I performed an independent interpretation of an: CT Scan Radiology Impression Discussion of test interpretation with radiology: I have reviewed the radiologist's reading. Chronic Conditions Major depressive disorder Discharge Plan Discharge Clinical Impression: MDD (major depressive disorder), recurrent episode, moderate, Post traumatic stress disorder (PTSD), CHELLE (generalized anxiety disorder) Patient Disposition: Admitted As Inpatient Print Language: Paraguayan
--- NOTE | 2025-04-20 16:03 | ED.GENADULT ---
HPI - General Adult General Chief complaint: General Medical Stated complaint: from [place]/fall, seen at [facility], PATRICK/jaime Time Seen by Provider: 04/20/25 14:27 Related Data Home Medications ?Medication ?Instructions ?Recorded ?Confirmed acetaminophen 325 mg tablet 975 mg PO Q8H PRN Pain 04/20/25 04/20/25 benztropine 1 mg tablet 0.5 mg PO BID 04/20/25 04/20/25 desvenlafaxine 50 mg 100 mg PO DAILY 04/20/25 04/20/25 tablet,extended release 24 hr dicyclomine 10 mg capsule 10 mg PO QID PRN Spasms 04/20/25 04/20/25 fluticasone furoate 100 1 inh inhalation DAILY 04/20/25 04/20/25 mcg-vilanterol 25 mcg/dose inhalation powder (Breo Ellipta) gabapentin 300 mg capsule 300 mg PO TID 04/20/25 04/20/25 melatonin 3 mg tablet 6 mg PO BEDTIME 04/20/25 04/20/25 multivitamin 1 tab PO DAILY 04/20/25 04/20/25 nicotine (polacrilex) 2 mg gum 2 mg buccal Q2H PRN Nicotine 04/20/25 04/20/25 Cravings ondansetron 4 mg disintegrating 8 mg PO Q8H PRN Nausea And Vomiting 04/20/25 04/20/25 tablet quetiapine 200 mg tablet 500 mg PO BEDTIME 04/20/25 04/20/25 topiramate 100 mg tablet 100 mg PO BID 04/20/25 04/20/25 trazodone 100 mg tablet 250 mg PO BEDTIME 04/20/25 04/20/25 Previous Rx's ?Medication ?Instructions ?Recorded albuterol sulfate 90 mcg/actuation 2 puff inhalation RQ6H PRN 05/26/21 aerosol inhaler (Ventolin HFA) Shortness Of Breath 30 days #1 g cholecalciferol (vitamin D3) 10 10 mcg PO DAILY 30 days #30 caps 05/26/21 mcg (400 unit) capsule (Vitamin D3) clonidine 0.1 mg/24 hr weekly 0.1 mg transdermal Tu@0900 28 days 05/26/21 transdermal patch #4 ea diazepam 5 mg tablet 10 mg (2 x 5 mg) PO TID 7 days #42 05/26/21 tabs hydrocortisone 1 % topical cream 1 appl topical DAILY 30 days #10 05/26/21 grams hydroxyzine HCl 25 mg tablet 25 mg PO BEDTIME PRN Anxiety 7 05/26/21 days #7 tabs ibuprofen 800 mg tablet 800 mg PO Q8H PRN moderate to 05/26/21 severe pain 30 days #90 tabs omeprazole 40 mg capsule,delayed 40 mg PO DAILY@0630 7 days #7 caps 05/26/21 release Allergies Allergy/AdvReac Type Severity Reaction Status Date / Time No Known Allergies (No Known Allergy Verified 04/20/25 13:53 Allergies*) [facility] Past Medical History Medical History (Updated 05/08/21 @ 13:22 by KALINA John) Compartment syndrome of lower extremity COPD (chronic obstructive pulmonary disease) CHELLE (generalized anxiety disorder) Post traumatic stress disorder (PTSD) MDD (major depressive disorder), recurrent episode, moderate Social History Social History Household Members: None Housing: House Do you presently have visiting nurse or other home services: No Comment: EDUCATED ABOUT HYPOTENSION AND FALL RISK. PT VERB UNDERSTANDING Patient Tobacco Use Status: Current everyday Tobacco user Tobacco use type: Cigarette Years Smoked: 40 e-Cigarette/Vaping Use: Never Used Second Hand Smoke Exposure: Yes Advance Directives: No Advance Directives Information Provided: Yes Do you have a plan to hurt others: No Plan service: No Sexual orientation: Straight/Heterosexual Physical Exam ED Vital Signs: Vital Signs - 24 hr 04/20/25 13:50 Temperature 97.9 F Pulse Rate 92 Respiratory Rate 16 Blood Pressure 112/59 L Pulse Oximetry 93 Oxygen Delivery Method Room Air BMI result Body Mass Index 26.6 Discharge Plan Discharge Prescriptions: No Action clonidine 0.1 mg/24 hr Patch Weekly 0.1 mg transdermal Tu@0900 28 Days Qty: 4 0RF Protocol: Hold for SBP< HOLD for SBP < : 90 omeprazole 40 mg Capsule,Delayed Release(Dr/Ec) 40 mg PO DAILY@0630 7 Days Qty: 7 3RF hydrocortisone 1 % Cream 1 appl topical DAILY 30 Days Qty: 10 0RF Protocol: Apply to: Apply to: apply to affected areas of the arash-vaginal and arash-anal zones. hydroxyzine HCl 25 mg Tablet 25 mg PO BEDTIME PRN (Reason: Anxiety) 7 Days Qty: 7 0RF albuterol sulfate [Ventolin HFA] 90 mcg/actuation Hfa Aerosol Inhaler 2 puff inhalation RQ6H PRN (Reason: Shortness Of Breath) 30 Days Qty: 1 0RF diazepam 5 mg Tablet 10 mg PO TID 7 Days Qty: 42 0RF cholecalciferol (vitamin D3) [Vitamin D3] 10 mcg (400 unit) capsule 10 mcg PO DAILY 30 Days Qty: 30 0RF ibuprofen 800 mg Tablet 800 mg PO Q8H PRN (Reason: moderate to severe pain) 30 Days Qty: 90 0RF acetaminophen 325 mg tablet 975 mg PO Q8H PRN (Reason: Pain) multivitamin Tablet 1 tab PO DAILY nicotine (polacrilex) 2 mg Gum 2 mg BUCCAL Q2H PRN (Reason: Nicotine Cravings) trazodone 100 mg Tablet 250 mg PO BEDTIME benztropine 1 mg Tablet 0.5 mg PO BID gabapentin 300 mg Capsule 300 mg PO TID ondansetron 4 mg Tablet,Disintegrating 8 mg PO Q8H PRN (Reason: Nausea And Vomiting) topiramate 100 mg Tablet 100 mg PO BID dicyclomine 10 mg Capsule 10 mg PO QID PRN (Reason: Spasms) desvenlafaxine 50 mg Tablet Extended Release 24 Hr 100 mg PO DAILY fluticasone furoate-vilanterol [Breo Ellipta] 100-25 mcg/dose Blister With Device 1 inh INHALATION DAILY quetiapine 200 mg tablet 500 mg PO BEDTIME melatonin 3 mg tablet 6 mg PO BEDTIME Print Language: French
[2025-04-20 17:21] LABS: MANUAL DIFF FLAG NO
[2025-04-20 17:22] LABS: Venous Blood Gas Refer to POC result
[2025-04-20 17:23] LABS: VBG HCO3 23 mmol/L (22-26); VBG O2 % Saturation 62.0 %
[2025-04-20 17:29] LABS: Hematocrit 39.1 % (37.0-47.0); Hemoglobin 12.6 g/dl (12.0-16.0); Imm Gran Abs Auto 0.03 X10*3/uL (0.00-0.03); Imm Gran Pct Auto 0.4 % (0.0-0.4); Lymphocytes Absolute Auto 1.8 X10*3/uL (1.2-4.9); Mean Corpuscular HGB Conc 32.2 g/dl (31.0-35.0); Mean Corpuscular Hemoglobin 26.3 pg (27.0-33.0); Mean Corpuscular Volume 81.6 fL (80.0-98.0); NRBC Abs Auto 0.000 X10*3/uL (0.0-0.012); NRBC Pct Auto 0.0 /100WBC (0.0-0.2); Platelet Count 168 X10*3/uL (160-400); Red Blood Count 4.79 X10*6/uL (4.20-5.50); White Blood Count 7.5 X10*3/uL (4.8-10.8)
[2025-04-20 17:33] LABS: Ammonia 24 umol/L (13-55)
[2025-04-20 17:40] LABS: Acetaminophen LAB 3 mcg/mL (<30); Salicylate < 5.0 mg/dL (15-30)
[2025-04-20 17:45] LABS: INTERNATIONAL NORM RATIO 1.1 (0.9-1.1); Prothrombin Time 12.7 SEC (10.9-12.4)
[2025-04-20 17:49] LABS: Alanine Aminotransferase 31 U/L (0-31); Albumin Level 4.3 g/dL (3.5-5.0); Alkaline Phosphatase 70 U/L (39-117); Anion Gap 11 (12-20); Aspartate Amino Transferase 27 U/L (5-31); Blood Urea Nitrogen 17 mg/dL (9-16); Calcium 9.4 mg/dL (8.4-10.2); Carbon Dioxide 22 mmol/L (22-29); Chloride 112 mmol/L (96-108); Creatinine Clr Calc Pharmacy 61.3; Estimated Glomerular Filt Rate 56; Magnesium 1.9 mg/dL (1.6-2.6); Potassium 3.4 mmol/L (3.3-5.1); Sodium 142 mmol/L (135-145); Total Protein 7.1 g/dL (6.5-8.0); Troponin-I High Sensitivity < 2.7 ng/L (<3.5-17.0)
[2025-04-20 18:03] LABS: Thyroid Stimulating Hormone 1.41 uIU/mL (0.32-4.0)
--- NOTE | 2025-04-20 20:23 | PC.NURSE ---
late entry: assumed care of pt, pt confused about the plan but states she would like to stay here. fluids infused. Iv line intact ad patent. Pt has 1:1 sitter.
--- NOTE | 2025-04-20 22:03 | MHC.EDTECH ---
@[address] [facility] TO [place] X2 RESULTING IN DISCONNECTED CALLS, 3RD TIME I PRESSED 3 GOT AN FORENSIC SCIENCE EXAMINER WHO TOOK THE MESSAGE NO RETURN CALL YET
--- NOTE | 2025-04-20 23:34 | PC.NURSE ---
T/ called and spoke with Keyana and Geno in regards to patient being ready for discharge. Per Key[facility] patient was discharged and will need to be referred again to their facility. [facility] asked to speak with a nursery supervisor or someone in administration because this patient was sent on a section 21 to our facility. Geno stated they are reaching out to their admin and they will have soemone call back.
[2025-04-21 00:13] LABS: Appearance Urine Cloudy; Glucose Urine UA Negative (Negative); PH 7.0 (5.0-9.0); Specific Gravity - Urine 1.015 (1.005-1.025); UMIC TRIGGER UACC YES
[2025-04-21 00:22] LABS: Cannabinoid Screen Urine Not Detected (Not Detect)
--- NOTE | 2025-04-21 00:41 | PC.NURSE ---
med req confirmed with pt, confirms all med listed.
--- NOTE | 2025-04-21 02:00 | PC.NURSE ---
pt medicated per SEP. give eye mask to help sleep.
[2025-04-21 02:55] VITALS: BP 112/62; PULSE 82; RESP 18; TEMP 36.6; O2SAT 94
[2025-04-21] MEDS: Fluticasone/Vilanterol 100/25 BLST.W.DEV 1 PUFF INHALE (08:41)
[2025-04-21 08:43] VITALS: PULSE 76; RESP 16; O2SAT 94
[2025-04-21] MEDS: Cholecalciferol (Vitamin D3) 10 MCG TABLET PO (09:26)
--- NOTE | 2025-04-21 10:57 | PC.NURSE ---
Alert and oriented, medicated per mar, no behaviors noted. Declined breakfast
[2025-04-21 11:49] VITALS: BP 126/70; PULSE 80; RESP 16; O2SAT 100
[2025-04-21 14:32] VITALS: BP 119/59; PULSE 89; RESP 16; O2SAT 97
--- NOTE | 2025-04-21 17:26 | MHC.CARE ---
Pt will be [facility]AN [facility]INES per Charmaine from psychiatry.
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
[2025-04-21 19:26] VITALS: BP 116/57; PULSE 85; RESP 19; O2SAT 92
--- NOTE | 2025-04-21 21:38 | PC.NURSE ---
belongings placed to [facility] by dredge operator. pt changed over to ligature risk attire. medicated per sep. 1:1 sitter.
[2025-04-21 21:39] VITALS: BP 129/78; PULSE 73; RESP 16; TEMP 36.6; O2SAT 98
[2025-04-21 22:43] LABS: Ammonia 40 umol/L (13-55)
--- NOTE | 2025-04-21 23:22 | PC.NURSE ---
pt relocated to 8H for sitter/safety needs and continued observation. The pt has been provided with food and beverage per her request and offers no complaints at this time. pt remains calm and cooperative and is able to make her needs known. RN will continue to monitor.
--- NOTE | 2025-04-22 01:50 | PC.NURSE ---
pt continues to rest comfortably with sitter/patient observer present nearby. The pt was provided with an eye mask and offered ear plugs to assist with sleep but she only accepted the eye mask. The pt does not appear to be exhibiting any outward s/s of distress at this time.
--- NOTE | 2025-04-22 02:32 | PC.NURSE ---
RN flagged down by patient's bedside sitter to make me aware that the pt is requiring toileting. Pt noted to be unsteady and having some difficulty getting situated on the side of the bed. RN attempted to assist the pt to a standing position but then recalled the patient's use of walker at baseline per reports. RN obtained the walker for the patient who seemed to be a bit confused on the proper use and/or hand placement and required frequent verbal direction. The pt was unsteady on her feet requiring a one person assist which could be secondary to the pt's previous administered medications prior to rest. To and from the restroom without issue, pt reported right lateral rib pain and was medicated per MAR upon return back to bed. Eye mask reapplied and pt tucked in
[2025-04-22 08:02] VITALS: BP 119/60; PULSE 73; RESP 12; TEMP 36.3; O2SAT 96
[2025-04-22] MEDS: Cholecalciferol (Vitamin D3) 10 MCG TABLET PO (12:20)
--- NOTE | 2025-04-22 12:32 | PC.NURSE ---
Patient more awake and alert at this time. Valium and Gabapentin held due to patient drowsiness.
[2025-04-22 17:40] VITALS: BP 115/69; PULSE 84; RESP 16; TEMP 36.6; O2SAT 96
[2025-04-22 18:52] VITALS: BP 126/63; PULSE 80; RESP 16; TEMP 36.8; O2SAT 97
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
[2025-04-22 20:00] VITALS: BP 124/62; PULSE 75; RESP 16; TEMP 36.6; O2SAT 98
[2025-04-23 00:48] VITALS: BMI 29.7
--- NOTE | 2025-04-23 02:11 | PC.NURSE ---
Pt vomited x1 at approximately 2140 and reported continued nausea. PRN Zofran administered with good effect.
--- NOTE | 2025-04-23 02:13 | PC.NURSE ---
2114- Pt is pleasant when approached, A/O to person, month, and year. Pt is a poor historian, lacks situation awareness. Pt had difficulty answering questions and repeatedly stated I don't know. I don't know why I'm here. How I got here. Pt endorsed anxiety and depression, denies SI/HI/AH/VH. Pt took HS meds whole with water. Mague has a walker at the bedside and requires constant reminders to use the walker when ambulating. Pt request to have the head of her bed elevated due to reflux. Pt is on 5 minute checks.
[2025-04-23 08:00] VITALS: BP 115/60; PULSE 80; RESP 18; TEMP 37.4; O2SAT 98
[2025-04-23] MEDS: Cholecalciferol (Vitamin D3) 10 MCG TABLET PO (08:11)
--- NOTE | 2025-04-23 08:29 | P.CONHOSP_ITS ---
History of Present Illness Data of Consult Service Date: 04/23/25 Primary Care Provider: Kain Garnica MD [facility] Reason for consult: Medical consult 55-year-old female with a past medical history of major depressive disorder, generalized anxiety disorder, PTSD, COPD presented to the hospital from [place] for altered mentation. On exam her CBC was negative for leukocytosis, chemistry with no evidence of significant abnormalities, her troponins were negative, TSH which is in normal limits, urine without evidence of infection. Tox screen was positive for benzos which are prescribed for her otherwise negative. Her CT of her head was without fracture, no significant atrophy like changes or white matter disease, no acute hemorrhages. Chest x-ray negative. She reports that she has a history of a back fracture in 2022. Patient presented to [facility] on April 19 after an unwitnessed fall. She had a CT of the head and neck which revealed bilateral nondisplaced nasal bone fractures, no other acute fracture injury noted. Patient also had a subacute fracture of the left anterolateral 5th rib. Patient was also hospitalized in December with urosepsis. On exam patient is confused, does not have much of a timeline regarding the last few weeks. Review of Systems 2 Review of Systems: Denies any shortness of breath, chest pain, dysuria, abdominal pain or discomfort, nausea, vomiting or diarrhea. Denies chills, body aches, muscle aches, fatigue. [facility] Medical History Compartment syndrome of lower extremity COPD (chronic obstructive pulmonary disease) CHELLE (generalized anxiety disorder) Post traumatic stress disorder (PTSD) MDD (major depressive disorder), recurrent episode, moderate Social History Household Members: None Housing: House Do you presently have visiting nurse or other home services: No Comment: EDUCATED ABOUT HYPOTENSION AND FALL RISK. PT VERB UNDERSTANDING Patient Tobacco Use Status: Refuse Tobacco use screen Tobacco use type: Cigarette Years Smoked: 40 Smoked in Last 30 Days: No e-Cigarette/Vaping Use: Never Used Second Hand Smoke Exposure: Yes Use of substances other than those prescribed or required for medical reasons: No Currently Displaying Signs/Symptoms of Drug Intoxication Withdrawal: No Advance Directives: No Advance Directives Information Provided: Yes Do you have thoughts of harming others: None Do you have a plan to hurt others: No Plan Patient : No service: No Sexual orientation: Straight/Heterosexual Meds Allergies Allergy/AdvReac Type Severity Reaction Status Date / Time No Known Allergies (No Known Allergy Verified 04/20/25 13:53 Allergies*) Active Medications: Current Medications Acetaminophen (Acetaminophen 325 Mg Tablet) 650 mg PO Q6H PRN PRN Reason: Headache/Pain, Scale 1-10 Al Hydroxide/Mg Hydroxide (Magnesium Hydrox/Alum Hydrox 30 Ml Oral.Susp) 30 ml PO Q6H PRN PRN Reason: Heartburn/Nausea Albuterol Sulfate (Albuterol Sulfate 90 Mcg 8 Gm Inhaler) 2 puff INHALE RQ6H PRN PRN Reason: Shortness of Breath Benztropine Mesylate (Benztropine Mesylate 0.5 Mg Tablet) 0.5 mg PO BID [facility] Last Admin: 04/23/25 08:11 Dose: 0.5 mg Clonidine (Clonidine 0.1 Mg Patch.Tdwk) 0.1 mg TRANSDERMA Tu@0900 [facility]; Protocol Diazepam (Diazepam 5 Mg Tablet) 10 mg PO TID [facility] Last Admin: 04/22/25 21:16 Dose: 10 mg Dicyclomine HCl (Dicyclomine Hcl 10 Mg Capsule) 10 mg PO QID PRN PRN Reason: Spasms Fluticasone/Vilanterol (Fluticasone/Vilanterol 100/25 Blst.W.Dev) 1 puff INHALE DAILY [facility] Last Admin: 04/22/25 08:06 Dose: Not Given Gabapentin (Gabapentin 300 Mg Capsule) 300 mg PO TID [facility] Last Admin: 04/23/25 08:11 Dose: 300 mg Hydroxyzine HCl (Hydroxyzine Hcl 25 Mg Tablet) 25 mg PO BEDTIME PRN PRN Reason: Anxiety Hydroxyzine HCl (Hydroxyzine Hcl 25 Mg Tablet) 25 mg PO Q6H PRN PRN Reason: mild anxiety Ibuprofen (Ibuprofen 800 Mg Tablet) 800 mg PO Q8H PRN PRN Reason: moderate to severe pain Last Admin: 04/22/25 02:25 Dose: 800 mg Magnesium Hydroxide (Milk Of Magnesia 30 Ml Oral.Susp) 30 ml PO DAILY PRN PRN Reason: Constipation Melatonin (Melatonin 3 Mg Tablet) 6 mg PO BEDTIME [facility] Last Admin: 04/22/25 21:16 Dose: 6 mg Multivitamins/Vitamin C (Multivitamin Tablet) 1 tab PO DAILY [facility] Last Admin: 04/23/25 08:11 Dose: 1 tab Nicotine (Nicotine 21 Mg Patch.Td24) 21 mg TRANSDERMA DAILY PRN PRN Reason: nicotine craving Nicotine Polacrilex (Nicotine Polacrilex 2 Mg Gum) 2 mg BUCCAL Q2H PRN PRN Reason: Nicotine Cravings Nicotine Polacrilex (Nicotine Polacrilex 2 Mg Gum) 2 mg BUCCAL Q2H PRN PRN Reason: Nicotine Cravings Omeprazole (Omeprazole 40 Mg Capsule.Dr) 40 mg PO DAILY@0630 [facility] Last Admin: 04/23/25 06:19 Dose: 40 mg Ondansetron HCl (Ondansetron Odt 8 Mg Tab.Rapdis) 8 mg TRANSLINGU Q8H PRN PRN Reason: Nausea and Vomiting Last Admin: 04/22/25 21:41 Dose: 8 mg Quetiapine Fumarate (Quetiapine Fumarate 400 Mg Tablet) 400 mg PO BEDTIME [facility] Last Admin: 04/22/25 21:18 Dose: 400 mg Topiramate (Topiramate 25 Mg Tablet) 50 mg PO BID [facility] Last Admin: 04/23/25 08:11 Dose: 50 mg Trazodone HCl (Trazodone Hcl 50 Mg Tablet) 250 mg PO BEDTIME [facility] Last Admin: 04/22/25 21:15 Dose: 250 mg Venlafaxine HCl (Venlafaxine Hcl Er 150 Mg Cap.Er.24h) 150 mg PO DAILY [facility] Vitamin D (Cholecalciferol (Vitamin D3) 10 Mcg Tablet) 10 mcg PO DAILY [facility] Last Admin: 04/23/25 08:11 Dose: 10 mcg Home Medications ?Medication ?Instructions ?Recorded ?Confirmed ?Last Taken ?Type acetaminophen 325 mg tablet 975 mg PO Q8H PRN Pain 04/20/25 Unknown History benztropine 1 mg tablet 0.5 mg PO BID 04/20/2504/20 Unknown History desvenlafaxine 50 mg 100 mg PO DAILY 04/20/25 Unknown History tablet,extended release 24 hr dicyclomine 10 mg capsule 10 mg PO QID PRN Spasms 04/0304/20/25 Unknown History fluticasone furoate 100 1 inh inhalation DAILY 04/2004/20/25 Unknown History mcg-vilanterol 25 mcg/dose inhalation powder (Breo Ellipta) gabapentin 300 mg capsule 300 mg PO TID 04/20/2504/20 Unknown History melatonin 3 mg tablet 6 mg PO BEDTIME 04/20/25 Unknown History multivitamin 1 tab PO DAILY 04/20/25/02/25 Unknown History nicotine (polacrilex) 2 mg gum 2 mg buccal Q2H PRN Jesse otine 04/20/25 04/20/25 Unknown History Cravings ondansetron 4 mg disintegrating 8 mg PO Q8H PRN Nausea And Vomiting 04/20/25 04/20/25 Unknown History tablet quetiapine 200 mg tablet 500 mg PO BEDTIME 04/20/25 1 Unknown History topiramate 100 mg tablet 100 mg PO BID 04/20/2504/20 Unknown History trazodone 100 mg tablet 250 mg PO BEDTIME 04/20/25 Unknown History Physical Exam 2 Vital Signs and Narrative: Vital Signs: Last Vital Signs Temp 98 F 04/22/25 20:00 Pulse 75 04/22/25 20:00 Resp 16 04/22/25 20:00 BP 124/62 04/22/25 20:00 Pulse Ox 98 04/22/25 20:00 O2 Del Method Room Air 04/22/25 20:00 BMI result Body Mass Index 29.7 Alert and oriented X3, able to give good history. Weepy at times. Neuro: CN II-X11 intact, no deficits, visual acuity intact Cardiac: S1 S2 RRR, No ectopy Pulmonary: lungs clear to auscultation, No increased WOB. Abdominal: BS active in all 4 quadrants, no guarding or tenderness MSK: Strength 5/5 upper and lower extremities : Deferred Extremities: No edema in lower extremities Psych: mood stable, Quiet and cooperative. Skin: Warm and dry, Intact. Bruise right side of eye Results Labs 04/20/25 17:11 04/23/25 07:51 Assessment and Plan (1) Nasal bone fractures: Status: Acute Plan 55-year-old female presented to emergency department from [place] for evaluation of altered mentation. She is admitted for inpatient psychiatric care. MDD/GERD/PTSD Treatment per psychiatric team Recent nasal bone fractures/recent fracture left 5th rib Pain management with Tylenol and Motrin No surgical interventions needed for nasal bone fractures, we will need to follow up with ENT outpatient if needed COPD Continue Breo and albuterol as needed Not in acute exacerbation Vitamin-D deficiency Continue vitamin-D supplementation GERD Continue omeprazole Thank you for allowing me to participate in the care of this patient. Will follow with you, please notify medical provider with any changes in condition or concerns.
[2025-04-23 08:35] LABS: Total Hemoglobin (HGBA1C) 3489.3760 umol/L
[2025-04-23 08:42] LABS: Alanine Aminotransferase 27 U/L (0-31); Albumin Level 4.4 g/dL (3.5-5.0); Alkaline Phosphatase 71 U/L (39-117); Anion Gap 10 (12-20); Aspartate Amino Transferase 27 U/L (5-31); Blood Urea Nitrogen 14 mg/dL (9-16); Calcium 9.9 mg/dL (8.4-10.2); Carbon Dioxide 24 mmol/L (22-29); Chloride 113 mmol/L (96-108); Cholesterol 198 mg/dL (<200); Creatinine Clr Calc Pharmacy 61.5; Estimated Glomerular Filt Rate 53; HDL Cholesterol 45 mg/dL (>40); Magnesium 2.0 mg/dL (1.6-2.6); Potassium 4.0 mmol/L (3.3-5.1); Sodium 143 mmol/L (135-145); Total Protein 7.6 g/dL (6.5-8.0); Triglycerides 171 mg/dL (<150)
[2025-04-23 09:02] LABS: Folate 11.8 ng/mL (> or = 4.0); Vitamin B12 480 pg/mL (200-900)
[2025-04-23] MEDS: Venlafaxine HCl ER 150 MG CAP.ER.24H PO (10:57)
[2025-04-23 12:46] LABS: Free T4 (Free Thyroxine) 0.88 ng/dL (0.71-1.85); Thyroid Stimulating Hormone 2.42 uIU/mL (0.32-4.0)
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
[2025-04-23 20:00] VITALS: BP 107/54; PULSE 76; RESP 16; TEMP 37.1; O2SAT 97
[2025-04-24 07:44] VITALS: BP 112/57; PULSE 67; RESP 16; TEMP 36.8; O2SAT 94
[2025-04-24] MEDS: Fluticasone/Vilanterol 100/25 BLST.W.DEV 1 PUFF INHALE (09:09)
[2025-04-24] MEDS: Cholecalciferol (Vitamin D3) 10 MCG TABLET PO (09:10)
[2025-04-24] MEDS: Venlafaxine HCl ER 150 MG CAP.ER.24H PO (09:10)
[2025-04-24 20:00] VITALS: BP 138/60; PULSE 82; TEMP 37.2; O2SAT 94
--- NOTE | 2025-04-24 23:10 | HO.PSYCHPN ---
Subjective Subjective Date of Service: 04/24/25 Reason For Visit: AMS/inc Subjective Notes: Conditional Voluntary Healthcare Proxy: Yes Guardianship: No Medical Problems Affecting Mental Status: No Interim History: Medical record and nursing notes reviewed; case discussed during rounds with team/nursing staff, and met with patient for supportive therapy/psychoeducation, as well as medication management. Meet with patient in room, she lying flat in bed. Respond to the question fast than yesterday. Better affect, appears more relax. She has concerns regarding her belongings which she thinks they are lost.b Denies SI/SIB/HI/AVH. Appear to be paranoid and confused. Knowing she is at [facility] but think she is at [facility] at first, knowing her , current month and year. Isolative, do not want to come out to dinning area for meals. Report right rib pain. Per hospitalist, patient had right side rib and nose fractures after the fall. Head CT scan negative. Question if she has brain injured hx that could affect her functions in the past. Per SW, Keila is a friend of her who is working as a nurse at [facility] and also is patient's HCP. Patient sectioned 21 from [facility] ()after the fall. could not provide needed care, therefore did not want to take her back which could be the reason why her belongings were not transfered when she sent to [facility] ED. Attempted to contact provider there for collateral regarding med changes hx and to see if her belongings are still there. Not heard back from them yet. Medication Compliance: Yes Side effects from medications: No Attending Groups: No Review of Systems Acute medical concerns: No Medical Review of Systems: unchanged Review of Systems Review of Systems No SOB/wheezing. No N/V. Pain on right sided ribs. No coughing/ dizziness. Ambulating using walker. Yes all other systems are reviewed and are negative Mental Status Exam Mental Status Exam Narrative: Patient is A+O to her , place. She knows she is in the hospital at [place]. Appear older than stated age, no ADL's issues but not yet shower today. Plan to do it tomorrow. Wearing hospital attire, ambulate using walker but mostly in room. Mood is depressed, anxious, and less irritable. Speech is slow to respond, thought blocked-improved, soft-spoken. Thought process is disorganized, confused. Denies SI/SIB/HI/AVH. She appears to be paranoid, can be missed interpret environment and surrounding. Pain on the right rib areas /. Poor judgment and poor insight. Diagnostics Vital Signs (24Hr): Vital Signs - 24 hr 04/24/25 07:44 04/24/25 20:00 Temperature 98.2 F 99 F Pulse Rate 67 82 Respiratory Rate 16 Blood Pressure 112/57 L 138/60 Pulse Oximetry 94 94 Oxygen Delivery Method Room Air Room Air BMI result Body Mass Index 29.7 Labs 04/20/25 17:11 04/23/25 07:51 Labs: Laboratory Results - last 48 hr 04/23/25 07:51 Sodium 143 Potassium 4.0 Chloride 113 H Carbon Dioxide 24 Anion Gap 10 L BUN 14 Creatinine 1.06 Estim Creat Clear Calc 61.5 Estimated GFR 53 Random Glucose 101 Estimat Average Glucose 126 Hemoglobin A1c % 6.0 Calcium 9.9 Magnesium 2.0 Total Bilirubin 0.2 AST 27 ALT 27 Alkaline Phosphatase 71 Total Protein 7.6 Albumin 4.4 Triglycerides 171 H Cholesterol 198 LDL Cholesterol, Calc 119 H HDL Cholesterol 45 Vitamin B12 480 Folate 11.8 TSH 2.42 Free T4 0.88 Medications Medications Current Medications Acetaminophen (Acetaminophen 325 Mg Tablet) 650 mg PO Q6H PRN PRN Reason: Headache/Pain, Scale 1-10 Al Hydroxide/Mg Hydroxide (Magnesium Hydrox/Alum Hydrox 30 Ml Oral.Susp) 30 ml PO Q6H PRN PRN Reason: Heartburn/Nausea Albuterol Sulfate (Albuterol Sulfate 90 Mcg 8 Gm Inhaler) 2 puff INHALE RQ6H PRN PRN Reason: Shortness of Breath Benztropine Mesylate (Benztropine Mesylate 0.5 Mg Tablet) 0.5 mg PO BID PRN PRN Reason: EPS Clonidine (Clonidine 0.1 Mg Patch.Tdwk) 0.1 mg TRANSDERMA Tu@0900 [facility]; Protocol Last Admin: 04/23/25 11:29 Dose: Not Given Diazepam (Diazepam 5 Mg Tablet) 10 mg PO TID [facility] Last Admin: 04/24/25 21:09 Dose: 10 mg Dicyclomine HCl (Dicyclomine Hcl 10 Mg Capsule) 10 mg PO QID PRN PRN Reason: Spasms Fluticasone/Vilanterol (Fluticasone/Vilanterol 100/25 Blst.W.Dev) 1 puff INHALE DAILY [facility] Last Admin: 04/24/25 09:09 Dose: 1 puff Gabapentin (Gabapentin 300 Mg Capsule) 300 mg PO TID [facility] Last Admin: 04/24/25 21:09 Dose: 300 mg Hydroxyzine HCl (Hydroxyzine Hcl 25 Mg Tablet) 25 mg PO Q6H PRN PRN Reason: mild anxiety Ibuprofen (Ibuprofen 600 Mg Tablet) 600 mg PO Q8H PRN PRN Reason: moderate to severe pain Magnesium Hydroxide (Milk Of Magnesia 30 Ml Oral.Susp) 30 ml PO DAILY PRN PRN Reason: Constipation Melatonin (Melatonin 3 Mg Tablet) 6 mg PO BEDTIME [facility] Last Admin: 04/24/25 21:08 Dose: 6 mg Multivitamins/Vitamin C (Multivitamin Tablet) 1 tab PO DAILY [facility] Last Admin: 04/24/25 09:10 Dose: 1 tab Nicotine (Nicotine 21 Mg Patch.Td24) 21 mg TRANSDERMA DAILY PRN PRN Reason: nicotine craving Nicotine Polacrilex (Nicotine Polacrilex 2 Mg Gum) 2 mg BUCCAL Q2H PRN PRN Reason: Nicotine Cravings Omeprazole (Omeprazole 40 Mg Capsule.Dr) 40 mg PO DAILY@0630 [facility] Last Admin: 04/24/25 06:32 Dose: 40 mg Ondansetron HCl (Ondansetron Odt 4 Mg Tab.Rapdis) 4 mg TRANSLINGU Q8H PRN PRN Reason: Nausea and Vomiting Quetiapine Fumarate (Quetiapine Fumarate 400 Mg Tablet) 400 mg PO BEDTIME [facility] Last Admin: 04/24/25 21:09 Dose: 400 mg Trazodone HCl (Trazodone Hcl 100 Mg Tablet) 200 mg PO BEDTIME [facility] Last Admin: 04/24/25 21:09 Dose: 200 mg Venlafaxine HCl (Venlafaxine Hcl Er 150 Mg Cap.Er.24h) 150 mg PO DAILY [facility] Last Admin: 04/24/25 09:10 Dose: 150 mg Vitamin D (Cholecalciferol (Vitamin D3) 10 Mcg Tablet) 10 mcg PO DAILY [facility] Last Admin: 04/24/25 09:10 Dose: 10 mcg Allergies Allergies Allergy/AdvReac Type Severity Reaction Status Date / Time No Known Allergies (No Known Allergy Verified 04/20/25 13:53 Allergies*) Assessment & Plan Assessment & Plan (1) MDD (major depressive disorder), recurrent episode, moderate: Status: Acute Code(s): F33.1 - Major depressive disorder, recurrent, moderate (2) Post traumatic stress disorder (PTSD): Status: Acute Code(s): F43.10 - Post-traumatic stress disorder, unspecified (3) CHELLE (generalized anxiety disorder): Status: Acute Code(s): F41.1 - Generalized anxiety disorder (4) AMS (altered mental status): Status: Acute Code(s): R41.82 - Altered mental status, unspecified (5) Right rib fracture: Status: Acute Code(s): S22.31XA - Fracture of one rib, right side, initial encounter for closed fracture Plan HPI: patient is a 55 years old, single Kiswahili-speaking white female with hx of MDD, CHELLE, PTSD disorders, right rib fracture, COPD who was recently admitted to [facility] (from 03/20 to 04/20) due to worsening depression symptoms. Patient brought to [facility] on section 21 from [facility] secondary to altered mental status following a fall. [facility] was contacted after patient was medically clear from [facility], the facility reported that they were unable to accommodate her current needs and recommended placement in fpc facility due to multiple falls on the unit. Formulation/clinical reasoning: AMS, increased in depressions and anxiety, multiple falls, Right rib fracture. Not functions at baseline, confused, paranoid. Given the above information, patient will be benefit in psychiatric restrictive environment, on S1 for own safety, medication adjustment, and refer patient to outpatient psychiatric services for aftercare. 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 Hospital course: 04/23/25: Discontinue Topiramate- was taper down and off from Topiramate). On multiple meds that can cause AMS and fall. Down Seorquel from 500 to 400mg. Valium 10mg TID. Will work on taper down in the future. Change Cogentin 0.5mg BID to PRN Lower Trazodone 250mg at HS down to 200mg. Continue with Melatonin 6 mg Continue with Gabapentin 300 TID. 04/24/25: Meet with patient in room, she lying flat in bed. Respond to the question fast than yesterday. Better affect, appears more relax. She has concerns regarding her belongings which she thinks they are lost.b Denies SI/SIB/HI/AVH. Appear to be paranoid and confused. Knowing she is at [facility] but think she is at [facility] at first, knowing her , current month and year. Isolative, do not want to come out to dinning area for meals. Report right rib pain. Per hospitalist, patient had right side rib and nose fractures after the fall. Head CT scan negative. Question if she has brain injured hx that could affect her functions in the past. Per SW, Keila is a friend of her who is working as a nurse at [facility] and also is patient's HCP. Patient sectioned 21 from [facility] ()after the fall. could not provide needed care, therefore did not want to take her back which could be the reason why her belongings were not transferred when she sent to [facility] ED. Attempted to contact provider there for collateral regarding med changes hx and to see if her belongings are still there. Not heard back from them yet. Patient slept 7 hours last night. Will change Melatonin to PRN. Continue to monitor for AMS. Compared to on the day I saw her on Tuesday utnil today. Slightly improved with meds change. Slight with Clear thoughts Plan Patient on 5 minute checks for safety. Ambulate using walker Admitted to S1. CV. Fall Precaution. Observed difficult transition from sitting in bed to standing but able to do so after 2-3 attempts. Work with treatment team to do collateral. Seen by Hospitalist on 04/23/25. Patient educated on: diagnosis, medication risk/benefits and therapeutic strategies Informed Consent: further education needed Reason for continued inpatient stay Substantial Risk for: med/psych decompensation Time Spent With Patient Time: Total time managing care of this patient today ____ minutes.
[2025-04-25 07:00] VITALS: BMI 29.2
[2025-04-25 08:00] VITALS: BP 117/59; PULSE 68; RESP 17; TEMP 36.9; O2SAT 94
[2025-04-25] MEDS: Fluticasone/Vilanterol 100/25 BLST.W.DEV 1 PUFF INHALE (09:08)
[2025-04-25] MEDS: Cholecalciferol (Vitamin D3) 10 MCG TABLET PO (09:09)
[2025-04-25] MEDS: Venlafaxine HCl ER 150 MG CAP.ER.24H PO (09:09)
--- NOTE | 2025-04-25 11:24 | P.PNPSI_ITS ---
Subjective Subjective Date of Service: 04/25/25 Reason For Visit: AMS/inc Subjective Notes: Conditional Voluntary Healthcare Proxy: Yes Interim History: Patient found lying in her bed. She feels lousy and attributes that to her physical and mental illness. She reports severe anxiety and depression. She reports chronic pain to lower back and bilateral lower extremities/neuropathy. She denies SI/HI/AVH. Per nursing, patient slept 8 hours last night. Medication Compliance: Yes Side effects from medications: No Attending Groups: Intermittent Review of Systems Acute medical concerns: Yes Reports chronic pain to lower back and bilateral lower extremities/neuropathy Mental Status Exam Mental Status Exam Narrative: Appearance: Casually dressed, adequate hygiene, unkempt hair, appears older than stated age Behavior: Calm and cooperative throughout the interview. Isolative. Eye contact is appropriate, and there are no signs of psychomotor agitation or retardation Speech: Soft smoking but delayed response Thought process: Disorganized Thought content: Future oriented no self-harming thoughts Mood: Lousy Affect: Flat SI:denies HI:denies VH/AH:none Delusions: Possible paranoia Insight/judgment: Fair insight and judgment Memory/cog: Alert, oriented x 4. grossly intact to conversational testing Diagnostics Vital Signs (24Hr): Vital Signs - 24 hr 04/24/25 20:00 04/25/25 08:00 Temperature 99 F 98.4 F Pulse Rate 82 68 Respiratory Rate 17 Blood Pressure 138/60 117/59 L Pulse Oximetry 94 94 Oxygen Delivery Method Room Air Room Air BMI result Body Mass Index 29.7 Labs 04/20/25 17:11 04/23/25 07:51 Labs: Laboratory Results - last 48 hr 04/23/25 07:51 TSH 2.42 Free T4 0.88 Medications Medications Current Medications Acetaminophen (Acetaminophen 325 Mg Tablet) 650 mg PO Q6H PRN PRN Reason: Headache/Pain, Scale 1-10 Al Hydroxide/Mg Hydroxide (Magnesium Hydrox/Alum Hydrox 30 Ml Oral.Susp) 30 ml PO Q6H PRN PRN Reason: Heartburn/Nausea Albuterol Sulfate (Albuterol Sulfate 90 Mcg 8 Gm Inhaler) 2 puff INHALE RQ6H PRN PRN Reason: Shortness of Breath Benztropine Mesylate (Benztropine Mesylate 0.5 Mg Tablet) 0.5 mg PO BID PRN PRN Reason: EPS Clonidine (Clonidine 0.1 Mg Patch.Tdwk) 0.1 mg TRANSDERMA Tu@0900 [facility]; Protocol Last Admin: 04/23/25 11:29 Dose: Not Given Diazepam (Diazepam 5 Mg Tablet) 10 mg PO TID [facility] Last Admin: 04/25/25 09:09 Dose: 10 mg Dicyclomine HCl (Dicyclomine Hcl 10 Mg Capsule) 10 mg PO QID PRN PRN Reason: Spasms Fluticasone/Vilanterol (Fluticasone/Vilanterol 100/25 Blst.W.Dev) 1 puff INHALE DAILY [facility] Last Admin: 04/25/25 09:08 Dose: 1 puff Gabapentin (Gabapentin 300 Mg Capsule) 300 mg PO TID [facility] Last Admin: 04/25/25 09:09 Dose: 300 mg Hydroxyzine HCl (Hydroxyzine Hcl 25 Mg Tablet) 25 mg PO Q6H PRN PRN Reason: mild anxiety Ibuprofen (Ibuprofen 600 Mg Tablet) 600 mg PO Q8H PRN PRN Reason: moderate to severe pain Magnesium Hydroxide (Milk Of Magnesia 30 Ml Oral.Susp) 30 ml PO DAILY PRN PRN Reason: Constipation Melatonin (Melatonin 3 Mg Tablet) 6 mg PO BEDTIME PRN PRN Reason: Insomnia Multivitamins/Vitamin C (Multivitamin Tablet) 1 tab PO DAILY [facility] Last Admin: 04/25/25 09:09 Dose: 1 tab Nicotine (Nicotine 21 Mg Patch.Td24) 21 mg TRANSDERMA DAILY PRN PRN Reason: nicotine craving Nicotine Polacrilex (Nicotine Polacrilex 2 Mg Gum) 2 mg BUCCAL Q2H PRN PRN Reason: Nicotine Cravings Omeprazole (Omeprazole 40 Mg Capsule.Dr) 40 mg PO DAILY@0630 [facility] Last Admin: 04/25/25 06:21 Dose: 40 mg Ondansetron HCl (Ondansetron Odt 4 Mg Tab.Rapdis) 4 mg TRANSLINGU Q8H PRN PRN Reason: Nausea and Vomiting Quetiapine Fumarate (Quetiapine Fumarate 400 Mg Tablet) 400 mg PO BEDTIME [facility] Last Admin: 04/24/25 21:09 Dose: 400 mg Trazodone HCl (Trazodone Hcl 100 Mg Tablet) 200 mg PO BEDTIME [facility] Last Admin: 04/24/25 21:09 Dose: 200 mg Venlafaxine HCl (Venlafaxine Hcl Er 150 Mg Cap.Er.24h) 150 mg PO DAILY [facility] Last Admin: 04/25/25 09:09 Dose: 150 mg Vitamin D (Cholecalciferol (Vitamin D3) 10 Mcg Tablet) 10 mcg PO DAILY [facility] Last Admin: 04/25/25 09:09 Dose: 10 mcg Allergies Allergies Allergy/AdvReac Type Severity Reaction Status Date / Time No Known Allergies (No Known Allergy Verified 04/20/25 13:53 Allergies*) Assessment & Plan Assessment & Plan (1) MDD (major depressive disorder), recurrent episode, moderate: Status: Acute Code(s): F33.1 - Major depressive disorder, recurrent, moderate (2) Post traumatic stress disorder (PTSD): Status: Acute Code(s): F43.10 - Post-traumatic stress disorder, unspecified (3) CHELLE (generalized anxiety disorder): Status: Acute Code(s): F41.1 - Generalized anxiety disorder (4) AMS (altered mental status): Status: Acute Code(s): R41.82 - Altered mental status, unspecified (5) Right rib fracture: Status: Acute Code(s): S22.31XA - Fracture of one rib, right side, initial encounter for closed fracture Plan HPI: patient is a 55 years old, single Wolof-speaking white female with hx of MDD, CHELLE, PTSD disorders, right rib fracture, COPD who was recently admitted to [facility] (from 03/20 to 04/20) due to worsening depression symptoms. Patient brought to [facility] on section 21 from [place] secondary to altered mental status following a fall. [facility] was contacted after patient was medically clear from [facility] ED, the facility reported that they were unable to accommodate her current needs and recommended placement in fci facility due to multiple falls on the unit. Formulation/clinical reasoning: AMS, increased in depressions and anxiety, multiple falls, Right rib fracture. Not functions at baseline, confused, paranoid. Given the above information, patient will be benefit in psychiatric restrictive environment, on S1 for own safety, medication adjustment, and refer patient to outpatient psychiatric services for aftercare. 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 Hospital course: 04/23/25: Discontinue Topiramate- was taper down and off from Topiramate). On multiple meds that can cause AMS and fall. Down Seorquel from 500 to 400mg. Valium 10mg TID. Will work on taper down in the future. Change Cogentin 0.5mg BID to PRN Lower Trazodone 250mg at HS down to 200mg. Continue with Melatonin 6 mg Continue with Gabapentin 300 TID. 04/24/25: Meet with patient in room, she lying flat in bed. Respond to the question fast than yesterday. Better affect, appears more relax. She has concerns regarding her belongings which she thinks they are lost.b Denies SI/SIB/HI/AVH. Appear to be paranoid and confused. Knowing she is at [facility] but think she is at [facility] at first, knowing her , current month and year. Isolative, do not want to come out to dinning area for meals. Report right rib pain. Per hospitalist, patient had right side rib and nose fractures after the fall. Head CT scan negative. Question if she has brain injured hx that could affect her functions in the past. Per SW, Keila is a friend of her who is working as a nurse at [facility] and also is patient's HCP. Patient sectioned 21 from [facility] ()after the fall. could not provide needed care, therefore did not want to take her back which could be the reason why her belongings were not transferred when she sent to [facility] ED. Attempted to contact provider there for collateral regarding med changes hx and to see if her belongings are still there. Not heard back from them yet. Patient slept 7 hours last night. Will change Melatonin to PRN. Continue to monitor for AMS. Compared to on the day I saw her on Tuesday utnil today. Slightly improved with meds change. Slight with Clear thoughts 04/25: She reports severe anxiety and depression. She also reports chronic pain to lower back and bilateral lower extremities/neuropathy. Continue current treatment regimen. Plan Patient on 5 minute checks for safety. Ambulate using walker Admitted to S1. CV. Fall Precaution. Observed difficult transition from sitting in bed to standing but able to do so after 2-3 attempts. Work with treatment team to do collateral. Seen by Hospitalist on 04/23/25. Patient educated on: therapeutic strategies Reason for continued inpatient stay Substantial Risk for: rapid decompensation Time Spent With Patient Time: Total time managing care of this patient today ____ minutes.
[2025-04-25 20:21] VITALS: BP 129/72; PULSE 86; RESP 17; TEMP 36.9; O2SAT 96
[2025-04-26 08:00] VITALS: BP 121/58; PULSE 90; RESP 17; TEMP 37; O2SAT 95
[2025-04-26] MEDS: Cholecalciferol (Vitamin D3) 10 MCG TABLET PO (08:30)
[2025-04-26] MEDS: Venlafaxine HCl ER 150 MG CAP.ER.24H PO (08:30)
[2025-04-26] MEDS: Fluticasone/Vilanterol 100/25 BLST.W.DEV 1 PUFF INHALE (08:30)
--- NOTE | 2025-04-26 16:15 | P.PNPSI_ITS ---
Subjective Subjective Date of Service: 04/26/25 Reason For Visit: AMS/inc Subjective Notes: [facility] Warning and Conditional Voluntary Healthcare Proxy: Yes Guardianship: No Medical Problems Affecting Mental Status: No Interim History: Medical record and nursing notes reviewed; case discussed during rounds with team/nursing staff, and met with patient for supportive therapy/psychoeducation, as well as medication management. Meet with with patient in assigned room, wearing casual attire, reports pain 9/10 when moving on ribs area. Educate patient on as needed Tylenol if she needs to take. Knowing her date of , reluctant to give location where she is at but knowing she is at [facility] at the end. Reports feeling tired rated anxiety and depression 8/10. Slowly coming to the unit for meals. Observed walking to dining area without the walker for lunch. Somewhat poor appetite but slightly improve. Denies suicidal thoughts or homicidal thoughts, and hallucinations. Slowly but slightly improved, has confused. She does not appear to be anxious, but depressed. Isolated mostly in her room, pleasant and cooperative upon approach. Continued to reduce lowered down on Seroquel from 400 to 300 at bedtime. Medication Compliance: Yes Side effects from medications: No (could be sedated from multipl meds which is titrated down since in the ED. ) Attending Groups: No Review of Systems Acute medical concerns: No Medical Review of Systems: unchanged Review of Systems Review of Systems No SOB/wheezing. No N/V. Pain on right sided ribs. No coughing/ dizziness. Ambulating using walker but observed walking the soliman to dinning area for lunch wihtout the walker. Yes all other systems are reviewed and are negative Mental Status Exam Mental Status Exam Narrative: Appearance: Casually dressed, adequate hygiene, unkempt hair, appears older than stated age Behavior: Calm and cooperative throughout the interview. Isolative. Eye contact is appropriate, and there are no signs of psychomotor agitation or retardation Speech: Soft smoking but delayed response Thought process: Disorganized Thought content: Future oriented no self-harming thoughts Mood: tired , anxious and depressed Affect: Flat SI:denies HI:denies VH/AH:none Delusions: Possible paranoia. No paranoid statement made. Insight/judgment: Fair insight and judgment Memory/cog: Alert, oriented x 4. grossly intact to conversational testing Diagnostics Vital Signs (24Hr): Vital Signs - 24 hr 04/25/25 20:21 04/26/25 08:00 Temperature 98.4 F 98.6 F Pulse Rate 86 90 Respiratory Rate 17 17 Blood Pressure 129/72 121/58 L Pulse Oximetry 96 95 Oxygen Delivery Method Room Air Room Air BMI result Body Mass Index 29.2 Labs 04/20/25 17:11 04/23/25 07:51 Medications Medications Current Medications Acetaminophen (Acetaminophen 325 Mg Tablet) 650 mg PO Q6H PRN PRN Reason: Headache/Pain, Scale 1-10 Al Hydroxide/Mg Hydroxide (Magnesium Hydrox/Alum Hydrox 30 Ml Oral.Susp) 30 ml PO Q6H PRN PRN Reason: Heartburn/Nausea Albuterol Sulfate (Albuterol Sulfate 90 Mcg 8 Gm Inhaler) 2 puff INHALE RQ6H PRN PRN Reason: Shortness of Breath Benztropine Mesylate (Benztropine Mesylate 0.5 Mg Tablet) 0.5 mg PO BID PRN PRN Reason: EPS Clonidine (Clonidine 0.1 Mg Patch.Tdwk) 0.1 mg TRANSDERMA Tu@0900 [facility]; Protocol Last Admin: 04/23/25 11:29 Dose: Not Given Diazepam (Diazepam 5 Mg Tablet) 10 mg PO TID [facility] Last Admin: 04/26/25 15:13 Dose: 10 mg Dicyclomine HCl (Dicyclomine Hcl 10 Mg Capsule) 10 mg PO QID PRN PRN Reason: Spasms Fluticasone/Vilanterol (Fluticasone/Vilanterol 100/25 Blst.W.Dev) 1 puff INHALE DAILY [facility] Last Admin: 04/26/25 08:30 Dose: 1 puff Gabapentin (Gabapentin 300 Mg Capsule) 300 mg PO TID [facility] Last Admin: 04/26/25 15:12 Dose: 300 mg Hydroxyzine HCl (Hydroxyzine Hcl 25 Mg Tablet) 25 mg PO Q6H PRN PRN Reason: mild anxiety Last Admin: 04/25/25 12:01 Dose: 25 mg Ibuprofen (Ibuprofen 600 Mg Tablet) 600 mg PO Q8H PRN PRN Reason: moderate to severe pain Magnesium Hydroxide (Milk Of Magnesia 30 Ml Oral.Susp) 30 ml PO DAILY PRN PRN Reason: Constipation Melatonin (Melatonin 3 Mg Tablet) 6 mg PO BEDTIME PRN PRN Reason: Insomnia Multivitamins/Vitamin C (Multivitamin Tablet) 1 tab PO DAILY [facility] Last Admin: 04/26/25 08:30 Dose: 1 tab Nicotine (Nicotine 21 Mg Patch.Td24) 21 mg TRANSDERMA DAILY PRN PRN Reason: nicotine craving Nicotine Polacrilex (Nicotine Polacrilex 2 Mg Gum) 2 mg BUCCAL Q2H PRN PRN Reason: Nicotine Cravings Omeprazole (Omeprazole 40 Mg Capsule.Dr) 40 mg PO DAILY@0630 [facility] Last Admin: 04/26/25 05:38 Dose: 40 mg Ondansetron HCl (Ondansetron Odt 4 Mg Tab.Rapdis) 4 mg TRANSLINGU Q8H PRN PRN Reason: Nausea and Vomiting Trazodone HCl (Trazodone Hcl 100 Mg Tablet) 200 mg PO BEDTIME [facility] Last Admin: 04/25/25 20:26 Dose: 200 mg Venlafaxine HCl (Venlafaxine Hcl Er 150 Mg Cap.Er.24h) 150 mg PO DAILY [facility] Last Admin: 04/26/25 08:30 Dose: 150 mg Vitamin D (Cholecalciferol (Vitamin D3) 10 Mcg Tablet) 10 mcg PO DAILY [facility] Last Admin: 04/26/25 08:30 Dose: 10 mcg Allergies Allergies Allergy/AdvReac Type Severity Reaction Status Date / Time No Known Allergies (No Known Allergy Verified 04/20/25 13:53 Allergies*) Assessment & Plan Assessment & Plan (1) MDD (major depressive disorder), recurrent episode, moderate: Status: Acute Code(s): F33.1 - Major depressive disorder, recurrent, moderate (2) Post traumatic stress disorder (PTSD): Status: Acute Code(s): F43.10 - Post-traumatic stress disorder, unspecified (3) CHELLE (generalized anxiety disorder): Status: Acute Code(s): F41.1 - Generalized anxiety disorder (4) AMS (altered mental status): Status: Acute Code(s): R41.82 - Altered mental status, unspecified (5) Right rib fracture: Status: Acute Code(s): S22.31XA - Fracture of one rib, right side, initial encounter for closed fracture Plan HPI: patient is a 55 years old, single Armenian-speaking white female with hx of MDD, CHELLE, PTSD disorders, right rib fracture, COPD who was recently admitted to [facility] (from 03/20 to 04/20) due to worsening depression symptoms. Patient brought to [facility] on section 21 from [place] secondary to altered mental status following a fall. [facility] was contacted after patient was medically clear from [facility] ED, the facility reported that they were unable to accommodate her current needs and recommended placement in senior care facility due to multiple falls on the unit. Formulation/clinical reasoning: AMS, increased in depressions and anxiety, multiple falls, Right rib fracture. Not functions at baseline, confused, paranoid. Given the above information, patient will be benefit in psychiatric restrictive environment, on S1 for own safety, medication adjustment, and refer patient to outpatient psychiatric services for aftercare. 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 Hospital course: 04/23/25: Discontinue Topiramate- was taper down and off from Topiramate). On multiple meds that can cause AMS and fall. Down Seorquel from 500 to 400mg. Valium 10mg TID. Will work on taper down in the future. Change Cogentin 0.5mg BID to PRN Lower Trazodone 250mg at HS down to 200mg. Continue with Melatonin 6 mg Continue with Gabapentin 300 TID. 04/24/25: Meet with patient in room, she lying flat in bed. Respond to the question fast than yesterday. Better affect, appears more relax. She has concerns regarding her belongings which she thinks they are lost.b Denies SI/SIB/HI/AVH. Appear to be paranoid and confused. Knowing she is at [facility] but think she is at [facility] at first, knowing her , current month and year. Isolative, do not want to come out to dinning area for meals. Report right rib pain. Per hospitalist, patient had right side rib and nose fractures after the fall. Head CT scan negative. Question if she has brain injured hx that could affect her functions in the past. Per SW, Keila is a friend of her who is working as a nurse at [facility] and also is patient's HCP. Patient sectioned [address] [facility] ()after the fall. could not provide needed care, therefore did not want to take her back which could be the reason why her belongings were not transferred when she sent to [facility] ED. Attempted to contact provider there for collateral regarding med changes hx and to see if her belongings are still there. Not heard back from them yet. Patient slept 7 hours last night. Will change Melatonin to PRN. Continue to monitor for AMS. Compared to on the day I saw her on Tuesday utnil today. Slightly improved with meds change. Slight with Clear thoughts 04/25: She reports severe anxiety and depression. She also reports chronic pain to lower back and bilateral lower extremities/neuropathy. Continue current treatment regimen. 04/26/25: Meet with with patient in assigned room, wearing casual attire, reports pain 03/13 when moving on ribs area. Educate patient on as needed Tylenol if she needs to take. Knowing her date of , reluctant to give location where she is at but knowing she is at [facility] at the end. Reports feeling tired rated anxiety and depression 02/10. Slowly coming to the unit for meals. Observed walking to dining area without the walker for lunch. Somewhat poor appetite but slightly improve. Denies suicidal thoughts or homicidal thoughts, and hallucinations. Slowly but slightly improved, has confused. She does not appear to be anxious, but depressed. Isolated mostly in her room, pleasant and cooperative upon approach. Continued to reduce lowered down on Seroquel from 400 to 300 at bedtime. Not albe to discuss with patient regarding med change as patient can be very overwhelmed which in turn can make anxiety worse. Plan Patient on 5 minute checks for safety. Ambulate using walker Admitted to S1. CV. Fall Precaution. Observed difficult transition from sitting in bed to standing but able to do so after 2-3 attempts. Work with treatment team to do collateral. Seen by Hospitalist on 04/23/25. Patient educated on: diagnosis, medication risk/benefits and therapeutic strategies Informed Consent: further education needed Reason for continued inpatient stay Substantial Risk for: med/psych decompensation Time Spent With Patient Time: Total time managing care of this patient today ____ minutes.
[2025-04-26 20:30] VITALS: BP 113/65; PULSE 84; RESP 16; TEMP 36.6; O2SAT 95
[2025-04-27 10:12] VITALS: BP 115/55; PULSE 80; RESP 16; TEMP 37.5; O2SAT 94
[2025-04-27] MEDS: Fluticasone/Vilanterol 100/25 BLST.W.DEV 1 PUFF INHALE (10:13)
[2025-04-27] MEDS: Cholecalciferol (Vitamin D3) 10 MCG TABLET PO (10:13)
[2025-04-27] MEDS: Venlafaxine HCl ER 150 MG CAP.ER.24H PO (10:13)
--- NOTE | 2025-04-27 13:40 | HO.PSYCHPN ---
Subjective Subjective Date of Service: 04/27/25 Reason For Visit: AMS/inc Interim History: Patient remains depressed. She is reflecting on her experience at [facility]. Says she feels angry and anxious. She says she is upset about the experience. She is tolerating medications changing. No SI. Sleep is good. Appetite is good. Isolates in her room most of the shift. Review of Systems Review of Systems No SOB/wheezing. No N/V. Pain on right sided ribs. No coughing/ dizziness. Ambulating using walker but observed walking the soliman to dinning area for lunch wihtout the walker. Yes all other systems are reviewed and are negative Mental Status Exam Mental Status Exam Narrative: Appearance: Casually dressed, adequate hygiene, unkempt hair, appears older than stated age Behavior: Calm and cooperative throughout the interview. Isolative. Eye contact is appropriate, and there are no signs of psychomotor agitation or retardation Speech: Soft smoking but delayed response Thought process: Disorganized Thought content: Future oriented no self-harming thoughts Mood: tired , anxious and depressed Affect: Flat SI:denies HI:denies VH/AH:none Delusions: Possible paranoia. No paranoid statement made. Insight/judgment: Fair insight and judgment Memory/cog: Alert, oriented x 4. grossly intact to conversational testing Diagnostics Vital Signs (24Hr): Vital Signs - 24 hr 04/26/25 20:30 04/27/25 10:12 Temperature 97.8 F 99.5 F Pulse Rate 84 80 Respiratory Rate 16 16 Blood Pressure 113/65 115/55 L Pulse Oximetry 95 94 Oxygen Delivery Method Room Air Room Air BMI result Body Mass Index 29.2 Labs 04/20/25 17:11 04/23/25 07:51 Medications Medications Current Medications Acetaminophen (Acetaminophen 325 Mg Tablet) 650 mg PO Q6H PRN PRN Reason: Headache/Pain, Scale 1-10 Al Hydroxide/Mg Hydroxide (Magnesium Hydrox/Alum Hydrox 30 Ml Oral.Susp) 30 ml PO Q6H PRN PRN Reason: Heartburn/Nausea Albuterol Sulfate (Albuterol Sulfate 90 Mcg 8 Gm Inhaler) 2 puff INHALE RQ6H PRN PRN Reason: Shortness of Breath Benztropine Mesylate (Benztropine Mesylate 0.5 Mg Tablet) 0.5 mg PO BID PRN PRN Reason: EPS Clonidine (Clonidine 0.1 Mg Patch.Tdwk) 0.1 mg TRANSDERMA Tu@0900 [facility]; Protocol Last Admin: 04/23/25 11:29 Dose: Not Given Diazepam (Diazepam 5 Mg Tablet) 10 mg PO TID [facility] Last Admin: 04/27/25 10:13 Dose: 10 mg Dicyclomine HCl (Dicyclomine Hcl 10 Mg Capsule) 10 mg PO QID PRN PRN Reason: Spasms Fluticasone/Vilanterol (Fluticasone/Vilanterol 100/25 Blst.W.Dev) 1 puff INHALE DAILY [facility] Last Admin: 04/27/25 10:13 Dose: 1 puff Gabapentin (Gabapentin 300 Mg Capsule) 300 mg PO TID [facility] Last Admin: 04/27/25 10:13 Dose: 300 mg Hydroxyzine HCl (Hydroxyzine Hcl 25 Mg Tablet) 25 mg PO Q6H PRN PRN Reason: mild anxiety Last Admin: 04/25/25 12:01 Dose: 25 mg Ibuprofen (Ibuprofen 600 Mg Tablet) 600 mg PO Q8H PRN PRN Reason: moderate to severe pain Magnesium Hydroxide (Milk Of Magnesia 30 Ml Oral.Susp) 30 ml PO DAILY PRN PRN Reason: Constipation Melatonin (Melatonin 3 Mg Tablet) 6 mg PO BEDTIME PRN PRN Reason: Insomnia Multivitamins/Vitamin C (Multivitamin Tablet) 1 tab PO DAILY [facility] Last Admin: 04/27/25 10:13 Dose: 1 tab Nicotine (Nicotine 21 Mg Patch.Td24) 21 mg TRANSDERMA DAILY PRN PRN Reason: nicotine craving Nicotine Polacrilex (Nicotine Polacrilex 2 Mg Gum) 2 mg BUCCAL Q2H PRN PRN Reason: Nicotine Cravings Omeprazole (Omeprazole 40 Mg Capsule.Dr) 40 mg PO DAILY@0630 [facility] Last Admin: 04/27/25 05:34 Dose: 40 mg Ondansetron HCl (Ondansetron Odt 4 Mg Tab.Rapdis) 4 mg TRANSLINGU Q8H PRN PRN Reason: Nausea and Vomiting Quetiapine Fumarate (Quetiapine Fumarate 300 Mg Tablet) 300 mg PO BEDTIME [facility] Last Admin: 04/26/25 20:31 Dose: 300 mg Trazodone HCl (Trazodone Hcl 100 Mg Tablet) 200 mg PO BEDTIME [facility] Last Admin: 04/26/25 20:31 Dose: 200 mg Venlafaxine HCl (Venlafaxine Hcl Er 150 Mg Cap.Er.24h) 150 mg PO DAILY [facility] Last Admin: 04/27/25 10:13 Dose: 150 mg Vitamin D (Cholecalciferol (Vitamin D3) 10 Mcg Tablet) 10 mcg PO DAILY [facility] Last Admin: 04/27/25 10:13 Dose: 10 mcg Allergies Allergies Allergy/AdvReac Type Severity Reaction Status Date / Time No Known Allergies (No Known Allergy Verified 04/20/25 13:53 Allergies*) Assessment & Plan Assessment & Plan (1) MDD (major depressive disorder), recurrent episode, moderate: Status: Acute Code(s): F33.1 - Major depressive disorder, recurrent, moderate (2) Post traumatic stress disorder (PTSD): Status: Acute Code(s): F43.10 - Post-traumatic stress disorder, unspecified (3) CHELLE (generalized anxiety disorder): Status: Acute Code(s): F41.1 - Generalized anxiety disorder (4) AMS (altered mental status): Status: Acute Code(s): R41.82 - Altered mental status, unspecified (5) Right rib fracture: Status: Acute Code(s): S22.31XA - Fracture of one rib, right side, initial encounter for closed fracture Plan HPI: patient is a 55 years old, single Indonesian-speaking white female with hx of MDD, CHELLE, PTSD disorders, right rib fracture, COPD who was recently admitted to [place] (from 03/20 to 04/20) due to worsening depression symptoms. Patient brought to [facility] on section 21 from [place] secondary to altered mental status following a fall. [facility] was contacted after patient was medically clear from [facility] ED, the facility reported that they were unable to accommodate her current needs and recommended placement in halfway facility due to multiple falls on the unit. Formulation/clinical reasoning: AMS, increased in depressions and anxiety, multiple falls, Right rib fracture. Not functions at baseline, confused, paranoid. Given the above information, patient will be benefit in psychiatric restrictive environment, on S1 for own safety, medication adjustment, and refer patient to outpatient psychiatric services for aftercare. 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 Hospital course: 04/23/25: Discontinue Topiramate- was taper down and off from Topiramate). On multiple meds that can cause AMS and fall. Down Seorquel from 500 to 400mg. Valium 10mg TID. Will work on taper down in the future. Change Cogentin 0.5mg BID to PRN Lower Trazodone 250mg at HS down to 200mg. Continue with Melatonin 6 mg Continue with Gabapentin 300 TID. 04/24/25: Meet with patient in room, she lying flat in bed. Respond to the question fast than yesterday. Better affect, appears more relax. She has concerns regarding her belongings which she thinks they are lost.b Denies SI/SIB/HI/AVH. Appear to be paranoid and confused. Knowing she is at [facility] but think she is at [facility] at first, knowing her , current month and year. Isolative, do not want to come out to dinning area for meals. Report right rib pain. Per hospitalist, patient had right side rib and nose fractures after the fall. Head CT scan negative. Question if she has brain injured hx that could affect her functions in the past. Per SW, Keila is a friend of her who is working as a nurse at [facility] and also is patient's HCP. Patient sectioned 21 from [facility] ()after the fall. could not provide needed care, therefore did not want to take her back which could be the reason why her belongings were not transferred when she sent to [facility] ED. Attempted to contact provider there for collateral regarding med changes hx and to see if her belongings are still there. Not heard back from them yet. Patient slept 7 hours last night. Will change Melatonin to PRN. Continue to monitor for AMS. Compared to on the day I saw her on Tuesday utni today. Slightly improved with meds change. Slight with Clear thoughts 04/25: She reports severe anxiety and depression. She also reports chronic pain to lower back and bilateral lower extremities/neuropathy. Continue current treatment regimen. 04/26/25: Meet with with patient in assigned room, wearing casual attire, reports pain 9/10 when moving on ribs area. Educate patient on as needed Tylenol if she needs to take. Knowing her date of , reluctant to give location where she is at but knowing she is at [facility] at the end. Reports feeling tired rated anxiety and depression 8/10. Slowly coming to the unit for meals. Observed walking to dining area without the walker for lunch. Somewhat poor appetite but slightly improve. Denies suicidal thoughts or homicidal thoughts, and hallucinations. Slowly but slightly improved, has confused. She does not appear to be anxious, but depressed. Isolated mostly in her room, pleasant and cooperative upon approach. Continued to reduce lowered down on Seroquel from 400 to 300 at bedtime. Not albe to discuss with patient regarding med change as patient can be very overwhelmed which in turn can make anxiety worse. 04/27: continue current management and treatment plan. Plan Patient on 5 minute checks for safety. Ambulate using walker Admitted to S1. CV. Fall Precaution. Observed difficult transition from sitting in bed to standing but able to do so after 2-3 attempts. Work with treatment team to do collateral. Seen by Hospitalist on 04/23/25. Reason for continued inpatient stay Substantial Risk for: inability to function and rapid decompensation Time Spent With Patient Time: Total time managing care of this patient today ____ minutes.
[2025-04-27 19:57] VITALS: BP 125/70; PULSE 80; RESP 16; TEMP 36.3; O2SAT 97
[2025-04-28 09:00] VITALS: BP 133/62; PULSE 71; RESP 14; TEMP 36.8; O2SAT 94
[2025-04-28] MEDS: Fluticasone/Vilanterol 100/25 BLST.W.DEV 1 PUFF INHALE (09:01)
[2025-04-28] MEDS: Cholecalciferol (Vitamin D3) 10 MCG TABLET PO (09:01)
[2025-04-28] MEDS: Venlafaxine HCl ER 150 MG CAP.ER.24H PO (09:02)
--- NOTE | 2025-04-28 09:40 | P.PNPSI_ITS ---
Subjective Subjective Date of Service: 04/28/25 Reason For Visit: AMS/inc Interim History: Patient remains depressed and anxious. Reports she feels better than she did when she was at [facility]. Alert. Remains depressed and anxious. She is tolerating medication changes. No SI. Sleep is good. Appetite is good. Isolates in her room most of the shift. Review of Systems Review of Systems No SOB/wheezing. No N/V. Pain on right sided ribs. No coughing/ dizziness. Ambulating using walker but observed walking the [place]iman to dinning area for lunch wihtout the walker. Yes all other systems are reviewed and are negative Mental Status Exam Mental Status Exam Narrative: Appearance: Casually dressed, adequate hygiene, unkempt hair, appears older than stated age Behavior: Calm and cooperative throughout the interview. Isolative. Eye contact is appropriate, and there are no signs of psychomotor agitation or retardation Speech: Soft smoking but delayed response Thought process: Disorganized Thought content: Future oriented no self-harming thoughts Mood: tired , anxious and depressed Affect: Flat SI:denies HI:denies VH/AH:none Delusions: Possible paranoia. No paranoid statement made. Insight/judgment: Fair insight and judgment Memory/cog: Alert, oriented x 4. grossly intact to conversational testing Diagnostics Vital Signs (24Hr): Vital Signs - 24 hr 04/27/25 10:12 04/27/25 19:57 04/28/25 09:00 Temperature 99.5 F 97.4 F 98.2 F Pulse Rate 80 80 71 Respiratory Rate 16 16 14 Blood Pressure 115/55 L 125/70 133/62 Pulse Oximetry 94 97 94 Oxygen Delivery Method Room Air Room Air Room Air BMI result Body Mass Index 29.2 Labs 04/20/25 17:11 04/23/25 07:51 Medications Medications Current Medications Acetaminophen (Acetaminophen 325 Mg Tablet) 650 mg PO Q6H PRN PRN Reason: Headache/Pain, Scale 1-10 Al Hydroxide/Mg Hydroxide (Magnesium Hydrox/Alum Hydrox 30 Ml Oral.Susp) 30 ml PO Q6H PRN PRN Reason: Heartburn/Nausea Albuterol Sulfate (Albuterol Sulfate 90 Mcg 8 Gm Inhaler) 2 puff INHALE RQ6H PRN PRN Reason: Shortness of Breath Benztropine Mesylate (Benztropine Mesylate 0.5 Mg Tablet) 0.5 mg PO BID PRN PRN Reason: EPS Clonidine (Clonidine 0.1 Mg Patch.Tdwk) 0.1 mg TRANSDERMA Tu@0900 [facility]; Protocol Last Admin: 04/23/25 11:29 Dose: Not Given Diazepam (Diazepam 5 Mg Tablet) 10 mg PO TID [facility] Last Admin: 04/28/25 09:01 Dose: 10 mg Dicyclomine HCl (Dicyclomine Hcl 10 Mg Capsule) 10 mg PO QID PRN PRN Reason: Spasms Fluticasone/Vilanterol (Fluticasone/Vilanterol 100/25 Blst.W.Dev) 1 puff INHALE DAILY [facility] Last Admin: 04/28/25 09:01 Dose: 1 puff Gabapentin (Gabapentin 300 Mg Capsule) 300 mg PO TID [facility] Last Admin: 04/28/25 09:01 Dose: 300 mg Hydroxyzine HCl (Hydroxyzine Hcl 25 Mg Tablet) 25 mg PO Q6H PRN PRN Reason: mild anxiety Last Admin: 04/25/25 12:01 Dose: 25 mg Ibuprofen (Ibuprofen 600 Mg Tablet) 600 mg PO Q8H PRN PRN Reason: moderate to severe pain Magnesium Hydroxide (Milk Of Magnesia 30 Ml Oral.Susp) 30 ml PO DAILY PRN PRN Reason: Constipation Melatonin (Melatonin 3 Mg Tablet) 6 mg PO BEDTIME PRN PRN Reason: Insomnia Multivitamins/Vitamin C (Multivitamin Tablet) 1 tab PO DAILY [facility] Last Admin: 04/28/25 09:02 Dose: 1 tab Nicotine (Nicotine 21 Mg Patch.Td24) 21 mg TRANSDERMA DAILY PRN PRN Reason: nicotine craving Nicotine Polacrilex (Nicotine Polacrilex 2 Mg Gum) 2 mg BUCCAL Q2H PRN PRN Reason: Nicotine Cravings Omeprazole (Omeprazole 40 Mg Capsule.Dr) 40 mg PO DAILY@0630 [facility] Last Admin: 04/28/25 06:17 Dose: 40 mg Ondansetron HCl (Ondansetron Odt 4 Mg Tab.Rapdis) 4 mg TRANSLINGU Q8H PRN PRN Reason: Nausea and Vomiting Quetiapine Fumarate (Quetiapine Fumarate 300 Mg Tablet) 300 mg PO BEDTIME [facility] Last Admin: 04/27/25 20:59 Dose: 300 mg Trazodone HCl (Trazodone Hcl 100 Mg Tablet) 200 mg PO BEDTIME [facility] Last Admin: 04/27/25 20:59 Dose: 200 mg Venlafaxine HCl (Venlafaxine Hcl Er 150 Mg Cap.Er.24h) 150 mg PO DAILY [facility] Last Admin: 04/28/25 09:02 Dose: 150 mg Vitamin D (Cholecalciferol (Vitamin D3) 10 Mcg Tablet) 10 mcg PO DAILY [facility] Last Admin: 04/28/25 09:01 Dose: 10 mcg Allergies Allergies Allergy/AdvReac Type Severity Reaction Status Date / Time No Known Allergies (No Known Allergy Verified 04/20/25 13:53 Allergies*) Assessment & Plan Assessment & Plan (1) MDD (major depressive disorder), recurrent episode, moderate: Status: Acute Code(s): F33.1 - Major depressive disorder, recurrent, moderate (2) Post traumatic stress disorder (PTSD): Status: Acute Code(s): F43.10 - Post-traumatic stress disorder, unspecified (3) CHELLE (generalized anxiety disorder): Status: Acute Code(s): F41.1 - Generalized anxiety disorder (4) AMS (altered mental status): Status: Acute Code(s): R41.82 - Altered mental status, unspecified (5) Right rib fracture: Status: Acute Code(s): S22.31XA - Fracture of one rib, right side, initial encounter for closed fracture Plan HPI: patient is a 55 years old, single Lao-speaking white female with hx of MDD, CHELLE, PTSD disorders, right rib fracture, COPD who was recently admitted to [place] (from 03/20 to 04/20) due to worsening depression symptoms. Patient brought to [facility] on section 21 from [place] secondary to altered mental status following a fall. [facility] was contacted after patient was medically clear from [facility] ED, the facility reported that they were unable to accommodate her current needs and recommended [facility] in [facility] facility due to multiple falls on the unit. Formulation/clinical reasoning: AMS, increased in depressions and anxiety, multiple falls, Right rib fracture. Not functions at baseline, confused, paranoid. Given the above information, patient will be benefit in psychiatric restrictive environment, on S1 for own safety, medication adjustment, and refer patient to outpatient psychiatric services for aftercare. 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 Hospital course: 04/23/25: Discontinue Topiramate- was taper down and off from Topiramate). On multiple meds that can cause AMS and fall. Down Seorquel from 500 to 400mg. Valium 10mg TID. Will work on taper down in the future. Change Cogentin 0.5mg BID to PRN Lower Trazodone 250mg at HS down to 200mg. Continue with Melatonin 6 mg Continue with Gabapentin 300 TID. 04/24/25: Meet with patient in room, she lying flat in bed. Respond to the question fast than yesterday. Better affect, appears more relax. She has concerns regarding her belongings which she thinks they are lost.b Denies SI/SIB/HI/AVH. Appear to be paranoid and confused. Knowing she is at [facility] but think she is at [facility] at first, knowing her , current month and year. Isolative, do not want to come out to dinning area for meals. Report right rib pain. Per hospitalist, patient had right side rib and nose fractures after the fall. Head CT scan negative. Question if she has brain injured hx that could affect her functions in the past. Per SW, Keila is a friend of her who is working as a nurse at [facility] and also is patient's HCP. Patient sectioned 21 from [facility] ()after the fall. could not provide needed care, therefore did not want to take her back which could be the reason why her belongings were not transferred when she sent to [facility] ED. Attempted to contact provider there for collateral regarding med changes hx and to see if her belongings are still there. Not heard back from them yet. Patient slept 7 hours last night. Will change Melatonin to PRN. Continue to monitor for AMS. Compared to on the day I saw her on Tuesday utnil today. Slightly improved with meds change. Slight with Clear thoughts 04/25: She reports severe anxiety and depression. She also reports chronic pain to lower back and bilateral lower extremities/neuropathy. Continue current treatment regimen. 04/26/25: Meet with with patient in assigned room, wearing casual attire, reports pain 9/10 when moving on ribs area. Educate patient on as needed Tylenol if she needs to take. Knowing her date of , reluctant to give location where she is at but knowing she is at [facility] at the end. Reports feeling tired rated anxiety and depression 8/10. Slowly coming to the unit for meals. Observed walking to dining area without the walker for lunch. Somewhat poor appetite but slightly improve. Denies suicidal thoughts or homicidal thoughts, and hallucinations. Slowly but slightly improved, has confused. She does not appear to be anxious, but depressed. Isolated mostly in her room, pleasant and cooperative upon approach. Continued to reduce lowered down on Seroquel from 400 to 300 at bedtime. Not albe to discuss with patient regarding med change as patient can be very overwhelmed which in turn can make anxiety worse. 04/27: continue current management and treatment plan. 04/28: continue current management and treatment plan. Plan Patient on 5 minute checks for safety. Ambulate using walker Admitted to S1. CV. Fall Precaution. Observed difficult transition from sitting in bed to standing but able to do so after 2-3 attempts. Work with treatment team to do collateral. Seen by Hospitalist on 04/23/25. Reason for continued inpatient stay Substantial Risk for: inability to function and rapid decompensation Time Spent With Patient Time: Total time managing care of this patient today ____ minutes.
[2025-04-28 20:00] VITALS: BP 136/70; PULSE 74; RESP 16; TEMP 36.4; O2SAT 95
[2025-04-29 08:53] VITALS: BP 126/58; PULSE 71; RESP 18; TEMP 36.7; O2SAT 93
[2025-04-29] MEDS: Fluticasone/Vilanterol 100/25 BLST.W.DEV 1 PUFF INHALE (08:57)
[2025-04-29] MEDS: Venlafaxine HCl ER 150 MG CAP.ER.24H PO (08:58)
[2025-04-29] MEDS: Cholecalciferol (Vitamin D3) 10 MCG TABLET PO (08:58)
--- NOTE | 2025-04-29 11:34 | HO.PSYCHPN ---
Subjective Subjective Date of Service: 04/29/25 Reason For Visit: AMS/inc Subjective Notes: Conditional Voluntary Healthcare Proxy: Yes Guardianship: No Medical Problems Affecting Mental Status: No Interim History: Medical record and nursing notes reviewed; case discussed during rounds with team/nursing staff, and met with patient for supportive therapy/psychoeducation, as well as medication management. Patient isolated herself in room, not out for meals, reports poor appetite. Reviewed the expectation moving forward that patient should be out for meals, engaged in unit activities and groups, and shower. Patient received some items/belonging from [employer] which was dropped off today. Patient reported that she still missing some items like bank card. Appeared to be less confused, knowing this provider's name, knowing where she is. Able to review and discuss medication changes which this provider was not able to discuss before as patient appeared to be easily getting overwhelmed. Patient is aware that Topamax is not a on her list. Seroquel from 500 down to 200. Denies safety concerns, hallucinations, continued to be depressant anxious. Continue with medication management/adjustment. No falls. Can observe walking in room without the walker. Medication Compliance: Yes Side effects from medications: No Attending Groups: No Review of Systems Acute medical concerns: No Medical Review of Systems: unchanged Review of Systems Review of Systems No SOB/wheezing. No N/V. Pain on right sided ribs and other body parts but does not want to take PRN. No coughing/ dizziness. Ambulating using walker. Obseverd walking without it at times. Yes all other systems are reviewed and are negative Mental Status Exam Mental Status Exam Narrative: Appearance: Casually dressed, adequate hygiene, unkempt hair, appears older than stated age Behavior: Calm and cooperative throughout the interview. Isolative. Eye contact is appropriate, and there are no signs of psychomotor agitation or retardation Speech: Soft smoking Thought process: More sorganized Thought content: Future oriented no self-harming thoughts Mood: anxious and depressed Affect: Flat SI:denies HI:denies VH/AH:none Delusions: Possible paranoia. No paranoid statement made. Insight/judgment: Fair insight and judgment Memory/cog: Alert, oriented x 4. grossly intact to conversational testing Diagnostics Vital Signs (24Hr): Vital Signs - 24 hr 04/28/25 20:00 04/29/25 08:53 Temperature 97.6 F 98.1 F Pulse Rate 74 71 Respiratory Rate 16 18 Blood Pressure 136/70 126/58 L Pulse Oximetry 95 93 Oxygen Delivery Method Room Air Room Air BMI result Body Mass Index 29.2 Labs 04/20/25 17:11 04/23/25 07:51 Medications Medications Current Medications Acetaminophen (Acetaminophen 325 Mg Tablet) 650 mg PO Q6H PRN PRN Reason: Headache/Pain, Scale 1-10 Al Hydroxide/Mg Hydroxide (Magnesium Hydrox/Alum Hydrox 30 Ml Oral.Susp) 30 ml PO Q6H PRN PRN Reason: Heartburn/Nausea Albuterol Sulfate (Albuterol Sulfate 90 Mcg 8 Gm Inhaler) 2 puff INHALE RQ6H PRN PRN Reason: Shortness of Breath Benztropine Mesylate (Benztropine Mesylate 0.5 Mg Tablet) 0.5 mg PO BID PRN PRN Reason: EPS Clonidine (Clonidine 0.1 Mg Patch.Tdwk) 0.1 mg TRANSDERMA Tu@0900 [facility]; Protocol Last Admin: 04/23/25 11:29 Dose: Not Given Diazepam (Diazepam 5 Mg Tablet) 10 mg PO TID [facility] Last Admin: 04/29/25 08:58 Dose: 10 mg Dicyclomine HCl (Dicyclomine Hcl 10 Mg Capsule) 10 mg PO QID PRN PRN Reason: Spasms Fluticasone/Vilanterol (Fluticasone/Vilanterol 100/25 Blst.W.Dev) 1 puff INHALE DAILY [facility] Last Admin: 04/29/25 08:57 Dose: 1 puff Gabapentin (Gabapentin 300 Mg Capsule) 300 mg PO TID [facility] Last Admin: 04/29/25 08:58 Dose: 300 mg Hydroxyzine HCl (Hydroxyzine Hcl 25 Mg Tablet) 25 mg PO Q6H PRN PRN Reason: mild anxiety Last Admin: 04/25/25 12:01 Dose: 25 mg Ibuprofen (Ibuprofen 600 Mg Tablet) 600 mg PO Q8H PRN PRN Reason: moderate to severe pain Last Admin: 04/29/25 09:17 Dose: 600 mg Magnesium Hydroxide (Milk Of Magnesia 30 Ml Oral.Susp) 30 ml PO DAILY PRN PRN Reason: Constipation Melatonin (Melatonin 3 Mg Tablet) 6 mg PO BEDTIME PRN PRN Reason: Insomnia Multivitamins/Vitamin C (Multivitamin Tablet) 1 tab PO DAILY [facility] Last Admin: 04/29/25 08:59 Dose: 1 tab Nicotine (Nicotine 21 Mg Patch.Td24) 21 mg TRANSDERMA DAILY PRN PRN Reason: nicotine craving Nicotine Polacrilex (Nicotine Polacrilex 2 Mg Gum) 2 mg BUCCAL Q2H PRN PRN Reason: Nicotine Cravings Omeprazole (Omeprazole 40 Mg Capsule.Dr) 40 mg PO DAILY@0630 [facility] Last Admin: 04/29/25 06:06 Dose: 40 mg Ondansetron HCl (Ondansetron Odt 4 Mg Tab.Rapdis) 4 mg TRANSLINGU Q8H PRN PRN Reason: Nausea and Vomiting Quetiapine Fumarate (Quetiapine Fumarate 200 Mg Tablet) 200 mg PO BEDTIME [facility] Trazodone HCl (Trazodone Hcl 100 Mg Tablet) 200 mg PO BEDTIME [facility] Last Admin: 04/28/25 21:53 Dose: 200 mg Venlafaxine HCl (Venlafaxine Hcl Er 150 Mg Cap.Er.24h) 150 mg PO DAILY [facility] Last Admin: 04/29/25 08:58 Dose: 150 mg Vitamin D (Cholecalciferol (Vitamin D3) 10 Mcg Tablet) 10 mcg PO DAILY [facility] Last Admin: 04/29/25 08:58 Dose: 10 mcg Allergies Allergies Allergy/AdvReac Type Severity Reaction Status Date / Time No Known Allergies (No Known Allergy Verified 04/20/25 13:53 Allergies*) Assessment & Plan Assessment & Plan (1) MDD (major depressive disorder), recurrent episode, moderate: Status: Acute Code(s): F33.1 - Major depressive disorder, recurrent, moderate (2) Post traumatic stress disorder (PTSD): Status: Acute Code(s): F43.10 - Post-traumatic stress disorder, unspecified (3) CHELLE (generalized anxiety disorder): Status: Acute Code(s): F41.1 - Generalized anxiety disorder (4) AMS (altered mental status): Status: Acute Code(s): R41.82 - Altered mental status, unspecified (5) Right rib fracture: Status: Acute Code(s): S22.31XA - Fracture of one rib, right side, initial encounter for closed fracture Plan HPI: patient is a 55 years old, single Jamaican-speaking white female with hx of MDD, CHELLE, PTSD disorders, right rib fracture, COPD who was recently admitted to [place] (from 03/20 to 04/20) due to worsening depression symptoms. Patient brought to [facility] on section 21 from [place] secondary to altered mental status following a fall. [facility] was contacted after patient was medically clear from [facility], the facility reported that they were unable to accommodate her current needs and recommended placement in prison facility due to multiple falls on the unit. Formulation/clinical reasoning: AMS, increased in depressions and anxiety, multiple falls, Right rib fracture. Not functions at baseline, confused, paranoid. Given the above information, patient will be benefit in psychiatric restrictive environment, on S1 for own safety, medication adjustment, and refer patient to outpatient psychiatric services for aftercare. 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 Hospital course: 04/23/25: Discontinue Topiramate- was taper down and off from Topiramate). On multiple meds that can cause AMS and fall. Down Seorquel from 500 to 400mg. Valium 10mg TID. Will work on taper down in the future. Change Cogentin 0.5mg BID to PRN Lower Trazodone 250mg at HS down to 200mg. Continue with Melatonin 6 mg Continue with Gabapentin 300 TID. 04/24/25: Meet with patient in room, she lying flat in bed. Respond to the question fast than yesterday. Better affect, appears more relax. She has concerns regarding her belongings which she thinks they are lost.b Denies SI/SIB/HI/AVH. Appear to be paranoid and confused. Knowing she is at [facility] but think she is at [facility] at first, knowing her , current month and year. Isolative, do not want to come out to dinning area for meals. Report right rib pain. Per hospitalist, patient had right side rib and nose fractures after the fall. Head CT scan negative. Question if she has brain injured hx that could affect her functions in the past. Per SW, Keila is a friend of her who is working as a nurse at [facility] and also is patient's HCP. Patient sectioned 21 from [facility] ()after the fall. could not provide needed care, therefore did not want to take her back which could be the reason why her belongings were not transferred when she sent to [facility]. Attempted to contact provider there for collateral regarding med changes hx and to see if her belongings are still there. Not heard back from them yet. Patient slept 7 hours last night. Will change Melatonin to PRN. Continue to monitor for AMS. Compared to on the day I saw her on Tuesday utnil today. Slightly improved with meds change. Slight with Clear thoughts 04/25: She reports severe anxiety and depression. She also reports chronic pain to lower back and bilateral lower extremities/neuropathy. Continue current treatment regimen. 04/26/25: Meet with with patient in assigned room, wearing casual attire, reports pain /10 when moving on ribs area. Educate patient on as needed Tylenol if she needs to take. Knowing her date of , reluctant to give location where she is at but knowing she is at [facility] at the end. Reports feeling tired rated anxiety and depression /10. Slowly coming to the unit for meals. Observed walking to dining area without the walker for lunch. Somewhat poor appetite but slightly improve. Denies suicidal thoughts or homicidal thoughts, and hallucinations. Slowly but slightly improved, has confused. She does not appear to be anxious, but depressed. Isolated mostly in her room, pleasant and cooperative upon approach. Continued to reduce lowered down on Seroquel from 400 to 300 at bedtime. Not albe to discuss with patient regarding med change as patient can be very overwhelmed which in turn can make anxiety worse. 04/27: continue current management and treatment plan. 04/28: continue current management and treatment plan. 04/29/25: Patient isolated herself in room, not out for meals, reports poor appetite. Reviewed the expectation moving forward that patient should be out for meals, engaged in unit activities and groups, and shower. Patient received some items/belonging from [employer] which was dropped off today. Patient reported that she still missing some items like bank card. Appeared to be less confused, knowing this provider's name, knowing where she is. Able to review and discuss medication changes which this provider was not able to discuss before as patient appeared to be easily getting overwhelmed. Patient is aware that Topamax is not a on her list. Seroquel from 500 down to 200. Denies safety concerns, hallucinations, continued to be depressant anxious. Continue with medication management/adjustment. No falls. Can observe walking in room without the walker. Plan Patient on 5 minute checks for safety. Ambulate using walker Admitted to S1. CV. Fall Precaution. Work with treatment team to do collateral. Seen by Hospitalist on 04/23/25. Patient educated on: diagnosis, medication risk/benefits and therapeutic strategies Informed Consent: further education needed Reason for continued inpatient stay Substantial Risk for: med/psych decompensation Time Spent With Patient Time: Total time managing care of this patient today ____ minutes.
[2025-04-29 20:00] VITALS: BP 136/63; PULSE 73; RESP 16; TEMP 36.3; O2SAT 96
[2025-04-30 08:00] VITALS: BP 127/58; PULSE 69; RESP 16; TEMP 36.8; O2SAT 97
[2025-04-30] MEDS: Venlafaxine HCl ER 150 MG CAP.ER.24H PO (08:33)
[2025-04-30] MEDS: Cholecalciferol (Vitamin D3) 10 MCG TABLET PO (08:34)
[2025-04-30] MEDS: Fluticasone/Vilanterol 100/25 BLST.W.DEV 1 PUFF INHALE (10:29)
[2025-04-30] MEDS: cloNIDine 0.1 MG PATCH.TDWK TRANSDERMA (10:29)
--- NOTE | 2025-04-30 11:23 | P.PNPSI_ITS ---
Subjective Subjective Date of Service: 04/30/25 Reason For Visit: AMS/inc Subjective Notes: Conditional Voluntary Healthcare Proxy: Yes Guardianship: No Medical Problems Affecting Mental Status: No Interim History: Medical record and nursing notes reviewed; case discussed during rounds with team/nursing staff, and met with patient for supportive therapy/psychoeducation, as well as medication management. Patient got shower this morning, observed out in dinning area most of the day, attended groups as encouraged to do so yesterday. Patient also has a good visit with mom. Report she slept but feeling scattered sleep, report anxiety and depression. Ambulate using walker. Appetite slightly better compare to yesterday as she did not eat yesterday. Report pain but does not believe PRN will help, therefore she does not take any which she has not tried yet. Patient tolerates well with medication changes. Continue to monitor for mental status change, less confused but some cogntive impairedment and memory issues. Medication Compliance: Yes Side effects from medications: No Attending Groups: Intermittent Review of Systems Acute medical concerns: No Medical Review of Systems: unchanged Review of Systems Review of Systems No SOB/wheezing. No N/V. Pain on right sided ribs and other body parts but does not want to take PRN. No coughing/ dizziness. Ambulating using walker. Yes all other systems are reviewed and are negative Mental Status Exam Mental Status Exam Narrative: Appearance: Casually dressed, adequate hygiene, unkempt hair, appears older than stated age Behavior: Calm and cooperative throughout the interview. More visible. Eye contact is appropriate, and there are no signs of psychomotor agitation or retardation Speech: Soft spoken Thought process: More organized Thought content: Future oriented no self-harming thoughts Mood: anxious and depressed but mild improvement Affect: Flat SI:denies HI:denies VH/AH:none Delusions: Possible paranoia. No paranoid statement made. Insight/judgment: Fair Memory/cog: Alert, oriented x 4. grossly intact to conversational testing Diagnostics Vital Signs (24Hr): Vital Signs - 24 hr 04/29/25 20:00 04/30/25 08:00 Temperature 97.4 F 98.2 F Pulse Rate 73 69 Respiratory Rate 16 16 Blood Pressure 136/63 127/58 L Pulse Oximetry 96 97 Oxygen Delivery Method Room Air Room Air BMI result Body Mass Index 29.2 Labs 04/20/25 17:11 04/23/25 07:51 Medications Medications Current Medications Acetaminophen (Acetaminophen 325 Mg Tablet) 650 mg PO Q6H PRN PRN Reason: Headache/Pain, Scale 1-10 Al Hydroxide/Mg Hydroxide (Magnesium Hydrox/Alum Hydrox 30 Ml Oral.Susp) 30 ml PO Q6H PRN PRN Reason: Heartburn/Nausea Albuterol Sulfate (Albuterol Sulfate 90 Mcg 8 Gm Inhaler) 2 puff INHALE RQ6H PRN PRN Reason: Shortness of Breath Benztropine Mesylate (Benztropine Mesylate 0.5 Mg Tablet) 0.5 mg PO BID PRN PRN Reason: EPS Clonidine (Clonidine 0.1 Mg Patch.Tdwk) 0.1 mg TRANSDERMA Tu@0900 [facility]; Protocol Last Admin: 04/30/25 10:29 Dose: 0.1 mg Diazepam (Diazepam 5 Mg Tablet) 10 mg PO TID [facility] Last Admin: 04/30/25 11:20 Dose: 10 mg Dicyclomine HCl (Dicyclomine Hcl 10 Mg Capsule) 10 mg PO QID PRN PRN Reason: Spasms Fluticasone/Vilanterol (Fluticasone/Vilanterol 100/25 Blst.W.Dev) 1 puff INHALE DAILY [facility] Last Admin: 04/30/25 10:29 Dose: 1 puff Gabapentin (Gabapentin 300 Mg Capsule) 300 mg PO TID [facility] Last Admin: 04/30/25 08:34 Dose: 300 mg Hydroxyzine HCl (Hydroxyzine Hcl 25 Mg Tablet) 25 mg PO Q6H PRN PRN Reason: mild anxiety Last Admin: 04/25/25 12:01 Dose: 25 mg Ibuprofen (Ibuprofen 600 Mg Tablet) 600 mg PO Q8H PRN PRN Reason: moderate to severe pain Last Admin: 04/29/25 09:17 Dose: 600 mg Magnesium Hydroxide (Milk Of Magnesia 30 Ml Oral.Susp) 30 ml PO DAILY PRN PRN Reason: Constipation Melatonin (Melatonin 3 Mg Tablet) 6 mg PO BEDTIME PRN PRN Reason: Insomnia Multivitamins/Vitamin C (Multivitamin Tablet) 1 tab PO DAILY [facility] Last Admin: 04/30/25 08:34 Dose: 1 tab Nicotine (Nicotine 21 Mg Patch.Td24) 21 mg TRANSDERMA DAILY PRN PRN Reason: nicotine craving Nicotine Polacrilex (Nicotine Polacrilex 2 Mg Gum) 2 mg BUCCAL Q2H PRN PRN Reason: Nicotine Cravings Omeprazole (Omeprazole 40 Mg Capsule.Dr) 40 mg PO DAILY@0630 [facility] Last Admin: 04/30/25 06:12 Dose: 40 mg Ondansetron HCl (Ondansetron Odt 4 Mg Tab.Rapdis) 4 mg TRANSLINGU Q8H PRN PRN Reason: Nausea and Vomiting Quetiapine Fumarate (Quetiapine Fumarate 200 Mg Tablet) 200 mg PO BEDTIME [facility] Last Admin: 04/29/25 20:21 Dose: 200 mg Trazodone HCl (Trazodone Hcl 100 Mg Tablet) 200 mg PO BEDTIME [facility] Last Admin: 04/29/25 20:22 Dose: 200 mg Venlafaxine HCl (Venlafaxine Hcl Er 150 Mg Cap.Er.24h) 150 mg PO DAILY [facility] Last Admin: 04/30/25 08:33 Dose: 150 mg Vitamin D (Cholecalciferol (Vitamin D3) 10 Mcg Tablet) 10 mcg PO DAILY [facility] Last Admin: 04/30/25 08:34 Dose: 10 mcg Allergies Allergies Allergy/AdvReac Type Severity Reaction Status Date / Time No Known Allergies (No Known Allergy Verified 04/20/25 13:53 Allergies*) Assessment & Plan Assessment & Plan (1) MDD (major depressive disorder), recurrent episode, moderate: Status: Acute Code(s): F33.1 - Major depressive disorder, recurrent, moderate (2) Post traumatic stress disorder (PTSD): Status: Acute Code(s): F43.10 - Post-traumatic stress disorder, unspecified (3) CHELLE (generalized anxiety disorder): Status: Acute Code(s): F41.1 - Generalized anxiety disorder (4) AMS (altered mental status): Status: Acute Code(s): R41.82 - Altered mental status, unspecified (5) Right rib fracture: Status: Acute Code(s): S22.31XA - Fracture of one rib, right side, initial encounter for closed fracture Plan HPI: patient is a 55 years old, single Kiswahili-speaking white female with hx of MDD, CHELLE, PTSD disorders, right rib fracture, COPD who was recently admitted to [facility] (from 03/20 to 04/20) due to worsening depression symptoms. Patient brought to [facility] on section 21 from [facility] secondary to altered mental status following a fall. [place] was contacted after patient was medically clear from [facility] ED, the facility reported that they were unable to accommodate her current needs and recommended placement in long-term facility due to multiple falls on the unit. Formulation/clinical reasoning: AMS, increased in depressions and anxiety, multiple falls, Right rib fracture. Not functions at baseline, confused, paranoid. Given the above information, patient will be benefit in psychiatric restrictive environment, on S1 for own safety, medication adjustment, and refer patient to outpatient psychiatric services for aftercare. Patient has [facility] and [facility] history. Hospital course: 04/23/25: Discontinue Topiramate- was taper down and off from Topiramate). On multiple meds that can cause AMS and fall. Down Seorquel from 500 to 400mg. Valium 10mg TID. Will work on taper down in the future. Change Cogentin 0.5mg BID to PRN Lower Trazodone 250mg at HS down to 200mg. Continue with Melatonin 6 mg Continue with Gabapentin 300 TID. 04/24/25: Meet with patient in room, she lying flat in bed. Respond to the question fast than yesterday. Better affect, appears more relax. She has concerns regarding her belongings which she thinks they are lost.b Denies SI/SIB/HI/AVH. Appear to be paranoid and confused. Knowing she is at [facility] but think she is at [facility] at first, knowing her , current month and year. Isolative, do not want to come out to dinning area for meals. Report right rib pain. Per hospitalist, patient had right side rib and nose fractures after the fall. Head CT scan negative. Question if she has brain injured hx that could affect her functions in the past. Per SW, Keila is a friend of her who is working as a nurse at [facility] and also is patient's HCP. Patient sectioned 21 from [facility] ()after the fall. [facility] could not provide needed care, therefore did not want to take her back which could be the reason why her belongings were not transferred when she sent to [facility] ED. Attempted to contact provider there for collateral regarding med changes hx and to see if her belongings are still there. Not heard back from them yet. Patient slept 7 hours last night. Will change Melatonin to PRN. Continue to monitor for AMS. Compared to on the day I saw her on Tuesday utnil today. Slightly improved with meds change. Slight with Clear thoughts 04/25: She reports severe anxiety and depression. She also reports chronic pain to lower back and bilateral lower extremities/neuropathy. Continue current treatment regimen. 04/26/25: Meet with with patient in assigned room, wearing casual attire, reports pain 03/13 when moving on ribs area. Educate patient on as needed Tylenol if she needs to take. Knowing her date of , reluctant to give location where she is at but knowing she is at [facility] at the end. Reports feeling tired rated anxiety and depression 02/10. Slowly coming to the unit for meals. Observed walking to dining area without the walker for lunch. Somewhat poor appetite but slightly improve. Denies suicidal thoughts or homicidal thoughts, and hallucinations. Slowly but slightly improved, has confused. She does not appear to be anxious, but depressed. Isolated mostly in her room, pleasant and cooperative upon approach. Continued to reduce lowered down on Seroquel from 400 to 300 at bedtime. Not albe to discuss with patient regarding med change as patient can be very overwhelmed which in turn can make anxiety worse. 04/27: continue current management and treatment plan. 04/28: continue current management and treatment plan. 04/29/25: Patient isolated herself in room, not out for meals, reports poor appetite. Reviewed the expectation moving forward that patient should be out for meals, engaged in unit activities and groups, and shower. Patient received some items/belonging from [facility] which was dropped off today. Patient reported that she still missing some items like bank card. Appeared to be less confused, knowing this provider's name, knowing where she is. Able to review and discuss medication changes which this provider was not able to discuss before as patient appeared to be easily getting overwhelmed. Patient is aware that Topamax is not a on her list. Seroquel from 500 down to 200. Denies safety concerns, hallucinations, continued to be depressant anxious. Continue with medication management/adjustment. No falls. Can observe walking in room without the walker. 04/30/25: Patient got shower this morning, observed out in dinning area most of the day, attended groups as encouraged to do so yesterday. Patient also has a good visit with mom. Report she slept but feeling scattered sleep, report anxiety and depression. Ambulate using walker. Appetite slightly better compare to yesterday as she did not eat yesterday. Report pain but does not believe PRN will help, therefore she does not take any which she has not tried yet. Patient tolerates well with medication changes. Continue to monitor for mental status change, less confused but some cognitive impairment and memory issues. Self report that patient has never felt confused before. OT evaluation done. Suggested to use walker for ambulation. Clotrimazole cream BID on face. Plan Patient on 5 minute checks for safety. Ambulate using walker Admitted to S1. CV. Fall Precaution. Work with treatment team to do collateral. Seen by Hospitalist on 04/23/25. Patient educated on: medication risk/benefits and therapeutic strategies Reason for continued inpatient stay Substantial Risk for: med/psych decompensation Time Spent With Patient Time: Total time managing care of this patient today ____ minutes.
[2025-04-30 20:00] VITALS: BP 117/68; PULSE 76; RESP 16; TEMP 37; O2SAT 96
[2025-04-30] MEDS: Clotrimazole 1 % Cream 15 GM TUBE 1 APPL TOPICAL (22:30)
[2025-05-01 08:00] VITALS: BP 139/82; PULSE 75; RESP 16; TEMP 36.8; O2SAT 94
[2025-05-01] MEDS: Venlafaxine HCl ER 150 MG CAP.ER.24H PO (08:28)
[2025-05-01] MEDS: Cholecalciferol (Vitamin D3) 10 MCG TABLET PO (08:28)
[2025-05-01] MEDS: Fluticasone/Vilanterol 100/25 BLST.W.DEV 1 PUFF INHALE (08:30)
[2025-05-01] MEDS: Clotrimazole 1 % Cream 15 GM TUBE 1 APPL TOPICAL ×2 (08:31→21:08)
--- NOTE | 2025-05-01 09:42 | P.PNPSI_ITS ---
Subjective Subjective Date of Service: 05/01/25 Reason For Visit: AMS/inc Subjective Notes: Conditional Voluntary Healthcare Proxy: Yes Guardianship: No Medical Problems Affecting Mental Status: No Interim History: Medical record and nursing notes reviewed; case discussed during rounds with team/nursing staff, and met with patient for supportive therapy/psychoeducation, as well as medication management. Meet with patient in room, appear tired and slept after breakfast. Compliant with meds, denies side effects. Slept for 8 hours. Medication titration does not affect her sleep or mood so far. Ambulate safe with walker. No falls Discuss to further medication titration which still start on BZD-Valium. Explained rationale for the taper. Patient reports she has been taking Valium for 36 years, it is too late to fix if any damange, negative effects on her brain functions. However, patient is not arguing if dose is reduced and down, Pain on ribs areas a 4-5/10. Continue to encourage out of bed and attend groups later on if able to do so. Per OT, patient appears to be confused with task duing group time. In term of memory and confusion regarding surrounding, patient is more alert and awake. She is more engaged in unit activities. Had visit with mom at 1500 yesterday and a visit with her best friend- Keila- her HCP. Valium down from 30mg in divided dose to 25mg in devided dose. Medication Compliance: Yes Side effects from medications: No Attending Groups: Intermittent Review of Systems Acute medical concerns: No Medical Review of Systems: unchanged Review of Systems Review of Systems No SOB/wheezing. No N/V. Pain on right sided ribs and other body parts but does not want to take PRN. No coughing/ dizziness. Ambulating using walker. Yes all other systems are reviewed and are negative Mental Status Exam Mental Status Exam Narrative: Appearance: Casually dressed, adequate hygiene, unkempt hair, appears older than stated age Behavior: Calm and cooperative throughout the interview. Visible in common areas with encouragment. Eye contact is appropriate, and there are no signs of psychomotor agitation or retardation Speech: Soft spoken Thought process: More organized Thought content: Future oriented no self-harming thoughts Mood: anxious and depressed with slowly but mild improvement Affect: Flat SI:denies HI:denies VH/AH:none Delusions: Possible paranoia. No paranoid statement made. Insight/judgment: Fair Memory/cog: Alert, oriented x 4. grossly intact to conversational testing Diagnostics Vital Signs (24Hr): Vital Signs - 24 hr 04/30/25 20:00 Temperature 98.6 F Pulse Rate 76 Respiratory Rate 16 Blood Pressure 117/68 Pulse Oximetry 96 Oxygen Delivery Method Room Air BMI result Body Mass Index 29.2 Labs 04/20/25 17:11 04/23/25 07:51 Medications Medications Current Medications Acetaminophen (Acetaminophen 325 Mg Tablet) 650 mg PO Q6H PRN PRN Reason: Headache/Pain, Scale 1-10 Al Hydroxide/Mg Hydroxide (Magnesium Hydrox/Alum Hydrox 30 Ml Oral.Susp) 30 ml PO Q6H PRN PRN Reason: Heartburn/Nausea Albuterol Sulfate (Albuterol Sulfate 90 Mcg 8 Gm Inhaler) 2 puff INHALE RQ6H PRN PRN Reason: Shortness of Breath Benztropine Mesylate (Benztropine Mesylate 0.5 Mg Tablet) 0.5 mg PO BID PRN PRN Reason: EPS Clonidine (Clonidine 0.1 Mg Patch.Tdwk) 0.1 mg TRANSDERMA Tu@0900 [facility]; Protocol Last Admin: 04/30/25 10:29 Dose: 0.1 mg Clotrimazole (Clotrimazole 1 % Cream 15 Gm Tube) 1 appl TOPICAL BID [facility]; Protocol Last Admin: 05/01/25 08:31 Dose: 1 appl Diazepam (Diazepam 5 Mg Tablet) 10 mg PO TID [facility] Last Admin: 05/01/25 08:28 Dose: 10 mg Dicyclomine HCl (Dicyclomine Hcl 10 Mg Capsule) 10 mg PO QID PRN PRN Reason: Spasms Fluticasone/Vilanterol (Fluticasone/Vilanterol 100/25 Blst.W.Dev) 1 puff INHALE DAILY [facility] Last Admin: 05/01/25 08:30 Dose: 1 puff Gabapentin (Gabapentin 300 Mg Capsule) 300 mg PO TID [facility] Last Admin: 05/01/25 08:28 Dose: 300 mg Hydroxyzine HCl (Hydroxyzine Hcl 25 Mg Tablet) 25 mg PO Q6H PRN PRN Reason: mild anxiety Last Admin: 04/25/25 12:01 Dose: 25 mg Ibuprofen (Ibuprofen 600 Mg Tablet) 600 mg PO Q8H PRN PRN Reason: moderate to severe pain Last Admin: 04/29/25 09:17 Dose: 600 mg Magnesium Hydroxide (Milk Of Magnesia 30 Ml Oral.Susp) 30 ml PO DAILY PRN PRN Reason: Constipation Melatonin (Melatonin 3 Mg Tablet) 6 mg PO BEDTIME PRN PRN Reason: Insomnia Multivitamins/Vitamin C (Multivitamin Tablet) 1 tab PO DAILY [facility] Last Admin: 05/01/25 08:28 Dose: 1 tab Nicotine (Nicotine 21 Mg Patch.Td24) 21 mg TRANSDERMA DAILY PRN PRN Reason: nicotine craving Nicotine Polacrilex (Nicotine Polacrilex 2 Mg Gum) 2 mg BUCCAL Q2H PRN PRN Reason: Nicotine Cravings Omeprazole (Omeprazole 40 Mg Capsule.Dr) 40 mg PO DAILY@0630 [facility] Last Admin: 05/01/25 06:52 Dose: 40 mg Ondansetron HCl (Ondansetron Odt 4 Mg Tab.Rapdis) 4 mg TRANSLINGU Q8H PRN PRN Reason: Nausea and Vomiting Quetiapine Fumarate (Quetiapine Fumarate 200 Mg Tablet) 200 mg PO BEDTIME [facility] Last Admin: 04/30/25 21:50 Dose: 200 mg Trazodone HCl (Trazodone Hcl 100 Mg Tablet) 200 mg PO BEDTIME [facility] Last Admin: 04/30/25 21:50 Dose: 200 mg Venlafaxine HCl (Venlafaxine Hcl Er 150 Mg Cap.Er.24h) 150 mg PO DAILY [facility] Last Admin: 05/01/25 08:28 Dose: 150 mg Vitamin D (Cholecalciferol (Vitamin D3) 10 Mcg Tablet) 10 mcg PO DAILY [facility] Last Admin: 05/01/25 08:28 Dose: 10 mcg Allergies Allergies Allergy/AdvReac Type Severity Reaction Status Date / Time No Known Allergies (No Known Allergy Verified 04/20/25 13:53 Allergies*) Assessment & Plan Assessment & Plan (1) MDD (major depressive disorder), recurrent episode, moderate: Status: Acute Code(s): F33.1 - Major depressive disorder, recurrent, moderate (2) Post traumatic stress disorder (PTSD): Status: Acute Code(s): F43.10 - Post-traumatic stress disorder, unspecified (3) CHELLE (generalized anxiety disorder): Status: Acute Code(s): F41.1 - Generalized anxiety disorder (4) AMS (altered mental status): Status: Acute Code(s): R41.82 - Altered mental status, unspecified (5) Right rib fracture: Status: Acute Code(s): S22.31XA - Fracture of one rib, right side, initial encounter for closed fracture Plan HPI: patient is a 55 years old, single Yoruba-speaking white female with hx of MDD, CHELLE, PTSD disorders, right rib fracture, COPD who was recently admitted to [facility] (from 03/20 to 04/20) due to worsening depression symptoms. Patient brought to [facility] on section 21 from [facility] secondary to altered mental status following a fall. [facility] was contacted after patient was medically clear from [facility] ED, the facility reported that they were unable to accommodate her current needs and recommended placement in long-term facility due to multiple falls on the unit. Formulation/clinical reasoning: AMS, increased in depressions and anxiety, multiple falls, Right rib fracture. Not functions at baseline, confused, paranoid. Given the above information, patient will be benefit in psychiatric restrictive environment, on S1 for own safety, medication adjustment, and refer patient to outpatient psychiatric services for aftercare. 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 Hospital course: 04/23/25: Discontinue Topiramate- was taper down and off from Topiramate). On multiple meds that can cause AMS and fall. Down Seorquel from 500 to 400mg. Valium 10mg TID. Will work on taper down in the future. Change Cogentin 0.5mg BID to PRN Lower Trazodone 250mg at HS down to 200mg. Continue with Melatonin 6 mg Continue with Gabapentin 300 TID. 04/24/25: Meet with patient in room, she lying flat in bed. Respond to the question fast than yesterday. Better affect, appears more relax. She has concerns regarding her belongings which she thinks they are lost.b Denies SI/SIB/HI/AVH. Appear to be paranoid and confused. Knowing she is at [facility] but think she is at [facility] at first, knowing her , current month and year. Isolative, do not want to come out to dinning area for meals. Report right rib pain. Per hospitalist, patient had right side rib and nose fractures after the fall. Head CT scan negative. Question if she has brain injured hx that could affect her functions in the past. Per KING, Keila is a friend of her who is working as a nurse at [facility] and also is patient's HCP. Patient sectioned 21 from [facility] ()after the fall. [facility] could not provide needed care, therefore did not want to take her back which could be the reason why her belongings were not transferred when she sent to [facility] ED. Attempted to contact provider there for collateral regarding med changes hx and to see if her belongings are still there. Not heard back from them yet. Patient slept 7 hours last night. Will change Melatonin to PRN. Continue to monitor for AMS. Compared to on the day I saw her on Tuesday utnil today. Slightly improved with meds change. Slight with Clear thoughts 04/25: She reports severe anxiety and depression. She also reports chronic pain to lower back and bilateral lower extremities/neuropathy. Continue current treatment regimen. 04/26/25: Meet with with patient in assigned room, wearing casual attire, reports pain /10 when moving on ribs area. Educate patient on as needed Tylenol if she needs to take. Knowing her date of , reluctant to give location where she is at but knowing she is at [facility] at the end. Reports feeling tired rated anxiety and depression 8/10. Slowly coming to the unit for meals. Observed walking to dining area without the walker for lunch. Somewhat poor appetite but slightly improve. Denies suicidal thoughts or homicidal thoughts, and hallucinations. Slowly but slightly improved, has confused. She does not appear to be anxious, but depressed. Isolated mostly in her room, pleasant and cooperative upon approach. Continued to reduce lowered down on Seroquel from 400 to 300 at bedtime. Not albe to discuss with patient regarding med change as patient can be very overwhelmed which in turn can make anxiety worse. 04/27: continue current management and treatment plan. 04/28: continue current management and treatment plan. 04/29/25: Patient isolated herself in room, not out for meals, reports poor appetite. Reviewed the expectation moving forward that patient should be out for meals, engaged in unit activities and groups, and shower. Patient received some items/belonging from [facility] which was dropped off today. Patient reported that she still missing some items like bank card. Appeared to be less confused, knowing this provider's name, knowing where she is. Able to review and discuss medication changes which this provider was not able to discuss before as patient appeared to be easily getting overwhelmed. Patient is aware that Topamax is not a on her list. Seroquel from 500 down to 200. Denies safety concerns, hallucinations, continued to be depressant anxious. Continue with medication management/adjustment. No falls. Can observe walking in room without the walker. 04/30/25: Patient got shower this morning, observed out in dinning area most of the day, attended groups as encouraged to do so yesterday. Patient also has a good visit with mom. Report she slept but feeling scattered sleep, report anxiety and depression. Ambulate using walker. Appetite slightly better compare to yesterday as she did not eat yesterday. Report pain but does not believe PRN will help, therefore she does not take any which she has not tried yet. Patient tolerates well with medication changes. Continue to monitor for mental status change, less confused but some cognitive impairment and memory issues. Self report that patient has never felt confused before. OT evaluation done. Suggested to use walker for ambulation. Clotrimazole cream BID on face. 05/01/25: Meet with patient in room, appear tired and slept after breakfast. Compliant with meds, denies side effects. Slept for 8 hours. Medication titration does not affect her sleep or mood so far. Ambulate safe with walker. No falls Discuss to further medication titration which still start on BZD-Valium. Explained rationale for the taper. Patient reports she has been taking Valium for 36 years, it is too late to fix if any damange, negative effects on her brain functions. However, patient is not arguing if dose is reduced and down, Pain on ribs areas a 4-5/10. Continue to encourage out of bed and attend groups later on if able to do so. Per OT, patient appears to be confused with task duing group time. In term of memory and confusion regarding surrounding, patient is more alert and awake. She is more engaged in unit activities. Had visit with mom at 1500 yesterday and a visit with her best tl- Keila- her HCP. Valium down from 30mg in divided dose to 25mg in devided dose. Plan Patient on 5 minute checks for safety. Ambulate using walker Admitted to S1. CV. Fall Precaution. Work with treatment team to do collateral. Seen by Hospitalist on 04/23/25. Patient educated on: diagnosis, medication risk/benefits and therapeutic strategies Informed Consent: understands and further education needed Reason for continued inpatient stay Substantial Risk for: med/psych decompensation Time Spent With Patient Time: Total time managing care of this patient today ____ minutes.
[2025-05-01 20:00] VITALS: BP 122/60; PULSE 68; RESP 16; TEMP 36.2; O2SAT 98
[2025-05-02 08:35] VITALS: BP 125/59; PULSE 66; RESP 18; TEMP 36.7; O2SAT 96
[2025-05-02] MEDS: Fluticasone/Vilanterol 100/25 BLST.W.DEV 1 PUFF INHALE (09:28)
[2025-05-02] MEDS: Venlafaxine HCl ER 150 MG CAP.ER.24H PO (09:29)
[2025-05-02] MEDS: Cholecalciferol (Vitamin D3) 10 MCG TABLET PO (09:29)
[2025-05-02 12:05] VITALS: BMI 29.3
--- NOTE | 2025-05-02 15:02 | PC.NURSE ---
RN offered pt the Influenza Vaccine. Pt refused the Influenza Vaccine at this time and stated I don't get those, but thank you.
[2025-05-02 20:00] VITALS: BP 132/65; PULSE 84; RESP 16; TEMP 36.9; O2SAT 94
[2025-05-02] MEDS: Clotrimazole 1 % Cream 15 GM TUBE 1 APPL TOPICAL (20:11)
--- NOTE | 2025-05-02 23:03 | HO.PSYCHPN ---
Subjective Subjective Date of Service: 05/02/25 Reason For Visit: AMS/inc Subjective Notes: Conditional Voluntary Healthcare Proxy: Yes Guardianship: No Medical Problems Affecting Mental Status: No Interim History: Medical record and nursing notes reviewed; case discussed during rounds with team/nursing staff, and met with patient for supportive therapy/psychoeducation, as well as medication management. Patient slept for 7 hours, compliant with medications, denies side effects. Patient did not wake up for breakfast, but for lunch per nursing. She is visible in activities area. Ambulate with walker. No falls. Review with patient regarding medication change in terms of benzo-Valium to taper down. Patient is worry about this provider will take the benzo away. Confirmed with patient that, she still has Valium, but dose will be reduced to see if it is helpful with the confusion. Patient is forgetful, not remember what this provider role is, she thinks this provider works for [facility]. Patient is confused, flat but less sedated. Appetite is improving. Patient requests to have family meeting, would like to have Keila-HCP the joint meeting if possible to get opinion of she is at baseline. He will work with social media campaign manager to make it happened. Possible next week. Medication Compliance: Yes Side effects from medications: No Attending Groups: Intermittent Review of Systems Acute medical concerns: No Medical Review of Systems: unchanged Review of Systems Review of Systems No SOB/wheezing. No N/V. Pain on right sided ribs and other body parts but does not want to take PRN. No coughing/ dizziness. Ambulating using walker. Yes all other systems are reviewed and are negative Mental Status Exam Mental Status Exam Narrative: Appearance: Casually dressed, adequate hygiene, unkempt hair, appears older than stated age Behavior: Calm and cooperative throughout the interview. Visible in common areas with encouragment. Eye contact is appropriate, and there are no signs of psychomotor agitation or retardation Speech: Soft spoken Thought process: More organized but still present with confusion. Thought content: Future oriented no self-harming thoughts Mood: anxious and depressed with slowly but mild improvement Affect: Flat SI:denies HI:denies VH/AH:none Delusions: Possible paranoia. No paranoid statement made. Insight/judgment: Fair Memory/cog: Alert, oriented x 4. grossly intact to conversational testing Diagnostics Vital Signs (24Hr): Vital Signs - 24 hr 05/02/25 08:35 05/02/25 20:00 Temperature 98.1 F 98.4 F Pulse Rate 66 84 Respiratory Rate 18 16 Blood Pressure 125/59 L 132/65 Pulse Oximetry 96 94 Oxygen Delivery Method Room Air Room Air BMI result Body Mass Index 29.3 Labs 04/20/25 17:11 04/23/25 07:51 Medications Medications Current Medications Acetaminophen (Acetaminophen 325 Mg Tablet) 650 mg PO Q6H PRN PRN Reason: Headache/Pain, Scale 1-10 Al Hydroxide/Mg Hydroxide (Magnesium Hydrox/Alum Hydrox 30 Ml Oral.Susp) 30 ml PO Q6H PRN PRN Reason: Heartburn/Nausea Albuterol Sulfate (Albuterol Sulfate 90 Mcg 8 Gm Inhaler) 2 puff INHALE RQ6H PRN PRN Reason: Shortness of Breath Benztropine Mesylate (Benztropine Mesylate 0.5 Mg Tablet) 0.5 mg PO BID PRN PRN Reason: EPS Clonidine (Clonidine 0.1 Mg Patch.Tdwk) 0.1 mg TRANSDERMA Tu@0900 [facility]LY [facility], [facility]1983; Protocol Last Admin: 04/30/25 10:29 Dose: 0.1 mg Clotrimazole (Clotrimazole 1 % Cream 15 Gm Tube) 1 appl TOPICAL BID [facility], [facility]; Protocol Last Admin: 05/02/25 20:11 Dose: 1 appl Diazepam (Diazepam 5 Mg Tablet) 10 mg PO BID [facility], [facility] Last Admin: 05/02/25 20:11 Dose: 10 mg Diazepam (Diazepam 5 Mg Tablet) 5 mg PO DAILY@1500 [facility], [facility] Last Admin: 05/02/25 15:00 Dose: 5 mg Dicyclomine HCl (Dicyclomine Hcl 10 Mg Capsule) 10 mg PO QID PRN PRN Reason: Spasms Fluticasone/Vilanterol (Fluticasone/Vilanterol 100/25 Blst.W.Dev) 1 puff INHALE DAILY [facility], [facility]1983 Last Admin: 05/02/25 09:28 Dose: 1 puff Gabapentin (Gabapentin 300 Mg Capsule) 300 mg PO TID [facility] Last Admin: 05/02/25 20:11 Dose: 300 mg Hydroxyzine HCl (Hydroxyzine Hcl 25 Mg Tablet) 25 mg PO Q6H PRN PRN Reason: mild anxiety Last Admin: 05/02/25 20:11 Dose: 25 mg Ibuprofen (Ibuprofen 600 Mg Tablet) 600 mg PO Q8H PRN PRN Reason: moderate to severe pain Last Admin: 04/29/25 09:17 Dose: 600 mg Magnesium Hydroxide (Milk Of Magnesia 30 Ml Oral.Susp) 30 ml PO DAILY PRN PRN Reason: Constipation Melatonin (Melatonin 3 Mg Tablet) 6 mg PO BEDTIME PRN PRN Reason: Insomnia Multivitamins/Vitamin C (Multivitamin Tablet) 1 tab PO DAILY [facility] Last Admin: 05/02/25 09:30 Dose: 1 tab Nicotine (Nicotine 21 Mg Patch.Td24) 21 mg TRANSDERMA DAILY PRN PRN Reason: nicotine craving Nicotine Polacrilex (Nicotine Polacrilex 2 Mg Gum) 2 mg BUCCAL Q2H PRN PRN Reason: Nicotine Cravings Omeprazole (Omeprazole 40 Mg Capsule.Dr) 40 mg PO DAILY@0630 [facility] Last Admin: 05/02/25 06:03 Dose: 40 mg Ondansetron HCl (Ondansetron Odt 4 Mg Tab.Rapdis) 4 mg TRANSLINGU Q8H PRN PRN Reason: Nausea and Vomiting Quetiapine Fumarate (Quetiapine Fumarate 200 Mg Tablet) 200 mg PO BEDTIME [facility] Last Admin: 05/02/25 20:11 Dose: 200 mg Trazodone HCl (Trazodone Hcl 100 Mg Tablet) 200 mg PO BEDTIME [facility] Last Admin: 05/02/25 20:11 Dose: 200 mg Venlafaxine HCl (Venlafaxine Hcl Er 150 Mg Cap.Er.24h) 150 mg PO DAILY [facility] Last Admin: 05/02/25 09:29 Dose: 150 mg Vitamin D (Cholecalciferol (Vitamin D3) 10 Mcg Tablet) 10 mcg PO DAILY [facility] Last Admin: 05/02/25 09:29 Dose: 10 mcg Allergies Allergies Allergy/AdvReac Type Severity Reaction Status Date / Time No Known Allergies (No Known Allergy Verified 04/20/25 13:53 Allergies*) Assessment & Plan Assessment & Plan (1) MDD (major depressive disorder), recurrent episode, moderate: Status: Acute Code(s): F33.1 - Major depressive disorder, recurrent, moderate (2) Post traumatic stress disorder (PTSD): Status: Acute Code(s): F43.10 - Post-traumatic stress disorder, unspecified (3) CHELLE (generalized anxiety disorder): Status: Acute Code(s): F41.1 - Generalized anxiety disorder (4) AMS (altered mental status): Status: Acute Code(s): R41.82 - Altered mental status, unspecified (5) Right rib fracture: Status: Acute Code(s): S22.31XA - Fracture of one rib, right side, initial encounter for closed fracture Plan HPI: patient is a 55 years old, single Somali-speaking white female with hx of MDD, CHELLE, PTSD disorders, right rib fracture, COPD who was recently admitted to [place] (from 03/20 to 04/20) due to worsening depression symptoms. Patient brought to [facility] on section 21 from [place] secondary to altered mental status following a fall. [facility] was contacted after patient was medically clear from [facility], the facility reported that they were unable to accommodate her current needs and recommended placement in shelter facility due to multiple falls on the unit. Formulation/clinical reasoning: AMS, increased in depressions and anxiety, multiple falls, Right rib fracture. Not functions at baseline, confused, paranoid. Given the above information, patient will be benefit in psychiatric restrictive environment, on S1 for own safety, medication adjustment, and refer patient to outpatient psychiatric services for aftercare. Patient has [employer] and [facility] history. Hospital course: 04/23/25: Discontinue Topiramate- was taper down and off from Topiramate). On multiple meds that can cause AMS and fall. Down Seorquel from 500 to 400mg. Valium 10mg TID. Will work on taper down in the future. Change Cogentin 0.5mg BID to PRN Lower Trazodone 250mg at HS down to 200mg. Continue with Melatonin 6 mg Continue with Gabapentin 300 TID. 04/24/25: Meet with patient in room, she lying flat in bed. Respond to the question fast than yesterday. Better affect, appears more relax. She has concerns regarding her belongings which she thinks they are lost.b Denies SI/SIB/HI/AVH. Appear to be paranoid and confused. Knowing she is at [facility] but think she is at [facility] at first, knowing her , current month and year. Isolative, do not want to come out to dinning area for meals. Report right rib pain. Per hospitalist, patient had right side rib and nose fractures after the fall. Head CT scan negative. Question if she has brain injured hx that could affect her functions in the past. Per SW, Keila is a friend of her who is working as a nurse at [facility] and also is patient's HCP. Patient sectioned 21 from [facility] ()after the fall. [facility] could not provide needed care, therefore did not want to take her back which could be the reason why her belongings were not transferred when she sent to [facility]. Attempted to contact provider there for collateral regarding med changes hx and to see if her belongings are still there. Not heard back from them yet. Patient slept 7 hours last night. Will change Melatonin to PRN. Continue to monitor for AMS. Compared to on the day I saw her on Tuesday utnil today. Slightly improved with meds change. Slight with Clear thoughts 04/25: She reports severe anxiety and depression. She also reports chronic pain to lower back and bilateral lower extremities/neuropathy. Continue current treatment regimen. 04/26/25: Meet with with patient in assigned room, wearing casual attire, reports pain /10 when moving on ribs area. Educate patient on as needed Tylenol if she needs to take. Knowing her date of , reluctant to give location where she is at but knowing she is at [facility] at the end. Reports feeling tired rated anxiety and depression 8/10. Slowly coming to the unit for meals. Observed walking to dining area without the walker for lunch. Somewhat poor appetite but slightly improve. Denies suicidal thoughts or homicidal thoughts, and hallucinations. Slowly but slightly improved, has confused. She does not appear to be anxious, but depressed. Isolated mostly in her room, pleasant and cooperative upon approach. Continued to reduce lowered down on Seroquel from 400 to 300 at bedtime. Not albe to discuss with patient regarding med change as patient can be very overwhelmed which in turn can make anxiety worse. 04/27: continue current management and treatment plan. 04/28: continue current management and treatment plan. 04/29/25: Patient isolated herself in room, not out for meals, reports poor appetite. Reviewed the expectation moving forward that patient should be out for meals, engaged in unit activities and groups, and shower. Patient received some items/belonging from [place] which was dropped off today. Patient reported that she still missing some items like bank card. Appeared to be less confused, knowing this provider's name, knowing where she is. Able to review and discuss medication changes which this provider was not able to discuss before as patient appeared to be easily getting overwhelmed. Patient is aware that Topamax is not a on her list. Seroquel from 500 down to 200. Denies safety concerns, hallucinations, continued to be depressant anxious. Continue with medication management/adjustment. No falls. Can observe walking in room without the walker. 04/30/25: Patient got shower this morning, observed out in dinning area most of the day, attended groups as encouraged to do so yesterday. Patient also has a good visit with mom. Report she slept but feeling scattered sleep, report anxiety and depression. Ambulate using walker. Appetite slightly better compare to yesterday as she did not eat yesterday. Report pain but does not believe PRN will help, therefore she does not take any which she has not tried yet. Patient tolerates well with medication changes. Continue to monitor for mental status change, less confused but some cognitive impairment and memory issues. Self report that patient has never felt confused before. OT evaluation done. Suggested to use walker for ambulation. Clotrimazole cream BID on face. 05/01/25: Meet with patient in room, appear tired and slept after breakfast. Compliant with meds, denies side effects. Slept for 8 hours. Medication titration does not affect her sleep or mood so far. Ambulate safe with walker. No falls Discuss to further medication titration which still start on BZD-Valium. Explained rationale for the taper. Patient reports she has been taking Valium for 36 years, it is too late to fix if any damange, negative effects on her brain functions. However, patient is not arguing if dose is reduced and down, Pain on ribs areas a 4-5/10. Continue to encourage out of bed and attend groups later on if able to do so. Per OT, patient appears to be confused with task duing group time. In term of memory and confusion regarding surrounding, patient is more alert and awake. She is more engaged in unit activities. Had visit with mom at 1500 yesterday and a visit with her best freind- Keila- her HCP. Valium down from 30mg in divided dose to 25mg in devided dose. 10/30/25: Patient slept for 7 hours, compliant with medications, denies side effects. Patient did not wake up for breakfast, but for lunch per nursing. She is visible in activities area. Ambulate with walker. No falls. Review with patient regarding medication change in terms of benzo-Valium to taper down. Patient is worry about this provider will take the benzo away. Confirmed with patient that, she still has Valium, but dose will be reduced to see if it is helpful with the confusion. Patient is forgetful, not remember what this provider role is, she thinks this provider works for [facility]. Patient is confused, flat but less sedated. Appetite is improving. Patient requests to have family meeting, would like to have Keila-HCP the joint meeting if possible to get opinion of she is at baseline. He will work with social media campaign manager to make it happened. Possible next week. Plan Patient on 5 minute checks for safety. Ambulate using walker Admitted to S1. CV. Fall Precaution. Work with treatment team to do collateral. Seen by Hospitalist on 04/23/25. Patient educated on: medication risk/benefits and therapeutic strategies Informed Consent: further education needed Reason for continued inpatient stay Substantial Risk for: med/psych decompensation Time Spent With Patient Time: Total time managing care of this patient today ____ minutes.
[2025-05-03 08:50] VITALS: BP 110/62; PULSE 63; RESP 18; TEMP 36.7; O2SAT 95
[2025-05-03] MEDS: Venlafaxine HCl ER 150 MG CAP.ER.24H PO (08:50)
[2025-05-03] MEDS: Cholecalciferol (Vitamin D3) 10 MCG TABLET PO (08:50)
[2025-05-03] MEDS: Fluticasone/Vilanterol 100/25 BLST.W.DEV 1 PUFF INHALE (08:56)
--- NOTE | 2025-05-03 10:32 | P.PNPSI_ITS ---
Subjective Subjective Date of Service: 05/03/25 Reason For Visit: AMS/inc Subjective Notes: Conditional Voluntary Healthcare Proxy: Yes Guardianship: No Medical Problems Affecting Mental Status: No Interim History: Medical record and nursing notes reviewed; case discussed during rounds with team/nursing staff, and met with patient for supportive therapy/psychoeducation, as well as medication management. Patent reports that she feels rested, appetite is fair. Mood is the same but very upset today regarding missing items from her belonging which is not a new issues. OT staff was able to help her sort it out and called HCP to cancel her bank card. Patient believes her items were stolen from [employer] and is not happy with the care received there. Per OT assessment: scored a 3.2 on the Shiva Cognitive Level Screen indicating severe cognitive functional impairment and the need for 24 hour care, 60% cognitive assistance. Pt was able to remember having taken the MoCA and also remembered her score of 10/30 having been administered by the preceding admitting facility, therefore administering the MoCA again would render it invalid. Will revisit and assess in the future. Patient is perseveration and worry about her belongings, ambulate using walker, appear to be confused and with cognitive impairment as indicated from OT assessment. Continue with BZD taper. No change in term of medications. Medication Compliance: Yes Side effects from medications: No Attending Groups: Intermittent Review of Systems Acute medical concerns: No Medical Review of Systems: unchanged Review of Systems Review of Systems No SOB/wheezing. No N/V. Pain on right sided ribs and other body parts but does not want to take PRN. No coughing/ dizziness. Ambulating using walker. 05/03: scored a 3.2 on the Shiva Cognitive Level Screen indicating severe cognitive functional impairment and the need for 24 hour care, 60% cognitive assistance. Pt was able to remember having taken the MoCA and also remembered her score of 10/30 having been administered by the preceding admitting facility, therefore administering the MoCA again would render it invalid Yes all other systems are reviewed and are negative Mental Status Exam Mental Status Exam Narrative: Appearance: Casually dressed, adequate hygiene, unkempt hair, appears older than stated age Behavior: anxious, worry but cooperative throughout the interview. Visible in common areas with encouragement. Eye contact is appropriate, and there are no signs of psychomotor agitation or retardation Speech: Soft spoken Thought process: More organized but still present with confusion. Thought content: Future oriented, no self-harming thoughts Mood: anxious and depressed, slowly improvement Affect: Flat SI:denies HI:denies VH/AH:none Delusions: Possible paranoia. No paranoid statement made. Insight/judgment: Fair Memory/cog: Alert, oriented x 4. grossly intact to conversational testing Diagnostics Vital Signs (24Hr): Vital Signs - 24 hr 05/02/25 20:00 05/03/25 08:50 Temperature 98.4 F 98.0 F Pulse Rate 84 63 Respiratory Rate 16 18 Blood Pressure 132/65 110/62 Pulse Oximetry 94 95 Oxygen Delivery Method Room Air Room Air BMI result Body Mass Index 29.3 Labs 04/20/25 17:11 04/23/25 07:51 Medications Medications Current Medications Acetaminophen (Acetaminophen 325 Mg Tablet) 650 mg PO Q6H PRN PRN Reason: Headache/Pain, Scale 1-10 Al Hydroxide/Mg Hydroxide (Magnesium Hydrox/Alum Hydrox 30 Ml Oral.Susp) 30 ml PO Q6H PRN PRN Reason: Heartburn/Nausea Albuterol Sulfate (Albuterol Sulfate 90 Mcg 8 Gm Inhaler) 2 puff INHALE RQ6H PRN PRN Reason: Shortness of Breath Benztropine Mesylate (Benztropine Mesylate 0.5 Mg Tablet) 0.5 mg PO BID PRN PRN Reason: EPS Clonidine (Clonidine 0.1 Mg Patch.Tdwk) 0.1 mg TRANSDERMA Tu@0900 [facility]; Protocol Last Admin: 04/30/25 10:29 Dose: 0.1 mg Clotrimazole (Clotrimazole 1 % Cream 15 Gm Tube) 1 appl TOPICAL BID [facility]; Protocol Last Admin: 05/03/25 08:50 Dose: Not Given Diazepam (Diazepam 5 Mg Tablet) 10 mg PO BID [facility] Last Admin: 05/03/25 08:50 Dose: 10 mg Diazepam (Diazepam 5 Mg Tablet) 5 mg PO DAILY@1500 [facility] Last Admin: 05/02/25 15:00 Dose: 5 mg Dicyclomine HCl (Dicyclomine Hcl 10 Mg Capsule) 10 mg PO QID PRN PRN Reason: Spasms Fluticasone/Vilanterol (Fluticasone/Vilanterol 100/25 Blst.W.Dev) 1 puff INHALE DAILY [facility] Last Admin: 05/03/25 08:56 Dose: 1 puff Gabapentin (Gabapentin 300 Mg Capsule) 300 mg PO TID [facility] Last Admin: 05/03/25 08:50 Dose: 300 mg Hydroxyzine HCl (Hydroxyzine Hcl 25 Mg Tablet) 25 mg PO Q6H PRN PRN Reason: mild anxiety Last Admin: 05/02/25 20:11 Dose: 25 mg Ibuprofen (Ibuprofen 600 Mg Tablet) 600 mg PO Q8H PRN PRN Reason: moderate to severe pain Last Admin: 04/29/25 09:17 Dose: 600 mg Magnesium Hydroxide (Milk Of Magnesia 30 Ml Oral.Susp) 30 ml PO DAILY PRN PRN Reason: Constipation Melatonin (Melatonin 3 Mg Tablet) 6 mg PO BEDTIME PRN PRN Reason: Insomnia Multivitamins/Vitamin C (Multivitamin Tablet) 1 tab PO DAILY [facility] Last Admin: 05/03/25 08:50 Dose: 1 tab Nicotine (Nicotine 21 Mg Patch.Td24) 21 mg TRANSDERMA DAILY PRN PRN Reason: nicotine craving Nicotine Polacrilex (Nicotine Polacrilex 2 Mg Gum) 2 mg BUCCAL Q2H PRN PRN Reason: Nicotine Cravings Omeprazole (Omeprazole 40 Mg Capsule.Dr) 40 mg PO DAILY@0630 [facility] Last Admin: 05/03/25 05:49 Dose: 40 mg Ondansetron HCl (Ondansetron Odt 4 Mg Tab.Rapdis) 4 mg TRANSLINGU Q8H PRN PRN Reason: Nausea and Vomiting Quetiapine Fumarate (Quetiapine Fumarate 200 Mg Tablet) 200 mg PO BEDTIME [facility] Last Admin: 05/02/25 20:11 Dose: 200 mg Trazodone HCl (Trazodone Hcl 100 Mg Tablet) 200 mg PO BEDTIME [facility] Last Admin: 05/02/25 20:11 Dose: 200 mg Venlafaxine HCl (Venlafaxine Hcl Er 150 Mg Cap.Er.24h) 150 mg PO DAILY [facility] Last Admin: 05/03/25 08:50 Dose: 150 mg Vitamin D (Cholecalciferol (Vitamin D3) 10 Mcg Tablet) 10 mcg PO DAILY [facility] Last Admin: 05/03/25 08:50 Dose: 10 mcg Allergies Allergies Allergy/AdvReac Type Severity Reaction Status Date / Time No Known Allergies (No Known Allergy Verified 04/20/25 13:53 Allergies*) Assessment & Plan Assessment & Plan (1) MDD (major depressive disorder), recurrent episode, moderate: Status: Acute Code(s): F33.1 - Major depressive disorder, recurrent, moderate (2) Post traumatic stress disorder (PTSD): Status: Acute Code(s): F43.10 - Post-traumatic stress disorder, unspecified (3) CHELLE (generalized anxiety disorder): Status: Acute Code(s): F41.1 - Generalized anxiety disorder (4) AMS (altered mental status): Status: Acute Code(s): R41.82 - Altered mental status, unspecified (5) Right rib fracture: Status: Acute Code(s): S22.31XA - Fracture of one rib, right side, initial encounter for closed fracture Plan HPI: patient is a 55 years old, single [place]an-speaking white female with hx of MDD, CHELLE, PTSD disorders, right rib fracture, COPD who was recently admitted to [facility] (from 03/20 to 04/20) due to worsening depression symptoms. Patient brought to [facility] on section 21 from [facility] secondary to altered mental status following a fall. [place] was contacted after patient was medically clear from [facility] ED, the facility reported that they were unable to accommodate her current needs and recommended placement in halfway facility due to multiple falls on the unit. Formulation/clinical reasoning: AMS, increased in depressions and anxiety, multiple falls, Right rib fracture. Not functions at baseline, confused, paranoid. Given the above information, patient will be benefit in psychiatric restrictive environment, on S1 for own safety, medication adjustment, and refer patient to outpatient psychiatric services for aftercare. Patient has [facility] and [facility] history. Hospital course: 04/23/25: Discontinue Topiramate- was taper down and off from Topiramate). On multiple meds that can cause AMS and fall. Down Seorquel from 500 to 400mg. Valium 10mg TID. Will work on taper down in the future. Change Cogentin 0.5mg BID to PRN Lower Trazodone 250mg at HS down to 200mg. Continue with Melatonin 6 mg Continue with Gabapentin 300 TID. 04/24/25: Meet with patient in room, she lying flat in bed. Respond to the question fast than yesterday. Better affect, appears more relax. She has concerns regarding her belongings which she thinks they are lost.b Denies SI/SIB/HI/AVH. Appear to be paranoid and confused. Knowing she is at [facility] but think she is at [facility] at first, knowing her , current month and year. Isolative, do not want to come out to dinning area for meals. Report right rib pain. Per hospitalist, patient had right side rib and nose fractures after the fall. Head CT scan negative. Question if she has brain injured hx that could affect her functions in the past. Per SW, Keila is a friend of her who is working as a nurse at [facility] and also is patient's HCP. Patient sectioned 21 from [facility] ()after the fall. could not provide needed care, therefore did not want to take her back which could be the reason why her belongings were not transferred when she sent to [facility] ED. Attempted to contact provider there for collateral regarding med changes hx and to see if her belongings are still there. Not heard back from them yet. Patient slept 7 hours last night. Will change Melatonin to PRN. Continue to monitor for AMS. Compared to on the day I saw her on Tuesday utnil today. Slightly improved with meds change. Slight with Clear thoughts 04/25: She reports severe anxiety and depression. She also reports chronic pain to lower back and bilateral lower extremities/neuropathy. Continue current treatment regimen. 04/26/25: Meet with with patient in assigned room, wearing casual attire, reports pain 9/10 when moving on ribs area. Educate patient on as needed Tylenol if she needs to take. Knowing her date of , reluctant to give location where she is at but knowing she is at [facility] at the end. Reports feeling tired rated anxiety and depression 8/10. Slowly coming to the unit for meals. Observed walking to dining area without the walker for lunch. Somewhat poor appetite but slightly improve. Denies suicidal thoughts or homicidal thoughts, and hallucinations. Slowly but slightly improved, has confused. She does not appear to be anxious, but depressed. Isolated mostly in her room, pleasant and cooperative upon approach. Continued to reduce lowered down on Seroquel from 400 to 300 at bedtime. Not albe to discuss with patient regarding med change as patient can be very overwhelmed which in turn can make anxiety worse. 04/27: continue current management and treatment plan. 04/28: continue current management and treatment plan. 04/29/25: Patient isolated herself in room, not out for meals, reports poor appetite. Reviewed the expectation moving forward that patient should be out for meals, engaged in unit activities and groups, and shower. Patient received some items/belonging from [employer] which was dropped off today. Patient reported that she still missing some items like bank card. Appeared to be less confused, knowing this provider's name, knowing where she is. Able to review and discuss medication changes which this provider was not able to discuss before as patient appeared to be easily getting overwhelmed. Patient is aware that Topamax is not a on her list. Seroquel from 500 down to 200. Denies safety concerns, hallucinations, continued to be depressant anxious. Continue with medication management/adjustment. No falls. Can observe walking in room without the walker. 04/30/25: Patient got shower this morning, observed out in dinning area most of the day, attended groups as encouraged to do so yesterday. Patient also has a good visit with mom. Report she slept but feeling scattered sleep, report anxiety and depression. Ambulate using walker. Appetite slightly better compare to yesterday as she did not eat yesterday. Report pain but does not believe PRN will help, therefore she does not take any which she has not tried yet. Patient tolerates well with medication changes. Continue to monitor for mental status change, less confused but some cognitive impairment and memory issues. Self report that patient has never felt confused before. OT evaluation done. Suggested to use walker for ambulation. Clotrimazole cream BID on face. 05/01/25: Meet with patient in room, appear tired and slept after breakfast. Compliant with meds, denies side effects. Slept for 8 hours. Medication titration does not affect her sleep or mood so far. Ambulate safe with walker. No falls Discuss to further medication titration which still start on BZD-Valium. Explained rationale for the taper. Patient reports she has been taking Valium for 36 years, it is too late to fix if any damange, negative effects on her brain functions. However, patient is not arguing if dose is reduced and down, Pain on ribs areas a 4-5/10. Continue to encourage out of bed and attend groups later on if able to do so. Per OT, patient appears to be confused with task duing group time. In term of memory and confusion regarding surrounding, patient is more alert and awake. She is more engaged in unit activities. Had visit with mom at 1500 yesterday and a visit with her best tl- Keila- her HCP. Valium down from 30mg in divided dose to 25mg in devided dose. 05/02/25: Patient slept for 7 hours, compliant with medications, denies side effects. Patient did not wake up for breakfast, but for lunch per nursing. She is visible in activities area. Ambulate with walker. No falls. Review with patient regarding medication change in terms of benzo-Valium to taper down. Patient is worry about this provider will take the benzo away. Confirmed with patient that, she still has Valium, but dose will be reduced to see if it is helpful with the confusion. Patient is forgetful, not remember what this provider role is, she thinks this provider works for [facility]. Patient is confused, flat but less sedated. Appetite is improving. Patient requests to have family meeting, would like to have Keila-HCP the joint meeting if possible to get opinion of she is at baseline. He will work with web content & social media manager to make it happened. Possible next week. 05/03/25: Patent reports that she feels rested, appetite is fair. Mood is the same but very upset today regarding missing items from her belonging which is not a new issues. OT staff was able to help her sort it out and called HCP to cancel her bank card. Patient believes her items were stolen from [employer] and is not happy with the care received there. Per OT assessment: scored a 3.2 on the Shiva Cognitive Level Screen indicating severe cognitive functional impairment and the need for 24 hour care, 60% cognitive assistance. Pt was able to remember having taken the MoCA and also remembered her score of 10/30 having been administered by the preceding admitting facility, therefore administering the MoCA again would render it invalid. Will revisit and assess in the future. Patient is perseveration and worry about her belongings, ambulate using walker, appear to be confused and with cognitive impairment as indicated from OT assessment. Continue with BZD taper. No change in term of medications. Plan Patient on 5 minute checks for safety. Ambulate using walker Admitted to S1. CV. Fall Precaution. Work with treatment team to do collateral. Seen by Hospitalist on 04/23/25. On 05/03: scored a 3.2 on the Shiva Cognitive Level Screen indicating severe cognitive functional impairment and the need for 24 hour care, 60% cognitive assistance. Pt was able to remember having taken the MoCA and also remembered her score of 10/30 having been administered by the preceding admitting facility, therefore administering the MoCA again would render it invalid Patient educated on: diagnosis, medication risk/benefits and therapeutic strategies Informed Consent: understands and further education needed Reason for continued inpatient stay Substantial Risk for: med/psych decompensation Time Spent With Patient Time: Total time managing care of this patient today ____ minutes.
--- NOTE | 2025-05-03 16:26 | PC.NURSE ---
ACLS and MOCA: pt scored a 3.2 on the Shiva Cognitive Level Screen indicating severe cognitive functional impairment and the need for 24 hour care, 60% cognitive assistance. Pt was able to remember having taken the MoCA and also remembered her score of 10/30 having been administered by the preceding admitting facility, therefore administering the MoCA again would render it invalid.
[2025-05-03 20:00] VITALS: BP 139/67; PULSE 86; RESP 18; TEMP 36.8; O2SAT 97
[2025-05-04 08:52] VITALS: BP 116/56; PULSE 67; RESP 16; TEMP 36.7; O2SAT 94
[2025-05-04] MEDS: Cholecalciferol (Vitamin D3) 10 MCG TABLET PO (08:53)
[2025-05-04] MEDS: Venlafaxine HCl ER 150 MG CAP.ER.24H PO (08:53)
[2025-05-04] MEDS: Clotrimazole 1 % Cream 15 GM TUBE 1 APPL TOPICAL (08:53)
[2025-05-04] MEDS: Fluticasone/Vilanterol 100/25 BLST.W.DEV 1 PUFF INHALE (08:54)
[2025-05-04 20:00] VITALS: BP 125/71; PULSE 72; RESP 18; TEMP 36.7; O2SAT 97
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
[2025-05-05 07:55] VITALS: BP 112/59; PULSE 67; RESP 17; TEMP 36.8; O2SAT 97
[2025-05-05] MEDS: Venlafaxine HCl ER 150 MG CAP.ER.24H PO (08:38)
[2025-05-05] MEDS: Fluticasone/Vilanterol 100/25 BLST.W.DEV 1 PUFF INHALE (08:38)
[2025-05-05] MEDS: Cholecalciferol (Vitamin D3) 10 MCG TABLET PO (08:38)
--- NOTE | 2025-05-05 19:02 | P.PNPSI_ITS ---
Subjective Subjective Date of Service: 05/05/25 Reason For Visit: AMS/inc Interim History: chart reviewed, case discussed w/ nursing staff per nursing report- slept better w/ new roommate Met w/ pt in exam room since she wanted to speak in private. she discussed events leading up to this admission, including negative experience at other [facility] hospital. States that she's been having issues w/ her memory, which has been embarrassing. Recalls fragments of recent stressful experiences. Forgets what she's saying mid-sentence at times. She expresses gratitude for care received here. Physical pain gradually improving Feels anxious and endorses ongoing issues w/ insomnia since Seroquel was reduced. She states that it was likely lowered 2/2 concern that it contributed to the falls. Denies SI MSE: Appearance: casual, grooming/hygiene wnl, good eye contact Attitude:Cooperative Motor activity: ambulates w/ walker. no tics, tremors or dyskinesias Speech: Fluent and wnl in regard to volume, tone, prosody Motor activity: Calm Mood: as noted above Affect: appropriate, reactive, brightens up appropriately Thought process: circumstantial, lost train of thought a few times and was aware of it Thought content: as noted above. Perception: does not appear to respond to internal stimuli Medication Compliance: Yes Diagnostics Vital Signs (24Hr): Vital Signs - 24 hr 05/05/25 07:55 Temperature 98.3 F Pulse Rate 67 Respiratory Rate 17 Blood Pressure 112/59 L Pulse Oximetry 97 Oxygen Delivery Method Room Air BMI result Body Mass Index 29.3 Labs 04/20/25 17:11 04/23/25 07:51 Medications Medications Current Medications Acetaminophen (Acetaminophen 325 Mg Tablet) 650 mg PO Q6H PRN PRN Reason: Headache/Pain, Scale 1-10 Al Hydroxide/Mg Hydroxide (Magnesium Hydrox/Alum Hydrox 30 Ml Oral.Susp) 30 ml PO Q6H PRN PRN Reason: Heartburn/Nausea Albuterol Sulfate (Albuterol Sulfate 90 Mcg 8 Gm Inhaler) 2 puff INHALE RQ6H PRN PRN Reason: Shortness of Breath Benztropine Mesylate (Benztropine Mesylate 0.5 Mg Tablet) 0.5 mg PO BID PRN PRN Reason: EPS Clonidine (Clonidine 0.1 Mg Patch.Tdwk) 0.1 mg TRANSDERMA Tu@0900 [facility]; Protocol Last Admin: 04/30/25 10:29 Dose: 0.1 mg Clotrimazole (Clotrimazole 1 % Cream 15 Gm Tube) 1 appl TOPICAL BID [facility]; Protocol Last Admin: 05/05/25 08:42 Dose: Not Given Diazepam (Diazepam 5 Mg Tablet) 10 mg PO BID [facility] Last Admin: 05/05/25 08:38 Dose: 10 mg Diazepam (Diazepam 5 Mg Tablet) 5 mg PO DAILY@1500 [facility] Last Admin: 05/05/25 14:10 Dose: 5 mg Dicyclomine HCl (Dicyclomine Hcl 10 Mg Capsule) 10 mg PO QID PRN PRN Reason: Spasms Fluticasone/Vilanterol (Fluticasone/Vilanterol 100/25 Blst.W.Dev) 1 puff INHALE DAILY [facility] Last Admin: 05/05/25 08:38 Dose: 1 puff Gabapentin (Gabapentin 300 Mg Capsule) 300 mg PO TID [facility] Last Admin: 05/05/25 14:10 Dose: 300 mg Hydroxyzine HCl (Hydroxyzine Hcl 25 Mg Tablet) 25 mg PO Q6H PRN PRN Reason: mild anxiety Last Admin: 05/02/25 20:11 Dose: 25 mg Ibuprofen (Ibuprofen 600 Mg Tablet) 600 mg PO Q8H PRN PRN Reason: moderate to severe pain Last Admin: 04/29/25 09:17 Dose: 600 mg Magnesium Hydroxide (Milk Of Magnesia 30 Ml Oral.Susp) 30 ml PO DAILY PRN PRN Reason: Constipation Melatonin (Melatonin 3 Mg Tablet) 6 mg PO BEDTIME PRN PRN Reason: Insomnia Multivitamins/Vitamin C (Multivitamin Tablet) 1 tab PO DAILY [facility] Last Admin: 05/05/25 08:38 Dose: 1 tab Nicotine (Nicotine 21 Mg Patch.Td24) 21 mg TRANSDERMA DAILY PRN PRN Reason: nicotine craving Nicotine Polacrilex (Nicotine Polacrilex 2 Mg Gum) 2 mg BUCCAL Q2H PRN PRN Reason: Nicotine Cravings Omeprazole (Omeprazole 40 Mg Capsule.Dr) 40 mg PO DAILY@0630 [facility] Last Admin: 05/05/25 05:41 Dose: 40 mg Ondansetron HCl (Ondansetron Odt 4 Mg Tab.Rapdis) 4 mg TRANSLINGU Q8H PRN PRN Reason: Nausea and Vomiting Quetiapine Fumarate (Quetiapine Fumarate 200 Mg Tablet) 200 mg PO BEDTIME [facility] Last Admin: 05/04/25 20:16 Dose: 200 mg Trazodone HCl (Trazodone Hcl 100 Mg Tablet) 200 mg PO BEDTIME [facility] Last Admin: 05/04/25 20:16 Dose: 200 mg Venlafaxine HCl (Venlafaxine Hcl Er 150 Mg Cap.Er.24h) 150 mg PO DAILY [facility] Last Admin: 05/05/25 08:38 Dose: 150 mg Vitamin D (Cholecalciferol (Vitamin D3) 10 Mcg Tablet) 10 mcg PO DAILY [facility] Last Admin: 05/05/25 08:38 Dose: 10 mcg Allergies Allergies Allergy/AdvReac Type Severity Reaction Status Date / Time No Known Allergies (No Known Allergy Verified 04/20/25 13:53 Allergies*) Assessment & Plan Assessment & Plan (1) MDD (major depressive disorder), recurrent episode, moderate: Status: Acute Code(s): F33.1 - Major depressive disorder, recurrent, moderate (2) Post traumatic stress disorder (PTSD): Status: Acute Code(s): F43.10 - Post-traumatic stress disorder, unspecified (3) CHELLE (generalized anxiety disorder): Status: Acute Code(s): F41.1 - Generalized anxiety disorder (4) AMS (altered mental status): Status: Acute Code(s): R41.82 - Altered mental status, unspecified (5) Right rib fracture: Status: Acute Code(s): S22.31XA - Fracture of one rib, right side, initial encounter for closed fracture Plan HPI: patient is a 55 years old, single Somali-speaking white female with hx of MDD, CHELLE, PTSD disorders, right rib fracture, COPD who was recently admitted to [facility] (from 03/20 to 04/20) due to worsening depression symptoms. Patient brought to [facility] on section 21 from [facility] secondary to altered mental status following a fall. [facility] was contacted after patient was medically clear from [facility] ED, the facility reported that they were unable to accommodate her current needs and recommended placement in jail facility due to multiple falls on the unit. Formulation/clinical reasoning: AMS, increased in depressions and anxiety, multiple falls, Right rib fracture. Not functions at baseline, confused, paranoid. Given the above information, patient will be benefit in psychiatric restrictive environment, on S1 for own safety, medication adjustment, and refer patient to outpatient psychiatric services for aftercare. Patient has [employer] and [facility] history. Hospital course: 04/23/25: Discontinue Topiramate- was taper down and off from Topiramate). On multiple meds that can cause AMS and fall. Down Seorquel from 500 to 400mg. Valium 10mg TID. Will work on taper down in the future. Change Cogentin 0.5mg BID to PRN Lower Trazodone 250mg at down to 200mg. Continue with Melatonin 6 mg Continue with Gabapentin 300 TID. 04/24/25: Meet with patient in room, she lying flat in bed. Respond to the question fast than yesterday. Better affect, appears more relax. She has concerns regarding her belongings which she thinks they are lost.b Denies SI/SIB/HI/AVH. Appear to be paranoid and confused. Knowing she is at [facility] but think she is at [facility] at first, knowing her , current month and year. Isolative, do not want to come out to dinning area for meals. Report right rib pain. Per hospitalist, patient had right side rib and nose fractures after the fall. Head CT scan negative. Question if she has brain injured hx that could affect her functions in the past. Per SW, Keila is a friend of her who is working as a nurse at [facility] and also is patient's HCP. Patient sectioned 21 from [facility] ()after the fall. could not provide needed care, therefore did not want to take her back which could be the reason why her belongings were not transferred when she sent to [facility] ED. Attempted to contact provider there for collateral regarding med changes hx and to see if her belongings are still there. Not heard back from them yet. Patient slept 7 hours last night. Will change Melatonin to PRN. Continue to monitor for AMS. Compared to on the day I saw her on Tuesday utnil today. Slightly improved with meds change. Slight with Clear thoughts 04/25: She reports severe anxiety and depression. She also reports chronic pain to lower back and bilateral lower extremities/neuropathy. Continue current treatment regimen. 04/26/25: Meet with with patient in assigned room, wearing casual attire, reports pain 03/13 when moving on ribs area. Educate patient on as needed Tylenol if she needs to take. Knowing her date of , reluctant to give location where she is at but knowing she is at [facility] at the end. Reports feeling tired rated anxiety and depression 02/10. Slowly coming to the unit for meals. Observed walking to dining area without the walker for lunch. Somewhat poor appetite but slightly improve. Denies suicidal thoughts or homicidal thoughts, and hallucinations. Slowly but slightly improved, has confused. She does not appear to be anxious, but depressed. Isolated mostly in her room, pleasant and cooperative upon approach. Continued to reduce lowered down on Seroquel from 400 to 300 at bedtime. Not albe to discuss with patient regarding med change as patient can be very overwhelmed which in turn can make anxiety worse. 04/27: continue current management and treatment plan. 04/28: continue current management and treatment plan. 04/29/25: Patient isolated herself in room, not out for meals, reports poor appetite. Reviewed the expectation moving forward that patient should be out for meals, engaged in unit activities and groups, and shower. Patient received some items/belonging from [employer] which was dropped off today. Patient reported that she still missing some items like bank card. Appeared to be less confused, knowing this provider's name, knowing where she is. Able to review and discuss medication changes which this provider was not able to discuss before as patient appeared to be easily getting overwhelmed. Patient is aware that Topamax is not a on her list. Seroquel from 500 down to 200. Denies safety concerns, hallucinations, continued to be depressant anxious. Continue with medication management/adjustment. No falls. Can observe walking in room without the walker. 04/30/25: Patient got shower this morning, observed out in dinning area most of the day, attended groups as encouraged to do so yesterday. Patient also has a good visit with mom. Report she slept but feeling scattered sleep, report anxiety and depression. Ambulate using walker. Appetite slightly better compare to yesterday as she did not eat yesterday. Report pain but does not believe PRN will help, therefore she does not take any which she has not tried yet. Patient tolerates well with medication changes. Continue to monitor for mental status change, less confused but some cognitive impairment and memory issues. Self report that patient has never felt confused before. OT evaluation done. Suggested to use walker for ambulation. Clotrimazole cream BID on face. 05/01/25: Meet with patient in room, appear tired and slept after breakfast. Compliant with meds, denies side effects. Slept for 8 hours. Medication titration does not affect her sleep or mood so far. Ambulate safe with walker. No falls Discuss to further medication titration which still start on BZD-Valium. Explained rationale for the taper. Patient reports she has been taking Valium for 36 years, it is too late to fix if any damange, negative effects on her brain functions. However, patient is not arguing if dose is reduced and down, Pain on ribs areas a 4-5/10. Continue to encourage out of bed and attend groups later on if able to do so. Per OT, patient appears to be confused with task duing group time. In term of memory and confusion regarding surrounding, patient is more alert and awake. She is more engaged in unit activities. Had visit with mom at 1500 yesterday and a visit with her best anil Pedraza- her HCP. Valium down from 30mg in divided dose to 25mg in devided dose. 05/02/25: Patient slept for 7 hours, compliant with medications, denies side effects. Patient did not wake up for breakfast, but for lunch per nursing. She is visible in activities area. Ambulate with walker. No falls. Review with patient regarding medication change in terms of benzo-Valium to taper down. Patient is worry about this provider will take the benzo away. Confirmed with patient that, she still has Valium, but dose will be reduced to see if it is helpful with the confusion. Patient is forgetful, not remember what this provider role is, she thinks this provider works for [facility]. Patient is confused, flat but less sedated. Appetite is improving. Patient requests to have family meeting, would like to have Keila-HCP the joint meeting if possible to get opinion of she is at baseline. He will work with social work job titles to make it happened. Possible next week. 05/03/25: Patent reports that she feels rested, appetite is fair. Mood is the same but very upset today regarding missing items from her belonging which is not a new issues. OT staff was able to help her sort it out and called HCP to cancel her bank card. Patient believes her items were stolen from [employer] and is not happy with the care received there. Per OT assessment: scored a 3.2 on the [facility] Cognitive Level Screen indicating severe cognitive functional impairment and the need for 24 hour care, 60% cognitive assistance. Pt was able to remember having taken the MoCA and also remembered her score of 10/30 having been administered by the preceding admitting facility, therefore administering the MoCA again would render it invalid. Will revisit and assess in the future. Patient is perseveration and worry about her belongings, ambulate using walker, appear to be confused and with cognitive impairment as indicated from OT assessment. Continue with BZD taper. No change in term of medications. 05/04: Continue current tx plan 05/05: Reviewed recent med changes. Will titrate quetiapine to 250 mg tonight to optimize tx of insomnia/anxiety since diazepam has also been reduced since the initial quetiapine taper. Plan Patient on 5 minute checks for safety. Ambulate using walker Admitted to S1. CV. Fall Precaution. Work with treatment team to do collateral. Seen by Hospitalist on 04/23/25. On 05/03: scored a 3.2 on the [facility] Cognitive Level Screen indicating severe cognitive functional impairment and the need for 24 hour care, 60% cognitive assistance. Pt was able to remember having taken the MoCA and also remembered her score of 10/30 having been administered by the preceding admitting facility, therefore administering the MoCA again would render it invalid Reason for continued inpatient stay Substantial Risk for: med/psych decompensation Time Spent With Patient Time: Total time managing care of this patient today ____ minutes.
[2025-05-05 20:00] VITALS: BP 113/54; PULSE 78; RESP 16; TEMP 36.7; O2SAT 95
[2025-05-06 09:22] VITALS: BP 102/54; PULSE 80; RESP 16; TEMP 36.8; O2SAT 95
[2025-05-06] MEDS: Fluticasone/Vilanterol 100/25 BLST.W.DEV 1 PUFF INHALE (09:26)
[2025-05-06] MEDS: Venlafaxine HCl ER 150 MG CAP.ER.24H PO (09:27)
[2025-05-06] MEDS: Cholecalciferol (Vitamin D3) 10 MCG TABLET PO (09:27)
[2025-05-06] MEDS: Clotrimazole 1 % Cream 15 GM TUBE 1 APPL TOPICAL (09:32)
--- NOTE | 2025-05-06 12:34 | HO.PSYCHPN ---
Subjective Subjective Date of Service: 05/06/25 Reason For Visit: AMS/inc Subjective Notes: Conditional Voluntary Mental Status Exam Mental Status Exam Narrative: Appearance: casual, grooming/hygiene wnl, good eye contact Attitude:Cooperative Motor activity: ambulates w/ walker. no tics, tremors or dyskinesias Speech: Fluent and wnl in regard to volume, tone, prosody Motor activity: Calm Mood: as noted above Affect: appropriate, reactive, brightens up appropriately Thought process: more linear, noted forgetful about medications discussed during session and repeated questions Thought content: feeling depressed, worried about memory Perception: does not appear to respond to internal stimuli Delusions: no overt delusional content Insight/judgment: fair x 2. Memory/cog: alert, oriented x 3. ACL 3.2 Diagnostics Vital Signs (24Hr): Vital Signs - 24 hr 05/05/25 20:00 05/06/25 09:22 Temperature 98.1 F 98.2 F Pulse Rate 78 80 Respiratory Rate 16 16 Blood Pressure 113/54 L 102/54 L Pulse Oximetry 95 95 Oxygen Delivery Method Room Air Room Air BMI result Body Mass Index 29.3 Labs 04/20/25 17:11 04/23/25 07:51 Medications Medications Current Medications Acetaminophen (Acetaminophen 325 Mg Tablet) 650 mg PO Q6H PRN PRN Reason: Headache/Pain, Scale 1-10 Al Hydroxide/Mg Hydroxide (Magnesium Hydrox/Alum Hydrox 30 Ml Oral.Susp) 30 ml PO Q6H PRN PRN Reason: Heartburn/Nausea Albuterol Sulfate (Albuterol Sulfate 90 Mcg 8 Gm Inhaler) 2 puff INHALE RQ6H PRN PRN Reason: Shortness of Breath Benztropine Mesylate (Benztropine Mesylate 0.5 Mg Tablet) 0.5 mg PO BID PRN PRN Reason: EPS Clonidine (Clonidine 0.1 Mg Patch.Tdwk) 0.1 mg TRANSDERMA Tu@0900 [facility]; Protocol Last Admin: 04/30/25 10:29 Dose: 0.1 mg Clotrimazole (Clotrimazole 1 % Cream 15 Gm Tube) 1 appl TOPICAL BID [facility]; Protocol Last Admin: 05/06/25 09:32 Dose: 1 appl Diazepam (Diazepam 5 Mg Tablet) 10 mg PO BID [facility] Last Admin: 05/06/25 09:27 Dose: 10 mg Diazepam (Diazepam 5 Mg Tablet) 5 mg PO DAILY@1500 [facility] Last Admin: 05/05/25 14:10 Dose: 5 mg Dicyclomine HCl (Dicyclomine Hcl 10 Mg Capsule) 10 mg PO QID PRN PRN Reason: Spasms Fluticasone/Vilanterol (Fluticasone/Vilanterol 100/25 Blst.W.Dev) 1 puff INHALE DAILY [facility] Last Admin: 05/06/25 09:26 Dose: 1 puff Gabapentin (Gabapentin 300 Mg Capsule) 300 mg PO TID [facility] Last Admin: 05/06/25 09:28 Dose: 300 mg Hydroxyzine HCl (Hydroxyzine Hcl 25 Mg Tablet) 25 mg PO Q6H PRN PRN Reason: mild anxiety Last Admin: 05/02/25 20:11 Dose: 25 mg Ibuprofen (Ibuprofen 600 Mg Tablet) 600 mg PO Q8H PRN PRN Reason: moderate to severe pain Last Admin: 05/05/25 20:01 Dose: 600 mg Magnesium Hydroxide (Milk Of Magnesia 30 Ml Oral.Susp) 30 ml PO DAILY PRN PRN Reason: Constipation Melatonin (Melatonin 3 Mg Tablet) 6 mg PO BEDTIME PRN PRN Reason: Insomnia Multivitamins/Vitamin C (Multivitamin Tablet) 1 tab PO DAILY [facility] Last Admin: 05/06/25 09:26 Dose: 1 tab Nicotine (Nicotine 21 Mg Patch.Td24) 21 mg TRANSDERMA DAILY PRN PRN Reason: nicotine craving Nicotine Polacrilex (Nicotine Polacrilex 2 Mg Gum) 2 mg BUCCAL Q2H PRN PRN Reason: Nicotine Cravings Omeprazole (Omeprazole 40 Mg Capsule.Dr) 40 mg PO DAILY@0630 [facility] Last Admin: 05/06/25 05:35 Dose: 40 mg Ondansetron HCl (Ondansetron Odt 4 Mg Tab.Rapdis) 4 mg TRANSLINGU Q8H PRN PRN Reason: Nausea and Vomiting Quetiapine Fumarate (Quetiapine Fumarate 100 Mg Tablet) 250 mg PO BEDTIME [facility] Last Admin: 05/05/25 20:00 Dose: 250 mg Trazodone HCl (Trazodone Hcl 100 Mg Tablet) 200 mg PO BEDTIME [facility] Last Admin: 05/05/25 20:01 Dose: 200 mg Venlafaxine HCl (Venlafaxine Hcl Er 150 Mg Cap.Er.24h) 150 mg PO DAILY [facility] Last Admin: 05/06/25 09:27 Dose: 150 mg Vitamin D (Cholecalciferol (Vitamin D3) 10 Mcg Tablet) 10 mcg PO DAILY [facility] Last Admin: 05/06/25 09:27 Dose: 10 mcg Allergies Allergies Allergy/AdvReac Type Severity Reaction Status Date / Time No Known Allergies (No Known Allergy Verified 04/20/25 13:53 Allergies*) Assessment & Plan Assessment & Plan (1) MDD (major depressive disorder), recurrent episode, moderate: Status: Acute Code(s): F33.1 - Major depressive disorder, recurrent, moderate (2) Post traumatic stress disorder (PTSD): Status: Acute Code(s): F43.10 - Post-traumatic stress disorder, unspecified (3) CHELLE (generalized anxiety disorder): Status: Acute Code(s): F41.1 - Generalized anxiety disorder (4) Right rib fracture: Status: Acute Code(s): S22.31XA - Fracture of one rib, right side, initial encounter for closed fracture (5) Cognitive impairment: Status: Acute Code(s): R41.89 - Other symptoms and signs involving cognitive functions and awareness Assessment and Plan: ACL 3.2, unclear etiology of memory/cognitive impairments- recommend follow up with neurology Plan HPI: patient is a 55 years old, single Khmer-speaking white female with hx of MDD, CHELLE, PTSD disorders, right rib fracture, COPD who was recently admitted to [place] (from 03/20 to 04/20) due to worsening depression symptoms. Patient brought to [facility] on section 21 from [place] secondary to altered mental status following a fall. [facility] was contacted after patient was medically clear from [facility] ED, the facility reported that they were unable to accommodate her current needs and recommended placement in care home facility due to multiple falls on the unit. Formulation/clinical reasoning: AMS, increased in depressions and anxiety, multiple falls, Right rib fracture. Not functions at baseline, confused, paranoid. Given the above information, patient will be benefit in psychiatric restrictive environment, on S1 for own safety, medication adjustment, and refer patient to outpatient psychiatric services for aftercare. Patient has [employer] and [facility] history. Hospital course: 04/23/25: Discontinue Topiramate- was taper down and off from Topiramate). On multiple meds that can cause AMS and fall. Down Seorquel from 500 to 400mg. Valium 10mg TID. Will work on taper down in the future. Change Cogentin 0.5mg BID to PRN Lower Trazodone 250mg at HS down to 200mg. Continue with Melatonin 6 mg Continue with Gabapentin 300 TID. 04/24/25: Meet with patient in room, she lying flat in bed. Respond to the question fast than yesterday. Better affect, appears more relax. She has concerns regarding her belongings which she thinks they are lost.b Denies SI/SIB/HI/AVH. Appear to be paranoid and confused. Knowing she is at [facility] but think she is at [facility] at first, knowing her , current month and year. Isolative, do not want to come out to dinning area for meals. Report right rib pain. Per hospitalist, patient had right side rib and nose fractures after the fall. Head CT scan negative. Question if she has brain injured hx that could affect her functions in the past. Per SW, Keila is a friend of her who is working as a nurse at [facility] and also is patient's HCP. Patient sectioned 21 from [facility] ()after the fall. could not provide needed care, therefore did not want to take her back which could be the reason why her belongings were not transferred when she sent to [facility] ED. Attempted to contact provider there for collateral regarding med changes hx and to see if her belongings are still there. Not heard back from them yet. Patient slept 7 hours last night. Will change Melatonin to PRN. Continue to monitor for AMS. Compared to on the day I saw her on Tuesday utnil today. Slightly improved with meds change. Slight with Clear thoughts 04/25: She reports severe anxiety and depression. She also reports chronic pain to lower back and bilateral lower extremities/neuropathy. Continue current treatment regimen. 04/26/25: Meet with with patient in assigned room, wearing casual attire, reports pain 9/10 when moving on ribs area. Educate patient on as needed Tylenol if she needs to take. Knowing her date of , reluctant to give location where she is at but knowing she is at [facility] at the end. Reports feeling tired rated anxiety and depression 8/10. Slowly coming to the unit for meals. Observed walking to dining area without the walker for lunch. Somewhat poor appetite but slightly improve. Denies suicidal thoughts or homicidal thoughts, and hallucinations. Slowly but slightly improved, has confused. She does not appear to be anxious, but depressed. Isolated mostly in her room, pleasant and cooperative upon approach. Continued to reduce lowered down on Seroquel from 400 to 300 at bedtime. Not albe to discuss with patient regarding med change as patient can be very overwhelmed which in turn can make anxiety worse. 04/27: continue current management and treatment plan. 04/28: continue current management and treatment plan. 04/29/25: Patient isolated herself in room, not out for meals, reports poor appetite. Reviewed the expectation moving forward that patient should be out for meals, engaged in unit activities and groups, and shower. Patient received some items/belonging from [employer] which was dropped off today. Patient reported that she still missing some items like bank card. Appeared to be less confused, knowing this provider's name, knowing where she is. Able to review and discuss medication changes which this provider was not able to discuss before as patient appeared to be easily getting overwhelmed. Patient is aware that Topamax is not a on her list. Seroquel from 500 down to 200. Denies safety concerns, hallucinations, continued to be depressant anxious. Continue with medication management/adjustment. No falls. Can observe walking in room without the walker. 04/30/25: Patient got shower this morning, observed out in dinning area most of the day, attended groups as encouraged to do so yesterday. Patient also has a good visit with mom. Report she slept but feeling scattered sleep, report anxiety and depression. Ambulate using walker. Appetite slightly better compare to yesterday as she did not eat yesterday. Report pain but does not believe PRN will help, therefore she does not take any which she has not tried yet. Patient tolerates well with medication changes. Continue to monitor for mental status change, less confused but some cognitive impairment and memory issues. Self report that patient has never felt confused before. OT evaluation done. Suggested to use walker for ambulation. Clotrimazole cream BID on face. 05/01/25: Meet with patient in room, appear tired and slept after breakfast. Compliant with meds, denies side effects. Slept for 8 hours. Medication titration does not affect her sleep or mood so far. Ambulate safe with walker. No falls Discuss to further medication titration which still start on BZD-Valium. Explained rationale for the taper. Patient reports she has been taking Valium for 36 years, it is too late to fix if any damange, negative effects on her brain functions. However, patient is not arguing if dose is reduced and down, Pain on ribs areas a 4-5/10. Continue to encourage out of bed and attend groups later on if able to do so. Per OT, patient appears to be confused with task duing group time. In term of memory and confusion regarding surrounding, patient is more alert and awake. She is more engaged in unit activities. Had visit with mom at 1500 yesterday and a visit with her best tl- Keila- her HCP. Valium down from 30mg in divided dose to 25mg in devided dose. 05/02/25: Patient slept for 7 hours, compliant with medications, denies side effects. Patient did not wake up for breakfast, but for lunch per nursing. She is visible in activities area. Ambulate with walker. No falls. Review with patient regarding medication change in terms of benzo-Valium to taper down. Patient is worry about this provider will take the benzo away. Confirmed with patient that, she still has Valium, but dose will be reduced to see if it is helpful with the confusion. Patient is forgetful, not remember what this provider role is, she thinks this provider works for [facility] [employer]. Patient is confused, flat but less sedated. Appetite is improving. Patient requests to have family meeting, would like to have Keila-HCP the joint meeting if possible to get opinion of she is at baseline. He will work with social media job titles to make it happened. Possible next week. 05/03/25: Patent reports that she feels rested, appetite is fair. Mood is the same but very upset today regarding missing items from her belonging which is not a new issues. OT staff was able to help her sort it out and called HCP to cancel her bank card. Patient believes her items were stolen from [facility] and is not happy with the care received there. Per OT assessment: scored a 3.2 on the [facility] Cognitive Level Screen indicating severe cognitive functional impairment and the need for 24 hour care, 60% cognitive assistance. Pt was able to remember having taken the MoCA and also remembered her score of 10/30 having been administered by the preceding admitting facility, therefore administering the MoCA again would render it invalid. Will revisit and assess in the future. Patient is perseveration and worry about her belongings, ambulate using walker, appear to be confused and with cognitive impairment as indicated from OT assessment. Continue with BZD taper. No change in term of medications. 05/04: Continue current tx plan 05/05: Reviewed recent med changes. Will titrate quetiapine to 250 mg tonight to optimize tx of insomnia/anxiety since diazepam has also been reduced since the initial quetiapine taper. 05/06 continues to endorse depressed mood, passive SI, no plan or intent. unclear if some improvement in mood or not as pt states she is not able to tell. pending collateral information. pt asking for increase in seroquel. Plan Patient on 5 minute checks for safety. Ambulate using walker Admitted to S1. CV. Fall Precaution. Work with treatment team to do collateral. Seen by Hospitalist on 04/23/25. On 05/03: scored a 3.2 on the [facility] Cognitive Level Screen indicating severe cognitive functional impairment and the need for 24 hour care, 60% cognitive assistance. Pt was able to remember having taken the MoCA and also remembered her score of 10/30 having been administered by the preceding admitting facility, therefore administering the MoCA again would render it invalid Reason for continued inpatient stay Substantial Risk for: inability to function Time Spent With Patient Time: Total time managing care of this patient today ____ minutes.
[2025-05-06 20:00] VITALS: BP 124/58; PULSE 72; RESP 16; TEMP 36.8; O2SAT 98
[2025-05-07 08:25] VITALS: BP 110/56; PULSE 61; RESP 18; TEMP 36.7; O2SAT 95
[2025-05-07] MEDS: Venlafaxine HCl ER 150 MG CAP.ER.24H PO (09:07)
[2025-05-07] MEDS: Fluticasone/Vilanterol 100/25 BLST.W.DEV 1 PUFF INHALE (09:08)
[2025-05-07] MEDS: Cholecalciferol (Vitamin D3) 10 MCG TABLET PO (09:08)
[2025-05-07] MEDS: cloNIDine 0.1 MG PATCH.TDWK TRANSDERMA (09:13)
[2025-05-07 19:43] VITALS: BP 127/71; PULSE 85; RESP 16; TEMP 36.7; O2SAT 95
--- NOTE | 2025-05-07 19:56 | P.PNPSI_ITS ---
Subjective Subjective Date of Service: 05/07/25 Reason For Visit: AMS/inc Subjective Notes: Conditional Voluntary Interim History: She reports sleep was fair which she attributes to decrease dose of seroquel and diazepam. She continues to report depressed mood, no plan or intent to harm herself but reports she had thoughts of wrapping cord around her neck. She has been more visible and has attended some groups. Pending collateral information from OP providers. taking medications. She is poor historian and not able to provide much information about past trial. even when trying to martín whether she has improved while on the unit, she is not able to say one way or another. Mental Status Exam Mental Status Exam Narrative: Appearance: casual, grooming/hygiene wnl, good eye contact Attitude:Cooperative Motor activity: ambulates w/ walker. no tics, tremors or dyskinesias Speech: Fluent and wnl in regard to volume, tone, prosody Motor activity: Calm Mood: as noted above Affect: appropriate, reactive, brightens up appropriately Thought process: more linear, noted forgetful about medications discussed during session and repeated questions Thought content: feeling depressed, worried about memory Perception: does not appear to respond to internal stimuli Delusions: no overt delusional content Insight/judgment: fair x 2. Memory/cog: alert, oriented x 3. ACL 3.2 Diagnostics Vital Signs (24Hr): Vital Signs - 24 hr 05/06/25 20:00 05/07/25 08:25 05/07/25 19:43 Temperature 98.2 F 98.1 F 98.1 F Pulse Rate 72 61 85 Respiratory Rate 16 18 16 Blood Pressure 124/58 L 110/56 L 127/71 Pulse Oximetry 98 95 95 Oxygen Delivery Method Room Air Room Air Room Air BMI result Body Mass Index 29.3 Labs 04/20/25 17:11 04/23/25 07:51 Medications Medications Current Medications Acetaminophen (Acetaminophen 325 Mg Tablet) 650 mg PO Q6H PRN PRN Reason: Headache/Pain, Scale 1-10 Al Hydroxide/Mg Hydroxide (Magnesium Hydrox/Alum Hydrox 30 Ml Oral.Susp) 30 ml PO Q6H PRN PRN Reason: Heartburn/Nausea Albuterol Sulfate (Albuterol Sulfate 90 Mcg 8 Gm Inhaler) 2 puff INHALE RQ6H PRN PRN Reason: Shortness of Breath Benztropine Mesylate (Benztropine Mesylate 0.5 Mg Tablet) 0.5 mg PO BID PRN PRN Reason: EPS Clonidine (Clonidine 0.1 Mg Patch.Tdwk) 0.1 mg TRANSDERMA Tu@0900 [facility]; Protocol Last Admin: 05/07/25 09:13 Dose: 0.1 mg Clotrimazole (Clotrimazole 1 % Cream 15 Gm Tube) 1 appl TOPICAL BID [facility]; Protocol Last Admin: 05/07/25 09:08 Dose: Not Given Diazepam (Diazepam 5 Mg Tablet) 10 mg PO BID [facility] Last Admin: 05/07/25 09:07 Dose: 10 mg Diazepam (Diazepam 5 Mg Tablet) 5 mg PO DAILY@1500 [facility] Last Admin: 05/07/25 14:41 Dose: 5 mg Dicyclomine HCl (Dicyclomine Hcl 10 Mg Capsule) 10 mg PO QID PRN PRN Reason: Spasms Fluticasone/Vilanterol (Fluticasone/Vilanterol 100/25 Blst.W.Dev) 1 puff INHALE DAILY [facility] Last Admin: 05/07/25 09:08 Dose: 1 puff Gabapentin (Gabapentin 300 Mg Capsule) 300 mg PO TID [facility] Last Admin: 05/07/25 14:41 Dose: 300 mg Hydroxyzine HCl (Hydroxyzine Hcl 25 Mg Tablet) 25 mg PO Q6H PRN PRN Reason: mild anxiety Last Admin: 05/02/25 20:11 Dose: 25 mg Ibuprofen (Ibuprofen 600 Mg Tablet) 600 mg PO Q8H PRN PRN Reason: moderate to severe pain Last Admin: 05/07/25 15:53 Dose: 600 mg Magnesium Hydroxide (Milk Of Magnesia 30 Ml Oral.Susp) 30 ml PO DAILY PRN PRN Reason: Constipation Melatonin (Melatonin 3 Mg Tablet) 6 mg PO BEDTIME PRN PRN Reason: Insomnia Multivitamins/Vitamin C (Multivitamin Tablet) 1 tab PO DAILY [facility] Last Admin: 05/07/25 09:08 Dose: 1 tab Nicotine (Nicotine 21 Mg Patch.Td24) 21 mg TRANSDERMA DAILY PRN PRN Reason: nicotine craving Nicotine Polacrilex (Nicotine Polacrilex 2 Mg Gum) 2 mg BUCCAL Q2H PRN PRN Reason: Nicotine Cravings Omeprazole (Omeprazole 40 Mg Capsule.Dr) 40 mg PO DAILY@0630 [facility] Last Admin: 05/07/25 06:01 Dose: 40 mg Ondansetron HCl (Ondansetron Odt 4 Mg Tab.Rapdis) 4 mg TRANSLINGU Q8H PRN PRN Reason: Nausea and Vomiting Quetiapine Fumarate (Quetiapine Fumarate 100 Mg Tablet) 250 mg PO BEDTIME [facility] Last Admin: 05/06/25 20:46 Dose: 250 mg Trazodone HCl (Trazodone Hcl 100 Mg Tablet) 200 mg PO BEDTIME [facility] Last Admin: 05/06/25 20:47 Dose: 200 mg Venlafaxine HCl (Venlafaxine Hcl Er 150 Mg Cap.Er.24h) 150 mg PO DAILY [facility] Last Admin: 05/07/25 09:07 Dose: 150 mg Vitamin D (Cholecalciferol (Vitamin D3) 10 Mcg Tablet) 10 mcg PO DAILY [facility] Last Admin: 05/07/25 09:08 Dose: 10 mcg Allergies Allergies Allergy/AdvReac Type Severity Reaction Status Date / Time No Known Allergies (No Known Allergy Verified 04/20/25 13:53 Allergies*) Assessment & Plan Assessment & Plan (1) MDD (major depressive disorder), recurrent episode, moderate: Status: Acute Code(s): F33.1 - Major depressive disorder, recurrent, moderate (2) Post traumatic stress disorder (PTSD): Status: Acute Code(s): F43.10 - Post-traumatic stress disorder, unspecified (3) CHELLE (generalized anxiety disorder): Status: Acute Code(s): F41.1 - Generalized anxiety disorder (4) AMS (altered mental status): Status: Acute Code(s): R41.82 - Altered mental status, unspecified (5) Right rib fracture: Status: Acute Code(s): S22.31XA - Fracture of one rib, right side, initial encounter for closed fracture (6) Cognitive impairment: Status: Acute Code(s): R41.89 - Other symptoms and signs involving cognitive functions and awareness Assessment and Plan: ACL 3.2, unclear etiology of memory/cognitive impairments- recommend follow up with neurology Plan HPI: patient is a 55 years old, single Italian-speaking white female with hx of MDD, CHELLE, PTSD disorders, right rib fracture, COPD who was recently admitted to [facility] (from 03/20 to 04/20) due to worsening depression symptoms. Patient brought to [facility] on section 21 from [facility] secondary to altered mental status following a fall. Daisy was contacted after patient was medically clear from [facility], the facility reported that they were unable to accommodate her current needs and recommended placement in shelter facility due to multiple falls on the unit. Formulation/clinical reasoning: AMS, increased in depressions and anxiety, multiple falls, Right rib fracture. Not functions at baseline, confused, paranoid. Given the above information, patient will be benefit in psychiatric restrictive environment, on S1 for own safety, medication adjustment, and refer patient to outpatient psychiatric services for aftercare. Patient has [employer] and [facility] history. Hospital course: 04/23/25: Discontinue Topiramate- was taper down and off from Topiramate). On multiple meds that can cause AMS and fall. Down Seorquel from 500 to 400mg. Valium 10mg TID. Will work on taper down in the future. Change Cogentin 0.5mg BID to PRN Lower Trazodone 250mg at HS down to 200mg. Continue with Melatonin 6 mg Continue with Gabapentin 300 TID. 04/24/25: Meet with patient in room, she lying flat in bed. Respond to the question fast than yesterday. Better affect, appears more relax. She has concerns regarding her belongings which she thinks they are lost.b Denies SI/SIB/HI/AVH. Appear to be paranoid and confused. Knowing she is at [facility] but think she is at [facility] at first, knowing her , current month and year. Isolative, do not want to come out to dinning area for meals. Report right rib pain. Per hospitalist, patient had right side rib and nose fractures after the fall. Head CT scan negative. Question if she has brain injured hx that could affect her functions in the past. Per SW, Keila is a friend of her who is working as a nurse at [facility] and also is patient's HCP. Patient sectioned 21 from [facility] ()after the fall. [facility] could not provide needed care, therefore did not want to take her back which could be the reason why her belongings were not transferred when she sent to [facility]. Attempted to contact provider there for collateral regarding med changes hx and to see if her belongings are still there. Not heard back from them yet. Patient slept 7 hours last night. Will change Melatonin to PRN. Continue to monitor for AMS. Compared to on the day I saw her on Tuesday utnil today. Slightly improved with meds change. Slight with Clear thoughts 04/25: She reports severe anxiety and depression. She also reports chronic pain to lower back and bilateral lower extremities/neuropathy. Continue current treatment regimen. 04/26/25: Meet with with patient in assigned room, wearing casual attire, reports pain 03/13 when moving on ribs area. Educate patient on as needed Tylenol if she needs to take. Knowing her date of , reluctant to give location where she is at but knowing she is at [facility] at the end. Reports feeling tired rated anxiety and depression 02/10. Slowly coming to the unit for meals. Observed walking to dining area without the walker for lunch. Somewhat poor appetite but slightly improve. Denies suicidal thoughts or homicidal thoughts, and hallucinations. Slowly but slightly improved, has confused. She does not appear to be anxious, but depressed. Isolated mostly in her room, pleasant and cooperative upon approach. Continued to reduce lowered down on Seroquel from 400 to 300 at bedtime. Not albe to discuss with patient regarding med change as patient can be very overwhelmed which in turn can make anxiety worse. 04/27: continue current management and treatment plan. 04/28: continue current management and treatment plan. 04/29/25: Patient isolated herself in room, not out for meals, reports poor appetite. Reviewed the expectation moving forward that patient should be out for meals, engaged in unit activities and groups, and shower. Patient received some items/belonging from [facility] which was dropped off today. Patient reported that she still missing some items like bank card. Appeared to be less confused, knowing this provider's name, knowing where she is. Able to review and discuss medication changes which this provider was not able to discuss before as patient appeared to be easily getting overwhelmed. Patient is aware that Topamax is not a on her list. Seroquel from 500 down to 200. Denies safety concerns, hallucinations, continued to be depressant anxious. Continue with medication management/adjustment. No falls. Can observe walking in room without the walker. 04/30/25: Patient got shower this morning, observed out in dinning area most of the day, attended groups as encouraged to do so yesterday. Patient also has a good visit with mom. Report she slept but feeling scattered sleep, report anxiety and depression. Ambulate using walker. Appetite slightly better compare to yesterday as she did not eat yesterday. Report pain but does not believe PRN will help, therefore she does not take any which she has not tried yet. Patient tolerates well with medication changes. Continue to monitor for mental status change, less confused but some cognitive impairment and memory issues. Self report that patient has never felt confused before. OT evaluation done. Suggested to use walker for ambulation. Clotrimazole cream BID on face. 05/01/25: Meet with patient in room, appear tired and slept after breakfast. Compliant with meds, denies side effects. Slept for 8 hours. Medication titration does not affect her sleep or mood so far. Ambulate safe with walker. No falls Discuss to further medication titration which still start on BZD-Valium. Explained rationale for the taper. Patient reports she has been taking Valium for 36 years, it is too late to fix if any damange, negative effects on her brain functions. However, patient is not arguing if dose is reduced and down, Pain on ribs areas a 4-5/10. Continue to encourage out of bed and attend groups later on if able to do so. Per OT, patient appears to be confused with task duing group time. In term of memory and confusion regarding surrounding, patient is more alert and awake. She is more engaged in unit activities. Had visit with mom at 1500 yesterday and a visit with her best frejodi- Keila- her HCP. Valium down from 30mg in divided dose to 25mg in devided dose. 05/02/25: Patient slept for 7 hours, compliant with medications, denies side effects. Patient did not wake up for breakfast, but for lunch per nursing. She is visible in activities area. Ambulate with walker. No falls. Review with patient regarding medication change in terms of benzo-Valium to taper down. Patient is worry about this provider will take the benzo away. Confirmed with patient that, she still has Valium, but dose will be reduced to see if it is helpful with the confusion. Patient is forgetful, not remember what this provider role is, she thinks this provider works for [facility] [employer]. Patient is confused, flat but less sedated. Appetite is improving. Patient requests to have family meeting, would like to have Keila-HCP the joint meeting if possible to get opinion of she is at baseline. He will work with social service coordinator to make it happened. Possible next week. 05/03/25: Patent reports that she feels rested, appetite is fair. Mood is the same but very upset today regarding missing items from her belonging which is not a new issues. OT staff was able to help her sort it out and called HCP to cancel her bank card. Patient believes her items were stolen from [facility] and is not happy with the care received there. Per OT assessment: scored a 3.2 on the [facility] Cognitive Level Screen indicating severe cognitive functional impairment and the need for 24 hour care, 60% cognitive assistance. Pt was able to remember having taken the [facility] and also remembered her score of 10/30 having been administered by the preceding admitting facility, therefore administering the MoCA again would render it invalid. Will revisit and assess in the future. Patient is perseveration and worry about her belongings, ambulate using walker, appear to be confused and with cognitive impairment as indicated from OT assessment. Continue with BZD taper. No change in term of medications. 05/04: Continue current tx plan 05/05: Reviewed recent med changes. Will titrate quetiapine to 250 mg tonight to optimize tx of insomnia/anxiety since diazepam has also been reduced since the initial quetiapine taper. 05/06 continues to report depressed mood, passive SI but denies any plan or intent. 05/07 will increase night time dose of seroquel to 300mg po qhs. pt asking to increase dose of valium back to 10mg po TID. Plan Patient on 5 minute checks for safety. Ambulate using walker Admitted to S1. CV. Fall Precaution. Work with treatment team to do collateral. Seen by Hospitalist on 04/23/25. On 05/03: scored a 3.2 on the [facility] Cognitive Level Screen indicating severe cognitive functional impairment and the need for 24 hour care, 60% cognitive assistance. Pt was able to remember having taken the MoCA and also remembered her score of 10/30 having been administered by the preceding admitting facility, therefore administering the MoCA again would render it invalid Reason for continued inpatient stay Substantial Risk for: inability to function Time Spent With Patient Time: Total time managing care of this patient today ____ minutes.
[2025-05-08 08:00] VITALS: BP 113/60; PULSE 78; RESP 18; TEMP 38; O2SAT 93
[2025-05-08] MEDS: Cholecalciferol (Vitamin D3) 10 MCG TABLET PO (08:24)
[2025-05-08] MEDS: Venlafaxine HCl ER 150 MG CAP.ER.24H PO (08:24)
[2025-05-08] MEDS: Fluticasone/Vilanterol 100/25 BLST.W.DEV 1 PUFF INHALE (08:34)
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
[2025-05-08 20:00] VITALS: BP 116/63; PULSE 94; RESP 16; TEMP 36.9; O2SAT 95
[2025-05-09 07:00] VITALS: BMI 29.5
[2025-05-09 07:54] VITALS: BP 94/53; PULSE 90; RESP 18; TEMP 37.5; O2SAT 90
[2025-05-09] MEDS: Cholecalciferol (Vitamin D3) 10 MCG TABLET PO (09:22)
[2025-05-09] MEDS: cloNIDine 0.1 MG PATCH.TDWK TRANSDERMA (09:26)
[2025-05-09] MEDS: Fluticasone/Vilanterol 100/25 BLST.W.DEV 1 PUFF INHALE (09:35)
[2025-05-09] MEDS: Nicotine 21 MG PATCH.TD24 TRANSDERMA (09:40)
[2025-05-09] MEDS: Venlafaxine HCl ER 150 MG CAP.ER.24H PO (09:46)
[2025-05-09 10:00] VITALS: BP 113/76; PULSE 94; RESP 16; TEMP 36.9; O2SAT 94
[2025-05-09] MEDS: Clotrimazole 1 % Cream 15 GM TUBE 1 APPL TOPICAL (10:14)
--- NOTE | 2025-05-09 11:05 | HO.PM.IMPN ---
Subjective Subjective Date of Service: 05/09/25 Interval History: Per nursing patient had an elevated temp in the a.m. yesterday, afebrile today. Patient also much appetite yesterday and did not get out of bed. This morning patient is out of bed eating meals, her vitals were stable, oxygen level noted to be 90% this morning at at 08:00 to 94% on room air, she has no increased work of breathing. Has some diminished lung sounds in her right base. Known right rib fracture. Will check a chest x-ray to rule out pneumonia or atelectasis. She feels well. Has no complaints at this time. Review of Systems Denies any shortness of breath, chest pain, headaches, dysuria, abdominal pain or discomfort, nausea, vomiting or diarrhea. Denies fever or chills. Physical Exam Exam: Exam: Alert and oriented X3, calm and cooperative. Answers questions. Neuro: CN II-X11 intact, no deficits, visual acuity intact EYES: PERRLA, EOM intact ENT: Hearing intact, MMM Cardiac: S1 S2 RRR, No ectopy Pulmonary: lungs clear to auscultation, diminished right base. No increased WOB. Abdominal: BS active in all 4 quadrants, no guarding or tenderness MSK: Strength 5/5 upper and lower extremities : Deferred Extremities: No edema in lower extremities Psych: Mood stable, Quiet and cooperative. Skin: Warm and dry, Intact Vital Signs: Vital Signs: Last Vital Signs Temp 98.4 F 05/09/25 10:00 Pulse 94 05/09/25 10:00 Resp 16 05/09/25 10:00 BP 113/76 05/09/25 10:00 Pulse Ox 94 05/09/25 10:00 O2 Del Method Room Air 05/09/25 10:00 BMI result Body Mass Index 29.3 Objective Data Active Medications Acetaminophen (Acetaminophen 325 Mg Tablet) 650 mg PO Q6H PRN PRN Reason: Headache/Pain, Scale 1-10 Last Admin: 05/09/25 09:23 Dose: 650 mg Documented By: HUSAM Al Hydroxide/Mg Hydroxide (Magnesium Hydrox/Alum Hydrox 30 Ml Oral.Susp) 30 ml PO Q6H PRN PRN Reason: Heartburn/Nausea Albuterol Sulfate (Albuterol Sulfate 90 Mcg 8 Gm Inhaler) 2 puff INHALE RQ6H PRN PRN Reason: Shortness of Breath Benztropine Mesylate (Benztropine Mesylate 0.5 Mg Tablet) 0.5 mg PO BID PRN PRN Reason: EPS Clonidine (Clonidine 0.1 Mg Patch.Tdwk) 0.1 mg TRANSDERMA Tu@0900 [facility]; Protocol Last Admin: 05/09/25 09:26 Dose: 0.1 mg Documented By: HUSAM Clotrimazole (Clotrimazole 1 % Cream 15 Gm Tube) 1 appl TOPICAL BID [facility]; Protocol Last Admin: 05/09/25 10:14 Dose: 1 appl Documented By: HUSAM Diazepam (Diazepam 5 Mg Tablet) 10 mg PO BID [facility] Last Admin: 05/09/25 09:22 Dose: 10 mg Documented By: HUSAM Diazepam (Diazepam 5 Mg Tablet) 5 mg PO DAILY@1500 [facility] Last Admin: 05/08/25 14:43 Dose: 5 mg Documented By: CALLIE Dicyclomine HCl (Dicyclomine Hcl 10 Mg Capsule) 10 mg PO QID PRN PRN Reason: Spasms Fluticasone/Vilanterol (Fluticasone/Vilanterol 100/25 Blst.W.Dev) 1 puff INHALE DAILY [facility] Last Admin: 05/09/25 09:35 Dose: 1 puff Documented By: HUSAM Gabapentin (Gabapentin 300 Mg Capsule) 300 mg PO TID [facility] Last Admin: 05/09/25 09:23 Dose: 300 mg Documented By: HUSAM Hydroxyzine HCl (Hydroxyzine Hcl 25 Mg Tablet) 25 mg PO Q6H PRN PRN Reason: mild anxiety Last Admin: 05/09/25 09:41 Dose: 25 mg Documented By: HUSAM Ibuprofen (Ibuprofen 600 Mg Tablet) 600 mg PO Q8H PRN PRN Reason: moderate to severe pain Last Admin: 05/09/25 09:40 Dose: 600 mg Documented By: HUSAM Magnesium Hydroxide (Milk Of Magnesia 30 Ml Oral.Susp) 30 ml PO DAILY PRN PRN Reason: Constipation Melatonin (Melatonin 3 Mg Tablet) 6 mg PO BEDTIME PRN PRN Reason: Insomnia Multivitamins/Vitamin C (Multivitamin Tablet) 1 tab PO DAILY [facility] Last Admin: 05/09/25 09:23 Dose: 1 tab Documented By: HUSAM Nicotine (Nicotine 21 Mg Patch.Td24) 21 mg TRANSDERMA DAILY PRN PRN Reason: nicotine craving Last Admin: 05/09/25 09:40 Dose: 21 mg Documented By: HUSAM Nicotine Polacrilex (Nicotine Polacrilex 2 Mg Gum) 2 mg BUCCAL Q2H PRN PRN Reason: Nicotine Cravings Omeprazole (Omeprazole 40 Mg Capsule.Dr) 40 mg PO DAILY@0630 [facility] Last Admin: 05/09/25 05:53 Dose: 40 mg Documented By: MEMO Ondansetron HCl (Ondansetron Odt 4 Mg Tab.Rapdis) 4 mg TRANSLINGU Q8H PRN PRN Reason: Nausea and Vomiting Quetiapine Fumarate (Quetiapine Fumarate 300 Mg Tablet) 300 mg PO BEDTIME [facility] Last Admin: 05/08/25 21:24 Dose: 300 mg Documented By: MEMO Trazodone HCl (Trazodone Hcl 100 Mg Tablet) 200 mg PO BEDTIME [facility] Last Admin: 05/08/25 21:24 Dose: 200 mg Documented By: MEMO Venlafaxine HCl (Venlafaxine Hcl Er 150 Mg Cap.Er.24h) 150 mg PO DAILY [facility] Last Admin: 05/09/25 09:46 Dose: 150 mg Documented By: HUSAM Vitamin D (Cholecalciferol (Vitamin D3) 10 Mcg Tablet) 10 mcg PO DAILY [facility] Last Admin: 05/09/25 09:22 Dose: 10 mcg Documented By: HUSAM Labs 04/20/25 17:11 04/23/25 07:51 Assessment and Plan (1) Right rib fracture: Status: Acute Plan 55-year-old female presented to emergency department from [place] for evaluation of altered mentation. She is admitted for inpatient psychiatric care. Patient is being seen today for reported fever and general malaise yesterday. MDD/GERD/PTSD Treatment per psychiatric team Recent nasal bone fractures/recent fracture left 5th rib Pain management with Tylenol and Motrin No surgical interventions needed for nasal bone fractures, we will need to follow up with ENT outpatient if needed We will check a chest x-ray to rule out any pneumonia or atelectasis due to isolated fever. COPD Continue Breo and albuterol as needed Not in acute exacerbation No hypoxia Encouraged deep breathing, out of bed daily, frequent ambulation Vitamin-D deficiency Continue vitamin-D supplementation GERD Continue omeprazole Thank you for allowing me to participate in the care of this patient. Will follow with you, please notify medical provider with any changes in condition or concerns. Quality Stroke Does the patient have a stroke diagnosis?: No VTE Prior VTE?: No VTE Risk Level:: Medical - low VTE Device Contraindication: Treatment Not Indicated VTE Drug Contraindication: Treatment Not Indicated
[2025-05-09 12:32] LABS: MANUAL DIFF FLAG NO
[2025-05-09 12:35] LABS: Hematocrit 39.6 % (37.0-47.0); Hemoglobin 12.6 g/dl (12.0-16.0); Imm Gran Abs Auto 0.05 X10*3/uL (0.00-0.03); Imm Gran Pct Auto 0.4 % (0.0-0.4); Lymphocytes Absolute Auto 2.1 X10*3/uL (1.2-4.9); Mean Corpuscular HGB Conc 31.8 g/dl (31.0-35.0); Mean Corpuscular Hemoglobin 26.3 pg (27.0-33.0); Mean Corpuscular Volume 82.7 fL (80.0-98.0); NRBC Abs Auto 0.000 X10*3/uL (0.0-0.012); NRBC Pct Auto 0.0 /100WBC (0.0-0.2); Platelet Count 172 X10*3/uL (160-400); Red Blood Count 4.79 X10*6/uL (4.20-5.50); White Blood Count 13.5 X10*3/uL (4.8-10.8)
[2025-05-09 12:47] LABS: Anion Gap 12 (12-20); Blood Urea Nitrogen 15 mg/dL (9-16); Calcium 9.9 mg/dL (8.4-10.2); Carbon Dioxide 26 mmol/L (22-29); Chloride 107 mmol/L (96-108); Creatinine Clr Calc Pharmacy 72.0; Estimated Glomerular Filt Rate > 60; Potassium 4.0 mmol/L (3.3-5.1); Sodium 141 mmol/L (135-145)
--- NOTE | 2025-05-09 14:25 | PM.EVENT ---
Event Note Date of Service: 05/09/25 Event Note: Patient's chest x-ray demonstrates probable left lower lobe pneumonia, patient also with slight leukocytosis 13.5. We will treat with Augmentin and Zithromax for 5 days. Albuterol nebulizers q.6 hours p.r.n. Time Spent With Patient Time: Total time managing care of this patient today ____ minutes.
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
[2025-05-09 20:00] VITALS: BP 115/59; PULSE 91; TEMP 36.9; O2SAT 94
[2025-05-10 08:45] VITALS: BP 135/60; PULSE 98; RESP 18; TEMP 36.6; O2SAT 95
[2025-05-10] MEDS: Clotrimazole 1 % Cream 15 GM TUBE 1 APPL TOPICAL ×2 (09:43→21:23)
[2025-05-10] MEDS: Fluticasone/Vilanterol 100/25 BLST.W.DEV 1 PUFF INHALE (09:43)
[2025-05-10] MEDS: Venlafaxine HCl ER 150 MG CAP.ER.24H PO (09:44)
[2025-05-10] MEDS: Cholecalciferol (Vitamin D3) 10 MCG TABLET PO (09:45)
[2025-05-10] MEDS: Nicotine 21 MG PATCH.TD24 TRANSDERMA (10:37)
[2025-05-10 12:50] LABS: MANUAL DIFF FLAG NO
[2025-05-10 12:57] LABS: Hematocrit 38.9 % (37.0-47.0); Hemoglobin 12.4 g/dl (12.0-16.0); Imm Gran Abs Auto 0.03 X10*3/uL (0.00-0.03); Imm Gran Pct Auto 0.3 % (0.0-0.4); Lymphocytes Absolute Auto 1.6 X10*3/uL (1.2-4.9); Mean Corpuscular HGB Conc 31.9 g/dl (31.0-35.0); Mean Corpuscular Hemoglobin 26.4 pg (27.0-33.0); Mean Corpuscular Volume 82.9 fL (80.0-98.0); NRBC Abs Auto 0.000 X10*3/uL (0.0-0.012); NRBC Pct Auto 0.0 /100WBC (0.0-0.2); Platelet Count 177 X10*3/uL (160-400); Red Blood Count 4.69 X10*6/uL (4.20-5.50); White Blood Count 10.3 X10*3/uL (4.8-10.8)
[2025-05-10 13:07] LABS: Anion Gap 11 (12-20); Blood Urea Nitrogen 15 mg/dL (9-16); Calcium 9.8 mg/dL (8.4-10.2); Carbon Dioxide 25 mmol/L (22-29); Chloride 109 mmol/L (96-108); Creatinine Clr Calc Pharmacy 73.9; Estimated Glomerular Filt Rate > 60; Potassium 3.9 mmol/L (3.3-5.1); Sodium 141 mmol/L (135-145)
--- NOTE | 2025-05-10 15:00 | HO.PSYCHPN ---
Subjective Subjective Date of Service: 05/10/25 Reason For Visit: AMS/inc Subjective Notes: Conditional Voluntary Interim History: Pt reports doing well. No overt SI/HI. she does report chronic depression, less anxious. She has been visible on the unit, social with select peers. No behavioral concerns. does ask same questions repeatedly. Diagnostics Vital Signs (24Hr): Vital Signs - 24 hr 05/09/25 20:00 05/10/25 08:45 Temperature 98.4 F 97.9 F Pulse Rate 91 98 Respiratory Rate 18 Blood Pressure 115/59 L 135/60 Pulse Oximetry 94 95 Oxygen Delivery Method Room Air Room Air BMI result Body Mass Index 29.5 Labs 05/10/25 12:47 05/10/25 12:47 Labs: Laboratory Results - last 48 hr 05/09/25 05/10/25 12:31 12:47 WBC 13.5 H 10.3 RBC 4.79 4.69 Hgb 12.6 12.4 Hct 39.6 38.9 MCV 82.7 82.9 MCH 26.3 L 26.4 L MCHC 31.8 31.9 RDW 15.1 15.5 Plt Count 172 177 MPV 11.8 11.7 Immature Gran % (Auto) 0.4 0.3 Neut % (Auto) 79.7 H 78.0 H Lymph % (Auto) 15.4 L 15.2 L [place] % (Auto) 3.6 5.4 Eos % (Auto) 0.7 0.8 Baso % (Auto) 0.2 0.3 Lymph # (Auto) 2.1 1.6 [place] # (Auto) 0.5 0.6 Eos # (Auto) 0.1 0.1 Baso # (Auto) 0.0 0.0 Abs Immat Gran (auto) 0.05 H 0.03 Absolute Neuts (auto) 10.7 H 8.0 Absolute Nucleated RBC 0.000 0.000 Nucleated RBC % (auto) 0.0 0.0 Sodium 141 141 Potassium 4.0 3.9 Chloride 107 109 H Carbon Dioxide 26 25 Anion Gap 12 11 L BUN 15 15 Creatinine 0.90 0.88 Estim Creat Clear Calc 72.0 73.9 Estimated GFR > 60 > 60 Random Glucose 104 88 Calcium 9.9 9.8 Imaging Radiology Impressions: ITS Impressions Chest X-Ray 05/09/25 13:41 IMPRESSION: 1. Findings suggestive of COPD. 2. Left base segmental opacity suggestive of pneumonia. No definite effusion. 3. Probable mild atelectasis right base. Electronically signed by: Thomas Hills MD 05/09/2025 01:50 PM [facility] [place] Medications Current Medications Acetaminophen (Acetaminophen 325 Mg Tablet) 650 mg PO Q6H PRN PRN Reason: Headache/Pain, Scale 1-10 Last Admin: 05/09/25 09:23 Dose: 650 mg Al Hydroxide/Mg Hydroxide (Magnesium Hydrox/Alum Hydrox 30 Ml Oral.Susp) 30 ml PO Q6H PRN PRN Reason: Heartburn/Nausea Albuterol Sulfate (Albuterol Sulfate 90 Mcg 8 Gm Inhaler) 2 puff INHALE RQ6H PRN PRN Reason: Shortness of Breath Albuterol Sulfate (Albuterol Sulfate (0.083%) 2.5 Mg/3 Ml Vial.Neb) 2.5 mg INHALE Q6H PRN PRN Reason: Shortness of Breath/Wheezing Amoxicillin/Clavulanate Potassium (Amoxicillin/Potassium Clav 875 Mg Tablet) 875 mg PO Q12H [facility] Stop: 05/14/25 18:00 Last Admin: 05/10/25 05:57 Dose: 875 mg Azithromycin (Azithromycin 250 Mg Tablet) 250 mg PO Q24H [facility] Stop: 05/14/25 14:29 Last Admin: 05/10/25 14:45 Dose: 250 mg Benztropine Mesylate (Benztropine Mesylate 0.5 Mg Tablet) 0.5 mg PO BID PRN PRN Reason: EPS Clonidine (Clonidine 0.1 Mg Patch.Tdwk) 0.1 mg TRANSDERMA Tu@0900 [facility]; Protocol Last Admin: 05/09/25 09:26 Dose: 0.1 mg Clotrimazole (Clotrimazole 1 % Cream 15 Gm Tube) 1 appl TOPICAL BID [facility]; Protocol Last Admin: 05/10/25 09:43 Dose: 1 appl Diazepam (Diazepam 5 Mg Tablet) 10 mg PO TID [facility] Last Admin: 05/10/25 14:45 Dose: 10 mg Dicyclomine HCl (Dicyclomine Hcl 10 Mg Capsule) 10 mg PO QID PRN PRN Reason: Spasms Fluticasone/Vilanterol (Fluticasone/Vilanterol 100/25 Blst.W.Dev) 1 puff INHALE DAILY [facility] Last Admin: 05/10/25 09:43 Dose: 1 puff Gabapentin (Gabapentin 300 Mg Capsule) 300 mg PO TID [facility] Last Admin: 05/10/25 14:45 Dose: 300 mg Hydroxyzine HCl (Hydroxyzine Hcl 25 Mg Tablet) 25 mg PO Q6H PRN On Hold: 05/09/25 14:24 Resume: 05/14/25 08:00 PRN Reason: mild anxiety Last Admin: 05/09/25 09:41 Dose: 25 mg Ibuprofen (Ibuprofen 600 Mg Tablet) 600 mg PO Q8H PRN PRN Reason: moderate to severe pain Last Admin: 05/10/25 10:36 Dose: 600 mg Magnesium Hydroxide (Milk Of Magnesia 30 Ml Oral.Susp) 30 ml PO DAILY PRN PRN Reason: Constipation Melatonin (Melatonin 3 Mg Tablet) 6 mg PO BEDTIME PRN PRN Reason: Insomnia Multivitamins/Vitamin C (Multivitamin Tablet) 1 tab PO DAILY [facility] Last Admin: 05/10/25 09:45 Dose: 1 tab Nicotine (Nicotine 21 Mg Patch.Td24) 21 mg TRANSDERMA DAILY PRN PRN Reason: nicotine craving Last Admin: 05/10/25 10:37 Dose: 21 mg Nicotine Polacrilex (Nicotine Polacrilex 2 Mg Gum) 2 mg BUCCAL Q2H PRN PRN Reason: Nicotine Cravings Omeprazole (Omeprazole 40 Mg Capsule.Dr) 40 mg PO DAILY@0630 [facility] Last Admin: 05/10/25 05:57 Dose: 40 mg Ondansetron HCl (Ondansetron Odt 4 Mg Tab.Rapdis) 4 mg TRANSLINGU Q8H PRN PRN Reason: Nausea and Vomiting Quetiapine Fumarate (Quetiapine Fumarate 300 Mg Tablet) 300 mg PO BEDTIME [facility] Last Admin: 05/09/25 20:33 Dose: 300 mg Trazodone HCl (Trazodone Hcl 100 Mg Tablet) 200 mg PO BEDTIME [facility] Last Admin: 05/09/25 20:33 Dose: 200 mg Venlafaxine HCl (Venlafaxine Hcl Er 150 Mg Cap.Er.24h) 150 mg PO DAILY [facility] Last Admin: 05/10/25 09:44 Dose: 150 mg Vitamin D (Cholecalciferol (Vitamin D3) 10 Mcg Tablet) 10 mcg PO DAILY [facility] Last Admin: 05/10/25 09:45 Dose: 10 mcg Allergies Allergies Allergy/AdvReac Type Severity Reaction Status Date / Time No Known Allergies (No Known Allergy Verified 04/20/25 13:53 Allergies*) Assessment & Plan Assessment & Plan (1) MDD (major depressive disorder), recurrent episode, moderate: Status: Acute Code(s): F33.1 - Major depressive disorder, recurrent, moderate (2) Post traumatic stress disorder (PTSD): Status: Acute Code(s): F43.10 - Post-traumatic stress disorder, unspecified (3) CHELLE (generalized anxiety disorder): Status: Acute Code(s): F41.1 - Generalized anxiety disorder (4) Right rib fracture: Status: Acute Code(s): S22.31XA - Fracture of one rib, right side, initial encounter for closed fracture (5) Cognitive impairment: Status: Acute Code(s): R41.89 - Other symptoms and signs involving cognitive functions and awareness Assessment and Plan: ACL 3.2, unclear etiology of memory/cognitive impairments- recommend follow up with neurology Plan HPI: patient is a 55 years old, single Lithuanian-speaking white female with hx of MDD, CHELLE, PTSD disorders, right rib fracture, COPD who was recently admitted to [place] (from 03/20 to 04/20) due to worsening depression symptoms. Patient brought to [facility] on section 21 from [place] secondary to altered mental status following a fall. [facility] was contacted after patient was medically clear from [facility] ED, the facility reported that they were unable to accommodate her current needs and recommended placement in [facility] facility due to multiple falls on the unit. Formulation/clinical reasoning: AMS, increased in depressions and anxiety, multiple falls, Right rib fracture. Not functions at baseline, confused, paranoid. Given the above information, patient will be benefit in psychiatric restrictive environment, on S1 for own safety, medication adjustment, and refer patient to outpatient psychiatric services for aftercare. Patient has [employer] and [facility] history. Hospital course: 04/23/25: Discontinue Topiramate- was taper down and off from Topiramate). On multiple meds that can cause AMS and fall. Down Seorquel from 500 to 400mg. Valium 10mg TID. Will work on taper down in the future. Change Cogentin 0.5mg BID to PRN Lower Trazodone 250mg at HS down to 200mg. Continue with Melatonin 6 mg Continue with Gabapentin 300 TID. 04/24/25: Meet with patient in room, she lying flat in bed. Respond to the question fast than yesterday. Better affect, appears more relax. She has concerns regarding her belongings which she thinks they are lost.b Denies SI/SIB/HI/AVH. Appear to be paranoid and confused. Knowing she is at [facility] but think she is at [facility] at first, knowing her , current month and year. Isolative, do not want to come out to dinning area for meals. Report right rib pain. Per hospitalist, patient had right side rib and nose fractures after the fall. Head CT scan negative. Question if she has brain injured hx that could affect her functions in the past. Per SW, Keila is a friend of her who is working as a nurse at [facility] and also is patient's HCP. Patient sectioned 21 from [facility] ()after the fall. could not provide needed care, therefore did not want to take her back which could be the reason why her belongings were not transferred when she sent to [facility] ED. Attempted to contact provider there for collateral regarding med changes hx and to see if her belongings are still there. Not heard back from them yet. Patient slept 7 hours last night. Will change Melatonin to PRN. Continue to monitor for AMS. Compared to on the day I saw her on Tuesday utnil today. Slightly improved with meds change. Slight with Clear thoughts 04/25: She reports severe anxiety and depression. She also reports chronic pain to lower back and bilateral lower extremities/neuropathy. Continue current treatment regimen. 04/26/25: Meet with with patient in assigned room, wearing casual attire, reports pain 9/10 when moving on ribs area. Educate patient on as needed Tylenol if she needs to take. Knowing her date of , reluctant to give location where she is at but knowing she is at [facility] at the end. Reports feeling tired rated anxiety and depression 8/10. Slowly coming to the unit for meals. Observed walking to dining area without the walker for lunch. Somewhat poor appetite but slightly improve. Denies suicidal thoughts or homicidal thoughts, and hallucinations. Slowly but slightly improved, has confused. She does not appear to be anxious, but depressed. Isolated mostly in her room, pleasant and cooperative upon approach. Continued to reduce lowered down on Seroquel from 400 to 300 at bedtime. Not albe to discuss with patient regarding med change as patient can be very overwhelmed which in turn can make anxiety worse. 04/27: continue current management and treatment plan. 04/28: continue current management and treatment plan. 04/29/25: Patient isolated herself in room, not out for meals, reports poor appetite. Reviewed the expectation moving forward that patient should be out for meals, engaged in unit activities and groups, and shower. Patient received some items/belonging from [place] which was dropped off today. Patient reported that she still missing some items like bank card. Appeared to be less confused, knowing this provider's name, knowing where she is. Able to review and discuss medication changes which this provider was not able to discuss before as patient appeared to be easily getting overwhelmed. Patient is aware that Topamax is not a on her list. Seroquel from 500 down to 200. Denies safety concerns, hallucinations, continued to be depressant anxious. Continue with medication management/adjustment. No falls. Can observe walking in room without the walker. 04/30/25: Patient got shower this morning, observed out in dinning area most of the day, attended groups as encouraged to do so yesterday. Patient also has a good visit with mom. Report she slept but feeling scattered sleep, report anxiety and depression. Ambulate using walker. Appetite slightly better compare to yesterday as she did not eat yesterday. Report pain but does not believe PRN will help, therefore she does not take any which she has not tried yet. Patient tolerates well with medication changes. Continue to monitor for mental status change, less confused but some cognitive impairment and memory issues. Self report that patient has never felt confused before. OT evaluation done. Suggested to use walker for ambulation. Clotrimazole cream BID on face. 05/01/25: Meet with patient in room, appear tired and slept after breakfast. Compliant with meds, denies side effects. Slept for 8 hours. Medication titration does not affect her sleep or mood so far. Ambulate safe with walker. No falls Discuss to further medication titration which still start on BZD-Valium. Explained rationale for the taper. Patient reports she has been taking Valium for 36 years, it is too late to fix if any damange, negative effects on her brain functions. However, patient is not arguing if dose is reduced and down, Pain on ribs areas a 4-5/10. Continue to encourage out of bed and attend groups later on if able to do so. Per OT, patient appears to be confused with task duing group time. In term of memory and confusion regarding surrounding, patient is more alert and awake. She is more engaged in unit activities. Had visit with mom at 1500 yesterday and a visit with her best frejodi- Keila- her HCP. Valium down from 30mg in divided dose to 25mg in devided dose. 05/02/25: Patient slept for 7 hours, compliant with medications, denies side effects. Patient did not wake up for breakfast, but for lunch per nursing. She is visible in activities area. Ambulate with walker. No falls. Review with patient regarding medication change in terms of benzo-Valium to taper down. Patient is worry about this provider will take the benzo away. Confirmed with patient that, she still has Valium, but dose will be reduced to see if it is helpful with the confusion. Patient is forgetful, not remember what this provider role is, she thinks this provider works for [facility]. Patient is confused, flat but less sedated. Appetite is improving. Patient requests to have family meeting, would like to have Keila-HCP the joint meeting if possible to get opinion of she is at baseline. He will work with social media job titles to make it happened. Possible next week. 05/03/25: Patent reports that she feels rested, appetite is fair. Mood is the same but very upset today regarding missing items from her belonging which is not a new issues. OT staff was able to help her sort it out and called HCP to cancel her bank card. Patient believes her items were stolen from [employer] and is not happy with the care received there. Per OT assessment: scored a 3.2 on the [facility] Cognitive Level Screen indicating severe cognitive functional impairment and the need for 24 hour care, 60% cognitive assistance. Pt was able to remember having taken the MoCA and also remembered her score of 10/30 having been administered by the preceding admitting facility, therefore administering the MoCA again would render it invalid. Will revisit and assess in the future. Patient is perseveration and worry about her belongings, ambulate using walker, appear to be confused and with cognitive impairment as indicated from OT assessment. Continue with BZD taper. No change in term of medications. 05/04: Continue current tx plan 05/05: Reviewed recent med changes. Will titrate quetiapine to 250 mg tonight to optimize tx of insomnia/anxiety since diazepam has also been reduced since the initial quetiapine taper. 05/06 continues to report depressed mood, passive SI but denies any plan or intent. 05/07 will increase night time dose of seroquel to 300mg po qhs. pt asking to increase dose of valium back to 10mg po TID. 05/08 will increase valium back to 10mg po TID. continue seroquel, pending collateral information from OP. 05/09 continue tx. chronic presentation, benefit of inpt admission is limited. 05/10 continue tx. plan to dc next week. Plan Patient on 5 minute checks for safety. Ambulate using walker Admitted to S1. CV. Fall Precaution. Work with treatment team to do collateral. Seen by Hospitalist on 04/23/25. On 05/03: scored a 3.2 on the [facility] Cognitive Level Screen indicating severe cognitive functional impairment and the need for 24 hour care, 60% cognitive assistance. Pt was able to remember having taken the MoCA and also remembered her score of 10/30 having been administered by the preceding admitting facility, therefore administering the MoCA again would render it invalid Reason for continued inpatient stay Substantial Risk for: inability to function Time Spent With Patient Time: Total time managing care of this patient today ____ minutes.
[2025-05-10 20:00] VITALS: BP 127/64; PULSE 91; RESP 17; TEMP 36.1; O2SAT 97
[2025-05-11 10:10] VITALS: BP 129/60; PULSE 81; RESP 16; TEMP 36.8; O2SAT 94
[2025-05-11] MEDS: Cholecalciferol (Vitamin D3) 10 MCG TABLET PO (10:11)
[2025-05-11] MEDS: Venlafaxine HCl ER 150 MG CAP.ER.24H PO (10:11)
[2025-05-11] MEDS: Fluticasone/Vilanterol 100/25 BLST.W.DEV 1 PUFF INHALE (10:11)
[2025-05-11 20:00] VITALS: BP 128/60; PULSE 80; RESP 17; TEMP 36.8; O2SAT 96
--- NOTE | 2025-05-11 20:14 | HO.PSYCHPN ---
Subjective Subjective Date of Service: 05/11/25 Reason For Visit: AMS/inc Subjective Notes: Conditional Voluntary Healthcare Proxy: Yes Guardianship: No Medical Problems Affecting Mental Status: No Interim History: Medical record and nursing notes reviewed; case discussed during rounds with team/nursing staff, and met with patient for supportive therapy/psychoeducation, as well as medication management. Meet with patient in assigned room as patient remains in bed and not got up for breakfast. She is confused and thinks this provider works for [employer] even though this provider met with her numerous time before. Report she feels restless at night, not hungry . Report high in anxiety and depression. Do not want to discuss safety I want to talk to you privately but refuses to go to other room to discuss. However, report feeling safe here and denies hallucination. Denies pain at this time. Per nursing, patient reported passive SI without plan/intent as yesterday, slept for about 7 hours. Continue to monitor for safety, walker available at bedside. Meds offered at bedside by assigned nurse this morning. Medication Compliance: Yes Side effects from medications: No Attending Groups: No Review of Systems Acute medical concerns: No Medical Review of Systems: unchanged Review of Systems Review of Systems No SOB/wheezing. No N/V. Denies pain. No coughing/ dizziness. Ambulating using walker. 05/03: scored a 3.2 on the Shiva Cognitive Level Screen indicating severe cognitive functional impairment and the need for 24 hour care, 60% cognitive assistance. Pt was able to remember having taken the MoCA and also remembered her score of 10/30 having been administered by the preceding admitting facility. Repeated MOCA last week, scored low per OT. Yes all other systems are reviewed and are negative Mental Status Exam Mental Status Exam Narrative: Appearance: casual, grooming/hygiene wnl, good eye contact Attitude:Cooperative, somewhat guarded. Motor activity: ambulates w/ walker. no tics, tremors or dyskinesias. However, at assessment time, was in bed. Speech: Fluent and wnl in regard to volume, tone, prosody Motor activity: Calm Mood: self report anxiety and depression Affect: appropriate SI: passiv SI yesterday but not disclosed today. Feeling safe here. Thought process: forgetful, confused about this provider roles/name and workplace. Thought content: WNL Perception: does not appear to respond to internal stimuli Delusions: no overt delusional content Insight/judgment: fair x 2. Memory/cog: alert, oriented x 3. ACL 3.2 Diagnostics Vital Signs (24Hr): Vital Signs - 24 hr 05/11/25 10:10 Temperature 98.3 F Pulse Rate 81 Respiratory Rate 16 Blood Pressure 129/60 Pulse Oximetry 94 Oxygen Delivery Method Room Air BMI result Body Mass Index 29.5 Labs 05/10/25 12:47 05/10/25 12:47 Labs: Laboratory Results - last 48 hr 05/10/25 12:47 WBC 10.3 RBC 4.69 Hgb 12.4 Hct 38.9 MCV 82.9 MCH 26.4 L MCHC 31.9 RDW 15.5 Plt Count 177 MPV 11.7 Immature Gran % (Auto) 0.3 Neut % (Auto) 78.0 H Lymph % (Auto) 15.2 L [place] % (Auto) 5.4 Eos % (Auto) 0.8 Baso % (Auto) 0.3 Lymph # (Auto) 1.6 [place] # (Auto) 0.6 Eos # (Auto) 0.1 Baso # (Auto) 0.0 Abs Immat Gran (auto) 0.03 Absolute Neuts (auto) 8.0 Absolute Nucleated RBC 0.000 Nucleated RBC % (auto) 0.0 Sodium 141 Potassium 3.9 Chloride 109 H Carbon Dioxide 25 Anion Gap 11 L BUN 15 Creatinine 0.88 Estim Creat Clear Calc 73.9 Estimated GFR > 60 Random Glucose 88 Calcium 9.8 Imaging Radiology Impressions: ITS Impressions Chest X-Ray 05/09/25 13:41 IMPRESSION: 1. Findings suggestive of COPD. 2. Left base segmental opacity suggestive of pneumonia. No definite effusion. 3. Probable mild atelectasis right base. Electronically signed by: Thomas Hills MD 05/09/2025 01:50 PM EST Medications Medications Current Medications Acetaminophen (Acetaminophen 325 Mg Tablet) 650 mg PO Q6H PRN PRN Reason: Headache/Pain, Scale 1-10 Last Admin: 05/09/25 09:23 Dose: 650 mg Al Hydroxide/Mg Hydroxide (Magnesium Hydrox/Alum Hydrox 30 Ml Oral.Susp) 30 ml PO Q6H PRN PRN Reason: Heartburn/Nausea Albuterol Sulfate (Albuterol Sulfate 90 Mcg 8 Gm Inhaler) 2 puff INHALE RQ6H PRN PRN Reason: Shortness of Breath Albuterol Sulfate (Albuterol Sulfate (0.083%) 2.5 Mg/3 Ml Vial.Neb) 2.5 mg INHALE Q6H PRN PRN Reason: Shortness of Breath/Wheezing Amoxicillin/Clavulanate Potassium (Amoxicillin/Potassium Clav 875 Mg Tablet) 875 mg PO Q12H [facility] Stop: 05/14/25 18:00 Last Admin: 05/11/25 16:55 Dose: 875 mg Azithromycin (Azithromycin 250 Mg Tablet) 250 mg PO Q24H [facility] Stop: 05/14/25 14:29 Last Admin: 05/11/25 14:51 Dose: 250 mg Benztropine Mesylate (Benztropine Mesylate 0.5 Mg Tablet) 0.5 mg PO BID PRN PRN Reason: EPS Clonidine (Clonidine 0.1 Mg Patch.Tdwk) 0.1 mg TRANSDERMA Tu@0900 [facility]; Protocol Last Admin: 05/09/25 09:26 Dose: 0.1 mg Clotrimazole (Clotrimazole 1 % Cream 15 Gm Tube) 1 appl TOPICAL BID [facility]; Protocol Last Admin: 05/11/25 10:15 Dose: Not Given Diazepam (Diazepam 5 Mg Tablet) 10 mg PO TID [facility] Last Admin: 05/11/25 14:51 Dose: 10 mg Dicyclomine HCl (Dicyclomine Hcl 10 Mg Capsule) 10 mg PO QID PRN PRN Reason: Spasms Fluticasone/Vilanterol (Fluticasone/Vilanterol 100/25 Blst.W.Dev) 1 puff INHALE DAILY [facility] Last Admin: 05/11/25 10:11 Dose: 1 puff Gabapentin (Gabapentin 300 Mg Capsule) 300 mg PO TID [facility] Last Admin: 05/11/25 14:51 Dose: 300 mg Hydroxyzine HCl (Hydroxyzine Hcl 25 Mg Tablet) 25 mg PO Q6H PRN On Hold: 05/09/25 14:24 Resume: 05/14/25 08:00 PRN Reason: mild anxiety Last Admin: 05/09/25 09:41 Dose: 25 mg Ibuprofen (Ibuprofen 600 Mg Tablet) 600 mg PO Q8H PRN PRN Reason: moderate to severe pain Last Admin: 05/10/25 10:36 Dose: 600 mg Magnesium Hydroxide (Milk Of Magnesia 30 Ml Oral.Susp) 30 ml PO DAILY PRN PRN Reason: Constipation Melatonin (Melatonin 3 Mg Tablet) 6 mg PO BEDTIME PRN PRN Reason: Insomnia Multivitamins/Vitamin C (Multivitamin Tablet) 1 tab PO DAILY [facility] Last Admin: 05/11/25 10:11 Dose: 1 tab Nicotine (Nicotine 21 Mg Patch.Td24) 21 mg TRANSDERMA DAILY PRN PRN Reason: nicotine craving Last Admin: 05/10/25 10:37 Dose: 21 mg Nicotine Polacrilex (Nicotine Polacrilex 2 Mg Gum) 2 mg BUCCAL Q2H PRN PRN Reason: Nicotine Cravings Omeprazole (Omeprazole 40 Mg Capsule.Dr) 40 mg PO DAILY@0630 [facility] Last Admin: 05/11/25 06:49 Dose: 40 mg Ondansetron HCl (Ondansetron Odt 4 Mg Tab.Rapdis) 4 mg TRANSLINGU Q8H PRN PRN Reason: Nausea and Vomiting Quetiapine Fumarate (Quetiapine Fumarate 300 Mg Tablet) 300 mg PO BEDTIME [facility] Last Admin: 05/10/25 20:46 Dose: 300 mg Trazodone HCl (Trazodone Hcl 100 Mg Tablet) 200 mg PO BEDTIME [facility] Last Admin: 05/10/25 20:45 Dose: 200 mg Venlafaxine HCl (Venlafaxine Hcl Er 150 Mg Cap.Er.24h) 150 mg PO DAILY [facility] Last Admin: 05/11/25 10:11 Dose: 150 mg Vitamin D (Cholecalciferol (Vitamin D3) 10 Mcg Tablet) 10 mcg PO DAILY [facility] Last Admin: 05/11/25 10:11 Dose: 10 mcg Allergies Allergies Allergy/AdvReac Type Severity Reaction Status Date / Time No Known Allergies (No Known Allergy Verified 04/20/25 13:53 Allergies*) Assessment & Plan Assessment & Plan (1) MDD (major depressive disorder), recurrent episode, moderate: Status: Acute Code(s): F33.1 - Major depressive disorder, recurrent, moderate (2) Post traumatic stress disorder (PTSD): Status: Acute Code(s): F43.10 - Post-traumatic stress disorder, unspecified (3) CHELLE (generalized anxiety disorder): Status: Acute Code(s): F41.1 - Generalized anxiety disorder (4) Right rib fracture: Status: Acute Code(s): S22.31XA - Fracture of one rib, right side, initial encounter for closed fracture (5) Cognitive impairment: Status: Acute Code(s): R41.89 - Other symptoms and signs involving cognitive functions and awareness Assessment and Plan: ACL 3.2, unclear etiology of memory/cognitive impairments- recommend follow up with neurology Plan HPI: patient is a 55 years old, single Czech-speaking white female with hx of MDD, CHELLE, PTSD disorders, right rib fracture, COPD who was recently admitted to [facility] (from 03/20 to 04/20) due to worsening depression symptoms. Patient brought to [facility] on section 21 from [facility] secondary to altered mental status following a fall. [facility] was contacted after patient was medically clear from [facility] ED, the facility reported that they were unable to accommodate her current needs and recommended placement in long-term facility due to multiple falls on the unit. Formulation/clinical reasoning: AMS, increased in depressions and anxiety, multiple falls, Right rib fracture. Not functions at baseline, confused, paranoid. Given the above information, patient will be benefit in psychiatric restrictive environment, on S1 for own safety, medication adjustment, and refer patient to outpatient psychiatric services for aftercare. Patient has [employer] and [facility] history. Hospital course: 04/23/25: Discontinue Topiramate- was taper down and off from Topiramate). On multiple meds that can cause AMS and fall. Down Seorquel from 500 to 400mg. Valium 10mg TID. Will work on taper down in the future. Change Cogentin 0.5mg BID to PRN Lower Trazodone 250mg at HS down to 200mg. Continue with Melatonin 6 mg Continue with Gabapentin 300 TID. 04/24/25: Meet with patient in room, she lying flat in bed. Respond to the question fast than yesterday. Better affect, appears more relax. She has concerns regarding her belongings which she thinks they are lost.b Denies SI/SIB/HI/AVH. Appear to be paranoid and confused. Knowing she is at [facility] but think she is at [facility] at first, knowing her , current month and year. Isolative, do not want to come out to dinning area for meals. Report right rib pain. Per hospitalist, patient had right side rib and nose fractures after the fall. Head CT scan negative. Question if she has brain injured hx that could affect her functions in the past. Per SW, Keila is a friend of her who is working as a nurse at [facility] and also is patient's HCP. Patient sectioned 21 from [facility] ()after the fall. [facility] could not provide needed care, therefore did not want to take her back which could be the reason why her belongings were not transferred when she sent to [facility] ED. Attempted to contact provider there for collateral regarding med changes hx and to see if her belongings are still there. Not heard back from them yet. Patient slept 7 hours last night. Will change Melatonin to PRN. Continue to monitor for AMS. Compared to on the day I saw her on Tuesday utnil today. Slightly improved with meds change. Slight with Clear thoughts 04/25: She reports severe anxiety and depression. She also reports chronic pain to lower back and bilateral lower extremities/neuropathy. Continue current treatment regimen. 04/26/25: Meet with with patient in assigned room, wearing casual attire, reports pain 9/10 when moving on ribs area. Educate patient on as needed Tylenol if she needs to take. Knowing her date of , reluctant to give location where she is at but knowing she is at [facility] at the end. Reports feeling tired rated anxiety and depression 8/10. Slowly coming to the unit for meals. Observed walking to dining area without the walker for lunch. Somewhat poor appetite but slightly improve. Denies suicidal thoughts or homicidal thoughts, and hallucinations. Slowly but slightly improved, has confused. She does not appear to be anxious, but depressed. Isolated mostly in her room, pleasant and cooperative upon approach. Continued to reduce lowered down on Seroquel from 400 to 300 at bedtime. Not albe to discuss with patient regarding med change as patient can be very overwhelmed which in turn can make anxiety worse. 04/27: continue current management and treatment plan. 04/28: continue current management and treatment plan. 04/29/25: Patient isolated herself in room, not out for meals, reports poor appetite. Reviewed the expectation moving forward that patient should be out for meals, engaged in unit activities and groups, and shower. Patient received some items/belonging from [facility] which was dropped off today. Patient reported that she still missing some items like bank card. Appeared to be less confused, knowing this provider's name, knowing where she is. Able to review and discuss medication changes which this provider was not able to discuss before as patient appeared to be easily getting overwhelmed. Patient is aware that Topamax is not a on her list. Seroquel from 500 down to 200. Denies safety concerns, hallucinations, continued to be depressant anxious. Continue with medication management/adjustment. No falls. Can observe walking in room without the walker. 04/30/25: Patient got shower this morning, observed out in dinning area most of the day, attended groups as encouraged to do so yesterday. Patient also has a good visit with mom. Report she slept but feeling scattered sleep, report anxiety and depression. Ambulate using walker. Appetite slightly better compare to yesterday as she did not eat yesterday. Report pain but does not believe PRN will help, therefore she does not take any which she has not tried yet. Patient tolerates well with medication changes. Continue to monitor for mental status change, less confused but some cognitive impairment and memory issues. Self report that patient has never felt confused before. OT evaluation done. Suggested to use walker for ambulation. Clotrimazole cream BID on face. 05/01/25: Meet with patient in room, appear tired and slept after breakfast. Compliant with meds, denies side effects. Slept for 8 hours. Medication titration does not affect her sleep or mood so far. Ambulate safe with walker. No falls Discuss to further medication titration which still start on BZD-Valium. Explained rationale for the taper. Patient reports she has been taking Valium for 36 years, it is too late to fix if any damange, negative effects on her brain functions. However, patient is not arguing if dose is reduced and down, Pain on ribs areas a 4-5/10. Continue to encourage out of bed and attend groups later on if able to do so. Per OT, patient appears to be confused with task duing group time. In term of memory and confusion regarding surrounding, patient is more alert and awake. She is more engaged in unit activities. Had visit with mom at 1500 yesterday and a visit with her best freind- Keila- her HCP. Valium down from 30mg in divided dose to 25mg in devided dose. 05/02/25: Patient slept for 7 hours, compliant with medications, denies side effects. Patient did not wake up for breakfast, but for lunch per nursing. She is visible in activities area. Ambulate with walker. No falls. Review with patient regarding medication change in terms of benzo-Valium to taper down. Patient is worry about this provider will take the benzo away. Confirmed with patient that, she still has Valium, but dose will be reduced to see if it is helpful with the confusion. Patient is forgetful, not remember what this provider role is, she thinks this provider works for [employer] [facility] [employer]. Patient is confused, flat but less sedated. Appetite is improving. Patient requests to have family meeting, would like to have Keila-HCP the joint meeting if possible to get opinion of she is at baseline. He will work with delinquency prevention social worker to make it happened. Possible next week. 05/03/25: Patent reports that she feels rested, appetite is fair. Mood is the same but very upset today regarding missing items from her belonging which is not a new issues. OT staff was able to help her sort it out and called HCP to cancel her bank card. Patient believes her items were stolen from [facility] and is not happy with the care received there. Per OT assessment: scored a 3.2 on the Shiva Cognitive Level Screen indicating severe cognitive functional impairment and the need for 24 hour care, 60% cognitive assistance. Pt was able to remember having taken the MoCA and also remembered her score of 10/30 having been administered by the preceding admitting facility, therefore administering the MoCA again would render it invalid. Will revisit and assess in the future. Patient is perseveration and worry about her belongings, ambulate using walker, appear to be confused and with cognitive impairment as indicated from OT assessment. Continue with BZD taper. No change in term of medications. 05/04: Continue current tx plan 05/05: Reviewed recent med changes. Will titrate quetiapine to 250 mg tonight to optimize tx of insomnia/anxiety since diazepam has also been reduced since the initial quetiapine taper. 05/06 continues to report depressed mood, passive SI but denies any plan or intent. 05/07 will increase night time dose of seroquel to 300mg po qhs. pt asking to increase dose of valium back to 10mg po TID. 05/08 will increase valium back to 10mg po TID. continue seroquel, pending collateral information from OP. 05/09 continue tx. chronic presentation, benefit of inpt admission is limited. 05/10 continue tx. plan to dc next week. 05/11/25: Meet with patient in assigned room as patient remains in bed and not got up for breakfast. She is confused and thinks this provider works for [employer] even though this provider met with her numerous time before. Report she feels restless at night, not hungry . Report high in anxiety and depression. Do not want to discuss safety I want to talk to you privately but refuses to go to other room to discuss. However, report feeling safe here and denies hallucination. Denies pain at this time. Per nursing, patient reported passive SI without plan/intent as yesterday, slept for about 7 hours. Continue to monitor for safety, walker available at bedside. Meds offered at bedside by assigned nurse this morning. No cough during encounter. Continue with ABT and Inhaler PRN for pneumonia. Plan Patient on 5 minute checks for safety. Ambulate using walker Admitted to S1. CV. Fall Precaution. Work with treatment team to do collateral. Seen by Hospitalist on 04/23/25. On 05/03: scored a 3.2 on the Shiva Cognitive Level Screen indicating severe cognitive functional impairment and the need for 24 hour care, 60% cognitive assistance. Pt was able to remember having taken the MoCA and also remembered her score of 10/30 having been administered by the preceding admitting facility, therefore administering the MoCA again would render it invalid Patient educated on: diagnosis, medication risk/benefits and therapeutic strategies Informed Consent: further education needed Reason for continued inpatient stay Substantial Risk for: med/psych decompensation Time Spent With Patient Time: Total time managing care of this patient today ____ minutes.
[2025-05-12 08:20] VITALS: BP 121/60; PULSE 73; RESP 16; TEMP 36.6; O2SAT 95
[2025-05-12] MEDS: Fluticasone/Vilanterol 100/25 BLST.W.DEV 1 PUFF INHALE (09:04)
[2025-05-12] MEDS: Clotrimazole 1 % Cream 15 GM TUBE 1 APPL TOPICAL (09:04)
[2025-05-12] MEDS: Venlafaxine HCl ER 150 MG CAP.ER.24H PO (09:05)
[2025-05-12] MEDS: Cholecalciferol (Vitamin D3) 10 MCG TABLET PO (09:05)
[2025-05-12 20:00] VITALS: BP 129/60; PULSE 77; RESP 16; TEMP 36.3; O2SAT 97
--- NOTE | 2025-05-12 22:54 | HO.PSYCHPN ---
Subjective Subjective Date of Service: 05/12/25 Reason For Visit: AMS/inc Subjective Notes: Conditional Voluntary Healthcare Proxy: Yes Guardianship: No Medical Problems Affecting Mental Status: No Interim History: Medical record and nursing notes reviewed; case discussed during rounds with team/nursing staff, and met with patient for supportive therapy/psychoeducation, as well as medication management. Patient ambulates the soliman using walker, reports passive SI without plan/intent but denies SIB/HI/AVH. She says this is the worse time of my life . She continues with topic of missing belongings/items from [facility] and that the worse experience there. Patient able to recall that this provider talked to her in her room yesterday morning. Per nursing, patient does not eat breakfast as usual, compliant with meds, denies side effect, slept for 7 hours, fair appetite. Medication Compliance: Yes Side effects from medications: No Attending Groups: Intermittent Review of Systems Acute medical concerns: No Medical Review of Systems: unchanged Review of Systems Review of Systems No SOB/wheezing. No N/V. Denies pain. No coughing/ dizziness. Ambulating using walker. 05/03: scored a 3.2 on the Shiva Cognitive Level Screen indicating severe cognitive functional impairment and the need for 24 hour care, 60% cognitive assistance. Pt was able to remember having taken the MoCA and also remembered her score of 10/30 having been administered by the preceding admitting facility. Repeated MOCA last week, scored low per OT. Yes all other systems are reviewed and are negative Mental Status Exam Mental Status Exam Narrative: Appearance: casual, grooming/hygiene wnl, good eye contact Attitude:Cooperative Motor activity: ambulates w/ walker. no tics, tremors or dyskinesias. Speech: Fluent and wnl in regard to volume, tone, prosody Motor activity: Calm Mood: self report anxiety and depression Affect: appropriate SI: passive SI Feeling safe here. Thought process: forgetful, confused about this provider roles/name and workplace. Thought content: WNL Perception: does not appear to respond to internal stimuli but may have paranoid thought. Delusions: no overt delusional content Insight/judgment: fair x 2. Memory/cog: alert, oriented x 3. ACL 3.2 Diagnostics Vital Signs (24Hr): Vital Signs - 24 hr 05/12/25 08:20 05/12/25 20:00 Temperature 97.9 F 97.4 F Pulse Rate 73 77 Respiratory Rate 16 16 Blood Pressure 121/60 129/60 Pulse Oximetry 95 97 Oxygen Delivery Method Room Air Room Air BMI result Body Mass Index 29.5 Labs 05/10/25 12:47 05/10/25 12:47 Imaging Radiology Impressions: ITS Impressions Chest X-Ray 05/09/25 13:41 IMPRESSION: 1. Findings suggestive of COPD. 2. Left base segmental opacity suggestive of pneumonia. No definite effusion. 3. Probable mild atelectasis right base. Electronically signed by: Thomas Hills MD 05/09/2025 01:50 PM [facility] Medications Medications Current Medications Acetaminophen (Acetaminophen 325 Mg Tablet) 650 mg PO Q6H PRN PRN Reason: Headache/Pain, Scale 1-10 Last Admin: 05/09/25 09:23 Dose: 650 mg Al Hydroxide/Mg Hydroxide (Magnesium Hydrox/Alum Hydrox 30 Ml Oral.Susp) 30 ml PO Q6H PRN PRN Reason: Heartburn/Nausea Albuterol Sulfate (Albuterol Sulfate 90 Mcg 8 Gm Inhaler) 2 puff INHALE RQ6H PRN PRN Reason: Shortness of Breath Albuterol Sulfate (Albuterol Sulfate (0.083%) 2.5 Mg/3 Ml Vial.Neb) 2.5 mg INHALE Q6H PRN PRN Reason: Shortness of Breath/Wheezing Amoxicillin/Clavulanate Potassium (Amoxicillin/Potassium Clav 875 Mg Tablet) 875 mg PO Q12H [facility] Stop: 05/14/25 18:00 Last Admin: 05/12/25 17:26 Dose: 875 mg Azithromycin (Azithromycin 250 Mg Tablet) 250 mg PO Q24H [facility] Stop: 05/14/25 14:29 Last Admin: 05/12/25 14:46 Dose: 250 mg Benztropine Mesylate (Benztropine Mesylate 0.5 Mg Tablet) 0.5 mg PO BID PRN PRN Reason: EPS Clonidine (Clonidine 0.1 Mg Patch.Tdwk) 0.1 mg TRANSDERMA Tu@0900 [facility]; Protocol Last Admin: 05/09/25 09:26 Dose: 0.1 mg Clotrimazole (Clotrimazole 1 % Cream 15 Gm Tube) 1 appl TOPICAL BID [facility]; Protocol Last Admin: 05/12/25 20:49 Dose: Not Given Diazepam (Diazepam 5 Mg Tablet) 10 mg PO TID [facility] Last Admin: 05/12/25 20:46 Dose: 10 mg Dicyclomine HCl (Dicyclomine Hcl 10 Mg Capsule) 10 mg PO QID PRN PRN Reason: Spasms Fluticasone/Vilanterol (Fluticasone/Vilanterol 100/25 Blst.W.Dev) 1 puff INHALE DAILY [facility] Last Admin: 05/12/25 09:04 Dose: 1 puff Gabapentin (Gabapentin 300 Mg Capsule) 300 mg PO TID [facility] Last Admin: 05/12/25 20:46 Dose: 300 mg Hydroxyzine HCl (Hydroxyzine Hcl 25 Mg Tablet) 25 mg PO Q6H PRN On Hold: 05/09/25 14:24 Resume: 05/14/25 08:00 PRN Reason: mild anxiety Last Admin: 05/09/25 09:41 Dose: 25 mg Ibuprofen (Ibuprofen 600 Mg Tablet) 600 mg PO Q8H PRN PRN Reason: moderate to severe pain Last Admin: 05/10/25 10:36 Dose: 600 mg Magnesium Hydroxide (Milk Of Magnesia 30 Ml Oral.Susp) 30 ml PO DAILY PRN PRN Reason: Constipation Melatonin (Melatonin 3 Mg Tablet) 6 mg PO BEDTIME PRN PRN Reason: Insomnia Multivitamins/Vitamin C (Multivitamin Tablet) 1 tab PO DAILY [facility] Last Admin: 05/12/25 09:05 Dose: 1 tab Nicotine (Nicotine 21 Mg Patch.Td24) 21 mg TRANSDERMA DAILY PRN PRN Reason: nicotine craving Last Admin: 05/10/25 10:37 Dose: 21 mg Nicotine Polacrilex (Nicotine Polacrilex 2 Mg Gum) 2 mg BUCCAL Q2H PRN PRN Reason: Nicotine Cravings Omeprazole (Omeprazole 40 Mg Capsule.Dr) 40 mg PO DAILY@0630 [facility] Last Admin: 05/12/25 06:41 Dose: 40 mg Ondansetron HCl (Ondansetron Odt 4 Mg Tab.Rapdis) 4 mg TRANSLINGU Q8H PRN PRN Reason: Nausea and Vomiting Quetiapine Fumarate (Quetiapine Fumarate 300 Mg Tablet) 300 mg PO BEDTIME [facility] Last Admin: 05/12/25 20:46 Dose: 300 mg Trazodone HCl (Trazodone Hcl 100 Mg Tablet) 200 mg PO BEDTIME [facility] Last Admin: 05/12/25 20:46 Dose: 200 mg Venlafaxine HCl (Venlafaxine Hcl Er 150 Mg Cap.Er.24h) 150 mg PO DAILY [facility] Last Admin: 05/12/25 09:05 Dose: 150 mg Vitamin D (Cholecalciferol (Vitamin D3) 10 Mcg Tablet) 10 mcg PO DAILY [facility] Last Admin: 05/12/25 09:05 Dose: 10 mcg Allergies Allergies Allergy/AdvReac Type Severity Reaction Status Date / Time No Known Allergies (No Known Allergy Verified 04/20/25 13:53 Allergies*) Assessment & Plan Assessment & Plan (1) MDD (major depressive disorder), recurrent episode, moderate: Status: Acute Code(s): F33.1 - Major depressive disorder, recurrent, moderate (2) Post traumatic stress disorder (PTSD): Status: Acute Code(s): F43.10 - Post-traumatic stress disorder, unspecified (3) CHELLE (generalized anxiety disorder): Status: Acute Code(s): F41.1 - Generalized anxiety disorder (4) Right rib fracture: Status: Acute Code(s): S22.31XA - Fracture of one rib, right side, initial encounter for closed fracture (5) Cognitive impairment: Status: Acute Code(s): R41.89 - Other symptoms and signs involving cognitive functions and awareness Assessment and Plan: ACL 3.2, unclear etiology of memory/cognitive impairments- recommend follow up with neurology Plan HPI: patient is a 55 years old, single Estonian-speaking white female with hx of MDD, CHELLE, PTSD disorders, right rib fracture, COPD who was recently admitted to [facility] (from 03/20 to 04/20) due to worsening depression symptoms. Patient brought to [facility] on section 21 from [facility] secondary to altered mental status following a fall. [facility] was contacted after patient was medically clear from [facility] ED, the facility reported that they were unable to accommodate her current needs and recommended placement in group home facility due to multiple falls on the unit. Formulation/clinical reasoning: AMS, increased in depressions and anxiety, multiple falls, Right rib fracture. Not functions at baseline, confused, paranoid. Given the above information, patient will be benefit in psychiatric restrictive environment, on S1 for own safety, medication adjustment, and refer patient to outpatient psychiatric services for aftercare. Patient has [employer] and [facility] history. Hospital course: 04/23/25: Discontinue Topiramate- was taper down and off from Topiramate). On multiple meds that can cause AMS and fall. Down Seorquel from 500 to 400mg. Valium 10mg TID. Will work on taper down in the future. Change Cogentin 0.5mg BID to PRN Lower Trazodone 250mg at HS down to 200mg. Continue with Melatonin 6 mg Continue with Gabapentin 300 TID. 04/24/25: Meet with patient in room, she lying flat in bed. Respond to the question fast than yesterday. Better affect, appears more relax. She has concerns regarding her belongings which she thinks they are lost.b Denies SI/SIB/HI/AVH. Appear to be paranoid and confused. Knowing she is at [facility] but think she is at [facility] at first, knowing her , current month and year. Isolative, do not want to come out to dinning area for meals. Report right rib pain. Per hospitalist, patient had right side rib and nose fractures after the fall. Head CT scan negative. Question if she has brain injured hx that could affect her functions in the past. Per SW, Keila is a friend of her who is working as a nurse at [facility] and also is patient's HCP. Patient sectioned 21 from [facility] ()after the fall. could not provide needed care, therefore did not want to take her back which could be the reason why her belongings were not transferred when she sent to [facility] ED. Attempted to contact provider there for collateral regarding med changes hx and to see if her belongings are still there. Not heard back from them yet. Patient slept 7 hours last night. Will change Melatonin to PRN. Continue to monitor for AMS. Compared to on the day I saw her on Tuesday utnil today. Slightly improved with meds change. Slight with Clear thoughts 04/25: She reports severe anxiety and depression. She also reports chronic pain to lower back and bilateral lower extremities/neuropathy. Continue current treatment regimen. 04/26/25: Meet with with patient in assigned room, wearing casual attire, reports pain 03/13 when moving on ribs area. Educate patient on as needed Tylenol if she needs to take. Knowing her date of , reluctant to give location where she is at but knowing she is at [facility] at the end. Reports feeling tired rated anxiety and depression 02/10. Slowly coming to the unit for meals. Observed walking to dining area without the walker for lunch. Somewhat poor appetite but slightly improve. Denies suicidal thoughts or homicidal thoughts, and hallucinations. Slowly but slightly improved, has confused. She does not appear to be anxious, but depressed. Isolated mostly in her room, pleasant and cooperative upon approach. Continued to reduce lowered down on Seroquel from 400 to 300 at bedtime. Not albe to discuss with patient regarding med change as patient can be very overwhelmed which in turn can make anxiety worse. 04/27: continue current management and treatment plan. 04/28: continue current management and treatment plan. 04/29/25: Patient isolated herself in room, not out for meals, reports poor appetite. Reviewed the expectation moving forward that patient should be out for meals, engaged in unit activities and groups, and shower. Patient received some items/belonging from [email or web address] which was dropped off today. Patient reported that she still missing some items like bank card. Appeared to be less confused, knowing this provider's name, knowing where she is. Able to review and discuss medication changes which this provider was not able to discuss before as patient appeared to be easily getting overwhelmed. Patient is aware that Topamax is not a on her list. Seroquel from 500 down to 200. Denies safety concerns, hallucinations, continued to be depressant anxious. Continue with medication management/adjustment. No falls. Can observe walking in room without the walker. 04/30/25: Patient got shower this morning, observed out in dinning area most of the day, attended groups as encouraged to do so yesterday. Patient also has a good visit with mom. Report she slept but feeling scattered sleep, report anxiety and depression. Ambulate using walker. Appetite slightly better compare to yesterday as she did not eat yesterday. Report pain but does not believe PRN will help, therefore she does not take any which she has not tried yet. Patient tolerates well with medication changes. Continue to monitor for mental status change, less confused but some cognitive impairment and memory issues. Self report that patient has never felt confused before. OT evaluation done. Suggested to use walker for ambulation. Clotrimazole cream BID on face. 05/01/25: Meet with patient in room, appear tired and slept after breakfast. Compliant with meds, denies side effects. Slept for 8 hours. Medication titration does not affect her sleep or mood so far. Ambulate safe with walker. No falls Discuss to further medication titration which still start on BZD-Valium. Explained rationale for the taper. Patient reports she has been taking Valium for 36 years, it is too late to fix if any damange, negative effects on her brain functions. However, patient is not arguing if dose is reduced and down, Pain on ribs areas a 4-11/10. Continue to encourage out of bed and attend groups later on if able to do so. Per OT, patient appears to be confused with task duing group time. In term of memory and confusion regarding surrounding, patient is more alert and awake. She is more engaged in unit activities. Had visit with mom at 1500 yesterday and a visit with her best anil Pedraza- her HCP. Valium down from 30mg in divided dose to 25mg in devided dose. 05/02/25: Patient slept for 7 hours, compliant with medications, denies side effects. Patient did not wake up for breakfast, but for lunch per nursing. She is visible in activities area. Ambulate with walker. No falls. Review with patient regarding medication change in terms of benzo-Valium to taper down. Patient is worry about this provider will take the benzo away. Confirmed with patient that, she still has Valium, but dose will be reduced to see if it is helpful with the confusion. Patient is forgetful, not remember what this provider role is, she thinks this provider works for [facility]. Patient is confused, flat but less sedated. Appetite is improving. Patient requests to have family meeting, would like to have Keila-HCP the joint meeting if possible to get opinion of she is at baseline. He will work with social media content manager to make it happened. Possible next week. 05/03/25: Patent reports that she feels rested, appetite is fair. Mood is the same but very upset today regarding missing items from her belonging which is not a new issues. OT staff was able to help her sort it out and called HCP to cancel her bank card. Patient believes her items were stolen from [facility] and is not happy with the care received there. Per OT assessment: scored a 3.2 on the Shiva Cognitive Level Screen indicating severe cognitive functional impairment and the need for 24 hour care, 60% cognitive assistance. Pt was able to remember having taken the MoCA and also remembered her score of 10/30 having been administered by the preceding admitting facility, therefore administering the MoCA again would render it invalid. Will revisit and assess in the future. Patient is perseveration and worry about her belongings, ambulate using walker, appear to be confused and with cognitive impairment as indicated from OT assessment. Continue with BZD taper. No change in term of medications. 05/04: Continue current tx plan 05/05: Reviewed recent med changes. Will titrate quetiapine to 250 mg tonight to optimize tx of insomnia/anxiety since diazepam has also been reduced since the initial quetiapine taper. 05/06 continues to report depressed mood, passive SI but denies any plan or intent. 05/07 will increase night time dose of seroquel to 300mg po qhs. pt asking to increase dose of valium back to 10mg po TID. 05/08 will increase valium back to 10mg po TID. continue seroquel, pending collateral information from OP. 05/09 continue tx. chronic presentation, benefit of inpt admission is limited. 05/10 continue tx. plan to dc next week. 05/11/25: Meet with patient in assigned room as patient remains in bed and not got up for breakfast. She is confused and thinks this provider works for [facility] even though this provider met with her numerous time before. Report she feels restless at night, not hungry . Report high in anxiety and depression. Do not want to discuss safety I want to talk to you privately but refuses to go to other room to discuss. However, report feeling safe here and denies hallucination. Denies pain at this time. Per nursing, patient reported passive SI without plan/intent as yesterday, slept for about 7 hours. Continue to monitor for safety, walker available at bedside. Meds offered at bedside by assigned nurse this morning. No cough during encounter. Continue with ABT and Inhaler PRN for pneumonia. 05/12/25: Patient ambulates the soliman using walker, reports passive SI without plan/intent but denies SIB/HI/AVH. She says this is the worse time of my life . She continues with topic of missing belongings/items from [facility] and that the worse experience there. Patient able to recall that this provider talked to her in her room yesterday morning. Per nursing, patient does not eat breakfast as usual, compliant with meds, denies side effect, slept for 7 hours, fair appetite. Plan Patient on 5 minute checks for safety. Ambulate using walker Admitted to S1. CV. Fall Precaution. Work with treatment team to do collateral. Seen by Hospitalist on 04/23/25. On 05/03: scored a 3.2 on the Shiva Cognitive Level Screen indicating severe cognitive functional impairment and the need for 24 hour care, 60% cognitive assistance. Pt was able to remember having taken the MoCA and also remembered her score of 10/30 having been administered by the preceding admitting facility, therefore administering the MoCA again would render it invalid Patient educated on: diagnosis, medication risk/benefits and therapeutic strategies Informed Consent: understands and further education needed Reason for continued inpatient stay Substantial Risk for: med/psych decompensation Time Spent With Patient Time: Total time managing care of this patient today ____ minutes.
[2025-05-13 08:00] VITALS: BP 115/57; PULSE 80; RESP 18; TEMP 36.8; O2SAT 92
--- NOTE | 2025-05-13 08:31 | P.PNIM_ITS ---
Subjective Subjective Date of Service: 05/13/25 Interval History: Patient seen for follow up pneumonia. Patient reports that she feels better, WBC normalized. On exam she continues to report right sided rib pain. Encouraged splinting. Patient otherwise feels well, denies any shortness of breath, dizziness, lightheadedness, chest pain or other concerning symptoms. Review of Systems Denies any shortness of breath, chest pain, palpitations, dizziness, lightheadedness, headaches, dysuria, abdominal pain or discomfort, nausea, vomiting or diarrhea. Denies chills or fever. Physical Exam 2 Exam: Exam: Alert and oriented X3, calm and cooperative. Answers questions. Neuro: CN II-X11 intact, no deficits, visual acuity intact EYES: PERRLA, EOM intact ENT: Hearing intact, MMM Cardiac: S1 S2 RRR, No ectopy Pulmonary: lungs clear to auscultation, No increased WOB. Abdominal: BS active in all 4 quadrants, no guarding or tenderness MSK: Strength 5/5 upper and lower extremities : Deferred Extremities: No edema in lower extremities Psych: Mood stable, Quiet and cooperative. Skin: Warm and dry, Intact Vital Signs: Vital Signs: Last Vital Signs Temp 97.4 F 05/12/25 20:00 Pulse 77 05/12/25 20:00 Resp 16 05/12/25 20:00 BP 129/60 05/12/25 20:00 Pulse Ox 97 05/12/25 20:00 O2 Del Method Room Air 05/12/25 20:00 BMI result Body Mass Index 29.5 Objective Data Active Medications Acetaminophen (Acetaminophen 325 Mg Tablet) 650 mg PO Q6H PRN PRN Reason: Headache/Pain, Scale 1-10 Last Admin: 05/09/25 09:23 Dose: 650 mg Documented By: HUSAM Al Hydroxide/Mg Hydroxide (Magnesium Hydrox/Alum Hydrox 30 Ml Oral.Susp) 30 ml PO Q6H PRN PRN Reason: Heartburn/Nausea Albuterol Sulfate (Albuterol Sulfate 90 Mcg 8 Gm Inhaler) 2 puff INHALE RQ6H PRN PRN Reason: Shortness of Breath Albuterol Sulfate (Albuterol Sulfate (0.083%) 2.5 Mg/3 Ml Vial.Neb) 2.5 mg INHALE Q6H PRN PRN Reason: Shortness of Breath/Wheezing Amoxicillin/Clavulanate Potassium (Amoxicillin/Potassium Clav 875 Mg Tablet) 875 mg PO Q12H [facility] Stop: 05/14/25 18:00 Last Admin: 05/13/25 06:00 Dose: 875 mg Documented By: MEMO Azithromycin (Azithromycin 250 Mg Tablet) 250 mg PO Q24H [facility] Stop: 05/14/25 14:29 Last Admin: 05/12/25 14:46 Dose: 250 mg Documented By: ONUR Benztropine Mesylate (Benztropine Mesylate 0.5 Mg Tablet) 0.5 mg PO BID PRN PRN Reason: EPS Clonidine (Clonidine 0.1 Mg Patch.Tdwk) 0.1 mg TRANSDERMA Tu@0900 [facility]; Protocol Last Admin: 05/09/25 09:26 Dose: 0.1 mg Documented By: HUSAM Clotrimazole (Clotrimazole 1 % Cream 15 Gm Tube) 1 appl TOPICAL BID [facility]; Protocol Last Admin: 05/12/25 20:49 Dose: Not Given Documented By: MEMO Non-Admin Reason: Patient Refused Diazepam (Diazepam 5 Mg Tablet) 10 mg PO TID [facility] Last Admin: 05/12/25 20:46 Dose: 10 mg Documented By: MEMO Dicyclomine HCl (Dicyclomine Hcl 10 Mg Capsule) 10 mg PO QID PRN PRN Reason: Spasms Fluticasone/Vilanterol (Fluticasone/Vilanterol 100/25 Blst.W.Dev) 1 puff INHALE DAILY [facility] Last Admin: 05/12/25 09:04 Dose: 1 puff Documented By: ONUR Gabapentin (Gabapentin 300 Mg Capsule) 300 mg PO TID [facility] Last Admin: 05/12/25 20:46 Dose: 300 mg Documented By: MEMO Hydroxyzine HCl (Hydroxyzine Hcl 25 Mg Tablet) 25 mg PO Q6H PRN On Hold: 05/09/25 14:24 Resume: 05/14/25 08:00 PRN Reason: mild anxiety Last Admin: 05/09/25 09:41 Dose: 25 mg Documented By: HUSAM Ibuprofen (Ibuprofen 600 Mg Tablet) 600 mg PO Q8H PRN PRN Reason: moderate to severe pain Last Admin: 05/10/25 10:36 Dose: 600 mg Documented By: ONUR Magnesium Hydroxide (Milk Of Magnesia 30 Ml Oral.Susp) 30 ml PO DAILY PRN PRN Reason: Constipation Melatonin (Melatonin 3 Mg Tablet) 6 mg PO BEDTIME PRN PRN Reason: Insomnia Multivitamins/Vitamin C (Multivitamin Tablet) 1 tab PO DAILY [facility] Last Admin: 05/12/25 09:05 Dose: 1 tab Documented By: ONUR Nicotine (Nicotine 21 Mg Patch.Td24) 21 mg TRANSDERMA DAILY PRN PRN Reason: nicotine craving Last Admin: 05/10/25 10:37 Dose: 21 mg Documented By: ONUR Nicotine Polacrilex (Nicotine Polacrilex 2 Mg Gum) 2 mg BUCCAL Q2H PRN PRN Reason: Nicotine Cravings Omeprazole (Omeprazole 40 Mg Capsule.Dr) 40 mg PO DAILY@0630 [facility] Last Admin: 05/13/25 06:00 Dose: 40 mg Documented By: MEMO Ondansetron HCl (Ondansetron Odt 4 Mg Tab.Rapdis) 4 mg TRANSLINGU Q8H PRN PRN Reason: Nausea and Vomiting Quetiapine Fumarate (Quetiapine Fumarate 300 Mg Tablet) 300 mg PO BEDTIME [facility] Last Admin: 05/12/25 20:46 Dose: 300 mg Documented By: MEMO Trazodone HCl (Trazodone Hcl 100 Mg Tablet) 200 mg PO BEDTIME [facility] Last Admin: 05/12/25 20:46 Dose: 200 mg Documented By: MEMO Venlafaxine HCl (Venlafaxine Hcl Er 150 Mg Cap.Er.24h) 150 mg PO DAILY [facility] Last Admin: 05/12/25 09:05 Dose: 150 mg Documented By: ONUR Vitamin D (Cholecalciferol (Vitamin D3) 10 Mcg Tablet) 10 mcg PO DAILY [facility] Last Admin: 05/12/25 09:05 Dose: 10 mcg Documented By: ONUR Labs 05/13/25 08:48 05/13/25 08:48 Assessment and Plan (1) Right rib fracture: Status: Acute Plan 55-year-old female presented to emergency department from [place] for evaluation of altered mentation. She is admitted for inpatient psychiatric care. Patient is being seen today for reported fever and general malaise yesterday. MDD/GERD/PTSD Treatment per psychiatric team Recent nasal bone fractures/recent fracture left 5th rib Pain management with Tylenol and Motrin. Will add Lidoderm. No surgical interventions needed for nasal bone fractures, we will need to follow up with ENT outpatient if needed Left lower lobe pneumonia Status post azithromycin and Augmentin No leukocytosis-resolved COPD Continue Breo and albuterol as needed Not in acute exacerbation No hypoxia Encouraged deep breathing, out of bed daily, frequent ambulation Vitamin-D deficiency Continue vitamin-D supplementation GERD Continue omeprazole Thank you for allowing me to participate in the care of this patient. Will follow with you, please notify medical provider with any changes in condition or concerns. Quality Stroke Does the patient have a stroke diagnosis?: No VTE Prior VTE?: No VTE Risk Level:: Medical - low VTE Device Contraindication: Treatment Not Indicated VTE Drug Contraindication: Treatment Not Indicated
[2025-05-13] MEDS: Venlafaxine HCl ER 150 MG CAP.ER.24H PO (09:00)
[2025-05-13] MEDS: Cholecalciferol (Vitamin D3) 10 MCG TABLET PO (09:00)
[2025-05-13] MEDS: Fluticasone/Vilanterol 100/25 BLST.W.DEV 1 PUFF INHALE (09:01)
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
[2025-05-13 09:04] LABS: MANUAL DIFF FLAG NO
[2025-05-13] MEDS: Clotrimazole 1 % Cream 15 GM TUBE 1 APPL TOPICAL (09:04)
[2025-05-13 09:07] LABS: Hematocrit 38.9 % (37.0-47.0); Hemoglobin 12.2 g/dl (12.0-16.0); Imm Gran Abs Auto 0.05 X10*3/uL (0.00-0.03); Imm Gran Pct Auto 0.7 % (0.0-0.4); Lymphocytes Absolute Auto 1.7 X10*3/uL (1.2-4.9); Mean Corpuscular HGB Conc 31.4 g/dl (31.0-35.0); Mean Corpuscular Hemoglobin 26.2 pg (27.0-33.0); Mean Corpuscular Volume 83.7 fL (80.0-98.0); NRBC Abs Auto 0.000 X10*3/uL (0.0-0.012); NRBC Pct Auto 0.0 /100WBC (0.0-0.2); Platelet Count 211 X10*3/uL (160-400); Red Blood Count 4.65 X10*6/uL (4.20-5.50); White Blood Count 7.4 X10*3/uL (4.8-10.8)
[2025-05-13 09:20] LABS: Anion Gap 13 (12-20); Blood Urea Nitrogen 17 mg/dL (9-16); Calcium 10.2 mg/dL (8.4-10.2); Carbon Dioxide 26 mmol/L (22-29); Chloride 109 mmol/L (96-108); Creatinine Clr Calc Pharmacy 71.4; Estimated Glomerular Filt Rate > 60; Potassium 4.2 mmol/L (3.3-5.1); Sodium 144 mmol/L (135-145)
[2025-05-13 20:00] VITALS: BP 126/69; PULSE 92; RESP 18; TEMP 36.9; O2SAT 93
[2025-05-14 08:00] VITALS: BP 109/53; PULSE 70; RESP 16; TEMP 36.2; O2SAT 94
[2025-05-14] MEDS: cloNIDine 0.1 MG PATCH.TDWK TRANSDERMA (08:53)
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
[2025-05-14] MEDS: Cholecalciferol (Vitamin D3) 10 MCG TABLET PO (08:55)
[2025-05-14] MEDS: Fluticasone/Vilanterol 100/25 BLST.W.DEV 1 PUFF INHALE (08:56)
[2025-05-14] MEDS: Venlafaxine HCl ER 150 MG CAP.ER.24H PO (08:56)
[2025-05-14 20:00] VITALS: BP 110/56; PULSE 79; RESP 18; TEMP 36.7; O2SAT 95
[2025-05-15 08:25] VITALS: BP 110/61; PULSE 71; RESP 18; TEMP 36.6; O2SAT 94
[2025-05-15] MEDS: Cholecalciferol (Vitamin D3) 10 MCG TABLET PO (08:52)
[2025-05-15] MEDS: Venlafaxine HCl ER 150 MG CAP.ER.24H PO (08:52)
--- NOTE | 2025-05-15 16:33 | P.PNPSI_ITS ---
Subjective Subjective Date of Service: 05/15/25 Reason For Visit: AMS/inc Subjective Notes: Conditional Voluntary Interim History: Pt sleeping through the night. She continues to present with depressed mood, which is chronic. No SI/HI. She has been visible and social with select peers. Future oriented and brighter affect than reported mood.Memory problems evident as unable to remember prior conversations about her belonging and fact that staff had sta with her to show her what came from the hospital. Medication Compliance: Yes Mental Status Exam Mental Status Exam Narrative: Appearance: casual, grooming/hygiene wnl, good eye contact Attitude:Cooperative Motor activity: ambulates w/ walker. no tics, tremors or dyskinesias. Speech: Fluent and wnl in regard to volume, tone, prosody Motor activity: Calm Mood: self report anxiety and depression Affect: appropriate SI: passive SI Feeling safe here. Thought process: forgetful, confused about this provider roles/name and workplace. Thought content: WNL Perception: does not appear to respond to internal stimuli but may have paranoid thought. Delusions: no overt delusional content Insight/judgment: fair x 2. Memory/cog: alert, oriented x 3. ACL 3.2 Diagnostics Vital Signs (24Hr): Vital Signs - 24 hr 05/14/25 20:00 05/15/25 08:25 Temperature 98.1 F 97.9 F Pulse Rate 79 71 Respiratory Rate 18 18 Blood Pressure 110/56 L 110/61 Pulse Oximetry 95 94 Oxygen Delivery Method Room Air Room Air BMI result Body Mass Index 29.5 Labs 05/13/25 08:48 05/13/25 08:48 Imaging Radiology Impressions: ITS Impressions Chest X-Ray 05/09/25 13:41 IMPRESSION: 1. Findings suggestive of COPD. 2. Left base segmental opacity suggestive of pneumonia. No definite effusion. 3. Probable mild atelectasis right base. Electronically signed by: Thomas Hills MD 05/09/2025 01:50 PM [facility] Medications Medications Current Medications Acetaminophen (Acetaminophen 325 Mg Tablet) 650 mg PO Q6H PRN PRN Reason: Headache/Pain, Scale 1-10 Last Admin: 05/09/25 09:23 Dose: 650 mg Al Hydroxide/Mg Hydroxide (Magnesium Hydrox/Alum Hydrox 30 Ml Oral.Susp) 30 ml PO Q6H PRN PRN Reason: Heartburn/Nausea Albuterol Sulfate (Albuterol Sulfate 90 Mcg 8 Gm Inhaler) 2 puff INHALE RQ6H PRN PRN Reason: Shortness of Breath Benztropine Mesylate (Benztropine Mesylate 0.5 Mg Tablet) 0.5 mg PO BID PRN PRN Reason: EPS Clonidine (Clonidine 0.1 Mg Patch.Tdwk) 0.1 mg TRANSDERMA Tu@0900 [facility]; Protocol Last Admin: 05/14/25 08:53 Dose: 0.1 mg Clotrimazole (Clotrimazole 1 % Cream 15 Gm Tube) 1 appl TOPICAL BID [facility]; Protocol Last Admin: 05/15/25 08:51 Dose: Not Given Diazepam (Diazepam 5 Mg Tablet) 10 mg PO TID [facility] Last Admin: 05/15/25 14:45 Dose: 10 mg Dicyclomine HCl (Dicyclomine Hcl 10 Mg Capsule) 10 mg PO QID PRN PRN Reason: Spasms Fluticasone/Vilanterol (Fluticasone/Vilanterol 100/25 Blst.W.Dev) 1 puff INHALE DAILY [facility] Last Admin: 05/15/25 08:51 Dose: Not Given Gabapentin (Gabapentin 300 Mg Capsule) 300 mg PO TID [facility] Last Admin: 05/15/25 14:45 Dose: 300 mg Hydroxyzine HCl (Hydroxyzine Hcl 25 Mg Tablet) 25 mg PO Q6H PRN PRN Reason: mild anxiety Last Admin: 05/09/25 09:41 Dose: 25 mg Ibuprofen (Ibuprofen 600 Mg Tablet) 600 mg PO Q8H PRN PRN Reason: moderate to severe pain Last Admin: 05/10/25 10:36 Dose: 600 mg Lidocaine (Lidocaine 4 % Patch Adh..Patch) 1 patch TRANSDERMA DAILY [facility]; Protocol Last Admin: 05/15/25 08:51 Dose: Not Given Magnesium Hydroxide (Milk Of Magnesia 30 Ml Oral.Susp) 30 ml PO DAILY PRN PRN Reason: Constipation Melatonin (Melatonin 3 Mg Tablet) 6 mg PO BEDTIME PRN PRN Reason: Insomnia Multivitamins/Vitamin C (Multivitamin Tablet) 1 tab PO DAILY [facility] Last Admin: 05/15/25 08:53 Dose: 1 tab Nicotine (Nicotine 21 Mg Patch.Td24) 21 mg TRANSDERMA DAILY PRN PRN Reason: nicotine craving Last Admin: 05/10/25 10:37 Dose: 21 mg Nicotine Polacrilex (Nicotine Polacrilex 2 Mg Gum) 2 mg BUCCAL Q2H PRN PRN Reason: Nicotine Cravings Omeprazole (Omeprazole 40 Mg Capsule.Dr) 40 mg PO DAILY@0630 [facility] Last Admin: 05/15/25 05:39 Dose: 40 mg Ondansetron HCl (Ondansetron Odt 4 Mg Tab.Rapdis) 4 mg TRANSLINGU Q8H PRN PRN Reason: Nausea and Vomiting Quetiapine Fumarate (Quetiapine Fumarate 300 Mg Tablet) 300 mg PO BEDTIME [facility] Last Admin: 05/14/25 20:07 Dose: 300 mg Trazodone HCl (Trazodone Hcl 100 Mg Tablet) 200 mg PO BEDTIME [facility] Last Admin: 05/14/25 20:07 Dose: 200 mg Venlafaxine HCl (Venlafaxine Hcl Er 150 Mg Cap.Er.24h) 150 mg PO DAILY [facility] Last Admin: 05/15/25 08:52 Dose: 150 mg Vitamin D (Cholecalciferol (Vitamin D3) 10 Mcg Tablet) 10 mcg PO DAILY [facility] Last Admin: 05/15/25 08:52 Dose: 10 mcg Allergies Allergies Allergy/AdvReac Type Severity Reaction Status Date / Time No Known Allergies (No Known Allergy Verified 04/20/25 13:53 Allergies*) Assessment & Plan Assessment & Plan (1) MDD (major depressive disorder), recurrent episode, moderate: Status: Acute Code(s): F33.1 - Major depressive disorder, recurrent, moderate (2) Post traumatic stress disorder (PTSD): Status: Acute Code(s): F43.10 - Post-traumatic stress disorder, unspecified (3) CHELLE (generalized anxiety disorder): Status: Acute Code(s): F41.1 - Generalized anxiety disorder (4) Right rib fracture: Status: Acute Code(s): S22.31XA - Fracture of one rib, right side, initial encounter for closed fracture (5) Cognitive impairment: Status: Acute Code(s): R41.89 - Other symptoms and signs involving cognitive functions and awareness Assessment and Plan: ACL 3.2, unclear etiology of memory/cognitive impairments- recommend follow up with neurology Plan HPI: patient is a 55 years old, single [place]er-speaking white female with hx of MDD, CHELLE, PTSD disorders, right rib fracture, COPD who was recently admitted to [facility] (from 03/20 to 04/20) due to worsening depression symptoms. [place] [facility] [facility] secondary to altered mental status following a fall. [facility] was contacted after patient was medically clear from [facility], the facility reported that they were unable to accommodate her current needs and recommended placement in nursing home facility due to multiple falls on the unit. Formulation/clinical reasoning: AMS, increased in depressions and anxiety, multiple falls, Right rib fracture. Not functions at baseline, confused, paranoid. Given the above information, patient will be benefit in psychiatric restrictive environment, on S1 for own safety, medication adjustment, and refer patient to outpatient psychiatric services for aftercare. Patient has [employer] and [facility] history. Hospital course: 04/23/25: Discontinue Topiramate- was taper down and off from Topiramate). On multiple meds that can cause AMS and fall. Down Seorquel from 500 to 400mg. Valium 10mg TID. Will work on taper down in the future. Change Cogentin 0.5mg BID to PRN Lower Trazodone 250mg at HS down to 200mg. Continue with Melatonin 6 mg Continue with Gabapentin 300 TID. 04/24/25: Meet with patient in room, she lying flat in bed. Respond to the question fast than yesterday. Better affect, appears more relax. She has concerns regarding her belongings which she thinks they are lost.b Denies SI/SIB/HI/AVH. Appear to be paranoid and confused. Knowing she is [place] [facility] [place] she is at [facility] at first, knowing her , current month and year. Isolative, do not want to come out to dinning area for meals. Report right rib pain. Per hospitalist, patient had right side rib and nose fractures after the fall. Head CT scan negative. Question if she has brain injured hx that could affect her functions in the past. Per SW, Keila is a friend of her who is working as a nurse at [facility] and also is patient's HCP. Patient sectioned 21 from [facility] ()after the fall. could not provide needed care, therefore did not want to take her back which could be the reason why her belongings were not transferred when she sent [place] [facility] [place] Attempted to contact provider there for collateral regarding med changes hx and to see if her belongings are still there. Not heard back from them yet. Patient slept 7 hours last night. Will change Melatonin to PRN. Continue to monitor for AMS. Compared to on the day I saw her on Tuesday utnil today. Slightly improved with meds change. Slight with Clear thoughts 04/25: She reports severe anxiety and depression. She also reports chronic pain to lower back and bilateral lower extremities/neuropathy. Continue current treatment regimen. 04/26/25: Meet with with patient in assigned room, wearing casual attire, reports pain /10 when moving on ribs area. Educate patient on as needed Tylenol if she needs to take. Knowing her date of , reluctant to give location where she is at but knowing she is at [facility] at the end. Reports feeling tired rated anxiety and depression /10. Slowly coming to the unit for meals. Observed walking to dining area without the walker for lunch. Somewhat poor appetite but slightly improve. Denies suicidal thoughts or homicidal thoughts, and hallucinations. Slowly but slightly improved, has confused. She does not appear to be anxious, but depressed. Isolated mostly in her room, pleasant and cooperative upon approach. Continued to reduce lowered down on Seroquel from 400 to 300 at bedtime. Not albe to discuss with patient regarding med change as patient can be very overwhelmed which in turn can make anxiety worse. 04/27: continue current management and treatment plan. 04/28: continue current management and treatment plan. 04/29/25: Patient isolated herself in room, not out for meals, reports poor appetite. Reviewed the expectation moving forward that patient should be out for meals, engaged in unit activities and groups, and shower. Patient received some items/belonging from [employer] which was dropped off today. Patient reported that she still missing some items like bank card. Appeared to be less confused, knowing this provider's name, knowing where she is. Able to review and discuss medication changes which this provider was not able to discuss before as patient appeared to be easily getting overwhelmed. Patient is aware that Topamax is not a on her list. Seroquel from 500 down to 200. Denies safety concerns, hallucinations, continued to be depressant anxious. Continue with medication management/adjustment. No falls. Can observe walking in room without the walker. 04/30/25: Patient got shower this morning, observed out in dinning area most of the day, attended groups as encouraged to do so yesterday. Patient also has a good visit with mom. Report she slept but feeling scattered sleep, report anxiety and depression. Ambulate using walker. Appetite slightly better compare to yesterday as she did not eat yesterday. Report pain but does not believe PRN will help, therefore she does not take any which she has not tried yet. Patient tolerates well with medication changes. Continue to monitor for mental status change, less confused but some cognitive impairment and memory issues. Self report that patient has never felt confused before. OT evaluation done. Suggested to use walker for ambulation. Clotrimazole cream BID on face. 05/01/25: Meet with patient in room, appear tired and slept after breakfast. Compliant with meds, denies side effects. Slept for 8 hours. Medication titration does not affect her sleep or mood so far. Ambulate safe with walker. No falls Discuss to further medication titration which still start on BZD-Valium. Explained rationale for the taper. Patient reports she has been taking Valium for 36 years, it is too late to fix if any damange, negative effects on her brain functions. However, patient is not arguing if dose is reduced and down, Pain on ribs areas a 4-5/10. Continue to encourage out of bed and attend groups later on if able to do so. Per OT, patient appears to be confused with task duing group time. In term of memory and confusion regarding surrounding, patient is more alert and awake. She is more engaged in unit activities. Had visit with mom at 1500 yesterday and a visit with her best anil Pedraza- her HCP. Valium down from 30mg in divided dose to 25mg in devided dose. 05/02/25: Patient slept for 7 hours, compliant with medications, denies side effects. Patient did not wake up for breakfast, but for lunch per nursing. She is visible in activities area. Ambulate with walker. No falls. Review with patient regarding medication change in terms of benzo-Valium to taper down. Patient is worry about this provider will take the benzo away. Confirmed with patient that, she still has Valium, but dose will be reduced to see if it is helpful with the confusion. Patient is forgetful, not remember what this provider role is, she thinks this provider works for [facility]. Patient is confused, flat but less sedated. Appetite is improving. Patient requests to have family meeting, would like to have Keila-HCP the joint meeting if possible to get opinion of she is at baseline. He will work with transition social worker to make it happened. Possible next week. 05/03/25: Patent reports that she feels rested, appetite is fair. Mood is the same but very upset today regarding missing items from her belonging which is not a new issues. OT staff was able to help her sort it out and called HCP to cancel her bank card. Patient believes her items were stolen from [facility] and is not happy with the care received there. Per OT assessment: scored a 3.2 on the [facility] Cognitive Level Screen indicating severe cognitive functional impairment and the need for 24 hour care, 60% cognitive assistance. Pt was able to remember having taken the MoCA and also remembered her score of 10/30 having been administered by the preceding admitting facility, therefore administering the MoCA again would render it invalid. Will revisit and assess in the future. Patient is perseveration and worry about her belongings, ambulate using walker, appear to be confused and with cognitive impairment as indicated from OT assessment. Continue with BZD taper. No change in term of medications. 05/04: Continue current tx plan 05/05: Reviewed recent med changes. Will titrate quetiapine to 250 mg tonight to optimize tx of insomnia/anxiety since diazepam has also been reduced since the initial quetiapine taper. 05/06 continues to report depressed mood, passive SI but denies any plan or intent. 05/07 will increase night time dose of seroquel to 300mg po qhs. pt asking to increase dose of valium back to 10mg po TID. 05/08 will increase valium back to 10mg po TID. continue seroquel, pending collateral information from OP. 05/09 continue tx. chronic presentation, benefit of inpt admission is limited. 05/10 continue tx. plan to dc next week. 05/11/25: Meet with patient in assigned room as patient remains in bed and not got up for breakfast. She is confused and thinks this provider works for [facility] even though this provider met with her numerous time before. Report she feels restless at night, not hungry . Report high in anxiety and depression. Do not want to discuss safety I want to talk to you privately but refuses to go to other room to discuss. However, report feeling safe here and denies hallucination. Denies pain at this time. Per nursing, patient reported passive SI without plan/intent as yesterday, slept for about 7 hours. Continue to monitor for safety, walker available at bedside. Meds offered at bedside by assigned nurse this morning. No cough during encounter. Continue with ABT and Inhaler PRN for pneumonia. 05/12/25: Patient ambulates the soliman using walker, reports passive SI without plan/intent but denies SIB/HI/AVH. She says this is the worse time of my life . She continues with topic of missing belongings/items from [facility] and that the worse experience there. Patient able to recall that this provider talked to her in her room yesterday morning. Per nursing, patient does not eat breakfast as usual, compliant with meds, denies side effect, slept for 7 hours, fair appetite. 05/13 continue tx. baseline depression. No SI. plan to d/c this coming . 05/14 continue tx. plan to dc on 05/16/2505/15 continue tx. plan to dc 05/16 Plan Patient on 5 minute checks for safety. Ambulate using walker Admitted to S1. CV. Fall Precaution. Work with treatment team to do collateral. Seen by Hospitalist on 04/23/25. On 05/03: scored a 3.2 on the [facility] Cognitive Level Screen indicating severe cognitive functional impairment and the need for 24 hour care, 60% cognitive assistance. Pt was able to remember having taken the MoCA and also remembered her score of 10/30 having been administered by the preceding admitting facility, therefore administering the MoCA again would render it invalid Reason for continued inpatient stay Substantial Risk for: inability to function Time Spent With Patient Time: Total time managing care of this patient today ____ minutes.
[2025-05-15 20:00] VITALS: BP 130/65; PULSE 77; RESP 16; TEMP 36.7; O2SAT 96
[2025-05-15] MEDS: Clotrimazole 1 % Cream 15 GM TUBE 1 APPL TOPICAL (20:51)
[2025-05-16 08:00] VITALS: BP 92/47; PULSE 71; RESP 16; TEMP 36.7; O2SAT 94
[2025-05-16] MEDS: Cholecalciferol (Vitamin D3) 10 MCG TABLET PO (08:56)
[2025-05-16] MEDS: Venlafaxine HCl ER 150 MG CAP.ER.24H PO (08:56)
[2025-05-16 09:41] VITALS: BMI 29.1
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
--- NOTE | 2025-05-16 14:50 | PC.NURSE ---
Patient was alert of her discharge, reported readiness for discharge. D/C information given to the patient. Took her belongings. Left the unit at 14:47 accompanied by her [facility] worker
== END 2025-05-16 14:47 | disposition home or self-care (01) | DRG 885 ==
LOC: HO.ED 04-21 17:47 → HO.PGERI 04-22 17:53
PROVIDERS: Nurse Practitioner Family; Physician Assistant; Student in an Organized Health Care Education/Training Program; Admitting Provider Nurse Practitioner Psychiatric/Mental Health; Emergency Provider Emergency Medicine; PCP Internal Medicine; Visit Provider Nurse Practitioner Psychiatric/Mental Health
DX: F33.2 Major depressive disorder, recurrent severe without psychotic features (principal); J18.9 Pneumonia, unspecified organism; S22.31XA Fracture of one rib, right side, initial encounter for closed fracture; R45.851 Suicidal ideations; J44.0 Chronic obstructive pulmonary disease with (acute) lower respiratory infection; K21.9 Gastro-esophageal reflux disease without esophagitis; R41.9 Unspecified symptoms and signs involving cognitive functions and awareness; F43.10 Post-traumatic stress disorder, unspecified; F41.1 Generalized anxiety disorder; E55.9 Vitamin D deficiency, unspecified; W19.XXXA Unspecified fall, initial encounter; Z91.81 History of falling; R29.6 Repeated falls; Z79.51 Long term (current) use of inhaled steroids; Z79.899 Other long term (current) drug therapy
CPT/HCPCS: 36415; 70450; 71045; 71046; 80048; 80053; 80061; 80143; 80179; 80307; 81001; 82010; 82140; 82550; 82607; 82746; 82803; 83036; 83605; 83735; 84439; 84443; 84484; 85025; 85610; 93005; 94640; 99285; S9485

== ENCOUNTER → 2025-04-20 14:06 | Outpatient (BNV) | payer OTHER, SELFPAY | PROVIDERS: Emergency Provider Emergency Medicine; PCP Internal Medicine; Visit Provider Nurse Practitioner Psychiatric/Mental Health | DX: R41.82 Altered mental status, unspecified (principal) | CPT/HCPCS: 90792; 99222; 99231; 99232 ==

== ENCOUNTER → 2025-04-20 14:29 | Outpatient (BNV) | payer OTHER, SELFPAY | PROVIDERS: Emergency Provider Student in an Organized Health Care Education/Training Program; PCP Internal Medicine; Visit Provider Radiology Diagnostic Radiology | DX: R41.82 Altered mental status, unspecified (principal) | CPT/HCPCS: 70450; 71045 ==

== ENCOUNTER → 2025-04-20 14:29 | Outpatient (BNV) | payer OTHER, SELFPAY | PROVIDERS: Emergency Provider Emergency Medicine; PCP Internal Medicine; Visit Provider Internal Medicine Cardiovascular Disease | DX: R41.82 Altered mental status, unspecified (principal) | CPT/HCPCS: 93010 ==

== ENCOUNTER 2025-04-22 17:45 | Outpatient (BNV) | payer OTHER, SELFPAY | END 2025-05-09 13:41 | PROVIDERS: Admitting Provider Nurse Practitioner Psychiatric/Mental Health; Emergency Provider Emergency Medicine; PCP Internal Medicine; Visit Provider Radiology Diagnostic Radiology | DX: R91.8 Other nonspecific abnormal finding of lung field (principal) | CPT/HCPCS: 71046 ==

== ENCOUNTER → 2025-04-22 17:45 | Outpatient (BNV) | payer OTHER, SELFPAY | PROVIDERS: Admitting Provider Nurse Practitioner Psychiatric/Mental Health; Emergency Provider Emergency Medicine; PCP Internal Medicine; Visit Provider Nurse Practitioner Family | DX: S02.2XXA Fracture of nasal bones, initial encounter for closed fracture (principal) | CPT/HCPCS: 99221 ==